=== PATIENT | male | born 1950 | race Caucasian/White ===

== ENCOUNTER → 2016-06-07 | Outpatient (CLI) | payer MEDICARE ==
[2016-06-07 11:47] LABS: HEMOGLOBIN 12.4 g/dL (13.5-17.0); HGB HCT DIFFERENCE 0.2; MEAN CORPUSCULAR HEMOGLOBIN 30.9 pg (27.0-33.4); MEAN CORPUSCULAR HGB CONC 33.5 g/dL (32.0-36.0); MEAN CORPUSCULAR VOLUME 92 fl (80-97); RED BLOOD COUNT 4.02 10^6/uL (4.35-5.55); RED CELL DISTRIBUTION WIDTH 14.1 % (11.5-14.0); WHITE BLOOD COUNT 7.3 10^3/uL (4.0-10.5)
[2016-06-07 11:53] LABS: APPEARANCE,URINE SLIGHTLY-CLOUDY; BILIRUBIN,URINE NEGATIVE (NEGATIVE); GLUCOSE, URINE NEGATIVE (NEGATIVE); KETONES,URINE NEGATIVE (NEGATIVE); LEUKOCYTE ESTERASE,URINE NEGATIVE (NEGATIVE); NITRITE,URINE NEGATIVE (NEGATIVE); PROTEIN,URINE >=500 mg/dL (NEGATIVE); URINE SPECIFIC GRAVITY 1.017; UROBILINOGEN,URINE NEGATIVE mg/dL (<2.0)
[2016-06-07 12:17] LABS: ANION GAP 12 (5-19); BLOOD UREA NITROGEN 25 mg/dL (7-20); CALCIUM 10.1 mg/dL (8.4-10.2); CARBON DIOXIDE 28 mmol/L (22-30); CHLORIDE 104 mmol/L (98-107); CREATININE RESULT 1.37 mg/dL (0.52-1.25); GLUCOSE 152 mg/dL (75-110); SODIUM 144.4 mmol/L (137-145)
[2016-06-08 12:38] LABS: CREATININE URINE 94.4 mg/dL (Not Estab.)
== END ==
LOC: OD 10:55
PROVIDERS: ATTEND Internal Medicine Nephrology
DX: I12.9 Hypertensive chronic kidney disease with stage 1 through stage 4 chronic kidney disease, or unspecified chronic kidney disease (principal); N18.3 Chronic kidney disease, stage 3 (moderate); R80.9 Proteinuria, unspecified; E87.5 Hyperkalemia
CPT/HCPCS: 36415; 80048; 81001; 82570; 84156; 85027

== ENCOUNTER → 2016-07-09 | Outpatient (CLI) | payer MEDICARE ==
[2016-07-09 09:28] LABS: ABSOLUTE EOSINOPHILS # (AUTO) 0.1 10^3/uL (0.0-0.6); ABSOLUTE LYMPHOCYTES (AUTO) 1.9 10^3/uL (0.5-4.7); ABSOLUTE MONOCYTES (AUTO) 0.8 10^3/uL (0.1-1.4); ABSOLUTE NEUT (AUTO) 6.3 10^3/uL (1.7-8.2); BASOPHILS % (AUTO) 0.3 % (0-2); EOSINOPHILS % (AUTO) 1.2 % (0-6); HEMATOCRIT 36.2 % (37.9-51.0); HEMOGLOBIN 12.2 g/dL (13.5-17.0); HGB HCT DIFFERENCE 0.4; LYMPHOCYTES % (AUTO) 20.4 % (13-45); MEAN CORPUSCULAR HEMOGLOBIN 31.3 pg (27.0-33.4); MEAN CORPUSCULAR HGB CONC 33.8 g/dL (32.0-36.0); MEAN CORPUSCULAR VOLUME 93 fl (80-97); MONOCYTES % (AUTO) 9.1 % (3-13); RED CELL DISTRIBUTION WIDTH 13.9 % (11.5-14.0); WHITE BLOOD COUNT 9.1 10^3/uL (4.0-10.5)
[2016-07-09 09:31] LABS: APPEARANCE,URINE CLEAR; BILIRUBIN,URINE NEGATIVE (NEGATIVE); GLUCOSE, URINE NEGATIVE (NEGATIVE); KETONES,URINE NEGATIVE (NEGATIVE); LEUKOCYTE ESTERASE,URINE NEGATIVE (NEGATIVE); NITRITE,URINE NEGATIVE (NEGATIVE); PROTEIN,URINE >=500 mg/dL (NEGATIVE); URINE SPECIFIC GRAVITY 1.015; UROBILINOGEN,URINE NEGATIVE mg/dL (<2.0)
[2016-07-09 09:53] LABS: ALANINE AMINOTRANSFERASE 39 U/L (21-72); ALBUMIN 4.2 g/dL (3.5-5.0); ALKALINE PHOSPHATASE 82 U/L (38-126); ANION GAP 12 (5-19); ASPARTATE AMINO TRANSFERASE 25 U/L (17-59); BILIRUBIN,DIRECT 0.5 mg/dL (0.0-0.4); BILIRUBIN,TOTAL 1.1 mg/dL (0.2-1.3); BLOOD UREA NITROGEN 28 mg/dL (7-20); C-REACTIVE PROTEIN < 5.0 mg/L (<10.0); CALCIUM 9.9 mg/dL (8.4-10.2); CARBON DIOXIDE 27 mmol/L (22-30); CHLORIDE 107 mmol/L (98-107); CREATININE RESULT 1.57 mg/dL (0.52-1.25); GLUCOSE 101 mg/dL (75-110); SODIUM 146.4 mmol/L (137-145); TOTAL PROTEIN 6.8 g/dL (6.3-8.2)
[2016-07-09 10:05] LABS: ERYTHROCYTE SEDIMENTATION RATE 20 mm/hr (0-20)
[2016-07-09 10:08] LABS: BLOOD UREA NITROGEN 28 mg/dL (7-20); CALCIUM 9.9 mg/dL (8.4-10.2); CHLORIDE 107 mmol/L (98-107); CREATININE RESULT 1.57 mg/dL (0.52-1.25); GLUCOSE 101 mg/dL (75-110)
[2016-07-09 10:09] LABS: ANION GAP 12 (5-19); CARBON DIOXIDE 27 mmol/L (22-30); SODIUM 146.4 mmol/L (137-145)
[2016-07-10 11:40] LABS: CREATININE URINE 79.9 mg/dL (Not Estab.)
== END ==
LOC: OD 08:31
PROVIDERS: ATTEND Internal Medicine Nephrology
DX: Z79.52 Long term (current) use of systemic steroids (principal); M35.3 Polymyalgia rheumatica; E78.5 Hyperlipidemia, unspecified; N18.3 Chronic kidney disease, stage 3 (moderate); I12.9 Hypertensive chronic kidney disease with stage 1 through stage 4 chronic kidney disease, or unspecified chronic kidney disease; E11.9 Type 2 diabetes mellitus without complications; E87.5 Hyperkalemia
CPT/HCPCS: 36415; 80048; 80053; 81001; 82570; 84156; 85025; 85652; 86140

== ENCOUNTER → 2017-01-14 | Outpatient (CLI) | payer MEDICARE ==
[2017-01-14 12:23] LABS: HEMATOCRIT 35.5 % (37.9-51.0); HEMOGLOBIN 12.2 g/dL (13.5-17.0); HGB HCT DIFFERENCE 1.1; MEAN CORPUSCULAR HEMOGLOBIN 31.9 pg (27.0-33.4); MEAN CORPUSCULAR HGB CONC 34.4 g/dL (32.0-36.0); MEAN CORPUSCULAR VOLUME 93 fl (80-97); RED BLOOD COUNT 3.83 10^6/uL (4.35-5.55); RED CELL DISTRIBUTION WIDTH 12.6 % (11.5-14.0)
[2017-01-14 12:33] LABS: APPEARANCE,URINE SLIGHTLY-CLOUDY; BILIRUBIN,URINE NEGATIVE (NEGATIVE); GLUCOSE, URINE 50 mg/dL (NEGATIVE); KETONES,URINE NEGATIVE (NEGATIVE); LEUKOCYTE ESTERASE,URINE NEGATIVE (NEGATIVE); NITRITE,URINE NEGATIVE (NEGATIVE); PROTEIN,URINE >=500 mg/dL (NEGATIVE); URINE SPECIFIC GRAVITY 1.024; UROBILINOGEN,URINE NEGATIVE mg/dL (<2.0)
[2017-01-14 12:46] LABS: ANION GAP 13 (5-19); BLOOD UREA NITROGEN 27 mg/dL (7-20); CALCIUM 9.8 mg/dL (8.4-10.2); CARBON DIOXIDE 27 mmol/L (22-30); CHLORIDE 106 mmol/L (98-107); GLUCOSE 171 mg/dL (75-110); POTASSIUM 4.5 mmol/L (3.6-5.0); SODIUM 145.6 mmol/L (137-145)
[2017-01-14 12:48] LABS: URINE CREATININE 148.6 mg/dL (22-328)
[2017-01-14 13:13] LABS: URINE PROTEIN 690.3 mg/dL (<12)
== END ==
LOC: OD 11:05
PROVIDERS: ATTEND Internal Medicine Nephrology
DX: E11.22 Type 2 diabetes mellitus with diabetic chronic kidney disease (principal); I12.9 Hypertensive chronic kidney disease with stage 1 through stage 4 chronic kidney disease, or unspecified chronic kidney disease; N18.3 Chronic kidney disease, stage 3 (moderate); E87.5 Hyperkalemia
CPT/HCPCS: 36415; 80048; 81001; 82570; 84156; 85027

== ENCOUNTER 2017-02-17 13:22 | Observation (INO) | payer MEDICARE ==
[2017-02-17] MEDS ORDERED: NITROGLYCERIN 2% OINTMENT 1 GM PACKET TP ONE (13:40)
[2017-02-17] MEDS ORDERED: ASPIRIN 325 MG TABLET PO ONE (13:40)
--- NOTE | 2017-02-17 13:48 | ER Document Report ---
ED Medical Screen (RME) - General Chief Complaint: Chest Pain Stated Complaint: CHEST PAIN Time Seen by Provider: 02/17/17 13:39 Mode of Arrival: Wheelchair Information source: Patient TRAVEL OUTSIDE OF THE [place] IN LAST 30 DAYS: No - HPI Patient complains to provider of: CP Onset: This morning - pt with prior NH and stents with c/o SSCP starting earlier today. Took ASA last nite and 3 sl ntg (/old) today but pain persisted - Related Data Allergies/Adverse Reactions: acetaminophen [From Vicodin] Allergy (Verified 07/30/13 12:36) codeine [Codeine] Allergy (Verified 07/30/13 12:36) hydrocodone bitartrate [From Vicodin] Allergy (Verified 07/30/13 12:36) Past Medical History - Past Medical History Cardiac Medical History: Reports: Hx Heart Attack - 1991, Hx Hypertension - MEDICATED Pulmonary Medical History: Denies: Hx Asthma Neurological Medical History: Denies: Hx Cerebrovascular Accident, Hx Seizures GI Medical History: Denies: Hx Hepatitis, Hx Hiatal Hernia, Hx Ulcer Infectious Medical History: Denies: Hx Hepatitis Past Surgical History: Denies: Hx Open Heart Surgery, Hx Pacemaker Physical Exam - Vital signs Vitals: Temp Pulse Resp BP Pulse Ox 98.4 F 75 20 167/80 H 96 02/17/17 13:36 02/17/17 13:36 02/17/17 13:36 02/17/17 13:36 02/17/17 13:36 Course - Vital Signs Vital signs: Temp Pulse Resp BP Pulse Ox 98.4 F 75 20 167/80 H 96 02/17/17 13:36 02/17/17 13:36 02/17/17 13:36 02/17/17 13:36 02/17/17 13:36
--- NOTE | 2017-02-17 14:15 | ER Document Report ---
ED Cardiac - General Chief Complaint: Chest Pain Stated Complaint: CHEST PAIN Time Seen by Provider: 02/17/17 13:39 Mode of Arrival: Wheelchair Information source: Patient, Relative TRAVEL OUTSIDE OF THE [place] IN LAST 30 DAYS: No - HPI Patient complains to provider of: Chest pain - Patient is a 66 year old male who presents the emergency department with left sided chest pain just inferior to his heart which started this morning around 630 after the patient woke up. Patient states it is sharp intermittent lasting seconds without radiation. He states he did take 3 sublingual nitros at home but they were old that they did not dissolve or make him feel lightheaded like they normally do. Patient denies any other symptoms with this he does say it gets worse with exertion but this is chronic and he has talked to his doctor in regards to this. Patient states he is also chronically short of breath secondary to tobacco abuse in the past and a history of COPD. Use of: denies: Alcohol, Amphetamines, Bath salts, Caffeine, Cocaine, Decongestants, Other Chest pain location: Under breast Quality of pain: Sharp, Stabbing Chest pain radiation location: None Severity now: Mild Severity at worst: Severe Chest pain precipitating factors: Physical Exertion Cardiac risk factors: Hypertension, + Family history, Hx AR - Patient has had stents placed on 2 occasions. His family thinks the last one was in 2014. His doctors are Dr. Tomas and Dr. Sampson. Exacerbated by: Activity Relieved by: NTG - She states since they put the nitroglycerin patch on him in the triage area he feels improved - Related Data Allergies/Adverse Reactions: codeine [Codeine] Allergy (Verified 07/30/13 12:36) hydrocodone bitartrate [From Vicodin] Allergy (Verified 07/30/13 12:36) Home Medications: Current Home Medications Alendronate Sodium [Fosamax 70 mg Tablet] 70 mg PO .WEEKLY 02/18/17 [History] Amlodipine Besylate [Norvasc 5 mg Tablet] 5 mg PO DAILY 02/18/17 [History] Atorvastatin Calcium [Lipitor 40 mg Tablet] 40 mg PO QHS 02/18/17 [History] B Complex W-C No.20/Folic Acid [Virt-Caps Softgel] 1 cap PO DAILY 02/18/17 [ History] Clopidogrel Bisulfate [Plavix 75 mg Tablet] 75 mg PO DAILY 02/18/17 [History] Donepezil HCl [Aricept] 10 mg PO QHS 02/18/17 [History] Glimepiride [Amaryl] 2 mg PO DAILY 02/18/17 [History] Hydralazine HCl [Apresoline 50 mg Tablet] 50 mg PO Q8 02/18/17 [History] Insulin Glargine,Hum.rec.anlog [Toujeo Solostar] 12 units SQ DAILY 02/18/17 [ History] Isosorbide Mononitrate [Isosorbide Mononitrate ER] 30 mg PO DAILY 02/18/17 [ History] Losartan Potassium [Cozaar 50 mg Tablet] 50 mg PO QHS 02/18/17 [History] Metoprolol Tartrate [Lopressor 25 mg Tablet] 25 mg PO Q12 02/18/17 [History] Omeprazole 20 mg PO Q6AM 02/18/17 [History] Prednisone [Deltasone 5 mg Tablet] 5 mg PO DAILY 02/18/17 [History] Past Medical History - General Information source: Patient, Relative - Social History Smoking Status: Former Smoker Chew tobacco use (# tins/day): No Frequency of alcohol use: None Drug Abuse: None Lives with: Family Family History: Hypertension Patient has suicidal ideation: No Patient has homicidal ideation: No - Past Medical History Cardiac Medical History: Reports: Hx Heart Attack - 1991, Hx Hypertension - MEDICATED Pulmonary Medical History: Reports: None Denies: Hx Asthma EENT Medical History: Reports: None Neurological Medical History: Reports: None. Denies: Hx Cerebrovascular Accident, Hx Seizures Endocrine Medical History: Reports: None Renal/ Medical History: Reports: Hx Renal Insufficiency. Denies: Hx Peritoneal Dialysis Malignancy Medical History: Reports None GI Medical History: Reports: Other - GERD. Denies: Hx Hepatitis, Hx Hiatal Hernia, Hx Ulcer Musculoskeltal Medical History: Reports None Skin Medical History: Reports None Psychiatric Medical History: Reports: None Infectious Medical History: Denies: Hx Hepatitis Past Surgical History: Reports: Hx Coronary Stent. Denies: Hx Open Heart Surgery, Hx Pacemaker Review of Systems - Review of Systems Constitutional: See HPI. denies: No symptoms reported, Chills, Diaphoresis, Fever, Malaise, Weakness, Other, Weight gain, Weight loss, Recent illness EENT: See HPI Cardiovascular: See HPI Respiratory: See HPI Gastrointestinal: No symptoms reported, See HPI Genitourinary: No symptoms reported Musculoskeletal: No symptoms reported Skin: No symptoms reported Hematologic/Lymphatic: No symptoms reported Neurological/Psychological: No symptoms reported Physical Exam - Vital signs Vitals: Temp Pulse Resp BP Pulse Ox 98.4 F 75 20 167/80 H 96 02/17/17 13:36 02/17/17 13:36 02/17/17 13:36 02/17/17 13:36 02/17/17 13:36 - Notes Notes: PHYSICAL EXAMINATION: GENERAL: Well-appearing, well-nourished and in no acute distress. HEAD: Atraumatic, normocephalic. EYES: Pupils equal round and reactive to light, extraocular movements intact, sclera anicteric, conjunctiva are normal. ENT: Nares patent, oropharynx clear without exudates. Moist mucous membranes. NECK: Normal range of motion, supple without lymphadenopathy LUNGS: Breath sounds clear to auscultation bilaterally and equal. No wheezes rales or rhonchi. HEART: Regular rate and rhythm without murmurs ABDOMEN: Soft, nontender, nondistended abdomen. No guarding, no rebound. No masses appreciated. Musculoskeletal: Normal range of motion, no pitting or edema. No cyanosis. NEUROLOGICAL: Cranial nerves grossly intact. Normal speech, normal gait. Normal sensory, motor exams PSYCH: Normal mood, normal affect. SKIN: Warm, Dry, normal turgor, no rashes or lesions noted. Course - Vital Signs Vital signs: Temp Pulse Resp BP Pulse Ox 98.4 F 88 19 167/90 H 99 02/18/17 13:34 02/18/17 13:34 02/18/17 13:34 02/18/17 13:34 02/18/17 13:34 - Laboratory Result Diagrams: 02/18/17 04:56 02/18/17 04:56 Laboratory results interpreted by me: 02/17/17 02/17/17 13:55 13:55 RBC 3.74 L Hgb 12.0 L Hct 34.7 L Seg Neutrophils % 82.9 H Lymphocytes % 9.2 L BUN 28 H Creatinine 1.76 H Est GFR ( Amer) 47 L Est GFR (Non-Af Amer) 39 L Glucose 255 H Direct Bilirubin 0.5 H - EKG Interpretation by Me EKG shows normal: Sinus rhythm - 84 bpm Rate: Normal - Age-indeterminate inferior infarct no acute change compared with EKG 12/15/2012 Rhythm: NSR, PVC's Discharge - Discharge Clinical Impression: Chest pain Condition: Stable Disposition: ADMITTED OBSERVATION Admitting Provider: Hospitalist - [facility] Admitted: Telemetry
[2017-02-17 14:26] LABS: ABSOLUTE EOSINOPHILS # (AUTO) 0.1 10^3/uL (0.0-0.6); ABSOLUTE LYMPHOCYTES (AUTO) 0.8 10^3/uL (0.5-4.7); ABSOLUTE MONOCYTES (AUTO) 0.5 10^3/uL (0.1-1.4); ABSOLUTE NEUT (AUTO) 7.1 10^3/uL (1.7-8.2); BASOPHILS % (AUTO) 0.3 % (0-2); EOSINOPHILS % (AUTO) 1.5 % (0-6); HEMATOCRIT 34.7 % (37.9-51.0); HGB HCT DIFFERENCE 1.3; LYMPHOCYTES % (AUTO) 9.2 % (13-45); MEAN CORPUSCULAR HEMOGLOBIN 32.2 pg (27.0-33.4); MEAN CORPUSCULAR HGB CONC 34.6 g/dL (32.0-36.0); MEAN CORPUSCULAR VOLUME 93 fl (80-97); MONOCYTES % (AUTO) 6.1 % (3-13); RED BLOOD COUNT 3.74 10^6/uL (4.35-5.55); RED CELL DISTRIBUTION WIDTH 12.6 % (11.5-14.0); SEGMENTED NEUTROPHILS % (AUTO) 82.9 % (42-78); WHITE BLOOD COUNT 8.5 10^3/uL (4.0-10.5)
--- NOTE | 2017-02-17 14:34 | RADIOLOGY REPORT (SQ) ---
EXAM DESCRIPTION: CHEST PA/LAT COMPLETED DATE/TIME: 02/17/2017 2:14 pm REASON FOR STUDY: CP COMPARISON: 01/13/2015 EXAM PARAMETERS: NUMBER OF VIEWS: two views TECHNIQUE: Digital Frontal and Lateral radiographic views of the chest acquired. RADIATION DOSE: NA LIMITATIONS: none FINDINGS: LUNGS AND PLEURA: No opacities, masses or pneumothorax. No pleural effusion. MEDIASTINUM AND HILAR STRUCTURES: No masses or contour abnormalities. HEART AND VASCULAR STRUCTURES: Heart normal size. No evidence for failure. BONES: No acute findings. HARDWARE: None in the chest. OTHER: No other significant finding. IMPRESSION: NO SIGNIFICANT RADIOGRAPHIC FINDING IN THE CHEST. TECHNICAL DOCUMENTATION: JOB ID: [id number] [employer]- All Rights Reserved
[2017-02-17 14:54] LABS: ALANINE AMINOTRANSFERASE 36 U/L (21-72); ALBUMIN 4.1 g/dL (3.5-5.0); ALKALINE PHOSPHATASE 106 U/L (38-126); ANION GAP 14 (5-19); ASPARTATE AMINO TRANSFERASE 25 U/L (17-59); BILIRUBIN,DIRECT 0.5 mg/dL (0.0-0.4); BILIRUBIN,TOTAL 0.6 mg/dL (0.2-1.3); BLOOD UREA NITROGEN 28 mg/dL (7-20); CALCIUM 9.5 mg/dL (8.4-10.2); CARBON DIOXIDE 24 mmol/L (22-30); CHLORIDE 106 mmol/L (98-107); CREATINE KINASE 82 U/L (55-170); CREATININE RESULT 1.76 mg/dL (0.52-1.25); GLUCOSE 255 mg/dL (75-110); POTASSIUM 4.5 mmol/L (3.6-5.0); SODIUM 144.4 mmol/L (137-145); TOTAL PROTEIN 6.6 g/dL (6.3-8.2)
[2017-02-17 15:05] LABS: CREATINE KINASE MB 1.37 ng/mL (<4.55)
[2017-02-17 15:10] LABS: TROPONIN I < 0.012 ng/mL
[2017-02-17] MEDS ORDERED: ACETAMINOPHEN 325 MG TABLET PO PRN (15:35)
[2017-02-17] MEDS ORDERED: ONDANSETRON HCL INJ/PF 4 MG/2 ML SDV IV PRN (15:35)
[2017-02-17] MEDS ORDERED: OXYCODONE-ACETAMINOPHEN 5-325 MG TABLET PO PRN (15:35)
[2017-02-17] MEDS ORDERED: NITROGLYCERIN 0.4 MG/TAB 25 TAB/BOTTLE SL PRN (15:43)
[2017-02-17] MEDS ORDERED: LANSOPRAZOLE 30 MG TAB.RAP.DR PO ONE (17:00)
--- NOTE | 2017-02-17 17:43 | EKG REPORT ---
SEVERITY:- ABNORMAL ECG - SINUS RHYTHM VENTRICULAR PREMATURE COMPLEX PROBABLE INFERIOR INFARCT, AGE INDETERMINATE LATERAL LEADS ARE ALSO INVOLVED : Confirmed by: Ashutosh Monaco MD 17-Feb-2017 17:41:48
[2017-02-17] MEDS: NITROGLYCERIN 2% OINTMENT 1 GM PACKET TP SCH ×2 (17:45→23:53)
[2017-02-17] MEDS ORDERED: ATORVASTATIN CALCIUM 80 MG TABLET PO SCH (22:00)
[2017-02-17] MEDS ORDERED: ZOLPIDEM TARTRATE 5 MG TABLET PO PRN (22:00)
[2017-02-17] MEDS: HEPARIN SOD (PORCINE) 5,000 UNIT/ML 1 ML SYRINGE SUBCUT SCH (22:52)
[2017-02-17] MEDS ORDERED: DEXTROSE 50%-WATER 25 GM/50 ML DISP.SYRIN IV PRN ×2 (23:00)
[2017-02-17] MEDS ORDERED: DEXTROSE 40% GEL 15 GM TUBE PO PRN ×2 (23:00)
[2017-02-17] MEDS ORDERED: GLUCAGON,HUMAN RECOMB 1 MG INJ IM PRN (23:00)
[2017-02-17] MEDS ORDERED: INSULIN LISPRO 100 UNIT/ML 3 ML VIAL SUBCUT PRN (23:00)
--- NOTE | 2017-02-17 23:07 | PDOC H&P ---
History of Present Illness Admission Date/PCP: Admission date: 02/17/2017 KIMMY MUHAMMAD PA-C Patient complains of: Chest pain since waking up History of Present Illness: MALINDA CROCKETT is a 66 year old male presents to ED accompanie by complaining of left sided chest pin off and on since 6:00 to 6:30 AM. He took some nitroglycerin sublingual which did not work. Then realized was around one year old. Was able to find another bottle and took some more with some relief. Since pain persisted prompted to come to ED. He had been suffering from similar pain and shortness of breath and was placed on Imdur recently. What really made him concerned was the prolonged duration of the pain. He has a history of diabetes, heart attack x 2. He had a cardiac arrest while undergoing stnt placement during his second heart attack. Patient denies nausea, sweatiness or radiation of pain. Due to presentation and comorbidities our service was contacted and prompted to admit for evaluation. Past Medical History Cardiac Medical History: Reports: Coronary Artery Disease, Myocardial Infarction - 1991, Hyperlipidema, Hypertension - MEDICATED, Other - arrest Pulmonary Medical History: Reports: None Denies: Asthma EENT Medical History: Reports: None Neurological Medical History: Reports: None Denies: Seizures Endocrine Medical History: Reports: Diabetes Mellitus Type 2 Renal/ Medical History: Reports: None, Chronic Kidney Disease Malignancy Medical History: Reports: None GI Medical History: Reports: Gastroesophageal Reflux Disease Denies: Hepatitis, Hiatal Hernia Musculoskeltal Medical History: Reports: None, Other - Polymyalgia rheumatica Skin Medical History: Reports: None Psychiatric Medical History: Reports: None, Dementia Traumatic Medical History: Reports: None Hematology: Denies: Anemia, Sickle Cell Disease Infectious Medical History: Reports: None Past Surgical History Past Surgical History: Reports: Coronary Stent Denies: Pacemaker Social History Information Source: Patient Lives with: Family Smoking Status: Former Smoker Frequency of Alcohol Use: None Drugs: None Hx Prescription Drug Abuse: No - Advance Directive Resuscitation Status: Full Code Family History Family History: Hypertension Parental Family History Reviewed: Yes Children Family History Reviewed: Yes Sibling(s) Family History Reviewed.: Yes Medication/Allergy Home Medications: Alendronate Sodium [Fosamax 70 mg Tablet] 1 tab PO [id number] 07/31/13 Amlodipine Besylate 1 tab PO DAILY 07/31/13 Aspirin [Ecotrin 81 mg EC Tablet] 81 mg PO DAILY 07/31/13 Atorvastatin Calcium [Lipitor 20 mg Tablet] 20 mg PO QHS 07/31/13 B Complex W-C No.20/Folic Acid [Renal Caps Softgel] 1 mg PO AC 07/31/13 Calcium Carb/Vitamin D3/Vit K1 [Calcium + Vit D & K Chew Tab] 1 tab.chew PO DAILY 07/31/13 Donepezil HCl [Aricept 5 mg Tablet] 5 mg PO DAILY 07/31/13 Glimepiride [Amaryl] 2 mg PO DAILY 07/31/13 Hydralazine HCl 50 mg PO DAILY 07/31/13 Omeprazole 20 mg PO DAILY 07/31/13 Prednisone 5 mg PO DAILY 07/31/13 Allergies/Adverse Reactions: codeine [Codeine] Allergy (Verified 07/30/13 12:36) hydrocodone bitartrate [From Vicodin] Allergy (Verified 07/30/13 12:36) Review of Systems Constitutional: ABSENT: headache(s) Eyes: ABSENT: visual disturbances Ears: ABSENT: hearing changes Cardiovascular: PRESENT: chest pain, dyspnea on exertion Respiratory: PRESENT: dyspnea Gastrointestinal: PRESENT: nausea, vomiting Neurological: ABSENT: focal weakness Physical Exam Vital Signs: Temp Pulse Resp BP Pulse Ox 98.4 F 75 16 157/80 H 95 02/17/17 13:36 02/17/17 13:36 02/17/17 15:01 02/17/17 15:01 02/17/17 15:01 Intake & Output 02/16/17 02/17/17 02/18/17 06:59 06:59 06:59 Weight 82.2 kg General appearance: PRESENT: no acute distress, cooperative Head exam: PRESENT: atraumatic, normocephalic Eye exam: PRESENT: conjunctiva pink, EOMI, PERRLA Mouth exam: PRESENT: moist, neck supple Neck exam: PRESENT: full ROM. ABSENT: JVD, tenderness Respiratory exam: PRESENT: clear to auscultation phan. ABSENT: crackles, unlabored Cardiovascular exam: PRESENT: RRR. ABSENT: diastolic murmur, systolic murmur Vascular exam: PRESENT: normal capillary refill GI/Abdominal exam: PRESENT: normal bowel sounds, soft. ABSENT: distended, tenderness Extremities exam: ABSENT: joint swelling, pedal edema Neurological exam: PRESENT: alert, oriented to person, oriented to place, oriented to time Skin exam: PRESENT: normal color Results Laboratory Results: 02/17/17 13:55 02/17/17 13:55 02/17/17 02/17/17 13:55 13:55 WBC 8.5 RBC 3.74 L Hgb 12.0 L Hct 34.7 L MCV 93 MCH 32.2 MCHC 34.6 RDW 12.6 Plt Count 239 Seg Neutrophils % 82.9 H Lymphocytes % 9.2 L Monocytes % 6.1 Eosinophils % 1.5 Basophils % 0.3 Absolute Neutrophils 7.1 Absolute Lymphocytes 0.8 Absolute Monocytes 0.5 Absolute Eosinophils 0.1 Absolute Basophils 0.0 Sodium 144.4 Potassium 4.5 Chloride 106 Carbon Dioxide 24 Anion Gap 14 BUN 28 H Creatinine 1.76 H Est GFR ( Amer) 47 L Est GFR (Non-Af Amer) 39 L Glucose 255 H Calcium 9.5 Total Bilirubin 0.6 AST 25 ALT 36 Alkaline Phosphatase 106 Total Protein 6.6 Albumin 4.1 02/17/17 02/17/17 13:55 13:55 Creatine Kinase 82 CK-MB (CK-2) 1.37 Troponin I < 0.012 Impressions: Chest X-Ray 02/17/17 13:39 IMPRESSION: NO SIGNIFICANT RADIOGRAPHIC FINDING IN THE CHEST. Assessment & Plan - Diagnosis (1) Diabetes Qualifiers: Diabetes mellitus type: type 2 Diabetes mellitus complication status: with kidney complications Is this a current diagnosis for this admission?: Yes Plan: Makes prpense to multivessel disease. To place on lispro sliding scale. Bedside glucose AC/HS (2) Chest pain Is this a current diagnosis for this admission?: Yes Plan: Will trend troponin and if negative to proceed with nuclear stress test. To order nitro paste, lipitor and BASA. (3) HTN (hypertension) Qualifiers: Hypertension type: essential hypertension Qualified Code(s): I10 - Essential (primary) hypertension Is this a current diagnosis for this admission?: Yes Plan: To continue with outpatient regimen (4) CAD (coronary artery disease) Qualifiers: Associated angina: with stable angina Is this a current diagnosis for this admission?: Yes Plan: To request heart cath report (5) Chronic kidney disease, stage 3 Plan: To trend - Time Time Spent: 30 to 50 Minutes Medications reviewed and adjusted accordingly: Yes Anticipated discharge: Home Within: within 24 hours - Inpatient Certification Based on my medical assessment, after consideration of the patient's comorbidities, presenting symptoms, or acuity I expect that the services needed warrant INPATIENT care.: No Medical Necessity: Need For Continuous Telemetry Monitoring
[2017-02-18 05:22] LABS: HEMOGLOBIN 11.7 g/dL (13.5-17.0); HGB HCT DIFFERENCE 1.1; MEAN CORPUSCULAR HEMOGLOBIN 32.1 pg (27.0-33.4); MEAN CORPUSCULAR HGB CONC 34.5 g/dL (32.0-36.0); MEAN CORPUSCULAR VOLUME 93 fl (80-97); RED BLOOD COUNT 3.66 10^6/uL (4.35-5.55); RED CELL DISTRIBUTION WIDTH 12.5 % (11.5-14.0); WHITE BLOOD COUNT 8.3 10^3/uL (4.0-10.5)
[2017-02-18 05:40] LABS: ANION GAP 12 (5-19); BLOOD UREA NITROGEN 24 mg/dL (7-20); CALCIUM 9.5 mg/dL (8.4-10.2); CARBON DIOXIDE 22 mmol/L (22-30); CHLORIDE 112 mmol/L (98-107); CREATININE RESULT 1.42 mg/dL (0.52-1.25); GLUCOSE 104 mg/dL (75-110); MAGNESIUM 1.6 mg/dL (1.6-2.3); POTASSIUM 3.8 mmol/L (3.6-5.0); SODIUM 146.3 mmol/L (137-145)
[2017-02-18] MEDS ORDERED: LANSOPRAZOLE 30 MG TAB.RAP.DR PO SCH (06:00)
[2017-02-18] MEDS: HEPARIN SOD (PORCINE) 5,000 UNIT/ML 1 ML SYRINGE SUBCUT SCH (06:47)
[2017-02-18] MEDS: NITROGLYCERIN 2% OINTMENT 1 GM PACKET TP SCH ×2 (06:47→13:47)
[2017-02-18] MEDS ORDERED: DOCUSATE SODIUM 100 MG CAPSULE PO SCH (10:00)
[2017-02-18] MEDS ORDERED: ASPIRIN 81 MG TABLET, ENT COATED PO SCH (10:00)
[2017-02-18] MEDS ORDERED: PREDNISONE 5 MG TABLET PO SCH (10:00)
[2017-02-18] MEDS ORDERED: REGADENOSON INJ 0.4 MG/5 ML DISP.SYRIN IV ONE (10:41)
[2017-02-18 13:00] VITALS: BP 167/90
--- NOTE | 2017-02-18 14:53 | PDOC DISCHARGE SUMMARY ---
General - Admit/Disc Date/PCP Admission Date/Primary Care Provider: 02/17/17 15:49 KIMMY MUHAMMAD PA-C Discharge Date: 02/18/17 - Discharge Diagnosis (1) Chest pain Is this a current diagnosis for this admission?: Yes (2) Diabetes Is this a current diagnosis for this admission?: Yes (3) HTN (hypertension) Is this a current diagnosis for this admission?: Yes (4) CAD (coronary artery disease) Is this a current diagnosis for this admission?: Yes - Additional Information Resuscitation Status: Full Code Discharge Diet: As Tolerated Discharge Activity: Activity As Tolerated Home Medications: Alendronate Sodium [Fosamax 70 mg Tablet] 70 mg PO .WEEKLY 02/18/17 Amlodipine Besylate [Norvasc 5 mg Tablet] 5 mg PO DAILY 02/18/17 Atorvastatin Calcium [Lipitor 40 mg Tablet] 40 mg PO QHS 02/18/17 B Complex W-C No.20/Folic Acid [Virt-Caps Softgel] 1 cap PO DAILY 02/18/17 Clopidogrel Bisulfate [Plavix 75 mg Tablet] 75 mg PO DAILY 02/18/17 Donepezil HCl [Aricept] 10 mg PO QHS 02/18/17 Glimepiride [Amaryl] 2 mg PO DAILY 02/18/17 Hydralazine HCl [Apresoline 50 mg Tablet] 50 mg PO Q8 02/18/17 Insulin Glargine,Hum.rec.anlog [Toujeo Solostar] 12 units SQ DAILY 02/18/17 Isosorbide Mononitrate [Isosorbide Mononitrate ER] 30 mg PO DAILY 02/18/17 Losartan Potassium [Cozaar 50 mg Tablet] 50 mg PO QHS 02/18/17 Metoprolol Tartrate [Lopressor 25 mg Tablet] 25 mg PO Q12 02/18/17 Omeprazole 20 mg PO Q6AM 02/18/17 Prednisone [Deltasone 5 mg Tablet] 5 mg PO DAILY 02/18/17 History of Present Illness History of Present Illness: MALINDA CROCKETT is a 66 year old male presented to ED accompanied by his complaining of left sided chest pain off and on since 6:00 to 6:30 AM. He took some nitroglycerin sublingual which did not work. Then realized was around one year old. Was able to find another bottle and took some more with some relief. Since pain persisted prompted to come to ED. He had been suffering from similar pain and shortness of breath and was placed on Imdur recently. What really made him concerned was the prolonged duration of the pain. He has a history of diabetes, heart attack x 2. He had a cardiac arrest while undergoing stnt placement during his second heart attack. Due to presentation and co morbidities our service was contacted and prompted to admit for evaluation. Hospital Course Hospital Course: Patient was admitted to telemetry unit. No cardiac dysrhythmias were present. Trend the enough troponin was negative. Chest pain did not recur with treatment rendered. Patient underwent nuclear stress test on the day of discharge which was negative however there were other concerns including cardiomyopathy. Patient and had been advised as to follow-up with his local straight cutter Dr. Smith for further tailoring of his medications according to current nuclear stress test findings. At the time of discharge patient was stable. Physical Exam Vital Signs: Temp Pulse Resp BP Pulse Ox 98.4 F 88 19 167/90 H 99 02/18/17 13:34 02/18/17 13:34 02/18/17 13:34 02/18/17 13:34 02/18/17 13:34 Intake & Output 02/17/17 02/18/17 02/19/17 06:59 06:59 06:59 Intake Total 450 Output Total 300 Balance 150 Weight 82 kg General appearance: PRESENT: no acute distress, cooperative, obese Head exam: PRESENT: atraumatic, normocephalic Eye exam: PRESENT: conjunctiva pink, EOMI, PERRLA Ear exam: PRESENT: normal external ear exam, TM's normal bilaterally Mouth exam: PRESENT: moist, neck supple Neck exam: PRESENT: full ROM. ABSENT: JVD, tenderness Respiratory exam: PRESENT: clear to auscultation phan. ABSENT: chest wall tenderness, crackles, wheezes Cardiovascular exam: PRESENT: RRR. ABSENT: diastolic murmur, systolic murmur Vascular exam: PRESENT: normal capillary refill GI/Abdominal exam: PRESENT: normal bowel sounds, soft. ABSENT: distended, guarding, tenderness Extremities exam: PRESENT: full ROM. ABSENT: joint swelling, pedal edema Neurological exam: PRESENT: alert, awake, oriented to person, oriented to place , oriented to time Psychiatric exam: PRESENT: appropriate affect, normal mood Results Laboratory Results: 12/04/17 04:56 02/18/17 04:56 02/18/17 02/18/17 04:56 04:56 WBC 8.3 RBC 3.66 L Hgb 11.7 L Hct 34.0 L MCV 93 MCH 32.1 MCHC 34.5 RDW 12.5 Plt Count 231 Sodium 146.3 H Potassium 3.8 Chloride 112 H Carbon Dioxide 22 Anion Gap 12 BUN 24 H Creatinine 1.42 H Est GFR ( Amer) > 60 Est GFR (Non-Af Amer) 50 L Glucose 104 Calcium 9.5 Magnesium 1.6 02/17/17 02/17/17 02/18/17 17:09 22:45 04:56 Troponin I < 0.012 0.015 0.034 Impressions: Chest X-Ray 02/17/17 13:39 IMPRESSION: NO SIGNIFICANT RADIOGRAPHIC FINDING IN THE CHEST.
--- NOTE | 2017-02-23 15:18 | DRAGON STRESS TEST REPORT ---
Intravenous Lexiscan Cardiolite stress test using single photon emmision computerized tomography. Date of procedure: 02/18/2017. Ordering Provider: Dr.Mila Tracy Patient' s status: In Patient Indication: Chest pain. Coronary risk factors: Age, diabetes mellitus, and dyslipidemia. Resting EKG: Sinus Rhythm. Left ventricular fascicuular block.No acute changes. Stress EKG: No changes of ischemia. The patient had no chest pain or discomfort and there were no EKG changes. Conclusions: Normal EKG and hemodynamic response to IV Lexiscan. Nuclear data: At rest the patient was given 12.17 millicuries of technetium 99m sestamibi injected intravenously. As per protocol rest non gated SPECT images were obtained. Subsequently the patient was given intravenous Lexiscan at a dose of 0.4 mg in 5 mL intravenously, followed by flush with normal saline. Subsequently the stress dose of 37.0 millicuries of technetium 99m sestamibi was injected intravenously. As per protocol stress gated images were obtained. Nuclear interpretation: Review of images showed there was a perfusion defect in the basal and mid inferior wall. Th areas have decreased motion contraction and thickeningese by gated study. The rest of the The rest of the l segments of the myocardium had normal perfusion at rest, and normal perfusion post stress with IV Lexiscan. segments of the myocardium had normal thickening by gated study. The rest of the segments of the myocardium had moderate global hypokinesis, with left ventricular enlargement, consistent with cardiomyopathy. T. I D. ratio was normal at 1.10. Computer read rest, and stress left ventricular ejection fraction were 40 %, and 36 %, respectively. Conclusion: 1. There is no scintigraphic evidence of Lexiscan induced myocardial ischemia. 2. There is scintigraphic evidence of myocardial infarction/scar involving the basal and mid inferior wall. 3. There is left ventricular enlargement and evidence of cardiomyopathy with moderately reduced LVE F at 36-40%. Recommendations: 1.Aggressive risk factor modification, and treating the underlying co- morbidities. 2. Aggressive treatment of coronary artery disease. 3. Please check echo for LV ejection fraction correlation. [facility]
== END 2017-02-18 13:45 | disposition home or self-care (01) ==
LOC: ER 13:22 → EH 15:49 → 4N 18:39
PROVIDERS: ADMIT Family Medicine; ATTEND Family Medicine
DX: R07.9 Chest pain, unspecified (principal); I25.119 Atherosclerotic heart disease of native coronary artery with unspecified angina pectoris; I12.9 Hypertensive chronic kidney disease with stage 1 through stage 4 chronic kidney disease, or unspecified chronic kidney disease; E11.22 Type 2 diabetes mellitus with diabetic chronic kidney disease; N18.3 Chronic kidney disease, stage 3 (moderate); E78.5 Hyperlipidemia, unspecified; I25.2 Old myocardial infarction; F03.90 Unspecified dementia, unspecified severity, without behavioral disturbance, psychotic disturbance, mood disturbance, and anxiety; M35.3 Polymyalgia rheumatica; R06.09 Other forms of dyspnea; R11.2 Nausea with vomiting, unspecified; Z79.899 Other long term (current) drug therapy; Z86.74 Personal history of sudden cardiac arrest; Z82.49 Family history of ischemic heart disease and other diseases of the circulatory system; Z87.891 Personal history of nicotine dependence; J44.9 Chronic obstructive pulmonary disease, unspecified; Z95.5 Presence of coronary angioplasty implant and graft; Z79.4 Long term (current) use of insulin
CPT/HCPCS: 93005; 99285; 36415 ×2; 82553; 82962; 82550; 83735; 85025; 85027; 80048; 80053; 84484 ×2; 83036; 93017; 71020; 78452; 93010; G0378 ×3; A9500; J2785; A9270 ×7; J3490 ×2; Q9969; J7512

== ENCOUNTER → 2017-07-15 | Outpatient (CLI) | payer MEDICARE ==
[2017-07-15 08:46] LABS: HEMATOCRIT 34.6 % (37.9-51.0); HEMOGLOBIN 11.7 g/dL (13.5-17.0); MEAN CORPUSCULAR HEMOGLOBIN 30.3 pg (27.0-33.4); MEAN CORPUSCULAR HGB CONC 33.9 g/dL (32.0-36.0); MEAN CORPUSCULAR VOLUME 90 fl (80-97); PLATELET COUNT 210 10^3/uL (150-450); RED BLOOD COUNT 3.87 10^6/uL (4.35-5.55); RED CELL DISTRIBUTION WIDTH 14.8 % (11.5-14.0); WHITE BLOOD COUNT 7.6 10^3/uL (4.0-10.5)
[2017-07-15 08:51] LABS: APPEARANCE,URINE CLEAR; BILIRUBIN,URINE NEGATIVE (NEGATIVE); COLOR,URINE YELLOW; GLUCOSE, URINE NEGATIVE (NEGATIVE); KETONES,URINE NEGATIVE (NEGATIVE); LEUKOCYTE ESTERASE,URINE NEGATIVE (NEGATIVE); NITRITE,URINE NEGATIVE (NEGATIVE); PROTEIN,URINE >=500 mg/dL (NEGATIVE); URINE SPECIFIC GRAVITY 1.012; UROBILINOGEN,URINE NEGATIVE mg/dL (<2.0)
[2017-07-15 09:08] LABS: ALANINE AMINOTRANSFERASE 38 U/L (21-72); ALBUMIN 4.2 g/dL (3.5-5.0); ALKALINE PHOSPHATASE 83 U/L (38-126); ASPARTATE AMINO TRANSFERASE 27 U/L (17-59); BILIRUBIN,DIRECT 0.4 mg/dL (0.0-0.4); BILIRUBIN,TOTAL 0.5 mg/dL (0.2-1.3); CHOLESTEROL 141.95 mg/dL (0-200); TOTAL PROTEIN 6.3 g/dL (6.3-8.2); TRIGLYCERIDES 105 mg/dL (<150)
[2017-07-15 09:09] LABS: ANION GAP 13 (5-19); BLOOD UREA NITROGEN 37 mg/dL (7-20); CARBON DIOXIDE 23 mmol/L (22-30); CHLORIDE 112 mmol/L (98-107); GLUCOSE 95 mg/dL (75-110); POTASSIUM 4.3 mmol/L (3.6-5.0); SODIUM 147.6 mmol/L (137-145)
[2017-07-15 09:19] LABS: DIRECT LDL 46 mg/dL (<100)
[2017-07-15 09:20] LABS: UR PRO/CREAT RATIO RESULT 6.3 mg/mg (0.0-0.2); URINE PROTEIN 264.1 mg/dL (<12)
== END ==
LOC: OD 07:47
PROVIDERS: ATTEND Specialist
DX: I12.9 Hypertensive chronic kidney disease with stage 1 through stage 4 chronic kidney disease, or unspecified chronic kidney disease (principal); N18.3 Chronic kidney disease, stage 3 (moderate); E11.9 Type 2 diabetes mellitus without complications; E87.5 Hyperkalemia
CPT/HCPCS: 36415; 80048; 80061; 80076; 81001; 82570; 83036; 84156; 85027

== ENCOUNTER → 2017-08-13 | Outpatient (CLI) | payer MEDICARE ==
[2017-08-13 14:41] LABS: APPEARANCE,URINE CLOUDY; BILIRUBIN,URINE NEGATIVE (NEGATIVE); GLUCOSE, URINE 50 mg/dL (NEGATIVE); KETONES,URINE NEGATIVE (NEGATIVE); LEUKOCYTE ESTERASE,URINE NEGATIVE (NEGATIVE); NITRITE,URINE NEGATIVE (NEGATIVE); PROTEIN,URINE >=500 mg/dL (NEGATIVE); URINE SPECIFIC GRAVITY 1.019; UROBILINOGEN,URINE NEGATIVE mg/dL (<2.0)
[2017-08-13 14:44] LABS: HEMATOCRIT 33.9 % (37.9-51.0); HEMOGLOBIN 11.6 g/dL (13.5-17.0); MEAN CORPUSCULAR HGB CONC 34.2 g/dL (32.0-36.0); MEAN CORPUSCULAR VOLUME 90 fl (80-97); PLATELET COUNT 224 10^3/uL (150-450); RED BLOOD COUNT 3.75 10^6/uL (4.35-5.55); RED CELL DISTRIBUTION WIDTH 14.9 % (11.5-14.0); WHITE BLOOD COUNT 9.4 10^3/uL (4.0-10.5)
[2017-08-13 14:47] LABS: COLOR,URINE YELLOW
[2017-08-13 14:50] LABS: ANION GAP 13 (5-19); BLOOD UREA NITROGEN 37 mg/dL (7-20); CALCIUM 10.1 mg/dL (8.4-10.2); CARBON DIOXIDE 20 mmol/L (22-30); CHLORIDE 110 mmol/L (98-107); GLUCOSE 157 mg/dL (75-110); POTASSIUM 4.8 mmol/L (3.6-5.0)
== END ==
LOC: OD 12:53
PROVIDERS: ATTEND Internal Medicine Nephrology
DX: E11.22 Type 2 diabetes mellitus with diabetic chronic kidney disease (principal); N18.3 Chronic kidney disease, stage 3 (moderate); R80.9 Proteinuria, unspecified
CPT/HCPCS: 36415; 80048; 81001; 85027

== ENCOUNTER → 2017-10-28 | Outpatient (CLI) | payer MEDICARE ==
[2017-10-28 12:07] LABS: HEMATOCRIT 32.6 % (37.9-51.0); HEMOGLOBIN 11.1 g/dL (13.5-17.0); MEAN CORPUSCULAR HGB CONC 34.1 g/dL (32.0-36.0); MEAN CORPUSCULAR VOLUME 91 fl (80-97); PLATELET COUNT 241 10^3/uL (150-450); RED BLOOD COUNT 3.58 10^6/uL (4.35-5.55); RED CELL DISTRIBUTION WIDTH 13.6 % (11.5-14.0); WHITE BLOOD COUNT 9.9 10^3/uL (4.0-10.5)
[2017-10-28 12:20] LABS: APPEARANCE,URINE CLOUDY; BILIRUBIN,URINE NEGATIVE (NEGATIVE); COLOR,URINE AMBER; GLUCOSE, URINE 50 mg/dL (NEGATIVE); KETONES,URINE NEGATIVE (NEGATIVE); LEUKOCYTE ESTERASE,URINE NEGATIVE (NEGATIVE); NITRITE,URINE NEGATIVE (NEGATIVE); PROTEIN,URINE >=500 mg/dL (NEGATIVE); URINE SPECIFIC GRAVITY 1.019; UROBILINOGEN,URINE NEGATIVE mg/dL (<2.0)
[2017-10-28 12:35] LABS: ANION GAP 15 (5-19); BLOOD UREA NITROGEN 44 mg/dL (7-20); CALCIUM 9.8 mg/dL (8.4-10.2); CARBON DIOXIDE 19 mmol/L (22-30); CHLORIDE 111 mmol/L (98-107); GLUCOSE 227 mg/dL (75-110); POTASSIUM 4.7 mmol/L (3.6-5.0); SODIUM 145.4 mmol/L (137-145)
[2017-10-28 12:41] LABS: URINE CREATININE 107.4 mg/dL (22-328)
[2017-10-28 12:49] LABS: UR PRO/CREAT RATIO RESULT 3.9 mg/mg (0.0-0.2); URINE PROTEIN 414.3 mg/dL (<12)
== END ==
LOC: OD 11:00
PROVIDERS: ATTEND Internal Medicine Nephrology
DX: E11.22 Type 2 diabetes mellitus with diabetic chronic kidney disease (principal); I12.9 Hypertensive chronic kidney disease with stage 1 through stage 4 chronic kidney disease, or unspecified chronic kidney disease; N18.3 Chronic kidney disease, stage 3 (moderate); R80.9 Proteinuria, unspecified
CPT/HCPCS: 36415; 80048; 81001; 82570; 84156; 85027

== ENCOUNTER → 2017-11-04 | Outpatient (CLI) | payer MEDICARE | LOC: OD 16:40 | PROVIDERS: ATTEND Internal Medicine Nephrology | DX: E11.22 Type 2 diabetes mellitus with diabetic chronic kidney disease (principal); I12.9 Hypertensive chronic kidney disease with stage 1 through stage 4 chronic kidney disease, or unspecified chronic kidney disease; N18.3 Chronic kidney disease, stage 3 (moderate); R80.9 Proteinuria, unspecified | CPT/HCPCS: 36415; 85652; 86140 ==

== ENCOUNTER → 2017-12-19 | Outpatient (CLI) | payer MEDICARE ==
[2017-12-19 09:24] LABS: ABSOLUTE BASOPHILS # (AUTO) 0.1 10^3/uL (0.0-0.2); ABSOLUTE EOSINOPHILS # (AUTO) 0.2 10^3/uL (0.0-0.6); ABSOLUTE LYMPHOCYTES (AUTO) 1.7 10^3/uL (0.5-4.7); ABSOLUTE MONOCYTES (AUTO) 0.8 10^3/uL (0.1-1.4); ABSOLUTE NEUT (AUTO) 6.3 10^3/uL (1.7-8.2); BASOPHILS % (AUTO) 0.7 % (0-2); EOSINOPHILS % (AUTO) 2.4 % (0-6); HEMATOCRIT 31.2 % (37.9-51.0); HEMOGLOBIN 10.6 g/dL (13.5-17.0); MEAN CORPUSCULAR HEMOGLOBIN 30.7 pg (27.0-33.4); MEAN CORPUSCULAR VOLUME 90 fl (80-97); PLATELET COUNT 263 10^3/uL (150-450); RED BLOOD COUNT 3.46 10^6/uL (4.35-5.55); RED CELL DISTRIBUTION WIDTH 15.4 % (11.5-14.0); SEGMENTED NEUTROPHILS % (AUTO) 68.9 % (42-78); TOTAL CELLS COUNTED % (AUTO) 100 %; WHITE BLOOD COUNT 9.1 10^3/uL (4.0-10.5)
[2017-12-19 10:10] LABS: ERYTHROCYTE SEDIMENTATION RATE 29 mm/hr (0-20)
== END ==
LOC: OD 08:05
PROVIDERS: ATTEND Internal Medicine Rheumatology
DX: M35.3 Polymyalgia rheumatica (principal); M54.5 Low back pain; Z79.899 Other long term (current) drug therapy
CPT/HCPCS: 36415; 85025; 85652; 86140

== ENCOUNTER → 2018-01-27 | Outpatient (CLI) | payer MEDICARE ==
[2018-01-27 12:17] LABS: HEMATOCRIT 33.8 % (37.9-51.0); HEMOGLOBIN 11.4 g/dL (13.5-17.0); MEAN CORPUSCULAR HEMOGLOBIN 30.2 pg (27.0-33.4); MEAN CORPUSCULAR HGB CONC 33.6 g/dL (32.0-36.0); MEAN CORPUSCULAR VOLUME 90 fl (80-97); PLATELET COUNT 229 10^3/uL (150-450); RED BLOOD COUNT 3.77 10^6/uL (4.35-5.55); RED CELL DISTRIBUTION WIDTH 15.8 % (11.5-14.0); WHITE BLOOD COUNT 10.3 10^3/uL (4.0-10.5)
[2018-01-27 12:19] LABS: APPEARANCE,URINE CLEAR; BILIRUBIN,URINE NEGATIVE (NEGATIVE); COLOR,URINE YELLOW; GLUCOSE, URINE 50 mg/dL (NEGATIVE); KETONES,URINE NEGATIVE (NEGATIVE); LEUKOCYTE ESTERASE,URINE NEGATIVE (NEGATIVE); NITRITE,URINE NEGATIVE (NEGATIVE); PROTEIN,URINE >=500 mg/dL (NEGATIVE); URINE SPECIFIC GRAVITY 1.017; UROBILINOGEN,URINE NEGATIVE mg/dL (<2.0)
[2018-01-27 12:43] LABS: ANION GAP 11 (5-19); BLOOD UREA NITROGEN 31 mg/dL (7-20); CALCIUM 9.3 mg/dL (8.4-10.2); CARBON DIOXIDE 23 mmol/L (22-30); CHLORIDE 111 mmol/L (98-107); GLUCOSE 169 mg/dL (75-110); POTASSIUM 4.7 mmol/L (3.6-5.0); SODIUM 144.9 mmol/L (137-145)
[2018-01-27 13:45] LABS: URINE CREATININE 91.7 mg/dL (22-328)
[2018-01-27 13:56] LABS: UR PRO/CREAT RATIO RESULT 5.2 mg/mg (0.0-0.2); URINE PROTEIN 477.7 mg/dL (<12)
== END ==
LOC: OD 11:11
PROVIDERS: ATTEND Internal Medicine Nephrology
DX: I12.9 Hypertensive chronic kidney disease with stage 1 through stage 4 chronic kidney disease, or unspecified chronic kidney disease (principal); E11.22 Type 2 diabetes mellitus with diabetic chronic kidney disease; N18.3 Chronic kidney disease, stage 3 (moderate); R80.9 Proteinuria, unspecified
CPT/HCPCS: 36415; 80048; 81001; 82570; 84156; 85027

== ENCOUNTER → 2018-04-07 | Outpatient (CLI) | payer MEDICARE ==
[2018-04-07 11:13] LABS: ABSOLUTE BASOPHILS # (AUTO) 0.1 10^3/uL (0.0-0.2); ABSOLUTE EOSINOPHILS # (AUTO) 0.2 10^3/uL (0.0-0.6); ABSOLUTE LYMPHOCYTES (AUTO) 1.3 10^3/uL (0.5-4.7); ABSOLUTE MONOCYTES (AUTO) 0.8 10^3/uL (0.1-1.4); ABSOLUTE NEUT (AUTO) 7.1 10^3/uL (1.7-8.2); BASOPHILS % (AUTO) 0.6 % (0-2); EOSINOPHILS % (AUTO) 2.1 % (0-6); HEMATOCRIT 33.5 % (37.9-51.0); HEMOGLOBIN 11.3 g/dL (13.5-17.0); LYMPHOCYTES % (AUTO) 13.4 % (13-45); MEAN CORPUSCULAR HEMOGLOBIN 30.2 pg (27.0-33.4); MEAN CORPUSCULAR HGB CONC 33.8 g/dL (32.0-36.0); MEAN CORPUSCULAR VOLUME 90 fl (80-97); MONOCYTES % (AUTO) 8.4 % (3-13); PLATELET COUNT 243 10^3/uL (150-450); RED BLOOD COUNT 3.74 10^6/uL (4.35-5.55); SEGMENTED NEUTROPHILS % (AUTO) 75.5 % (42-78); TOTAL CELLS COUNTED % (AUTO) 100 %; WHITE BLOOD COUNT 9.4 10^3/uL (4.0-10.5)
[2018-04-07 11:33] LABS: ANION GAP 8 (5-19); BLOOD UREA NITROGEN 40 mg/dL (7-20); CALCIUM 9.8 mg/dL (8.4-10.2); CARBON DIOXIDE 24 mmol/L (22-30); CHLORIDE 108 mmol/L (98-107); GLUCOSE 145 mg/dL (75-110); POTASSIUM 4.3 mmol/L (3.6-5.0); SODIUM 140.3 mmol/L (137-145)
[2018-04-07 11:50] LABS: FREE T3 3.76 pg/mL (2.77-5.27); FREE T4 (FREE THYROXINE) 0.92 ng/dL (0.78-2.19)
[2018-04-07 12:03] LABS: THYROID STIMULATING HORMONE 2.33 uIU/mL (0.47-4.68)
== END ==
LOC: OD 10:26
PROVIDERS: ATTEND Specialist
DX: I25.10 Atherosclerotic heart disease of native coronary artery without angina pectoris (principal); R53.83 Other fatigue; D64.9 Anemia, unspecified
CPT/HCPCS: 36415; 80048; 84439; 84443; 84481; 85025

== ENCOUNTER → 2018-04-16 | Outpatient (CLI) | payer MEDICARE ==
[2018-04-16 11:30] LABS: HEMATOCRIT 31.8 % (37.9-51.0); HEMOGLOBIN 11.1 g/dL (13.5-17.0); MEAN CORPUSCULAR HEMOGLOBIN 31.1 pg (27.0-33.4); MEAN CORPUSCULAR HGB CONC 34.8 g/dL (32.0-36.0); MEAN CORPUSCULAR VOLUME 89 fl (80-97); PLATELET COUNT 251 10^3/uL (150-450); RED BLOOD COUNT 3.56 10^6/uL (4.35-5.55); RED CELL DISTRIBUTION WIDTH 15.5 % (11.5-14.0); WHITE BLOOD COUNT 9.9 10^3/uL (4.0-10.5)
[2018-04-16 11:50] LABS: ANION GAP 11 (5-19); BLOOD UREA NITROGEN 45 mg/dL (7-20); CALCIUM 9.5 mg/dL (8.4-10.2); CARBON DIOXIDE 22 mmol/L (22-30); CHLORIDE 107 mmol/L (98-107); GLUCOSE 143 mg/dL (75-110); POTASSIUM 5.1 mmol/L (3.6-5.0)
== END ==
LOC: OD 10:39
PROVIDERS: ATTEND Internal Medicine Nephrology
DX: E11.22 Type 2 diabetes mellitus with diabetic chronic kidney disease (principal); E87.5 Hyperkalemia; N18.3 Chronic kidney disease, stage 3 (moderate)
CPT/HCPCS: 36415; 80048; 85027

== ENCOUNTER → 2018-04-23 | Outpatient (CLI) | payer MEDICARE ==
[2018-04-23 11:31] LABS: HEMATOCRIT 32.7 % (37.9-51.0); HEMOGLOBIN 11.1 g/dL (13.5-17.0); MEAN CORPUSCULAR HEMOGLOBIN 30.8 pg (27.0-33.4); MEAN CORPUSCULAR VOLUME 91 fl (80-97); PLATELET COUNT 261 10^3/uL (150-450); RED BLOOD COUNT 3.61 10^6/uL (4.35-5.55); WHITE BLOOD COUNT 8.6 10^3/uL (4.0-10.5)
[2018-04-23 11:48] LABS: ANION GAP 10 (5-19); BLOOD UREA NITROGEN 34 mg/dL (7-20); CALCIUM 9.7 mg/dL (8.4-10.2); CARBON DIOXIDE 21 mmol/L (22-30); CHLORIDE 110 mmol/L (98-107); GLUCOSE 217 mg/dL (75-110); PHOSPHORUS 3.8 mg/dL (2.5-4.5); POTASSIUM 5.2 mmol/L (3.6-5.0)
== END ==
LOC: OD 11:08
PROVIDERS: ATTEND Internal Medicine Nephrology
DX: N17.9 Acute kidney failure, unspecified (principal)
CPT/HCPCS: 36415; 80048; 83615; 83970; 84100; 85027

== ENCOUNTER → 2018-08-13 | Outpatient (CLI) | payer MEDICARE ==
[2018-08-13 10:57] LABS: HEMATOCRIT 29.8 % (37.9-51.0); HEMOGLOBIN 9.8 g/dL (13.5-17.0); MEAN CORPUSCULAR HEMOGLOBIN 30.5 pg (27.0-33.4); MEAN CORPUSCULAR VOLUME 92 fl (80-97); PLATELET COUNT 271 10^3/uL (150-450); RED BLOOD COUNT 3.22 10^6/uL (4.35-5.55); RED CELL DISTRIBUTION WIDTH 14.8 % (11.5-14.0); WHITE BLOOD COUNT 8.7 10^3/uL (4.0-10.5)
[2018-08-13 11:01] LABS: APPEARANCE,URINE CLEAR; BILIRUBIN,URINE NEGATIVE (NEGATIVE); COLOR,URINE YELLOW; GLUCOSE, URINE NEGATIVE (NEGATIVE); KETONES,URINE NEGATIVE (NEGATIVE); LEUKOCYTE ESTERASE,URINE NEGATIVE (NEGATIVE); NITRITE,URINE NEGATIVE (NEGATIVE); PROTEIN,URINE >=500 mg/dL (NEGATIVE); URINE SPECIFIC GRAVITY 1.018; UROBILINOGEN,URINE NEGATIVE mg/dL (<2.0)
[2018-08-13 11:25] LABS: ANION GAP 12 (5-19); BLOOD UREA NITROGEN 34 mg/dL (7-20); CALCIUM 10.2 mg/dL (8.4-10.2); CARBON DIOXIDE 19 mmol/L (22-30); CHLORIDE 114 mmol/L (98-107); GLUCOSE 145 mg/dL (75-110); POTASSIUM 5.3 mmol/L (3.6-5.0); SODIUM 145.2 mmol/L (137-145)
[2018-08-13 11:47] LABS: ERYTHROCYTE SEDIMENTATION RATE 48 mm/hr (0-20)
== END ==
LOC: OD 10:17
PROVIDERS: ATTEND Internal Medicine Nephrology
DX: N18.3 Chronic kidney disease, stage 3 (moderate) (principal); R80.9 Proteinuria, unspecified; E87.5 Hyperkalemia; I12.9 Hypertensive chronic kidney disease with stage 1 through stage 4 chronic kidney disease, or unspecified chronic kidney disease
CPT/HCPCS: 36415; 80048; 81001; 85027; 85652

== ENCOUNTER → 2018-09-23 | Outpatient (CLI) | payer MEDICARE ==
[2018-09-23 10:32] LABS: HEMATOCRIT 28.1 % (37.9-51.0); HEMOGLOBIN 9.4 g/dL (13.5-17.0); MEAN CORPUSCULAR HEMOGLOBIN 29.8 pg (27.0-33.4); MEAN CORPUSCULAR HGB CONC 33.5 g/dL (32.0-36.0); MEAN CORPUSCULAR VOLUME 89 fl (80-97); PLATELET COUNT 252 10^3/uL (150-450); RED BLOOD COUNT 3.16 10^6/uL (4.35-5.55); RED CELL DISTRIBUTION WIDTH 15.4 % (11.5-14.0); WHITE BLOOD COUNT 8.7 10^3/uL (4.0-10.5)
[2018-09-23 10:56] LABS: ANION GAP 11 (5-19); BLOOD UREA NITROGEN 51 mg/dL (7-20); CALCIUM 9.6 mg/dL (8.4-10.2); CARBON DIOXIDE 20 mmol/L (22-30); CHLORIDE 113 mmol/L (98-107); GLUCOSE 65 mg/dL (75-110); POTASSIUM 4.8 mmol/L (3.6-5.0); SODIUM 143.6 mmol/L (137-145)
[2018-09-23 11:03] LABS: APPEARANCE,URINE CLEAR; BILIRUBIN,URINE NEGATIVE (NEGATIVE); COLOR,URINE YELLOW; GLUCOSE, URINE NEGATIVE (NEGATIVE); KETONES,URINE NEGATIVE (NEGATIVE); URINE SPECIFIC GRAVITY 1.018
[2018-09-23 11:04] LABS: LEUKOCYTE ESTERASE,URINE NEGATIVE (NEGATIVE); NITRITE,URINE NEGATIVE (NEGATIVE); PROTEIN,URINE >=500 mg/dL (NEGATIVE); UROBILINOGEN,URINE NEGATIVE mg/dL (<2.0)
== END ==
LOC: OD 09:07
PROVIDERS: ATTEND Internal Medicine Nephrology
DX: I12.9 Hypertensive chronic kidney disease with stage 1 through stage 4 chronic kidney disease, or unspecified chronic kidney disease (principal); N18.3 Chronic kidney disease, stage 3 (moderate); D63.1 Anemia in chronic kidney disease
CPT/HCPCS: 36415; 80048; 81001; 85027

== ENCOUNTER 2018-09-27 11:38 | Inpatient (IN) | payer MEDICARE ==
[2018-09-27 12:20] LABS: ABSOLUTE BASOPHILS # (AUTO) 0.1 10^3/uL (0.0-0.2); ABSOLUTE EOSINOPHILS # (AUTO) 0.1 10^3/uL (0.0-0.6); ABSOLUTE LYMPHOCYTES (AUTO) 0.8 10^3/uL (0.5-4.7); ABSOLUTE MONOCYTES (AUTO) 0.9 10^3/uL (0.1-1.4); ABSOLUTE NEUT (AUTO) 8.7 10^3/uL (1.7-8.2); BASOPHILS % (AUTO) 0.8 % (0-2); EOSINOPHILS % (AUTO) 0.7 % (0-6); HEMATOCRIT 26.7 % (37.9-51.0); HEMOGLOBIN 8.8 g/dL (13.5-17.0); LYMPHOCYTES % (AUTO) 7.3 % (13-45); MEAN CORPUSCULAR HEMOGLOBIN 29.6 pg (27.0-33.4); MEAN CORPUSCULAR VOLUME 90 fl (80-97); MONOCYTES % (AUTO) 8.4 % (3-13); PLATELET COUNT 226 10^3/uL (150-450); RED BLOOD COUNT 2.98 10^6/uL (4.35-5.55); RED CELL DISTRIBUTION WIDTH 15.7 % (11.5-14.0); SEGMENTED NEUTROPHILS % (AUTO) 82.8 % (42-78); TOTAL CELLS COUNTED % (AUTO) 100 %; WHITE BLOOD COUNT 10.6 10^3/uL (4.0-10.5)
--- NOTE | 2018-09-27 12:22 | RADIOLOGY REPORT (SQ) ---
EXAM DESCRIPTION: CHEST SINGLE VIEW COMPLETED DATE/TIME: 09/27/2018 12:06 pm REASON FOR STUDY: bed 13 cp COMPARISON: 02/17/2017 EXAM PARAMETERS: NUMBER OF VIEWS: One view. TECHNIQUE: Single frontal radiographic view of the chest acquired. RADIATION DOSE: NA LIMITATIONS: None. FINDINGS: LUNGS AND PLEURA: No opacities, masses or pneumothorax. No pleural effusion. MEDIASTINUM AND HILAR STRUCTURES: No masses. Contour normal. HEART AND VASCULAR STRUCTURES: Heart normal in size. Normal vasculature. BONES: No acute findings. HARDWARE: None in the chest. OTHER: No other significant finding. IMPRESSION: NO ACUTE RADIOGRAPHIC FINDING IN THE CHEST. TECHNICAL DOCUMENTATION: JOB ID: [id number] [employer]- All Rights Reserved Reading location - IP/workstation name: [email or web address]
[2018-09-27 12:38] LABS: ALANINE AMINOTRANSFERASE 26 U/L (21-72); ALBUMIN 3.9 g/dL (3.5-5.0); ALKALINE PHOSPHATASE 73 U/L (38-126); ANION GAP 11 (5-19); ASPARTATE AMINO TRANSFERASE 23 U/L (17-59); BILIRUBIN,DIRECT 0.4 mg/dL (0.0-0.4); BILIRUBIN,TOTAL 0.8 mg/dL (0.2-1.3); BLOOD UREA NITROGEN 40 mg/dL (7-20); CALCIUM 8.9 mg/dL (8.4-10.2); CARBON DIOXIDE 18 mmol/L (22-30); CHLORIDE 114 mmol/L (98-107); CREATINE KINASE 53 U/L (55-170); GLUCOSE 148 mg/dL (75-110); POTASSIUM 4.6 mmol/L (3.6-5.0); SODIUM 142.5 mmol/L (137-145); TOTAL PROTEIN 6.8 g/dL (6.3-8.2)
[2018-09-27 12:49] LABS: CREATINE KINASE MB 1.67 ng/mL (<4.55); TROPONIN I 0.017 ng/mL
--- NOTE | 2018-09-27 14:11 | ER Document Report ---
ED General - General Chief Complaint: Chest Pain Stated Complaint: CHEST PAIN Time Seen by Provider: 09/27/18 13:50 Primary Care Provider: NEHEMIAS MUHAMMAD DO [Primary Care Provider] - Follow up as needed Notes: Patient is a 68 year old male with CAD that presents to the emergency department for chief complaint of chest pain and generalized fatigue. Patient reports he has been having cough, chest pain and generalized weakness. Pain seems to be worse on exertion, described as a substernal and heaviness in the chest, he has also been more restless, he received aspirin prior to ED arrival, and by EMS was given 1 sublingual nitroglycerin, which has relieved his chest pain. He has been more fatigued over the past month, but the chest pain started today. He has a history of PCI with stenting, CAD and COPD, he is a more short of breath recently and worse with exertion as well. He feels like he cannot catch his breath sometimes. He denies any fevers, chills, night sweats, nausea, vomiting, abdominal pain, dysuria or hematuria. He currently states the pain has gone away and denies any pain at this time. Past Medical History: CAD, COPD, hypertension hyperlipidemia Past Surgical History: PCI with stenting Social History: Denies current tobacco, alcohol or drug use. Primary care physician is Dr. Muhammad. Family History: Reviewed and noncontributory for presenting illness Allergies: Reviewed, see documented allergy list. REVIEW OF SYSTEMS: Other than noted above, the 12 point review of systems was reviewed with the patient and were negative, all pertinent findings are included in the HPI. PHYSICAL EXAMINATION: Vital signs reviewed, nursing noted reviewed. GENERAL: Elderly male, mild increased work of breathing HEAD: Atraumatic, normocephalic. EYES: Eyes appear normal, extraocular movements intact, sclera anicteric, conjunctiva are normal. ENT: nares patent, oropharynx clear without exudates. Moist mucous membranes. NECK: Normal range of motion, supple without lymphadenopathy LUNGS: Breath sounds clear to auscultation bilaterally and equal. Tachypnea, mild increased work of breathing, but no abnormal lung sounds. HEART: Regular rate and rhythm without murmurs ABDOMEN: Soft, nontender, normoactive bowel sounds. No rebound, guarding, or rigidity. No masses appreciated. EXTREMITIES: Nontender, good range of motion, no pitting or edema. NEUROLOGICAL: No focal neurological deficits. Moves all extremities spontaneously Motor and sensory grossly intact on exam. PSYCH: Normal mood, normal affect. SKIN: Warm, Dry, normal turgor, no rashes or lesions noted on exposed skin TRAVEL OUTSIDE OF THE [place] IN LAST 30 DAYS: No - Related Data Allergies/Adverse Reactions: codeine [Codeine] Allergy (Verified 07/12/18 16:09) hydrocodone bitartrate [From Vicodin] Allergy (Verified 07/12/18 16:09) Past Medical History - Social History Smoking Status: Never Smoker Family History: Reviewed & Not Pertinent, Hypertension - Past Medical History Cardiac Medical History: Reports: Hx Coronary Artery Disease, Hx Heart Attack - 1991, Hx Hypercholesterolemia, Hx Hypertension - MEDICATED Pulmonary Medical History: Denies: Hx Asthma Neurological Medical History: Denies: Hx Cerebrovascular Accident, Hx Seizures Endocrine Medical History: Reports: Hx Diabetes Mellitus Type 2 Renal/ Medical History: Reports: Hx Renal Insufficiency. Denies: Hx Peritoneal Dialysis GI Medical History: Reports: Hx Gastroesophageal Reflux Disease. Denies: Hx Hepatitis, Hx Hiatal Hernia, Hx Ulcer Psychiatric Medical History: Reports: Hx Dementia Infectious Medical History: Denies: Hx Hepatitis Past Surgical History: Reports: Hx Coronary Stent. Denies: Hx Open Heart Surgery, Hx Pacemaker Physical Exam - Vital signs Vitals: Temp Resp 99.0 F 25 H 09/27/18 11:49 09/27/18 11:49 Course - Re-evaluation Re-evalutation: Patient seen and examined vital signs reviewed. Laboratory data and imaging were ordered as appropriate for the patient's presenting symptoms and complaint, with consideration of any critical or life threatening conditions that may be associated with their obtained history and exam as noted above. Patient given aspirin for chest pain. Results were reviewed when available and demonstrated anemia, seems to be slightly worse than baseline, he does have history of anemia of chronic disease, and is on iron supplement, renal function at his baseline, troponin only slightly elevated, but not positive, 0.017, EKG did not demonstrate any ST elevation or hyperacute T waves, TSH and BNP were added on, his BNP was somewhat elevated, however chest x-ray did not demonstrate any significant pulmonary edema. The patient was re-evaluated and was stable Evaluation was most consistent with chest pain, dyspnea, I do feel the patient needs further work-up, and admission for serial troponin testing and possible ca rdiology evaluation given history and risk factors for ACS. Patient has had a mild decrease in his blood counts, is on iron supplementation for anemia of chronic disease, possibly could be causing some degree of his fatigue, he is on Brilinta, discussed this with the admitting hospitalist as well, but I do not suspect acute GI hemorrhage, as the patient is hemodynamically stable, no tachycardia, normal blood pressure, and his H&H is not terribly off from his most recent blood work. Results were discussed with the patient at this point after careful consideration I feel that that patient should be admitted to the hospital. This was discussed with the patient that it is in the best interest for their care to be admitted for further evaluation and management. Patient agreed with this plan of care. A call was placed to the admitting physician, Dr. Bean who graciously accepted the patient onto their service. *Note is created using voice recognition software and may contain spelling, s yntax or grammatical errors. Laboratory 09/27/18 09/27/18 09/27/18 12:01 12:01 12:01 WBC 10.6 H RBC 2.98 L Hgb 8.8 L Hct 26.7 L MCV 90 MCH 29.6 MCHC 33.0 RDW 15.7 H Plt Count 226 Seg Neutrophils % 82.8 H Lymphocytes % 7.3 L Monocytes % 8.4 Eosinophils % 0.7 Basophils % 0.8 Absolute Neutrophils 8.7 H Absolute Lymphocytes 0.8 Absolute Monocytes 0.9 Absolute Eosinophils 0.1 Absolute Basophils 0.1 Sodium 142.5 Potassium 4.6 Chloride 114 H Carbon Dioxide 18 L Anion Gap 11 BUN 40 H Creatinine 2.00 H Est GFR ( Amer) 40 L Est GFR (Non-Af Amer) 33 L Glucose 148 H Calcium 8.9 Total Bilirubin 0.8 Direct Bilirubin 0.4 Neonat Total Bilirubin Not Reportable Neonat Direct Bilirubin Not Reportable Neonat Indirect Bili Not Reportable AST 23 ALT 26 Alkaline Phosphatase 73 Creatine Kinase 53 L CK-MB (CK-2) 1.67 Troponin I 0.017 NT-Pro-B Natriuret Pep Total Protein 6.8 Albumin 3.9 TSH 09/27/18 09/27/18 12:01 12:01 WBC RBC Hgb Hct MCV MCH MCHC RDW Plt Count Seg Neutrophils % Lymphocytes % Monocytes % Eosinophils % Basophils % Absolute Neutrophils Absolute Lymphocytes Absolute Monocytes Absolute Eosinophils Absolute Basophils Sodium Potassium Chloride Carbon Dioxide Anion Gap BUN Creatinine Est GFR ( Amer) Est GFR (Non-Af Amer) Glucose Calcium Total Bilirubin Direct Bilirubin Neonat Total Bilirubin Neonat Direct Bilirubin Neonat Indirect Bili AST ALT Alkaline Phosphatase Creatine Kinase CK-MB (CK-2) Troponin I NT-Pro-B Natriuret Pep 6300 H Total Protein Albumin TSH 1.65 Chest X-Ray 09/27/18 11:41 IMPRESSION: NO ACUTE RADIOGRAPHIC FINDING IN THE CHEST. 09/27/18 16:03 - Vital Signs Vital signs: Temp Pulse Resp BP Pulse Ox 99.0 F 20 165/86 H 96 09/27/18 11:49 09/27/18 15:01 09/27/18 15:01 09/27/18 15:01 - Laboratory Result Diagrams: 09/27/18 12:01 09/27/18 12:01 Laboratory results interpreted by me: 09/27/18 09/27/18 09/27/18 12:01 12:01 12:01 WBC 10.6 H RBC 2.98 L Hgb 8.8 L Hct 26.7 L RDW 15.7 H Seg Neutrophils % 82.8 H Lymphocytes % 7.3 L Absolute Neutrophils 8.7 H Chloride 114 H Carbon Dioxide 18 L BUN 40 H Creatinine 2.00 H Est GFR ( Amer) 40 L Est GFR (Non-Af Amer) 33 L Glucose 148 H Creatine Kinase 53 L NT-Pro-B Natriuret Pep 6300 H - EKG Interpretation by Me Additional EKG results interpreted by me: EKG demonstrates sinus rhythm with a ventricular rate of 80 bpm, left axis deviation, QTC 471 ms, there is occasional PVC noted, no ST elevation. Discharge - Discharge Clinical Impression: CKD (chronic kidney disease) stage 3, GFR 30-59 ml/min Chest pain Qualifiers: Chest pain type: unspecified Qualified Code(s): R07.9 - Chest pain, unspecified Anemia Qualifiers: Anemia type: unspecified type Qualified Code(s): D64.9 - Anemia, unspecified Condition: Stable Disposition: ADMITTED OBSERVATION Admitting Provider: [place] (Hospitalist) Unit Admitted: Telemetry Referrals: NEHEMIAS MUHAMMAD DO [Primary Care Provider] - Follow up as needed
[2018-09-27] MEDS ORDERED: ASPIRIN 81 MG TABLET, CHEWABLE PO ONE (15:11)
[2018-09-27 16:07] LABS: APPEARANCE,URINE CLEAR; BILIRUBIN,URINE NEGATIVE (NEGATIVE); COLOR,URINE YELLOW; GLUCOSE, URINE 50 mg/dL (NEGATIVE); KETONES,URINE NEGATIVE (NEGATIVE); LEUKOCYTE ESTERASE,URINE NEGATIVE (NEGATIVE); NITRITE,URINE NEGATIVE (NEGATIVE); PROTEIN,URINE >=500 mg/dL (NEGATIVE); URINE SPECIFIC GRAVITY 1.015; UROBILINOGEN,URINE NEGATIVE mg/dL (<2.0)
[2018-09-27] MEDS ORDERED: NITROGLYCERIN 0.4 MG/TAB 25 TAB/BOTTLE SL PRN (16:54)
[2018-09-27] MEDS ORDERED: MORPHINE SULFATE 10 MG/ML INJ ONE (16:56)
[2018-09-27] MEDS ORDERED: NITROGLYCERIN 2% OINTMENT 1 GM PACKET ONE (16:56)
[2018-09-27] MEDS ORDERED: FUROSEMIDE INJ/PF 40 MG/4 ML SDV ONE (16:59)
[2018-09-27] MEDS ORDERED: ACETAMINOPHEN 325 MG TABLET PO PRN (17:04)
--- NOTE | 2018-09-27 17:04 | EKG REPORT ---
SEVERITY:- ABNORMAL ECG - SINUS RHYTHM MULTIPLE VENTRICULAR PREMATURE COMPLEXES PROBABLE INFERIOR INFARCT, OLD : Confirmed by: Evette Peña MD 27-Sep-2018 17:03:58
[2018-09-27] MEDS ORDERED: GLUCAGON,HUMAN RECOMB 1 MG INJ IM PRN (17:11)
[2018-09-27] MEDS ORDERED: DEXTROSE 50%-WATER 25 GM/50 ML DISP.SYRIN IV PRN ×4 (17:11→18:03)
[2018-09-27] MEDS ORDERED: DEXTROSE 40% GEL 15 GM TUBE PO PRN ×4 (17:11→18:03)
[2018-09-27] MEDS ORDERED: MORPHINE SULFATE 10 MG/ML INJ IV ONE (17:22)
[2018-09-27] MEDS ORDERED: NITROGLYCERIN 2% OINTMENT 1 GM PACKET TP ONE (17:22)
[2018-09-27] MEDS ORDERED: FUROSEMIDE INJ/PF 40 MG/4 ML SDV IV ONE (17:22)
[2018-09-27 18:01] LABS: CREATINE KINASE MB 1.71 ng/mL (<4.55); TROPONIN I 0.021 ng/mL
[2018-09-27] MEDS ORDERED: MORPHINE SULFATE 10 MG/ML INJ IV PRN (18:01)
[2018-09-27] MEDS ORDERED: GLUCAGON,HUMAN RECOMB 1 MG INJ SUBCUT PRN (18:03)
[2018-09-27 18:09] LABS: ARTERIAL BLOOD BASE EXCESS -4.9 mmol/L; ARTERIAL BLOOD H2CO3 0.71 mmol/L (1.05-1.35); ARTERIAL BLOOD HCO3 16.7 mmol/L (20-24); ARTERIAL BLOOD O2 SATURATION 92.1 % (94-98); ARTERIAL BLOOD PCO2 23.6 mmHg (35-45); ARTERIAL BLOOD PH 7.47 (7.35-7.45); ARTERIAL BLOOD PO2 57.4 mmHg (80-100); ARTERIAL BLOOD TOTAL CO2 17.4 mmol/L (23-27)
[2018-09-27 18:10] LABS: ARTERIAL BLOOD FIO2 4L
--- NOTE | 2018-09-27 18:33 | PDOC H&P ---
History of Present Illness Admission Date/PCP: 09/27/18 16:21 NEHEMIAS MUHAMMAD DO Patient complains of: chest pain with exertion, orthopnea History of Present Illness: MALINDA PUGA is a 68 year old male with history of coronary artery disease. He has had 2 stents placed in the recent past, he coded while having an RCA stent placed. The patient does with Dr. Peña for cardiology. He has had a stress test in the recent past indicating that he would benefit from a cardiac catheterization which he is not willing to undergo secondary to his history of coding while having the stent placed. tells me that he, for the past 4 weeks, has been more and more fatigued. He is become more dyspneic. He is waking up in the middle of the night very short of breath after having been lying flat. He recovers when sitting upright. Has a dry cough, coughing all through the night at this point. Today his blood pressure was elevated and he was having chest pain and so his brought him to the ER. While in the ER he had acute dyspnea and was found to have crackles on chest exam. He received 40 mg of IV Lasix and 2 mg of morphine for dyspnea. He is now satting in the low 90s on 4 L of nasal cannula oxygen, reporting that both his chest pain and his dyspnea have resolved. He did receive nitro paste, which has now been DC'd, for the chest discomfort. Tone is slightly elevated in the ED, flat with slight downward trend now. He is being admitted to the [facility], Dr. Peña has been consulted. Past Medical History Medical History: Other - Agent orange exposure in [place] Cardiac Medical History: Reports: Coronary Artery Disease, Myocardial Infarction - 1991, Hypertension - MEDICATED, Other Pulmonary Medical History: Denies: Asthma, Chronic Obstructive Pulmonary Disease (COPD) EENT Medical History: Denies: Throat Neurological Medical History: Denies: Ischemic CVA, Seizures Endocrine Medical History: Reports: Diabetes Mellitus Type 2 Endocrine History Note: Polymyalgia rheumatica Renal/ Medical History: Reports: Chronic Kidney Disease Malignancy Medical History: Reports: None GI Medical History: Reports: Gastroesophageal Reflux Disease Denies: Hepatitis, Hiatal Hernia Musculoskeltal Medical History: Reports: None Denies: Fibromyalgia Skin Medical History: Denies: Eczema Psychiatric Medical History: Reports: Dementia Denies: Alcohol Dependency, Substance Abuse, Tobacco Dependency Traumatic Medical History: Denies: Traumatic Brain Injury Hematology: Denies: Anemia, Sickle Cell Disease Infectious Medical History: Reports: None Past Surgical History Past Surgical History: Reports: Coronary Stent Denies: Pacemaker Social History Information Source: Relative Lives with: Family, Spouse/Significant other Smoking Status: Former Smoker Number of Years Smokin Last Time Smoked: 1993 Frequency of Alcohol Use: None Hx Recreational Drug Use: No Drugs: None Hx Prescription Drug Abuse: No Past Social History Note: He drank alcohol as a young man when he was in the [employer]. 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 He just had his 49th anniversary with his who is a hospice nurse. - Advance Directive Resuscitation Status: Full Code Surrogate healthcare decision maker:: His wifeRebecca Puga. [phone] Family History Family History: CAD, Hypertension, Other - Also full siblings and parents with hypertension and coronary artery disease. Father and mother both with co mplications related to [place]. Parental Family History Reviewed: Yes Children Family History Reviewed: Yes Sibling(s) Family History Reviewed.: Yes Medication/Allergy Home Medications: Amlodipine Besylate [Norvasc 5 mg Tablet] 10 mg PO DAILY 02/18/17 B Complex W-C No.20/Folic Acid [Virt-Caps Softgel] 1 cap PO DAILY 02/18/17 Donepezil HCl [Aricept] 10 mg PO QHS 02/18/17 Glimepiride [Amaryl] 2 mg PO DAILY 02/18/17 Hydralazine HCl [Apresoline 50 mg Tablet] 100 mg PO Q8 02/18/17 Isosorbide Mononitrate [Isosorbide Mononitrate ER] 60 mg PO DAILY 02/18/17 Losartan Potassium [Cozaar 50 mg Tablet] 100 mg PO QHS 02/18/17 Omeprazole 20 mg PO Q6AM 02/18/17 Prednisone [Deltasone 5 mg Tablet] 5 mg PO DAILY 02/18/17 Aspirin [Ecotrin 81 mg EC Tablet] 81 mg PO DAILY 09/27/18 Calcium Carbonate/Vitamin D3 [Calcium 500 + Vit D3 400 Tab] 1 each PO TID 09/27/18 Insulin Glargine,Hum.rec.anlog [Basaglar Kwikpen U-100] 12 unit SQ QHS 09/27/18 Metoprolol Succinate [Toprol Xl 50 mg Tab.sr] 50 mg PO DAILY 09/27/18 Sertraline HCl [Zoloft 50 mg Tablet] 100 mg PO DAILY 09/27/18 Ticagrelor [Brilinta 90 mg Tablet] 90 mg PO Q12 09/27/18 Allergies/Adverse Reactions: codeine [Codeine] Allergy (Verified 07/12/18 16:09) hydrocodone bitartrate [From Vicodin] Allergy (Verified 07/12/18 16:09) Review of Systems Constitutional: PRESENT: chills, fatigue, weakness. ABSENT: fever(s), headache(s) Eyes: ABSENT: visual disturbances Ears: ABSENT: hearing changes Nose, Mouth, and Throat: ABSENT: mouth pain Cardiovascular: PRESENT: chest pain, dyspnea on exertion, orthropnea. ABSENT: edema, palpitations Respiratory: PRESENT: cough, dyspnea. ABSENT: hemoptysis, sputum Gastrointestinal: ABSENT: abdominal pain, constipation, nausea, vomiting Genitourinary: ABSENT: difficulty urinating, hematuria Musculoskeletal: ABSENT: back pain, joint swelling, muscle weakness Integumentary: PRESENT: diaphoresis. ABSENT: lesions, pruritus Neurological: PRESENT: abnormal movements, tremor(s). ABSENT: focal weakness, frequent falls Psychiatric: ABSENT: anxiety, depression Endocrine: ABSENT: cold intolerance, heat intolerance Hematologic/Lymphatic: ABSENT: easy bleeding, easy bruising Physical Exam Vital Signs: Temp Pulse Resp BP Pulse Ox 99.0 F 20 170/81 H 96 09/27/18 11:49 09/27/18 16:01 09/27/18 16:01 09/27/18 16:01 Intake & Output 09/26/18 09/27/18 09/28/18 06:59 06:59 06:59 Weight 80.9 kg General appearance: PRESENT: mild distress, obese Head exam: PRESENT: atraumatic, normocephalic Eye exam: ABSENT: scleral icterus Ear exam: PRESENT: normal external ear exam Mouth exam: PRESENT: moist, neck supple Neck exam: ABSENT: lymphadenopathy, tracheostomy Respiratory exam: PRESENT: crackles. ABSENT: accessory muscle use, chest wall tenderness, prolonged expiratory phas, retraction, rhonchi, stridor, tachypnea, wheezes Cardiovascular exam: PRESENT: RRR. ABSENT: systolic murmur Pulses: PRESENT: normal radial pulses GI/Abdominal exam: PRESENT: normal bowel sounds, soft. ABSENT: distended, firm, guarding, tenderness Rectal exam: PRESENT: deferred Gentrourinary exam: PRESENT: other - Condom cath being placed Extremities exam: ABSENT: calf tenderness, joint swelling, pedal edema Musculoskeletal exam: PRESENT: normal inspection Neurological exam: PRESENT: awake, oriented to person, oriented to place, oriented to situation. ABSENT: aphasic Psychiatric exam: PRESENT: other - confused, sleepy. ABSENT: anxious Skin exam: PRESENT: dry, normal color, warm Results Laboratory Results: 09/27/18 12:01 09/27/18 12:01 09/27/18 09/27/18 09/27/18 12:01 12:01 12:01 WBC 10.6 H RBC 2.98 L Hgb 8.8 L Hct 26.7 L MCV 90 MCH 29.6 MCHC 33.0 RDW 15.7 H Plt Count 226 Seg Neutrophils % 82.8 H Lymphocytes % 7.3 L Monocytes % 8.4 Eosinophils % 0.7 Basophils % 0.8 Absolute Neutrophils 8.7 H Absolute Lymphocytes 0.8 Absolute Monocytes 0.9 Absolute Eosinophils 0.1 Absolute Basophils 0.1 Carbonic Acid HCO3/H2CO3 Ratio ABG pH ABG pCO2 ABG pO2 ABG HCO3 ABG O2 Saturation ABG Base Excess FiO2 Sodium 142.5 Potassium 4.6 Chloride 114 H Carbon Dioxide 18 L Anion Gap 11 BUN 40 H Creatinine 2.00 H Est GFR ( Amer) 40 L Est GFR (Non-Af Amer) 33 L Glucose 148 H Calcium 8.9 Total Bilirubin 0.8 AST 23 ALT 26 Alkaline Phosphatase 73 Total Protein 6.8 Albumin 3.9 TSH 1.65 Urine Color Urine Appearance Urine pH Ur Specific [place] Urine Protein Urine Glucose (UA) Urine Ketones Urine Blood Urine Nitrite Ur Leukocyte Esterase Urine WBC (Auto) Urine RBC (Auto) 09/27/18 09/27/18 15:34 17:47 WBC RBC Hgb Hct MCV MCH MCHC RDW Plt Count Seg Neutrophils % Lymphocytes % Monocytes % Eosinophils % Basophils % Absolute Neutrophils Absolute Lymphocytes Absolute Monocytes Absolute Eosinophils Absolute Basophils Carbonic Acid 0.71 L HCO3/H2CO3 Ratio 23:1 ABG pH 7.47 H ABG pCO2 23.6 L ABG pO2 57.4 L ABG HCO3 16.7 L ABG O2 Saturation 92.1 L ABG Base Excess -4.9 FiO2 4L Sodium Potassium Chloride Carbon Dioxide Anion Gap BUN Creatinine Est GFR ( Amer) Est GFR (Non-Af Amer) Glucose Calcium Total Bilirubin AST ALT Alkaline Phosphatase Total Protein Albumin TSH Urine Color YELLOW Urine Appearance CLEAR Urine pH 5.0 Ur Specific [place] 1.015 Urine Protein >=500 H Urine Glucose (UA) 50 H Urine Ketones NEGATIVE Urine Blood NEGATIVE Urine Nitrite NEGATIVE Ur Leukocyte Esterase NEGATIVE Urine WBC (Auto) 0 Urine RBC (Auto) 0 09/27/18 09/27/18 09/27/18 12:01 12:01 12:01 Creatine Kinase 53 L CK-MB (CK-2) 1.67 Troponin I 0.017 NT-Pro-B Natriuret Pep 6300 H 09/27/18 09/27/18 09/27/18 15:48 17:03 17:03 Creatine Kinase 52 L CK-MB (CK-2) 1.71 Troponin I 0.016 0.021 NT-Pro-B Natriuret Pep Impressions: Chest X-Ray 09/27/18 11:41 IMPRESSION: NO ACUTE RADIOGRAPHIC FINDING IN THE CHEST. Assessment and Plan - Diagnosis (1) Orthopnea Is this a current diagnosis for this admission?: Yes Plan: Patient has been having orthopnea for the last few weeks at home. He became acu tely dyspneic in the ER today. Some vascular congestion on his chest x-ray. He got 40 mg of IV Lasix x1 and is now urinating, his shortness of breath is also improved after 2 mg of IV morphine x1. He have new onset heart failure causing the orthopnea. Cardiology has been consulted, he sees Dr. Peña as an outpatient. (2) Acute respiratory failure with hypoxemia Is this a current diagnosis for this admission?: Yes Plan: pt does not use O2 at home, and now on 4L of [place] O2 he is satting 90%. We have not documented a sat lower than 90, nonetheless given the 90% on 4L I am diagnosing him with acute hypoxemic reps failure related to pulmonary edema. We will continue nasal cannula O2 for now. He is being admitted to the [facility]. He is a full code. (3) Chest pain Qualifiers: Chest pain type: unspecified Qualified Code(s): R07.9 - Chest pain, unspe cified Is this a current diagnosis for this admission?: Yes Plan: Troponins not indicating an acute coronary syndrome at this time. EKG is non acute. He does have significant coronary disease has 2 stents placed. He coded while having his RCA stent placed and for this reason he is afraid to undergo cardiac cath. I started his aspirin, Brilinta, antihypertensives. Dr. Peña has recommended doubling his metoprolol XL to 50 twice daily which I have done. Dr. Peña has been consulted. He is currently chest pain-free after receiving short acting nitrates in the ER. His long-acting nitrate has been started. Follow troponins q 6 hrs for now. (4) Chronic kidney disease, stage 3 Is this a current diagnosis for this admission?: Yes Plan: creatinine is 2 at baseline. Nephrology has been consulted to assist with management of the CKD in the setting of possible new onset CHF and need for diuresis. (5) CAD (coronary artery disease) Qualifiers: Associated angina: with stable angina Is this a current diagnosis for this admission?: Yes Plan: Please see chest pain above. His antihypertensives have been started. His aspirin and Brilinta have also been started. He has known CAD. (6) Diabetes Qualifiers: Diabetes mellitus type: type 2 Diabetes mellitus complication status: with kidney complications Is this a current diagnosis for this admission?: Yes Plan: Stage III chronic kidney disease related to hypertension and diabetes. He is n.p.o. for now sliding scale short acting insulin has been started with every 6 hours CBG. (7) HTN (hypertension) Qualifiers: Hypertension type: essential hypertension Qualified Code(s): I10 - Essential (primary) hypertension Is this a current diagnosis for this admission?: Yes Plan: Amlodipine, hydralazine, Arb, long-acting nitrate and metoprolol have all been started at home dosing with the exception of metoprolol having been doubled to 50 twice daily. This is metoprolol XL. - Time Time Spent with patient: 35 or more minutes Medications reviewed and adjusted accordingly: Yes - Inpatient Certification Based on my medical assessment, after consideration of the patient's comorbidities, presenting symptoms, or acuity I expect that the services needed warrant INPATIENT care.: Yes I certify that my determination is in accordance with my understanding of Medicare's requirements for reasonable and necessary INPATIENT services [42 CFR 412.3e].: Yes Medical Necessity: Significant Comorbidiites Make Outpatient Treatment Too Risky, Need Close Monitoring Due to Risk of Patient Decompensation, Need For Continuous Telemetry Monitoring
--- NOTE | 2018-09-27 18:52 | RADIOLOGY REPORT (SQ) ---
EXAM DESCRIPTION: CHEST SINGLE VIEW COMPLETED DATE/TIME: 09/27/2018 5:18 pm REASON FOR STUDY: SOB COMPARISON: 09/27/2018 NUMBER OF VIEWS: One view. TECHNIQUE: Single frontal radiographic view of the chest acquired. LIMITATIONS: None. FINDINGS: LUNGS AND PLEURA: There is bilateral perihilar as well as bilateral interstitial airspace disease. Findings have progressed since the earlier film. MEDIASTINUM AND HILAR STRUCTURES: No masses. Contour normal. HEART AND VASCULAR STRUCTURES: Heart is enlarged with central vascular congestion. BONES: No acute findings. HARDWARE: None in the chest. OTHER: No other significant finding. IMPRESSION: Cardiac enlargement and vascular congestion. This has progressed since prior study. TECHNICAL DOCUMENTATION: JOB ID: [id number] [employer]- All Rights Reserved Reading location - IP/workstation name: [email or web address]
[2018-09-27] MEDS: INSULIN LISPRO 100 UNIT/ML 3 ML VIAL SUBCUT SCH (18:59)
[2018-09-27] MEDS: CALCIUM CARBONATE 250 MG/VITAMIN D3 125 UNIT TABLET PO SCH (21:10)
[2018-09-27] MEDS: METOPROLOL SUCCINATE 50 MG TAB.SR.24H PO SCH (21:11)
[2018-09-27 21:39] LABS: ARTERIAL BLOOD BASE EXCESS -4.6 mmol/L; ARTERIAL BLOOD FIO2 4 L; ARTERIAL BLOOD H2CO3 0.72 mmol/L (1.05-1.35); ARTERIAL BLOOD HCO3 17.6 mmol/L (20-24); ARTERIAL BLOOD PH 7.48 (7.35-7.45); ARTERIAL BLOOD PO2 72.8 mmHg (80-100); ARTERIAL BLOOD TOTAL CO2 18.4 mmol/L (23-27)
[2018-09-27] MEDS: TICAGRELOR 90 MG TABLET PO SCH (22:52)
[2018-09-27] MEDS: LOSARTAN POTASSIUM 50 MG TABLET PO SCH (22:56)
[2018-09-27] MEDS: DONEPEZIL HCL 5 MG TABLET PO SCH (22:56)
[2018-09-27] MEDS: HYDRALAZINE HCL 50 MG TABLET PO SCH (22:56)
[2018-09-28 00:20] LABS: CREATINE KINASE MB 1.29 ng/mL (<4.55); TROPONIN I 0.049 ng/mL
[2018-09-28] MEDS: INSULIN LISPRO 100 UNIT/ML 3 ML VIAL SUBCUT SCH ×5 (00:47→22:15)
[2018-09-28] MEDS: PANTOPRAZOLE SODIUM 20 MG TABLET.DR PO SCH (06:26)
[2018-09-28] MEDS: HYDRALAZINE HCL 50 MG TABLET PO SCH ×3 (06:26→22:18)
[2018-09-28 06:52] LABS: HEMATOCRIT 28.5 % (37.9-51.0); HEMOGLOBIN 9.5 g/dL (13.5-17.0); MEAN CORPUSCULAR HEMOGLOBIN 29.4 pg (27.0-33.4); MEAN CORPUSCULAR HGB CONC 33.3 g/dL (32.0-36.0); MEAN CORPUSCULAR VOLUME 89 fl (80-97); PLATELET COUNT 225 10^3/uL (150-450); RED BLOOD COUNT 3.22 10^6/uL (4.35-5.55); RED CELL DISTRIBUTION WIDTH 16.1 % (11.5-14.0); WHITE BLOOD COUNT 9.5 10^3/uL (4.0-10.5)
[2018-09-28 07:22] LABS: ANION GAP 12 (5-19); BLOOD UREA NITROGEN 42 mg/dL (7-20); CALCIUM 9.5 mg/dL (8.4-10.2); CARBON DIOXIDE 18 mmol/L (22-30); CHLORIDE 111 mmol/L (98-107); CHOLESTEROL 167.48 mg/dL (0-200); CREATINE KINASE 99 U/L (55-170); GLUCOSE 110 mg/dL (75-110); POTASSIUM 4.7 mmol/L (3.6-5.0); SODIUM 140.6 mmol/L (137-145); TRIGLYCERIDES 73 mg/dL (<150)
[2018-09-28 07:32] LABS: DIRECT LDL 73 mg/dL (<100)
[2018-09-28 07:35] LABS: CREATINE KINASE MB 1.19 ng/mL (<4.55); TROPONIN I 0.064 ng/mL
[2018-09-28] MEDS ORDERED: METOPROLOL SUCCINATE 50 MG TAB.SR.24H PO SCH (10:00)
[2018-09-28] MEDS: AMLODIPINE BESYLATE 5 MG TABLET PO SCH (10:47)
[2018-09-28] MEDS: FOLIC ACID/VITAMIN B COMP W-C CAPSULE PO SCH (10:47)
[2018-09-28] MEDS: PREDNISONE 5 MG TABLET PO SCH (10:47)
[2018-09-28] MEDS: ASPIRIN 81 MG TABLET, ENT COATED PO SCH (10:47)
[2018-09-28] MEDS: CALCIUM CARBONATE 250 MG/VITAMIN D3 125 UNIT TABLET PO SCH ×3 (10:47→18:39)
[2018-09-28] MEDS: TICAGRELOR 90 MG TABLET PO SCH ×2 (10:48→22:18)
[2018-09-28] MEDS: SERTRALINE HCL 50 MG TABLET PO SCH (10:48)
[2018-09-28] MEDS: METOPROLOL SUCCINATE 50 MG TAB.SR.24H PO SCH ×2 (10:48→18:39)
[2018-09-28] MEDS: ISOSORBIDE MONONITRATE 30 MG TAB.ER.24H PO SCH (10:48)
[2018-09-28] MEDS ORDERED: LORAZEPAM INJ 2 MG/1 ML VIAL IV PRN (13:04)
[2018-09-28] MEDS ORDERED: LORAZEPAM 1 MG TABLET ONE (14:02)
[2018-09-28] MEDS ORDERED: LORAZEPAM INJ 2 MG/1 ML VIAL ONE (14:06)
--- NOTE | 2018-09-28 17:14 | PDOC PROGRESS REPORT ---
Subjective Progress Note for:: 09/28/18 Subjective:: Patient is feeling significantly better today. He is not back to normal however. He is waking up short of breath and anxious whenever he dozes and so he is not sleeping well. His chest pain has resolved. Nursing is been able to treat the O2 down some. He is still holding his sats in the mid to high 90s. No nausea vomiting, he is feeling hungry. No constipation or diarrhea. He has been making a good amount of urine with a condom cath. Reason For Visit: EXERTIONAL CHEST PAIN Physical Exam Vital Signs: Temp Pulse Resp BP Pulse Ox 99.1 F 65 18 117/68 97 09/28/18 15:53 09/28/18 15:53 09/28/18 15:53 09/28/18 15:53 09/28/18 15:53 Intake & Output 09/27/18 09/28/18 09/29/18 06:59 06:59 06:59 Intake Total 250 Output Total 1900 Balance -1650 Weight 80.6 kg General appearance: PRESENT: no acute distress, well-developed, well-nourished Head exam: PRESENT: atraumatic, normocephalic Eye exam: ABSENT: conjunctival injection, scleral icterus Mouth exam: PRESENT: moist, tongue midline Neck exam: ABSENT: tracheostomy Respiratory exam: PRESENT: decreased breath sounds, rales, unlabored. ABSENT: rhonchi, wheezes Cardiovascular exam: PRESENT: RRR, +S1, +S2 Pulses: PRESENT: normal radial pulses GI/Abdominal exam: PRESENT: normal bowel sounds, soft. ABSENT: distended, tenderness Rectal exam: PRESENT: deferred Gentrourinary exam: PRESENT: other - Cath in place, clear yellow urine in bag. ABSENT: ecchymosis, indwelling catheter Extremities exam: ABSENT: pedal edema Neurological exam: PRESENT: alert, awake, oriented to person, oriented to place, oriented to situation, CN II-XII grossly intact Psychiatric exam: PRESENT: anxious Skin exam: PRESENT: dry, intact, warm Results Laboratory Results: 09/28/18 06:05 09/28/18 06:05 09/27/18 09/27/18 09/28/18 17:47 21:25 06:05 WBC RBC Hgb Hct MCV MCH MCHC RDW Plt Count Carbonic Acid 0.71 L 0.72 L HCO3/H2CO3 Ratio 23:1 24:1 ABG pH 7.47 H 7.48 H ABG pCO2 23.6 L 24.0 L ABG pO2 57.4 L 72.8 L ABG HCO3 16.7 L 17.6 L ABG O2 Saturation 92.1 L 96.0 ABG Base Excess -4.9 -4.6 FiO2 4L 4 L Sodium 140.6 Potassium 4.7 Chloride 111 H Carbon Dioxide 18 L Anion Gap 12 BUN 42 H Creatinine 2.13 H Est GFR ( Amer) 37 L Est GFR (Non-Af Amer) 31 L Glucose 110 Calcium 9.5 Magnesium 1.8 Triglycerides 73 Cholesterol 167.48 LDL Cholesterol Direct 73 VLDL Cholesterol 15.0 HDL Cholesterol 62 09/28/18 06:05 WBC 9.5 RBC 3.22 L Hgb 9.5 L Hct 28.5 L MCV 89 MCH 29.4 MCHC 33.3 RDW 16.1 H Plt Count 225 Carbonic Acid HCO3/H2CO3 Ratio ABG pH ABG pCO2 ABG pO2 ABG HCO3 ABG O2 Saturation ABG Base Excess FiO2 Sodium Potassium Chloride Carbon Dioxide Anion Gap BUN Creatinine Est GFR ( Amer) Est GFR (Non-Af Amer) Glucose Calcium Magnesium Triglycerides Cholesterol LDL Cholesterol Direct VLDL Cholesterol HDL Cholesterol 09/27/18 09/27/18 09/27/18 12:01 12:01 12:01 Creatine Kinase 53 L CK-MB (CK-2) 1.67 Troponin I 0.017 NT-Pro-B Natriuret Pep 6300 H 09/27/18 09/27/18 09/27/18 15:48 17:03 17:03 Creatine Kinase 52 L CK-MB (CK-2) 1.71 Troponin I 0.016 0.021 NT-Pro-B Natriuret Pep 09/27/18 09/27/18 09/28/18 23:15 23:15 06:05 Creatine Kinase 52 L 99 CK-MB (CK-2) 1.29 Troponin I 0.049 NT-Pro-B Natriuret Pep 09/28/18 06:05 Creatine Kinase CK-MB (CK-2) 1.19 Troponin I 0.064 NT-Pro-B Natriuret Pep Impressions: Chest X-Ray 09/27/18 11:41 IMPRESSION: NO ACUTE RADIOGRAPHIC FINDING IN THE CHEST. Assessment and Plan - Diagnosis (1) Orthopnea Is this a current diagnosis for this admission?: Yes Plan: Patient has been having orthopnea for about the last month at home. He has crackles in the bilateral bases, coronary disease, good response to IV Lasix. Dr. Peña is following along and we will see what his echocardiogram shows in terms of possible new heart failure diagnosis. Today he is feeling better in terms of his dyspnea. Given his chronic kidney disease I am not going to give him a dose of Lasix. It has been about 24 hours since he got Lasix 40 mg IV x1 and he still doing well, oxygenation is better. (2) Acute respiratory failure with hypoxemia Is this a current diagnosis for this admission?: Yes Plan: Possibly related to pulmonary edema. Dr. Peña is interested in pursuing study/barium swallow to evaluate for aspiration or reflux complications. (3) Chest pain Qualifiers: Chest pain type: unspecified Qualified Code(s): R07.9 - Chest pain, unspecified Is this a current diagnosis for this admission?: Yes Plan: Chest pain has resolved. We have increased his long-acting nitrate from 30 to 60 milligrams daily. We have also doubled his metoprolol dose. We will c ontinue his other cardiac meds including his Brilinta. Patient is amenable to cardiac cath at this point however his chronic kidney disease complicates the issue. Tomorrow hopefully nephrology can weigh in and discuss this with the hospitalist and the naturopath. Still following his troponins as there is a slow upward trend. (4) Chronic kidney disease, stage 3 Is this a current diagnosis for this admission?: Yes Plan: I have consulted nephrology who follows this patient as an outpatient. This may be prohibitive in terms of his potential for cardiac cath, remains to be seen. Now we will medically manage the patient, and we have increased his long-acting nitrate and his metoprolol at this point. He got 1 dose of Lasix yesterday. (5) CAD (coronary artery disease) Qualifiers: Associated angina: with stable angina Is this a current diagnosis for this admission?: Yes Plan: Please see chest pain above. Of note this patient coded after his stent placement recently and has been reluctant to undergo cardiac cath out of fear. At this point he would be willing to undergo the cath if his doctors agree that the best course of action. (6) Diabetes Qualifiers: Diabetes mellitus type: type 2 Diabetes mellitus complication status: with kidney complications Is this a current diagnosis for this admission?: Yes Plan: Continue current plan, diabetic diet. (7) HTN (hypertension) Qualifiers: Hypertension type: essential hypertension Qualified Code(s): I10 - Essential (primary) hypertension Is this a current diagnosis for this admission?: Yes Plan: Isosorbide has been increased and metoprolol has been increased. Please see above. We have also continued his other antihypertensives. Will monitor blood pressure and you to uptitrate medications if indicated to maintain normotension. (8) Dyspnea Is this a current diagnosis for this admission?: Yes Plan: Patient has multifactorial dyspnea at this point. He is feeling anxious and that makes him feel dyspneic. For this reason I am adding Ativan 0.25 mg IV every 4 hours as needed anxiety and dyspnea. We can uptitrate that medication if the dose is too low. I have also ordered morphine 2 mg IV dosing as needed dyspnea, this dose really helped him in the ER yesterday when he was acutely dyspneic. - Time Time Spent with patient: 25-34 minutes - Inpatient Certification Based on my medical assessment, after consideration of the patient's comorbidities, presenting symptoms, or acuity I expect that the services needed warrant INPATIENT care.: Yes I certify that my determination is in accordance with my understanding of Medicare's requirements for reasonable and necessary INPATIENT services [42 CFR 412.3e].: Yes Medical Necessity: Failure to Improve With Outpatient Therapy, Significant Comorbidiites Make Outpatient Treatment Too Risky, Need Close Monitoring Due to Risk of Patient Decompensation, Need For Continuous Telemetry Monitoring, Risk of Complication if Not Cared For in Hospital
[2018-09-28 18:25] LABS: CREATINE KINASE MB 2.22 ng/mL (<4.55); TROPONIN I 0.045 ng/mL
--- NOTE | 2018-09-28 19:03 | EKG REPORT ---
SEVERITY:- ABNORMAL ECG - SINUS RHYTHM PROBABLE LEFT ATRIAL ABNORMALITY PROBABLE INFERIOR INFARCT, OLD : Confirmed by: Evette Peña MD 28-Sep-2018 19:02:32
[2018-09-28] MEDS: DONEPEZIL HCL 5 MG TABLET PO SCH (22:18)
[2018-09-28] MEDS: LOSARTAN POTASSIUM 50 MG TABLET PO SCH (22:18)
[2018-09-29 00:04] LABS: CREATINE KINASE MB 2.29 ng/mL (<4.55); TROPONIN I 0.038 ng/mL
[2018-09-29 06:00] LABS: HEMATOCRIT 27.8 % (37.9-51.0); HEMOGLOBIN 9.1 g/dL (13.5-17.0); MEAN CORPUSCULAR HGB CONC 32.9 g/dL (32.0-36.0); MEAN CORPUSCULAR VOLUME 88 fl (80-97); PLATELET COUNT 219 10^3/uL (150-450); RED BLOOD COUNT 3.16 10^6/uL (4.35-5.55); RED CELL DISTRIBUTION WIDTH 15.6 % (11.5-14.0); WHITE BLOOD COUNT 8.3 10^3/uL (4.0-10.5)
[2018-09-29 06:24] LABS: ANION GAP 11 (5-19); BLOOD UREA NITROGEN 52 mg/dL (7-20); CALCIUM 9.4 mg/dL (8.4-10.2); CARBON DIOXIDE 17 mmol/L (22-30); CHLORIDE 112 mmol/L (98-107); CREATINE KINASE 185 U/L (55-170); GLUCOSE 127 mg/dL (75-110); POTASSIUM 4.6 mmol/L (3.6-5.0)
[2018-09-29] MEDS: HYDRALAZINE HCL 50 MG TABLET PO SCH ×3 (06:28→22:01)
[2018-09-29] MEDS: PANTOPRAZOLE SODIUM 20 MG TABLET.DR PO SCH (06:28)
[2018-09-29 06:32] LABS: CREATINE KINASE MB 2.04 ng/mL (<4.55); TROPONIN I 0.039 ng/mL
[2018-09-29] MEDS: INSULIN LISPRO 100 UNIT/ML 3 ML VIAL SUBCUT SCH ×4 (08:11→22:01)
[2018-09-29] MEDS: METOPROLOL SUCCINATE 50 MG TAB.SR.24H PO SCH ×2 (10:54→17:59)
[2018-09-29] MEDS: FOLIC ACID/VITAMIN B COMP W-C CAPSULE PO SCH (10:54)
[2018-09-29] MEDS: CALCIUM CARBONATE 250 MG/VITAMIN D3 125 UNIT TABLET PO SCH ×3 (10:54→18:49)
[2018-09-29] MEDS: ASPIRIN 81 MG TABLET, ENT COATED PO SCH (10:54)
[2018-09-29] MEDS: SERTRALINE HCL 50 MG TABLET PO SCH (10:54)
[2018-09-29] MEDS: ISOSORBIDE MONONITRATE 30 MG TAB.ER.24H PO SCH (10:54)
[2018-09-29] MEDS: AMLODIPINE BESYLATE 5 MG TABLET PO SCH (10:54)
[2018-09-29] MEDS: TICAGRELOR 90 MG TABLET PO SCH ×2 (10:55→22:02)
[2018-09-29] MEDS: PREDNISONE 5 MG TABLET PO SCH (10:55)
--- NOTE | 2018-09-29 11:31 | PDOC CONSULTATION ---
Consultation Consult Date: 09/29/18 Provider Consulted: EDWARD FAIR Consult reason:: I was asked to see the patient due to chronic kidney disease. History of Present Illness Admission Date/PCP: 09/27/18 16:21 NEHEMIAS MUHAMMAD DO History of Present Illness: MALINDA CROCKETT is a 68 year old male with history of coronary artery disease status post RCA stent placement complicated by cardiac arrest due to the procedure, chronic kidney disease stage III [address] Moss, hypertension, and diabetes mellitus who was admitted on Saturday, September 27 for chest pain and dyspnea. Patient's is currently at bedside and helps in providing history along with the patient. According to the 5 the patient has been short of breath for a long time but 2 days ago on the day of admission it has just gotten worse to the point that has he was restless and minimal exertion causes severe shortness of breath. He also had chest pain on that day. said that while laying down he would suddenly stop breathing and start gasping for air and when he sits up it gets better. This is consistent with PND and likely orthopnea. Patient's said that the patient has been moaning and groaning last Saturday so he was brought to the emergency room. Initial chest x-ray showed cardiac enlargement and no active disease but a repeat one on the day of admission also showed vascular congestion. Patient was given a dose of Lasix 40 mg IV yesterday. He diuresed well with urine output of 1900 mL and 1255 mL in the last 48 hours. Repeat chest x-ray today showed improved vascular congestion. Seen the patient continues to be very short of breath and minimal exertion a VQ scan was obtained this morning and is currently still pending results. Cardiology consultation with Dr. Peña was also requested. Apparently the patient had sleep study done previously and was found to be negative. The patient has baseline chronic kidney disease stage III with proteinuria being followed by Dr. Moss. Currently has a BUN of 52 and a creatinine of 2.12 with EGFR of 31. On admission he has a BUN of 40, and creatinine of 2.0. For the last few months this year his baseline BUN ranges anywhere between 30s to 40s and baseline creatinine ranges anywhere between 2.0-2.5. Further review of records from last year reveals that the patient's kidney function seems to be slowly progressive with creatinine last year in 2018 ranging between 1.7-1.9. Currently the patient's bicarbonate is also low at 17 without any anion gap. He is also anemic with hemoglobin of 9.1. His urinalysis showed protein greater than or equal to 500 but no blood and negative RBC. The patient's relates that the patient only has 1 functioning kidney and the other one just disappeared. They said he had an imaging study previously but I could not see it here in [facility]. Past Medical History Cardiac Medical History: Reports: Coronary Artery Disease, Hyperlipidemia, Hypertension-primary, Myocardial Infarction - 1991 Endocrine Medical History: Reports: Diabetes Mellitus Type 2 Renal/ Medical History: Reports: Chronic Kidney Disease Stage III, Solitary kidney GI Medical History: Reports: Gastroesophageal Reflux Disease Musculoskeltal Medical History: Reports: Other - Polymyalgia rheumatica followed by Dr. Lion Psychiatric Medical History: Reports: Dementia Past Surgical History Past Surgical History: Reports: Cardiac Catheterization - stents x2, Coronary Stent - RCA complicated by cardiac arrest Social History Information Source: Relative, [facility] Records Lives with: Family, Spouse/Significant other Smoking Status: Former Smoker Number of Years Smokin Last Time Smoked: 1993 Frequency of Alcohol Use: None Hx Recreational Drug Use: No Drugs: None Hx Prescription Drug Abuse: No - Advance Directive Resuscitation Status: Full Code Family History Family History: CAD - Parents and siblings, DM - Brother and grandfather, Hypertension - Parents and so siblings Parental Family History Reviewed: Yes Children Family History Reviewed: Yes Sibling(s) Family History Reviewed.: Yes Medication/Allergy Home Medications: Amlodipine Besylate [Norvasc 5 mg Tablet] 10 mg PO DAILY 02/18/17 B Complex W-C No.20/Folic Acid [Virt-Caps Softgel] 1 cap PO DAILY 02/18/17 Donepezil HCl [Aricept] 10 mg PO QHS 02/18/17 Glimepiride [Amaryl] 2 mg PO DAILY 02/18/17 Hydralazine HCl [Apresoline 50 mg Tablet] 100 mg PO Q8 02/18/17 Isosorbide Mononitrate [Isosorbide Mononitrate ER] 60 mg PO DAILY 02/18/17 Losartan Potassium [Cozaar 50 mg Tablet] 100 mg PO QHS 02/18/17 Omeprazole 20 mg PO Q6AM 02/18/17 Prednisone [Deltasone 5 mg Tablet] 5 mg PO DAILY 02/18/17 Aspirin [Ecotrin 81 mg EC Tablet] 81 mg PO DAILY 09/27/18 Calcium Carbonate/Vitamin D3 [Calcium 500 + Vit D3 400 Tab] 1 each PO TID 09/27/18 Insulin Glargine,Hum.rec.anlog [Basaglar Halieikpen U-100] 12 unit SQ QHS 09/27/18 Metoprolol Succinate [Toprol Xl 50 mg Tab.sr] 50 mg PO DAILY 09/27/18 Sertraline HCl [Zoloft 50 mg Tablet] 100 mg PO DAILY 09/27/18 Ticagrelor [Brilinta 90 mg Tablet] 90 mg PO Q12 09/27/18 Allergies/Adverse Reactions: codeine [Codeine] Allergy (Verified 07/12/18 16:09) hydrocodone bitartrate [From Vicodin] Allergy (Verified 07/12/18 16:09) Review of Systems All systems: reviewed and no additional remarkable complaints except as stated Review of Systems: Constitutional: ABSENT: chills, fatigue, fever(s), headache(s), weight gain, weight loss Eyes: ABSENT: visual disturbances Ears: ABSENT: hearing changes Cardiovascular: ABSENT: Edema, palpitations; admits dyspnea at rest and exertion, chest pains, orthopnea and PND Respiratory: ABSENT: cough, dyspnea, hemoptysis Gastrointestinal: ABSENT: abdominal pain, constipation, diarrhea, hematemesis, hematochezia, nausea, vomiting Genitourinary: ABSENT: dysuria, hematuria Musculoskeletal: ABSENT: joint swelling Integumentary: ABSENT: rash, wounds Neurological: ABSENT: abnormal gait, abnormal speech, confusion, dizziness, f ocal weakness, numbness, syncope Psychiatric: ABSENT: anxiety, depression Endocrine: ABSENT: cold intolerance, heat intolerance, polydipsia, polyuria Hematologic/Lymphatic: ABSENT: easy bleeding, easy bruising, lymphadenopathy Physical Exam Vital Signs: Temp Pulse Resp BP Pulse Ox 97.8 F 68 17 142/57 H 100 09/29/18 07:48 09/29/18 07:48 09/29/18 07:48 09/29/18 07:48 09/29/18 07:48 Intake & Output 09/28/18 09/29/18 09/30/18 06:59 06:59 06:59 Intake Total 250 620 360 Output Total 1900 1255 Balance -1650 -605 360 Weight 80.6 kg 80.6 kg Exam: General appearance: Appears to be slightly restless, no acute distress, cooperative, well-developed, well-nourished Head exam: PRESENT: atraumatic, normocephalic Eye exam: PRESENT: Conjunctiva mildly pale, EOMI, PERRLA. ABSENT: conjunctival injection, scleral icterus Mouth exam: PRESENT: moist, neck supple, tongue midline Neck exam: PRESENT: full ROM. ABSENT: carotid bruit, JVD, lymphadenopathy, thyromegaly Respiratory exam: PRESENT: clear to auscultation bilaterally. ABSENT: rales, rhonchi, stridor, wheezes Cardiovascular exam: PRESENT: RRR, +S1, +S2. ABSENT: systolic murmur Pulses: PRESENT: normal radial pulses, normal dorsalis pedis pulses GI/Abdominal exam: PRESENT: normal bowel sounds, soft. ABSENT: guarding, mass, tenderness Rectal exam: Deferred Extremities exam: PRESENT: full ROM. ABSENT: calf tenderness, pedal edema Musculoskeletal: PRESENT: full ROM. ABSENT: deformity Neurological exam: PRESENT: alert, Awake, Oriented to person, Oriented to place, Oriented to time, reflexes normal, CN II-XII grossly intact. ABSENT: motor sensory deficit Psychiatric exam: PRESENT: appropriate affect, normal mood. ABSENT: homicidal ideation, suicidal ideation Skin exam: PRESENT: intact, dry, warm. ABSENT: rash Results Laboratory Results: 09/29/18 05:18 09/29/18 05:18 09/29/18 09/29/18 05:18 05:18 WBC 8.3 RBC 3.16 L Hgb 9.1 L Hct 27.8 L MCV 88 MCH 29.0 MCHC 32.9 RDW 15.6 H Plt Count 219 Sodium 140.0 Potassium 4.6 Chloride 112 H Carbon Dioxide 17 L Anion Gap 11 BUN 52 H Creatinine 2.12 H Est GFR ( Amer) 38 L Est GFR (Non-Af Amer) 31 L Glucose 127 H Calcium 9.4 Magnesium 2.0 09/27/18 09/27/18 09/27/18 12:01 12:01 12:01 Creatine Kinase 53 L CK-MB (CK-2) 1.67 Troponin I 0.017 NT-Pro-B Natriuret Pep 6300 H 09/27/18 09/27/18 09/27/18 15:48 17:03 17:03 Creatine Kinase 52 L CK-MB (CK-2) 1.71 Troponin I 0.016 0.021 NT-Pro-B Natriuret Pep 09/27/18 09/27/18 09/28/18 23:15 23:15 06:05 Creatine Kinase 52 L 99 CK-MB (CK-2) 1.29 Troponin I 0.049 NT-Pro-B Natriuret Pep 09/28/18 09/28/18 09/28/18 06:05 17:35 17:35 Creatine Kinase 157 CK-MB (CK-2) 1.19 2.22 Troponin I 0.064 0.045 NT-Pro-B Natriuret Pep 09/28/18 09/28/18 09/29/18 23:08 23:08 05:18 Creatine Kinase 189 H 185 H CK-MB (CK-2) 2.29 Troponin I 0.038 NT-Pro-B Natriuret Pep 09/29/18 05:18 Creatine Kinase CK-MB (CK-2) 2.04 Troponin I 0.039 NT-Pro-B Natriuret Pep Assessment & Plan - Diagnosis (1) Dyspnea Qualifiers: Dyspnea type: dyspnea on exertion Qualified Code(s): R06.09 - Other forms of dyspnea Is this a current diagnosis for this admission?: Yes Plan: Exact etiology uncertain although the patient had minimal vascular congestion on chest x-ray on admission which was improved with 1 dose of Lasix yesterday. Chest x-ray today seems improved and clear. Cardiology was consulted care of Dr. Peña. VQ scan was also done to rule out acute PE and results still pending. Patient had history of sleep study and reportedly negative in the past. (2) Chronic kidney disease, stage 3 Is this a current diagnosis for this admission?: Yes Plan: Associated with proteinuria. Currently nonoliguric. Patient is currently at his baseline kidney function. Most likely secondary to diabetic nephropathy in combination with hypertension. Patient and the brought up the question regarding possible cardiac catheterization. Discussed with them the risk for contrast-induced nephropathy and considering that he has 1 solitary kidney by history he is going to be more at rest. He at least has 20 to 40% risk of worsening kidney function to the point of requiring possible dialysis with contrast. However he also explained to the patient and the that if it is deemed necessary for him to get cardiac catheterization for diagnosis and further management of his cardiac issue then that may just be the risk that they have to take to improve the patient's symptoms. They fully understood. We will check the patient's phosphorus, PTH and urine protein to creatinine ratio. We will also confirm the patient's having solitary kidney and will look for records from Dr. Moss and previous imaging study. (3) Metabolic acidosis Is this a current diagnosis for this admission?: Yes Plan: Likely secondary to chronic kidney disease. Start sodium bicarbonate 650 mg p.o. twice daily. (4) Anemia Qualifiers: Anemia type: unspecified type Qualified Code(s): D64.9 - Anemia, unspecified Is this a current diagnosis for this admission?: Yes Plan: We will check iron panel and consider giving the patient iron and Procrit as necessary. Check stool for occult blood. (5) Chest pain Qualifiers: Chest pain type: unspecified Qualified Code(s): R07.9 - Chest pain, unspecified Is this a current diagnosis for this admission?: Yes Plan: Currently improved and resolved. (6) CAD (coronary artery disease) Qualifiers: Associated angina: with stable angina Is this a current diagnosis for this admission?: Yes Plan: Analytics Analyst, Dr. Peña on board. (7) Diabetes mellitus type 2 in nonobese Is this a current diagnosis for this admission?: Yes (8) HTN (hypertension) Qualifiers: Hypertension type: essential hypertension Qualified Code(s): I10 - Essential (primary) hypertension Is this a current diagnosis for this admission?: Yes - Notes Notes: Thank you very much for this consultation. We will follow the patient with you. - Time Time Spent: 50 to 70 Minutes
--- NOTE | 2018-09-29 11:56 | RADIOLOGY REPORT (SQ) ---
EXAM DESCRIPTION: NM LUNG VENT/PERF SCAN COMPLETED DATE/TIME: 09/29/2018 10:21 am REASON FOR STUDY: DYSPNEA, ORTHOPNEA COMPARISON: None. RADIONUCLIDE AND DOSE: 5.4 millicuries TC-99m MAA Intravenous 31.6 millicuries TC-99m DTPA Inhaled aerosol TECHNIQUE: Eight views of the lungs acquired post ventilation of DTPA aerosol. Eight matching views of the lungs acquired following injection of MAA. LIMITATIONS: None. FINDINGS: VENTILATION: Symmetric and homogeneous distribution of DTPA aerosol during ventilatory pha se. No significant areas of photopenia. PERFUSION: Perfusion images with normal homogenous activity and no wedge-shaped or segmental defects. No ventilation-perfusion mismatches. OTHER: No other significant finding. IMPRESSION: Low probability for pulmonary embolus. TECHNICAL DOCUMENTATION: JOB ID: [id number] [employer]- All Rights Reserved Reading location - IP/workstation name: [email or web address]
[2018-09-29 12:14] LABS: ABSOLUTE RETICS # 0.036 10^6/uL (0.028-0.122); RETICULOCYTE COUNT (AUTO) 1.17 % (0.66-2.85)
[2018-09-29] MEDS: SODIUM BICARBONATE 650 MG TABLET PO SCH ×2 (13:11→22:01)
[2018-09-29 13:47] LABS: FOLATE > 20.00 ng/mL (>2.76); IRON(TIBC) < 10.1 ug/dL (49-181)
--- NOTE | 2018-09-29 14:07 | RADIOLOGY REPORT (SQ) ---
EXAM DESCRIPTION: CHEST SINGLE VIEW COMPLETED DATE/TIME: 09/29/2018 8:47 am REASON FOR STUDY: protocol for VQ scan COMPARISON: 09/27/2018 NUMBER OF VIEWS: One view. TECHNIQUE: Single frontal radiographic view of the chest acquired. LIMITATIONS: None. FINDINGS: LUNGS AND PLEURA: No opacities, masses or pneumothorax. No pleural effusion. MEDIASTINUM AND HILAR STRUCTURES: No masses. Contour normal. HEART AND VASCULAR STRUCTURES: Heart enlarged without failure. Normal vasculature. BONES: No acute findings. HARDWARE: None in the chest. OTHER: No other significant finding. IMPRESSION: HEART ENLARGED WITHOUT FAILURE. NO OTHER SIGNIFICANT RADIOGRAPHIC FINDING IN THE CHEST. TECHNICAL DOCUMENTATION: JOB ID: [id number] [employer]- All Rights Reserved Reading location - IP/workstation name: [email or web address]
--- NOTE | 2018-09-29 19:27 | Progress Note Acknowledgement ---
Progress Note Acknowledgement Progess Note Acknowledgement: I, the undersigned member of the medical staff with appropriate privileges and with supervisory authority over Yumiko Olsen, a [facility] practice allied health professional, acknowledge that I have reviewed the progress notes entered on this patient, and in my professional judgment believe that the assessment made and/or any care evidenced was appropriate
[2018-09-29 19:31] LABS: UR PRO/CREAT RATIO RESULT 2.5 mg/mg (0.0-0.2); URINE PROTEIN 303.2 mg/dL (<12)
--- NOTE | 2018-09-29 21:11 | PDOC PROGRESS REPORT ---
Subjective Progress Note for:: 09/29/18 Subjective:: 68-year-old male with a past medical history of CAD, [place], hypertension, followed by Dr. Peña, DM 2, CKD, GERD, and mild dementia who was admitted and mild 09/27/2018 for acute respiratory failure with hypoxia, orthopnea, and chest discomfort. Patient was seen on morning rounds with his present. He was found resting in bed comfortably on supplemental oxygen 3 L/min. He is not home O2 dependent. The patient reports that his symptoms are slightly better today, however, he does continue to have increased dyspnea at rest as compared to his baseline. He does continue to have midsternal chest discomfort without alleviating or aggravating factors. He denies fever, chills, palpitations, orthopnea, abdominal pain, nausea vomiting and diarrhea. He and his have questions regarding further cardiac work-up; suggested Dr. Peña may be planning for cardiac catheterization. Otherwise they have no new questions or concerns today. No concerns per nursing. Reason For Visit: EXERTIONAL CHEST PAIN Physical Exam Vital Signs: Temp Pulse Resp BP Pulse Ox 98.4 F 55 L 16 118/50 L 99 09/29/18 15:35 09/29/18 15:35 09/29/18 15:35 09/29/18 15:35 09/29/18 15:35 Intake & Output 09/28/18 09/29/18 09/30/18 06:59 06:59 06:59 Intake Total 250 620 960 Output Total 1900 1255 Balance -1650 -635 960 Weight 80.6 kg 80.6 kg General appearance: PRESENT: no acute distress, cooperative, well-developed, w ell-nourished - overweight Head exam: PRESENT: atraumatic, normocephalic Eye exam: PRESENT: conjunctiva pink, EOMI, PERRLA. ABSENT: scleral icterus Ear exam: PRESENT: normal external ear exam Mouth exam: PRESENT: moist, tongue midline Neck exam: ABSENT: carotid bruit, JVD, lymphadenopathy, thyromegaly Respiratory exam: PRESENT: clear to auscultation phan, symmetrical, unlabored. ABSENT: rales, rhonchi, wheezes Cardiovascular exam: PRESENT: RRR, +S1, +S2. ABSENT: diastolic murmur, rubs, systolic murmur Pulses: PRESENT: normal dorsalis pedis pul Vascular exam: PRESENT: normal capillary refill GI/Abdominal exam: PRESENT: normal bowel sounds, soft. ABSENT: distended, guarding, mass, organolmegaly, rebound, tenderness Rectal exam: PRESENT: deferred Gentrourinary exam: PRESENT: indwelling catheter Extremities exam: PRESENT: full ROM. ABSENT: calf tenderness, clubbing, pedal edema Neurological exam: PRESENT: alert, awake, oriented to person, oriented to place, oriented to time, oriented to situation, CN II-XII grossly intact. ABSENT: mo tor sensory deficit Psychiatric exam: PRESENT: appropriate affect, normal mood. ABSENT: homicidal ideation, suicidal ideation Skin exam: PRESENT: dry, intact, warm. ABSENT: cyanosis, rash Results Laboratory Results: 09/29/18 05:18 09/29/18 05:18 09/29/18 09/29/18 09/29/18 05:18 05:18 12:00 WBC 8.3 RBC 3.16 L Hgb 9.1 L Hct 27.8 L MCV 88 MCH 29.0 MCHC 32.9 RDW 15.6 H Plt Count 219 Retic Count (auto) 1.17 Absolute Retic 0.036 Sodium 140.0 Potassium 4.6 Chloride 112 H Carbon Dioxide 17 L Anion Gap 11 BUN 52 H Creatinine 2.12 H Est GFR ( Amer) 38 L Est GFR (Non-Af Amer) 31 L Glucose 127 H Calcium 9.4 Phosphorus Magnesium 2.0 Iron TIBC % Saturation Ferritin Vitamin B12 Folate PTH Intact 09/29/18 09/29/18 12:00 12:00 WBC RBC Hgb Hct MCV MCH MCHC RDW Plt Count Retic Count (auto) Absolute Retic Sodium Potassium Chloride Carbon Dioxide Anion Gap BUN Creatinine Est GFR ( Amer) Est GFR (Non-Af Amer) Glucose Calcium Phosphorus 3.0 Magnesium Iron < 10.1 L TIBC 228 L % Saturation UNABLE TO CALCULATE Ferritin 138.00 Vitamin B12 762.0 Folate > 20.00 PTH Intact 103.5 H 09/27/18 09/27/18 09/27/18 12:01 12:01 12:01 Creatine Kinase 53 L CK-MB (CK-2) 1.67 Troponin I 0.017 NT-Pro-B Natriuret Pep 6300 H 09/27/18 09/27/18 09/27/18 15:48 17:03 17:03 Creatine Kinase 52 L CK-MB (CK-2) 1.71 Troponin I 0.016 0.021 NT-Pro-B Natriuret Pep 09/27/18 09/27/18 09/28/18 23:15 23:15 06:05 Creatine Kinase 52 L 99 CK-MB (CK-2) 1.29 Troponin I 0.049 NT-Pro-B Natriuret Pep 09/28/18 09/28/18 09/28/18 06:05 17:35 17:35 Creatine Kinase 157 CK-MB (CK-2) 1.19 2.22 Troponin I 0.064 0.045 NT-Pro-B Natriuret Pep 09/28/18 09/28/18 09/29/18 23:08 23:08 05:18 Creatine Kinase 189 H 185 H CK-MB (CK-2) 2.29 Troponin I 0.038 NT-Pro-B Natriuret Pep 09/29/18 05:18 Creatine Kinase CK-MB (CK-2) 2.04 Troponin I 0.039 NT-Pro-B Natriuret Pep Impressions: Lung Scan-VQ NM 09/28/18 00:00 IMPRESSION: Low probability for pulmonary embolus. Chest X-Ray 09/29/18 00:00 IMPRESSION: HEART ENLARGED WITHOUT FAILURE. NO OTHER SIGNIFICANT RADIOGRAPHIC FINDING IN THE CHEST. Assessment and Plan - Diagnosis (1) Acute respiratory failure with hypoxemia Is this a current diagnosis for this admission?: Yes Plan: Improved; patient was on supplemental oxygen at 3 L/min. However, per nursing, they have been weaning and he has been able to maintain saturations on room air but does have dyspnea and increased anxiety. I believe that his oxygen is currently on for patient comfort. Have asked nursing to continue weaning. He did initially receive IV furosemide for treatment of pulmonary edema. (2) Chest pain Qualifiers: Chest pain type: unspecified Qualified Code(s): R07.9 - Chest pain, unspecified Is this a current diagnosis for this admission?: Yes Plan: Chest pain has resolved. Previous provider discussed the patient's home medication regiment established wall man, Dr. Peña. Imdur has been increased from 30 to 60 mg daily. Metoprolol has been increased. The patient Brilinta, amlodipine, hydralazine, losartan, daily aspirin have all been continued. Discussed patient's case with Dr. Peña again today. Will obtain barium swallow study with follow-through to evaluate for esophageal causes of his chest discomfort. Patient to follow-up with Dr. Peña as an outpatient to arrange for cardiac cath. (3) Orthopnea Is this a current diagnosis for this admission?: Yes Plan: Some improvement. Did initially received IV furosemide. This is been discontinued secondary to renal function. We will continue supplemental oxygen as needed to maintain saturations greater than 90%. Discussed with Dr. Peña further cardiac work-up to be completed as an outpatient following discharge. (4) CAD (coronary artery disease) Qualifiers: Associated angina: with stable angina Is this a current diagnosis for this admission?: Yes Plan: Daily aspirin and Brilinta therapy. Lipid panel is acceptable. Antihypertensives as above. Cardiac diet. Follow-up with Dr. Peña following discharge. (5) Diabetes Qualifiers: Diabetes mellitus type: type 2 Diabetes mellitus complication status: with kidney complications Is this a current diagnosis for this admission?: Yes Plan: Diabetic diet. Sliding scale insulin. Hypoglycemia protocol. Resume outpatient regimen at discharge. (6) HTN (hypertension) Qualifiers: Hypertension type: essential hypertension Qualified Code(s): I10 - Essential (primary) hypertension Is this a current diagnosis for this admission?: Yes Plan: Medications discussed with his established wall man, Dr. Peña. Antihypertensives as above. (7) Anemia Qualifiers: Anemia type: iron deficiency Qualified Code(s): D64.9 - Anemia, unspecified Is this a current diagnosis for this admission?: Yes Plan: Multifactorial; iron deficiency anemia, CKD 3. Anemia panel revealed iron deficiency anemia. Nephrology is consulted; will defer iron infusions and/or erythropoietin to their expertise. No indications of active bleeding at this time. - Time Time Spent with patient: 25-34 minutes Medications reviewed and adjusted accordingly: Yes Anticipated discharge: Home Within: within 24 hours - Pending nephrology's clearance.
[2018-09-29] MEDS: LOSARTAN POTASSIUM 50 MG TABLET PO SCH (22:00)
[2018-09-29] MEDS: DONEPEZIL HCL 5 MG TABLET PO SCH (22:01)
[2018-09-30] MEDS: PANTOPRAZOLE SODIUM 20 MG TABLET.DR PO SCH (05:28)
[2018-09-30] MEDS: HYDRALAZINE HCL 50 MG TABLET PO SCH ×2 (05:29→13:26)
[2018-09-30 06:05] LABS: HEMATOCRIT 25.8 % (37.9-51.0); HEMOGLOBIN 8.6 g/dL (13.5-17.0); MEAN CORPUSCULAR HEMOGLOBIN 29.2 pg (27.0-33.4); MEAN CORPUSCULAR HGB CONC 33.3 g/dL (32.0-36.0); MEAN CORPUSCULAR VOLUME 88 fl (80-97); PLATELET COUNT 227 10^3/uL (150-450); RED BLOOD COUNT 2.94 10^6/uL (4.35-5.55); RED CELL DISTRIBUTION WIDTH 15.8 % (11.5-14.0); WHITE BLOOD COUNT 7.7 10^3/uL (4.0-10.5)
[2018-09-30 06:12] LABS: ANION GAP 12 (5-19); BLOOD UREA NITROGEN 56 mg/dL (7-20); CALCIUM 9.3 mg/dL (8.4-10.2); CARBON DIOXIDE 18 mmol/L (22-30); CHLORIDE 111 mmol/L (98-107); GLUCOSE 180 mg/dL (75-110); SODIUM 140.6 mmol/L (137-145)
[2018-09-30 07:03] LABS: ARTERIAL BLOOD BASE EXCESS -6.5 mmol/L; ARTERIAL BLOOD H2CO3 0.79 mmol/L (1.05-1.35); ARTERIAL BLOOD HCO3 16.9 mmol/L (20-24); ARTERIAL BLOOD O2 SATURATION 96.8 % (94-98); ARTERIAL BLOOD PCO2 26.2 mmHg (35-45); ARTERIAL BLOOD PH 7.43 (7.35-7.45); ARTERIAL BLOOD PO2 84.3 mmHg (80-100); ARTERIAL BLOOD TOTAL CO2 17.7 mmol/L (23-27)
[2018-09-30 07:09] LABS: ARTERIAL BLOOD FIO2 ROOM AIR
[2018-09-30] MEDS: INSULIN LISPRO 100 UNIT/ML 3 ML VIAL SUBCUT SCH ×2 (07:53→12:11)
[2018-09-30] MEDS: SODIUM BICARBONATE 650 MG TABLET PO SCH (09:16)
[2018-09-30] MEDS: AMLODIPINE BESYLATE 5 MG TABLET PO SCH (09:16)
[2018-09-30] MEDS: TICAGRELOR 90 MG TABLET PO SCH (09:17)
[2018-09-30] MEDS: METOPROLOL SUCCINATE 50 MG TAB.SR.24H PO SCH (09:17)
[2018-09-30] MEDS: SERTRALINE HCL 50 MG TABLET PO SCH (09:17)
[2018-09-30] MEDS: FOLIC ACID/VITAMIN B COMP W-C CAPSULE PO SCH (09:17)
[2018-09-30] MEDS: PREDNISONE 5 MG TABLET PO SCH (09:17)
[2018-09-30] MEDS: ASPIRIN 81 MG TABLET, ENT COATED PO SCH (09:18)
[2018-09-30] MEDS: CALCIUM CARBONATE 250 MG/VITAMIN D3 125 UNIT TABLET PO SCH ×2 (09:18→13:30)
[2018-09-30] MEDS: ISOSORBIDE MONONITRATE 30 MG TAB.ER.24H PO SCH (09:18)
--- NOTE | 2018-09-30 11:01 | PDOC PROGRESS REPORT ---
Subjective Progress Note for:: 09/30/18 Subjective:: Patient looks comfortable and calm today without any respiratory distress. His VQ scan is low probability. He is not on CHF exacerbation. He admits feeling better today. I mentioned the possibility of panic attacks in both him and his actually agreed that that might be a component of this episodes. Advised him to further follow-up with his primary care provider for this. Reason For Visit: EXERTIONAL CHEST PAIN Physical Exam Vital Signs: Temp Pulse Resp BP Pulse Ox 98.7 F 50 L 17 131/53 H 100 09/30/18 07:57 09/30/18 07:57 09/30/18 07:57 09/30/18 07:57 09/30/18 07:57 Intake & Output 09/29/18 09/30/18 10/01/18 06:59 06:59 06:59 Intake Total 620 1320 240 Output Total 1255 675 Balance -635 645 240 Weight 80.6 kg 80.9 kg Exam: General appearance: PRESENT: no acute distress, cooperative, well-developed, well-nourished Head exam: PRESENT: atraumatic, normocephalic Eye exam: PRESENT: conjunctiva pale, PERRLA. ABSENT: scleral icterus Neck exam: ABSENT: JVD Respiratory exam: PRESENT: Normal breath sounds. ABSENT: crackles, rales, rhonchi, unlabored, wheezes Cardiovascular exam: PRESENT: Regular rate rhythm -+S1, +S2. ABSENT: diastolic murmur, systolic murmur GI/Abdominal exam: PRESENT: normal bowel sounds, soft. ABSENT: guarding, mass, tenderness Extremities exam: ABSENT: No edema Neurological exam: PRESENT: alert, awake, oriented to person, place and time. Skin exam: PRESENT: dry, warm, Results Laboratory Results: 09/30/18 05:23 09/30/18 05:23 09/29/18 09/29/18 09/29/18 12:00 12:00 12:00 WBC RBC Hgb Hct MCV MCH MCHC RDW Plt Count Retic Count (auto) 1.17 Absolute Retic 0.036 Carbonic Acid HCO3/H2CO3 Ratio ABG pH ABG pCO2 ABG pO2 ABG HCO3 ABG O2 Saturation ABG Base Excess FiO2 Sodium Potassium Chloride Carbon Dioxide Anion Gap BUN Creatinine Est GFR ( Amer) Est GFR (Non-Af Amer) Glucose Calcium Phosphorus 3.0 Magnesium Iron < 10.1 L TIBC 228 L % Saturation UNABLE TO CALCULATE Ferritin 138.00 Vitamin B12 762.0 Folate > 20.00 PTH Intact 103.5 H Stool Occult Blood 09/30/18 09/30/18 09/30/18 05:23 05:23 06:30 WBC 7.7 RBC 2.94 L Hgb 8.6 L Hct 25.8 L MCV 88 MCH 29.2 MCHC 33.3 RDW 15.8 H Plt Count 227 Retic Count (auto) Absolute Retic Carbonic Acid 0.79 L HCO3/H2CO3 Ratio 21:1 ABG pH 7.43 ABG pCO2 26.2 L ABG pO2 84.3 ABG HCO3 16.9 L ABG O2 Saturation 96.8 ABG Base Excess -6.5 FiO2 ROOM AIR Sodium 140.6 Potassium 5.0 Chloride 111 H Carbon Dioxide 18 L Anion Gap 12 BUN 56 H Creatinine 2.18 H Est GFR ( Amer) 36 L Est GFR (Non-Af Amer) 30 L Glucose 180 H Calcium 9.3 Phosphorus Magnesium 1.9 Iron TIBC % Saturation Ferritin Vitamin B12 Folate PTH Intact Stool Occult Blood 09/30/18 07:43 WBC RBC Hgb Hct MCV MCH MCHC RDW Plt Count Retic Count (auto) Absolute Retic Carbonic Acid HCO3/H2CO3 Ratio ABG pH ABG pCO2 ABG pO2 ABG HCO3 ABG O2 Saturation ABG Base Excess FiO2 Sodium Potassium Chloride Carbon Dioxide Anion Gap BUN Creatinine Est GFR ( Amer) Est GFR (Non-Af Amer) Glucose Calcium Phosphorus Magnesium Iron TIBC % Saturation Ferritin Vitamin B12 Folate PTH Intact Stool Occult Blood NEGATIVE 09/27/18 09/27/18 09/27/18 12:01 12:01 12:01 Creatine Kinase 53 L CK-MB (CK-2) 1.67 Troponin I 0.017 NT-Pro-B Natriuret Pep 6300 H 09/27/18 09/27/18 09/27/18 15:48 17:03 17:03 Creatine Kinase 52 L CK-MB (CK-2) 1.71 Troponin I 0.016 0.021 NT-Pro-B Natriuret Pep 09/27/18 09/27/18 09/28/18 23:15 23:15 06:05 Creatine Kinase 52 L 99 CK-MB (CK-2) 1.29 Troponin I 0.049 NT-Pro-B Natriuret Pep 09/28/18 09/28/18 09/28/18 06:05 17:35 17:35 Creatine Kinase 157 CK-MB (CK-2) 1.19 2.22 Troponin I 0.064 0.045 NT-Pro-B Natriuret Pep 09/28/18 09/28/18 09/29/18 23:08 23:08 05:18 Creatine Kinase 189 H 185 H CK-MB (CK-2) 2.29 Troponin I 0.038 NT-Pro-B Natriuret Pep 09/29/18 05:18 Creatine Kinase CK-MB (CK-2) 2.04 Troponin I 0.039 NT-Pro-B Natriuret Pep Impressions: Lung Scan-VQ NM 09/28/18 00:00 IMPRESSION: Low probability for pulmonary embolus. Chest X-Ray 09/29/18 00:00 IMPRESSION: HEART ENLARGED WITHOUT FAILURE. NO OTHER SIGNIFICANT RADIOGRAPHIC FINDING IN THE CHEST. Assessment & Plan - Diagnosis (1) Dyspnea Qualifiers: Dyspnea type: dyspnea on exertion Qualified Code(s): R06.09 - Other forms of dyspnea Is this a current diagnosis for this admission?: Yes Plan: Etiology unclear. VQ scan showed low probability for PE. He received a dose of Lasix 40 mg IV 2 days ago for mild pulmonary congestion which has resolved on chest x-ray. Consider possibility of panic attacks. However patient needs to continue to follow-up with Dr. Peña for further evaluation of his coronary artery disease. (2) Chronic kidney disease, stage 3 Is this a current diagnosis for this admission?: Yes Plan: Associated with proteinuria with urine protein to creatinine ratio of 2.5 g. Likely secondary to diabetic nephropathy and hypertensive nephrosclerosis. Currently at baseline kidney function. (3) Metabolic acidosis Is this a current diagnosis for this admission?: Yes Plan: Patient is to continue to sodium bicarbonate initiated here in the hospital upon discharge. (4) Anemia Qualifiers: Anemia type: iron deficiency Qualified Code(s): D64.9 - Anemia, unspecified Is this a current diagnosis for this admission?: Yes Plan: Severe iron deficiency in combination with anemia of chronic kidney disease. We will give the patient IV Injectafer today and advised him to take oral ferrous sulfate 325 mg twice daily upon discharge. (5) Chest pain Qualifiers: Chest pain type: unspecified Qualified Code(s): R07.9 - Chest pain, unspecified Is this a current diagnosis for this admission?: Yes Plan: Resolved. (6) CAD (coronary artery disease) Qualifiers: Associated angina: with stable angina Is this a current diagnosis for this admission?: Yes Plan: Patient to follow-up with Dr. Peña upon discharge. (7) Diabetes mellitus type 2 in nonobese Is this a current diagnosis for this admission?: Yes (8) HTN (hypertension) Qualifiers: Hypertension type: essential hypertension Qualified Code(s): I10 - Essential (primary) hypertension Is this a current diagnosis for this admission?: Yes - Notes Notes: From nephrology standpoint patient can be discharged home after the IV Injectafer. Patient to follow-up with Dr. Moss in the next 2 to 3 weeks with repeat labs at least CBC and BMP and other labs as would be specified by Dr. Moss. - Time Time with patient: 15-25 minutes
[2018-09-30] MEDS ORDERED: FERRIC CARBOXYMALTOSE 750 MG in NORMAL SALINE 250 ML IV ONE ×3 (12:30→15:00)
--- NOTE | 2018-09-30 13:28 | RADIOLOGY REPORT (SQ) ---
EXAM DESCRIPTION: BARIUM SWALLOW ESOPHAGUS COMPLETED DATE/TIME: 09/30/2018 10:18 am REASON FOR STUDY: chest discomfort COMPARISON: None. TECHNIQUE: Under fluoroscopic guidance, patient ingested effervescent granules followed by thick and thin barium. Fluoroscopic spot images and routine radiographic images acquired and stored on PACS. 12 MM BARIUM TABLET GIVEN: 12 mm barium tablet passed easily through the esophagus and into the stoma ch without delay. LIMITATIONS: None. FLUOROSCOPY TIME: FLUORO TIME: 2.4 minutes 5 images saved to PACS. FINDINGS: NEUROMUSCULAR COORDINATION OF SWALLOW: Normal. No aspiration. ESOPHAGEAL MOTILITY: Normal peristalsis. No esophageal spasm. ESOPHAGEAL MUCOSA: Normal mucosa without masses or ulceration. GASTRO-ESOPHAGEAL JUNCTION: No hiatal hernia or reflux. NON-GI TRACT STRUCTURES: No significant finding. OTHER: No other significant finding. IMPRESSION: NORMAL DOUBLE CONTRAST BARIUM SWALLOW. RECOMMENDATION: None COMMENT: None Quality ID [id number]: Final reports for procedures using fluoroscopy that document radiation exposure lani blessing, or exposure time and number of fluorographic images (if radiation exposure indices are not avail able) TECHNICAL DOCUMENTATION: JOB ID: [id number] [employer]- All Rights Reserved Reading location - IP/workstation name: [email or web address]
[2018-09-30 16:17] VITALS: BP 160/71
--- NOTE | 2018-10-06 16:00 | PDOC DISCHARGE SUMMARY ---
General - Admit/Disc Date/PCP Admission Date/Primary Care Provider: 09/27/18 16:21 NEHEMIAS MUHAMMAD, Discharge Date: 09/30/18 - Discharge Diagnosis (1) Acute respiratory failure with hypoxemia Is this a current diagnosis for this admission?: Yes Summary: Resolved; now maintaining oxygen saturations while on room air. VQ scan was negative for pulmonary embolus. Initially treated with IV furosemide for pulmonary edema. Supported w/ supplemental oxygen and nebulizer treatments as needed (2) Chest pain Is this a current diagnosis for this admission?: Yes Summary: Chest pain has resolved. Barium swallow study is nml V/Q scan negative Troponins negative x8 Previous provider discussed the patient's home medication regiment established program trainer, Dr. Peña. Imdur has been increased from 30 to 60 mg daily. Metoprolol has been increased. The patient Brilinta, amlodipine, hydralazine, losartan, daily aspirin have all been continued. Patient to follow-up with Dr. Peña as an outpatient to arrange for cardiac cath. (3) Orthopnea Is this a current diagnosis for this admission?: Yes Summary: Some improvement. Did initially received IV furosemide. This is been discontinued secondary to renal function. Discussed with Dr. Peña; further cardiac work-up to be completed as an outpatient following discharge (4) CAD (coronary artery disease) Is this a current diagnosis for this admission?: Yes Summary: Daily aspirin and Brilinta therapy. Lipid panel is acceptable. Antihypertensives as above. Cardiac diet. Follow-up with Dr. Peña following discharge. (5) Diabetes Is this a current diagnosis for this admission?: Yes Summary: Resume outpatient diet and regiment (6) HTN (hypertension) Is this a current diagnosis for this admission?: Yes Summary: Medications per his established program trainer, Dr. Peña. Antihypertensives as above. (7) Anemia Is this a current diagnosis for this admission?: Yes Summary: Multifactorial; iron deficiency anemia, CKD 3. Anemia panel revealed iron deficiency anemia. Continue multivitamin with iron supplement. Follow up with established assignment desk assistant as scheduled. - Additional Information Resuscitation Status: Full Code Discharge Diet: Cardiac, Diabetic Discharge Activity: Activity As Tolerated, Balance Activity w/Rest, Slowly Increase Activity, Weigh Daily Prescriptions: Metoprolol Succinate [Toprol Xl 50 mg Tab.sr] 50 mg PO BID #60 tab.sr.24h Sodium Bicarbonate [Sodium Bicarbonate 650 mg Tablet] 650 mg PO Q12 #60 tablet Home Medications: Amlodipine Besylate [Norvasc 5 mg Tablet] 10 mg PO DAILY 02/18/17 B Complex W-C No.20/Folic Acid [Virt-Caps Softgel] 1 cap PO DAILY 02/18/17 Donepezil HCl [Aricept] 10 mg PO QHS 02/18/17 Glimepiride [Amaryl] 2 mg PO DAILY 02/18/17 Hydralazine HCl [Apresoline 50 mg Tablet] 100 mg PO Q8 02/18/17 Isosorbide Mononitrate [Isosorbide Mononitrate ER] 60 mg PO DAILY 02/18/17 Losartan Potassium [Cozaar 50 mg Tablet] 100 mg PO QHS 02/18/17 Omeprazole 20 mg PO Q6AM 02/18/17 Prednisone [Deltasone 5 mg Tablet] 5 mg PO DAILY 02/18/17 Aspirin [Ecotrin 81 mg EC Tablet] 81 mg PO DAILY 09/27/18 Calcium Carbonate/Vitamin D3 [Calcium 500-Vit D3 400 Tablet] 1 each PO TID 09/27/18 Insulin Glargine,Hum.rec.anlog [Basaglar Kwikpen U-100] 12 unit SQ QHS 09/27/18 Sertraline HCl [Zoloft 50 mg Tablet] 100 mg PO DAILY 09/27/18 Ticagrelor [Brilinta 90 mg Tablet] 90 mg PO Q12 09/27/18 Acetaminophen [Tylenol 325 mg Tablet] 650 mg PO Q4HP PRN tablet 09/30/18 Metoprolol Succinate [Toprol Xl 50 mg Tab.sr] 50 mg PO BID #60 tab.sr.24h 09/30/18 Sodium Bicarbonate [Sodium Bicarbonate 650 mg Tablet] 650 mg PO Q12 #60 tablet 09/30/18 History of Present Illness History of Present Illness: Per H&P by Dr. Bean: MALINDA CROCKETT is a 68 year old male with history of co ronary artery disease. He has had 2 stents placed in the recent past, he coded while having an RCA stent placed. The patient does with Dr. Peña for cardiology. He has had a stress test in the recent past indicating that he would benefit from a cardiac catheterization which he is not willing to undergo secondary to his history of coding while having the stent placed. tells me that he, for the past 4 weeks, has been more and more fatigued. He is become more dyspneic. He is waking up in the middle of the night very short of breath after having been lying flat. He recovers when sitting upright. Has a dry cough, coughing all through the night at this point. Today his blood pressure was elevated and he was having chest pain and so his brought him to the ER. While in the ER he had acute dyspnea and was found to have crackles on chest exam. He received 40 mg of IV Lasix and 2 mg of morphine for dyspnea. He is now satting in the low 90s on 4 L of nasal cannula oxygen, reporting that both his chest pain and his dyspnea have resolved. He did receive nitro paste, which has now been DC'd, for the chest discomfort. Tone is slightly elevated in the ED, flat with slight downward trend now. He is being admitted to the IMCU, Dr. Peña has been consulted. Physical Exam Vital Signs: Temp Pulse Resp BP Pulse Ox 98.7 F 53 L 17 160/71 H 100 09/30/18 16:16 09/30/18 16:16 09/30/18 16:16 09/30/18 16:16 09/30/18 16:16 General appearance: PRESENT: no acute distress, cooperative, well-developed, well-nourished Head exam: PRESENT: atraumatic, normocephalic Eye exam: PRESENT: conjunctiva pink, EOMI, PERRLA. ABSENT: scleral icterus Ear exam: PRESENT: normal external ear exam Mouth exam: PRESENT: moist, tongue midline Neck exam: ABSENT: carotid bruit, JVD, lymphadenopathy, thyromegaly Respiratory exam: PRESENT: clear to auscultation phan, symmetrical, unlabored. ABSENT: rales, rhonchi, wheezes Cardiovascular exam: PRESENT: RRR. ABSENT: diastolic murmur, rubs, systolic murmur Pulses: PRESENT: normal dorsalis pedis pul Vascular exam: PRESENT: normal capillary refill GI/Abdominal exam: PRESENT: normal bowel sounds, soft. ABSENT: distended, guarding, mass, organolmegaly, rebound, tenderness Rectal exam: PRESENT: deferred Extremities exam: PRESENT: full ROM. ABSENT: calf tenderness, clubbing, pedal edema Neurological exam: PRESENT: alert, awake, oriented to person, oriented to place, oriented to time, oriented to situation, CN II-XII grossly intact. ABSENT: motor sensory deficit Psychiatric exam: PRESENT: anxious, normal mood. ABSENT: homicidal ideation, suicidal ideation Skin exam: PRESENT: dry, intact, warm. ABSENT: cyanosis, rash Results Laboratory Results: 09/30/18 05:23 09/30/18 05:23 09/27/18 09/27/18 09/27/18 12:01 12:01 12:01 Creatine Kinase 53 L CK-MB (CK-2) 1.67 Troponin I 0.017 NT-Pro-B Natriuret Pep 6300 H 09/27/18 09/27/18 09/27/18 15:48 17:03 17:03 Creatine Kinase 52 L CK-MB (CK-2) 1.71 Troponin I 0.016 0.021 NT-Pro-B Natriuret Pep 09/27/18 09/27/18 09/28/18 23:15 23:15 06:05 Creatine Kinase 52 L 99 CK-MB (CK-2) 1.29 Troponin I 0.049 NT-Pro-B Natriuret Pep 09/28/18 09/28/18 09/28/18 06:05 17:35 17:35 Creatine Kinase 157 CK-MB (CK-2) 1.19 2.22 Troponin I 0.064 0.045 NT-Pro-B Natriuret Pep 09/28/18 09/28/18 09/29/18 23:08 23:08 05:18 Creatine Kinase 189 H 185 H CK-MB (CK-2) 2.29 Troponin I 0.038 NT-Pro-B Natriuret Pep 09/29/18 05:18 Creatine Kinase CK-MB (CK-2) 2.04 Troponin I 0.039 NT-Pro-B Natriuret Pep Impressions: Lung Scan-VQ NM 09/28/18 00:00 IMPRESSION: Low probability for pulmonary embolus. Chest X-Ray 09/29/18 00:00 IMPRESSION: HEART ENLARGED WITHOUT FAILURE. NO OTHER SIGNIFICANT RADIOGRAPHIC FINDING IN THE CHEST. Esophagus X-Ray 09/30/18 00:00 IMPRESSION: NORMAL DOUBLE CONTRAST BARIUM SWALLOW. Qualifiers - * PATIENT BEING DISCHARGED WITH ANY OF THE FOLLOWING DIAGNOSIS: No Acute Heart Failure - Is this a Heart Failure Patient?: No Plan Discharge Plan: PAtient is discahrged to home with self care. Follow up with primary care provider within 1 week. Follow up with Dr. Moss within 1-2 weeks. Follow up with Dr. Green as scheduled to arrange for outpatient cardiac cath. Take medications as prescribed. Return to the emergency department as needed for concerning symptoms. Time Spent: Greater than 30 Minutes
== END 2018-09-30 16:30 | disposition home or self-care (01) | DRG 189 ==
LOC: ER 11:38 → OBSVTOIN 16:21 → EH 16:21 → 3S 22:26
PROVIDERS: ADMIT Internal Medicine; ATTEND Internal Medicine
DX: J96.01 Acute respiratory failure with hypoxia (principal); I13.0 Hypertensive heart and chronic kidney disease with heart failure and stage 1 through stage 4 chronic kidney disease, or unspecified chronic kidney disease; Q60.0 Renal agenesis, unilateral; I25.118 Atherosclerotic heart disease of native coronary artery with other forms of angina pectoris; N18.3 Chronic kidney disease, stage 3 (moderate); E11.22 Type 2 diabetes mellitus with diabetic chronic kidney disease; E78.5 Hyperlipidemia, unspecified; K21.9 Gastro-esophageal reflux disease without esophagitis; F03.90 Unspecified dementia, unspecified severity, without behavioral disturbance, psychotic disturbance, mood disturbance, and anxiety; E11.21 Type 2 diabetes mellitus with diabetic nephropathy; D63.1 Anemia in chronic kidney disease; E66.9 Obesity, unspecified; M35.3 Polymyalgia rheumatica; D50.9 Iron deficiency anemia, unspecified; I25.2 Old myocardial infarction; Z95.5 Presence of coronary angioplasty implant and graft; Z87.891 Personal history of nicotine dependence; Z79.899 Other long term (current) drug therapy; Z88.6 Allergy status to analgesic agent; Z57.4 Occupational exposure to toxic agents in agriculture; Z79.82 Long term (current) use of aspirin; Z79.4 Long term (current) use of insulin; Z79.52 Long term (current) use of systemic steroids; Z82.49 Family history of ischemic heart disease and other diseases of the circulatory system; Z83.3 Family history of diabetes mellitus
CPT/HCPCS: 36415; 71045; 74220; 78582; 80048; 80053; 80061; 81001; 82272; 82550; 82553; 82570; 82607; 82728; 82746; 82803; 82962; 83540; 83550; 83735; 83880; 83970; 84100; 84156; 84443; 84484; 85025; 85027; 85045; 93005; 93010; 99285; A9540; A9567; J1439; J1815; J1940; J2060; J2270; J3490; J7050; J7512; Q9969

== ENCOUNTER 2018-10-07 16:05 | Emergency (ER) | payer MEDICARE ==
[2018-10-07 16:40] LABS: ABSOLUTE BASOPHILS # (AUTO) 0.1 10^3/uL (0.0-0.2); ABSOLUTE EOSINOPHILS # (AUTO) 0.1 10^3/uL (0.0-0.6); ABSOLUTE LYMPHOCYTES (AUTO) 0.8 10^3/uL (0.5-4.7); ABSOLUTE MONOCYTES (AUTO) 0.6 10^3/uL (0.1-1.4); ABSOLUTE NEUT (AUTO) 7.3 10^3/uL (1.7-8.2); BASOPHILS % (AUTO) 1.3 % (0-2); EOSINOPHILS % (AUTO) 0.9 % (0-6); HEMATOCRIT 24.4 % (37.9-51.0); LYMPHOCYTES % (AUTO) 8.7 % (13-45); MEAN CORPUSCULAR HEMOGLOBIN 29.4 pg (27.0-33.4); MEAN CORPUSCULAR HGB CONC 32.9 g/dL (32.0-36.0); MEAN CORPUSCULAR VOLUME 89 fl (80-97); MONOCYTES % (AUTO) 6.4 % (3-13); PLATELET COUNT 267 10^3/uL (150-450); RED BLOOD COUNT 2.74 10^6/uL (4.35-5.55); RED CELL DISTRIBUTION WIDTH 16.2 % (11.5-14.0); SEGMENTED NEUTROPHILS % (AUTO) 82.7 % (42-78); TOTAL CELLS COUNTED % (AUTO) 100 %; WHITE BLOOD COUNT 8.8 10^3/uL (4.0-10.5)
--- NOTE | 2018-10-07 16:49 | RADIOLOGY REPORT (SQ) ---
EXAM DESCRIPTION: CHEST SINGLE VIEW COMPLETED DATE/TIME: 10/07/2018 4:37 pm REASON FOR STUDY: bed 3 bradycardia COMPARISON: 09/29/2018 NUMBER OF VIEWS: One view. TECHNIQUE: Single frontal radiographic image of the chest acquired. LIMITATIONS: None. FINDINGS: LUNGS AND PLEURA: Stable appearance. MEDIASTINUM AND HILAR STRUCTURES: Stable heart size and mediastinal structures. HEART AND VASCULAR STRUCTURES: Heart remains enlarged. No failure. BONES: No acute findings. HARDWARE: None in the chest. OTHER: No other significant finding. IMPRESSION: STABLE APPEARANCE OF THE CHEST. TECHNICAL DOCUMENTATION: JOB ID: [id number] [employer]- All Rights Reserved Reading location - IP/workstation name: [email or web address]
[2018-10-07 16:56] LABS: ALANINE AMINOTRANSFERASE 29 U/L (21-72); ALBUMIN 3.7 g/dL (3.5-5.0); ALKALINE PHOSPHATASE 78 U/L (38-126); ANION GAP 11 (5-19); ASPARTATE AMINO TRANSFERASE 24 U/L (17-59); BILIRUBIN,DIRECT 0.4 mg/dL (0.0-0.4); BILIRUBIN,TOTAL 0.5 mg/dL (0.2-1.3); BLOOD UREA NITROGEN 45 mg/dL (7-20); CALCIUM 8.2 mg/dL (8.4-10.2); CARBON DIOXIDE 19 mmol/L (22-30); CHLORIDE 111 mmol/L (98-107); CREATINE KINASE 43 U/L (55-170); GLUCOSE 156 mg/dL (75-110); POTASSIUM 5.6 mmol/L (3.6-5.0); TOTAL PROTEIN 6.5 g/dL (6.3-8.2)
--- NOTE | 2018-10-07 16:58 | ER Document Report ---
ED Respiratory Problem - General Chief Complaint: Shortness Of Breath Stated Complaint: WEAKNESS Time Seen by Provider: 10/07/18 16:48 Primary Care Provider: NEHEMIAS MUHAMMAD DO [Primary Care Provider] - Follow up as needed Notes: 68-year-old male the emergency department chief complaint of dyspnea. Patient was apparently discharged from the hospital last week for the same. Had a work- up and everything appeared to be negative. Followed by Dr. Peña with cardiology. History of coronary artery disease. Dr. Peña thinks the patient is more likely having worsening cardiac issues and thinks that patient may need a cardiac catheterization. The is very upset. States that he has a hard time breathing. Will gasp for breath. States that he has had a sleep apnea study and that was reportedly normal. Apparently he has stents and when they did last catheterization he went into cardiac arrest so he has refused catheterizations in the future. Dr. Peña is convinced that he needs ano ther one done. Denies any chest pain or other issues. Just feels like he cannot catch of breath. TRAVEL OUTSIDE OF THE [place] IN LAST 30 DAYS: No - HPI Patient complains to provider of: CHF, Short of breath. No: Chest pain Onset: Last week Duration: Continuous Quality of pain: No pain - Related Data Allergies/Adverse Reactions: codeine [Codeine] Allergy (Verified 07/12/18 16:09) hydrocodone bitartrate [From Vicodin] Allergy (Verified 07/12/18 16:09) Past Medical History - General Information source: Patient - Social History Smoking Status: Former Smoker Frequency of alcohol use: None Drug Abuse: None Lives with: Spouse/Significant other Family History: CAD, Hypertension, Other - Also full siblings and parents with hypertension and coronary artery disease. Father and mother both with complications related to [place]. Patient has suicidal ideation: No Patient has homicidal ideation: No - Past Medical History Cardiac Medical History: Reports: Hx Coronary Artery Disease, Hx Heart Attack - 1991, Hx Hypercholesterolemia, Hx Hypertension - MEDICATED Pulmonary Medical History: Denies: Hx Asthma, Hx COPD Neurological Medical History: Denies: Hx Cerebrovascular Accident, Hx Seizures Endocrine Medical History: Reports: Hx Diabetes Mellitus Type 2 Renal/ Medical History: Reports: Hx Renal Insufficiency. Denies: Hx Peritoneal Dialysis GI Medical History: Reports: Hx Gastroesophageal Reflux Disease. Denies: Hx Hepatitis, Hx Hiatal Hernia, Hx Ulcer Musculoskeletal Medical History: Denies Hx Fibromyalgia Skin Medical History: Denies Hx Eczema Psychiatric Medical History: Reports: Hx Dementia Traumatic Medical History: Denies: Hx Traumatic Brain Injury Infectious Medical History: Denies: Hx Hepatitis Past Surgical History: Reports: Hx Cardiac Catheterization - stents x2, Hx Coronary Stent - RCA complicated by cardiac arrest. Denies: Hx Open Heart Surgery, Hx Pacemaker Review of Systems - Review of Systems Notes: Constitutional: denies: Chills, Diaphoresis, Fever, Malaise, Weakness EENT: denies: Eye discharge, Blurred vision, Tearing, Double vision, Nose congestion, Nose discharge, Throat swelling, Mouth pain Cardiovascular: denies: Palpitations, Heart racing, Orthopnea, +Dyspnea, -Chest pain Respiratory: denies: Cough, Hurts to breathe, Wheezing, +Shortness of breath Gastrointestinal: denies: Abdominal pain, Diarrhea, Nausea, Vomiting, Black stools, bright red blood in stool Genitourinary: denies: Burning, Dysuria, Discharge, Frequency, Flank pain, Hematuria Musculoskeletal: denies: Joint pain, Joint swelling, Muscle pain, Muscle stiffness, back pain Hematologic/Lymphatic: denies: Anemia, Easy bleeding, Easy bruising, Blood cl ots Neurological/Psychological: denies: Confusion, Dementia, Depression, Loss of consciousness Skin: No lesions, no masses, no skin breakdown, no abscesses Physical Exam - Vital signs Vitals: Resp BP Pulse Ox 12 144/73 H 100 10/07/18 16:09 10/07/18 16:09 10/07/18 16:09 Interpretation: Bradycardic - General General appearance: Appears well, Alert - HEENT Head: Normocephalic, Atraumatic Eyes: Normal Pupils: PERRL - Respiratory Respiratory status: No respiratory distress Chest status: Nontender Breath sounds: Normal Chest palpation: Normal - Cardiovascular Rhythm: Bradycardia Heart sounds: Normal auscultation Murmur: No - Abdominal Inspection: Normal Distension: No distension Bowel sounds: Normal Tenderness: Nontender Organomegaly: No organomegaly - Back Back: Normal, Nontender - Extremities General upper extremity: Normal inspection, Nontender, Normal color, Normal ROM, Normal temperature General lower extremity: Normal inspection, Nontender, Normal color, Normal ROM, Normal temperature, Normal weight bearing. No: Oz's sign - Neurological Neuro grossly intact: Yes Cognition: Normal Orientation: AAOx4 Jacob Coma Scale Eye Opening: Spontaneous Jacob Coma Scale Verbal: Oriented Jacob Coma Scale Motor: Obeys Commands Jacob Coma Scale Total: 15 Speech: Normal Motor strength normal: LUE, RUE, LLE, RLE Sensory: Normal - Psychological Associated symptoms: Normal affect, Normal mood - Skin Skin Temperature: Warm Skin Moisture: Dry Skin Color: Normal Course - Re-evaluation Re-evalutation: 10/07/18 19:27 Laboratory 10/07/18 10/07/18 10/07/18 16:17 16:17 16:17 WBC 8.8 RBC 2.74 L Hgb 8.0 L Hct 24.4 L MCV 89 MCH 29.4 MCHC 32.9 RDW 16.2 H Plt Count 267 Seg Neutrophils % 82.7 H Lymphocytes % 8.7 L Monocytes % 6.4 Eosinophils % 0.9 Basophils % 1.3 Absolute Neutrophils 7.3 Absolute Lymphocytes 0.8 Absolute Monocytes 0.6 Absolute Eosinophils 0.1 Absolute Basophils 0.1 Sodium 140.5 Potassium 5.6 H Chloride 111 H Carbon Dioxide 19 L Anion Gap 11 BUN 45 H Creatinine 2.30 H Est GFR ( Amer) 34 L Est GFR (Non-Af Amer) 28 L Glucose 156 H Calcium 8.2 L Total Bilirubin 0.5 Direct Bilirubin 0.4 Neonat Total Bilirubin Not Reportable Neonat Direct Bilirubin Not Reportable Neonat Indirect Bili Not Reportable AST 24 ALT 29 Alkaline Phosphatase 78 Creatine Kinase 43 L CK-MB (CK-2) 1.36 Troponin I < 0.012 NT-Pro-B Natriuret Pep Total Protein 6.5 Albumin 3.7 Urine Color Urine Appearance Urine pH Ur Specific [place] Urine Protein Urine Glucose (UA) Urine Ketones Urine Blood Urine Nitrite Urine Bilirubin Urine Urobilinogen Ur Leukocyte Esterase Urine WBC (Auto) Urine RBC (Auto) Urine Mucus (Auto) Urine Ascorbic Acid 10/07/18 10/07/18 16:17 17:02 WBC RBC Hgb Hct MCV MCH MCHC RDW Plt Count Seg Neutrophils % Lymphocytes % Monocytes % Eosinophils % Basophils % Absolute Neutrophils Absolute Lymphocytes Absolute Monocytes Absolute Eosinophils Absolute Basophils Sodium Potassium Chloride Carbon Dioxide Anion Gap BUN Creatinine Est GFR ( Amer) Est GFR (Non-Af Amer) Glucose Calcium Total Bilirubin Direct Bilirubin Neonat Total Bilirubin Neonat Direct Bilirubin Neonat Indirect Bili AST ALT Alkaline Phosphatase Creatine Kinase CK-MB (CK-2) Troponin I NT-Pro-B Natriuret Pep 5560 H Total Protein Albumin Urine Color YELLOW Urine Appearance CLEAR Urine pH 8.0 Ur Specific [place] 1.016 Urine Protein 100 H Urine Glucose (UA) 50 H Urine Ketones NEGATIVE Urine Blood NEGATIVE Urine Nitrite NEGATIVE Urine Bilirubin NEGATIVE Urine Urobilinogen NEGATIVE Ur Leukocyte Esterase NEGATIVE Urine WBC (Auto) 0 Urine RBC (Auto) 0 Urine Mucus (Auto) RARE Urine Ascorbic Acid 20 H 10/07/18 19:27 Chest X-Ray 10/07/18 16:07 IMPRESSION: STABLE APPEARANCE OF THE CHEST. 10/07/18 19:56 I have spoken with Dr. Peña the slot editor. He is concerned the patient is developing some myocardial ischemia. Has a negative troponin. Negative work-up today. Will attempt to contact 10/07/18 20:03 Patient has a bunch of slightly abnormal labs. Slightly elevated potassium at 5.6. Will give a neb. Normal EKG with exception of sinus bradycardia. Has chronic renal insufficiency. Has chronic anemia with a hemoglobin of 8. This could definitely be part of the problem. I suspect that he has some degree of sleep apnea based on what the is describing of these apneic episodes while trying to sleep and then he is awake and cannot go to sleep. I have ordered a ABG to make sure that his pH is within normal limits. At this time I have consulted with Dr. Gaston a slot editor at [facility]. This was based on the recommendations of Dr. Peña. Dr. Gaston wants patient admitted to the medicine service. I have consulted with the medicine doctor, Dr. Montaño who is agreed to accept patient. At this time patient remained stable. On oxygen. Vital signs are within normal limits. Anticipate he will be a prolonged time awaiting for transfer. - Vital Signs Vital signs: Temp Pulse Resp BP Pulse Ox 98.6 F 17 146/68 H 99 10/07/18 20:01 10/07/18 21:01 10/07/18 21:01 10/07/18 21:01 - Laboratory Result Diagrams: 10/07/18 16:17 10/07/18 16:17 Laboratory results interpreted by me: 10/07/18 10/07/18 10/07/18 16:17 16:17 16:17 RBC 2.74 L Hgb 8.0 L Hct 24.4 L RDW 16.2 H Seg Neutrophils % 82.7 H Lymphocytes % 8.7 L Potassium 5.6 H Chloride 111 H Carbon Dioxide 19 L BUN 45 H Creatinine 2.30 H Est GFR ( Amer) 34 L Est GFR (Non-Af Amer) 28 L Glucose 156 H Calcium 8.2 L Creatine Kinase 43 L NT-Pro-B Natriuret Pep 5560 H Urine Protein Urine Glucose (UA) Urine Ascorbic Acid 10/07/18 17:02 RBC Hgb Hct RDW Seg Neutrophils % Lymphocytes % Potassium Chloride Carbon Dioxide BUN Creatinine Est GFR ( Amer) Est GFR (Non-Af Amer) Glucose Calcium Creatine Kinase NT-Pro-B Natriuret Pep Urine Protein 100 H Urine Glucose (UA) 50 H Urine Ascorbic Acid 20 H - EKG Interpretation by Id EKG shows normal: [place], Intervals, QRS Complexes, ST-T Waves Rate: Bradycardia Discharge - Discharge Clinical Impression: Dyspnea Qualifiers: Dyspnea type: unspecified Qualified Code(s): R06.00 - Dyspnea, unspecified Congestive heart failure Qualifiers: Heart failure type: unspecified Heart failure chronicity: unspecified Qualified Code(s): I50.9 - Heart failure, unspecified Coronary artery disease Qualifiers: Coronary Disease-Associated Artery/Lesion type: unspecified vessel or lesion type [place] vs. transplanted heart: unspecified whether [place] or transplanted heart Associated angina: without angina Qualified Code(s): I25.10 - Atherosclerotic heart disease of [place] coronary artery without angina pectoris Condition: Good Disposition: [facility] Referrals: NEHEMIAS MUHAMMAD DO [Primary Care Provider] - Follow up as needed
[2018-10-07 17:14] LABS: CREATINE KINASE MB 1.36 ng/mL (<4.55)
[2018-10-07 17:15] LABS: TROPONIN I < 0.012 ng/mL
[2018-10-07 17:29] LABS: APPEARANCE,URINE CLEAR; BILIRUBIN,URINE NEGATIVE (NEGATIVE); COLOR,URINE YELLOW; GLUCOSE, URINE 50 mg/dL (NEGATIVE); KETONES,URINE NEGATIVE (NEGATIVE); LEUKOCYTE ESTERASE,URINE NEGATIVE (NEGATIVE); NITRITE,URINE NEGATIVE (NEGATIVE); PROTEIN,URINE 100 mg/dL (NEGATIVE); URINE SPECIFIC GRAVITY 1.016; UROBILINOGEN,URINE NEGATIVE mg/dL (<2.0)
[2018-10-07] MEDS ORDERED: ALBUTEROL SULFATE 0.083% NEB 2.5 MG/3 ML AMPUL NEB ONE (20:02)
[2018-10-07 22:11] LABS: ARTERIAL BLOOD BASE EXCESS -6.6 mmol/L; ARTERIAL BLOOD H2CO3 0.82 mmol/L (1.05-1.35); ARTERIAL BLOOD O2 SATURATION 95.6 % (94-98); ARTERIAL BLOOD PCO2 27.3 mmHg (35-45); ARTERIAL BLOOD PH 7.41 (7.35-7.45); ARTERIAL BLOOD PO2 75.4 mmHg (80-100); ARTERIAL BLOOD TOTAL CO2 17.9 mmol/L (23-27)
[2018-10-07 22:12] LABS: ARTERIAL BLOOD FIO2 2L
--- NOTE | 2018-10-07 23:18 | EKG REPORT ---
SEVERITY:- ABNORMAL ECG - SINUS RHYTHM PROBABLE INFERIOR INFARCT, AGE INDETERMINATE ABNRM R PROG, CONSIDER ASMI OR LEAD PLACEMENT : Confirmed by: Soni Calderon 07-Oct-2018 23:17:19
--- NOTE | 2018-10-08 11:15 | ER Document Report ---
Doctor's Note Notes: 10/08/18 11:12 68-year-old male waiting transfer in [facility] the medical service with cardiology consultation for worsening dyspnea. Patient has [place] been admitted for this with a normal VQ scan in the last 2 weeks. The local ships or barges loader here believe that the patient needs a cardiac catheterization which is why the patient is being transferred to [facility]. Patient did have a reoccurrence of some shortness of breath and chest discomfort. Repeat EKG and repeat troponin has been ordered. We are waiting for bed to be finalized at [facility]. 10/08/18 11:46 Stat EKG at 11:08 AM shows normal sinus rhythm with a heart of 69, left axis deviation, poor R wave progression, mild ST depression in leads V4 through V6. Not substantially or significantly change from prior EKG. Patient chest pain- free upon EMS arrival and transport has been initiated. Repeat troponin is still pending at time of job coach.
[2018-10-08 11:20] VITALS: BP 178/79
--- NOTE | 2018-10-09 00:01 | EKG REPORT ---
SEVERITY:- ABNORMAL ECG - SINUS RHYTHM PROBABLE INFERIOR INFARCT, AGE INDETERMINATE : Confirmed by: Soni Calderon 09-Oct-2018 00:00:53
== END 2018-10-08 11:39 | disposition short-term general hospital (02) ==
LOC: ER 16:05
DX: R06.00 Dyspnea, unspecified (principal); I50.9 Heart failure, unspecified; I25.10 Atherosclerotic heart disease of native coronary artery without angina pectoris; Z88.6 Allergy status to analgesic agent
CPT/HCPCS: 93005 ×2; 94640; 99285; 36415; 82553; 82803; 82550; 85025; 80053; 81001; 84484; 83880; 71045; 93010 ×2; 36600; A9270

== ENCOUNTER → 2019-02-11 | Outpatient (CLI) | payer MEDICARE ==
[2019-02-11 10:08] LABS: ABSOLUTE EOSINOPHILS # (AUTO) 0.1 10^3/uL (0.0-0.6); ABSOLUTE LYMPHOCYTES (AUTO) 1.3 10^3/uL (0.5-4.7); ABSOLUTE MONOCYTES (AUTO) 0.9 10^3/uL (0.1-1.4); ABSOLUTE NEUT (AUTO) 6.8 10^3/uL (1.7-8.2); BASOPHILS % (AUTO) 0.5 % (0-2); EOSINOPHILS % (AUTO) 1.6 % (0-6); HEMOGLOBIN 12.2 g/dL (13.5-17.0); LYMPHOCYTES % (AUTO) 14.4 % (13-45); MEAN CORPUSCULAR HGB CONC 34.8 g/dL (32.0-36.0); MEAN CORPUSCULAR VOLUME 89 fl (80-97); MONOCYTES % (AUTO) 10.1 % (3-13); PLATELET COUNT 234 10^3/uL (150-450); RED BLOOD COUNT 3.92 10^6/uL (4.35-5.55); RED CELL DISTRIBUTION WIDTH 17.5 % (11.5-14.0); SEGMENTED NEUTROPHILS % (AUTO) 73.4 % (42-78); TOTAL CELLS COUNTED % (AUTO) 100 %; WHITE BLOOD COUNT 9.3 10^3/uL (4.0-10.5)
[2019-02-11 10:12] LABS: APPEARANCE,URINE SLIGHTLY-CLOUDY; BILIRUBIN,URINE NEGATIVE (NEGATIVE); COLOR,URINE YELLOW; GLUCOSE, URINE NEGATIVE (NEGATIVE); KETONES,URINE NEGATIVE (NEGATIVE); LEUKOCYTE ESTERASE,URINE NEGATIVE (NEGATIVE); NITRITE,URINE NEGATIVE (NEGATIVE); PROTEIN,URINE >=500 mg/dL (NEGATIVE); URINE SPECIFIC GRAVITY 1.018; UROBILINOGEN,URINE NEGATIVE mg/dL (<2.0)
[2019-02-11 10:43] LABS: ALBUMIN 4.5 g/dL (3.5-5.0); ANION GAP 9 (5-19); BLOOD UREA NITROGEN 40 mg/dL (7-20); CALCIUM 10.4 mg/dL (8.4-10.2); CARBON DIOXIDE 26 mmol/L (22-30); CHLORIDE 105 mmol/L (98-107); GLUCOSE 104 mg/dL (75-110); PHOSPHORUS 5.3 mg/dL (2.5-4.5)
== END ==
LOC: OD 09:31
PROVIDERS: ATTEND Internal Medicine Nephrology
DX: I13.0 Hypertensive heart and chronic kidney disease with heart failure and stage 1 through stage 4 chronic kidney disease, or unspecified chronic kidney disease (principal); I50.9 Heart failure, unspecified; N18.3 Chronic kidney disease, stage 3 (moderate); E11.22 Type 2 diabetes mellitus with diabetic chronic kidney disease; R80.9 Proteinuria, unspecified; E87.2 Acidosis
CPT/HCPCS: 36415; 80069; 81001; 85025

== ENCOUNTER → 2019-04-02 | Outpatient (CLI) | payer MEDICARE ==
[2019-04-02 12:32] LABS: ABSOLUTE BASOPHILS # (AUTO) 0.1 10^3/uL (0.0-0.2); ABSOLUTE EOSINOPHILS # (AUTO) 0.1 10^3/uL (0.0-0.6); ABSOLUTE LYMPHOCYTES (AUTO) 1.1 10^3/uL (0.5-4.7); ABSOLUTE MONOCYTES (AUTO) 0.6 10^3/uL (0.1-1.4); ABSOLUTE NEUT (AUTO) 10.1 10^3/uL (1.7-8.2); BASOPHILS % (AUTO) 0.5 % (0-2); EOSINOPHILS % (AUTO) 0.9 % (0-6); HEMATOCRIT 33.8 % (37.9-51.0); HEMOGLOBIN 11.5 g/dL (13.5-17.0); LYMPHOCYTES % (AUTO) 9.3 % (13-45); MEAN CORPUSCULAR HGB CONC 34.1 g/dL (32.0-36.0); MEAN CORPUSCULAR VOLUME 91 fl (80-97); MONOCYTES % (AUTO) 5.3 % (3-13); PLATELET COUNT 233 10^3/uL (150-450); RED BLOOD COUNT 3.71 10^6/uL (4.35-5.55); RED CELL DISTRIBUTION WIDTH 15.4 % (11.5-14.0); TOTAL CELLS COUNTED % (AUTO) 100 %
[2019-04-02 12:40] LABS: APPEARANCE,URINE SLIGHTLY-CLOUDY; BILIRUBIN,URINE NEGATIVE (NEGATIVE); COLOR,URINE YELLOW; GLUCOSE, URINE 150 mg/dL (NEGATIVE); KETONES,URINE NEGATIVE (NEGATIVE); LEUKOCYTE ESTERASE,URINE NEGATIVE (NEGATIVE); NITRITE,URINE NEGATIVE (NEGATIVE); PROTEIN,URINE >=500 mg/dL (NEGATIVE); URINE SPECIFIC GRAVITY 1.019; UROBILINOGEN,URINE NEGATIVE mg/dL (<2.0)
[2019-04-02 13:00] LABS: ANION GAP 12 (5-19); BLOOD UREA NITROGEN 46 mg/dL (7-20); CALCIUM 9.9 mg/dL (8.4-10.2); CARBON DIOXIDE 19 mmol/L (22-30); CHLORIDE 109 mmol/L (98-107); GLUCOSE 192 mg/dL (75-110); PHOSPHORUS 4.6 mg/dL (2.5-4.5); POTASSIUM 4.8 mmol/L (3.6-5.0)
[2019-04-02 15:33] LABS: UR PRO/CREAT RATIO RESULT 7.4 mg/mg (0.0-0.2); URINE CREATININE 100.5 mg/dL (22-328); URINE PROTEIN 742.7 mg/dL (<12)
== END ==
LOC: OD 12:08
PROVIDERS: ATTEND Internal Medicine Nephrology
DX: I13.0 Hypertensive heart and chronic kidney disease with heart failure and stage 1 through stage 4 chronic kidney disease, or unspecified chronic kidney disease (principal); I50.9 Heart failure, unspecified; N18.4 Chronic kidney disease, stage 4 (severe); E11.22 Type 2 diabetes mellitus with diabetic chronic kidney disease; D63.1 Anemia in chronic kidney disease; R80.9 Proteinuria, unspecified
CPT/HCPCS: 36415; 80048; 81001; 82570; 83970; 84100; 84156; 85025

== ENCOUNTER 2019-04-16 09:20 | Inpatient (IN) | payer MEDICARE ==
[2019-04-16 10:03] LABS: HEMATOCRIT 35.2 % (37.9-51.0); HEMOGLOBIN 11.8 g/dL (13.5-17.0); MEAN CORPUSCULAR HEMOGLOBIN 31.2 pg (27.0-33.4); MEAN CORPUSCULAR HGB CONC 33.5 g/dL (32.0-36.0); MEAN CORPUSCULAR VOLUME 93 fl (80-97); PLATELET COUNT 270 10^3/uL (150-450); RED BLOOD COUNT 3.78 10^6/uL (4.35-5.55); RED CELL DISTRIBUTION WIDTH 14.7 % (11.5-14.0); WHITE BLOOD COUNT 12.6 10^3/uL (4.0-10.5)
--- NOTE | 2019-04-16 10:08 | RADIOLOGY REPORT (SQ) ---
EXAM DESCRIPTION: CHEST SINGLE VIEW COMPLETED DATE/TIME: 04/16/2019 9:41 am REASON FOR STUDY: bed 20 db COMPARISON: AP chest 10/07/2018, 09/29/2018 EXAM PARAMETERS: NUMBER OF VIEWS: One view. TECHNIQUE: Single frontal radiographic view of the chest acquired. RADIATION DOSE: NA LIMITATIONS: None. FINDINGS: LUNGS AND PLEURA: Diffuse bilateral alveolar and interstitial infiltrates worrisome for pu lmonary edema left greater than right. No pleural effusion. No pneumothorax. MEDIASTINUM AND HILAR STRUCTURES: No masses. Contour normal. HEART AND VASCULAR STRUCTURES: Stable moderate cardiomegaly. Since the prior study 10/07/2018, patien t has undergone CABG. BONES: No acute findings. HARDWARE: None in the chest. OTHER: No other significant finding. IMPRESSION: Diffuse bilateral infiltrates left greater than right likely pulmonary edema. Pneumonia could not entirely be excluded. Since the prior chest films 10/07/2018, patient has undergone sternotomy with CABG TECHNICAL DOCUMENTATION: JOB ID: [id number] [employer]- All Rights Reserved Reading location - IP/workstation name: [email or web address]
[2019-04-16 10:18] LABS: ABSOLUTE LYMPHOCYTES# (MANUAL) 0.4 10^3/uL (0.5-4.7); ABSOLUTE MONOCYTES # (MANUAL) 0.9 10^3/uL (0.1-1.4); ALBUMIN 4.2 g/dL (3.5-5.0); ALKALINE PHOSPHATASE 94 U/L (38-126); ANION GAP 10 (5-19); ASPARTATE AMINO TRANSFERASE 25 U/L (17-59); BASOPHILS % (MANUAL) 0 % (0-2); BILIRUBIN,DIRECT 0.1 mg/dL (0.0-0.4); BILIRUBIN,TOTAL 0.8 mg/dL (0.2-1.3); BLOOD UREA NITROGEN 57 mg/dL (7-20); CALCIUM 10.2 mg/dL (8.4-10.2); CARBON DIOXIDE 23 mmol/L (22-30); CHLORIDE 112 mmol/L (98-107); CREATINE KINASE 38 U/L (55-170); EOSINOPHILS % (MANUAL) 0 % (0-6); GLUCOSE 179 mg/dL (75-110); LYMPHOCYTES % (MANUAL) 3 % (13-45); MONOCYTES % (MANUAL) 7 % (3-13); POTASSIUM 5.5 mmol/L (3.6-5.0); SEGMENTED NEUTROPHILS % (MAN) 90 % (42-78); TOTAL CELLS COUNTED 100
[2019-04-16 10:20] LABS: ANISOCYTOSIS SLIGHT; POLYCHROMASIA SLIGHT
[2019-04-16 10:21] LABS: PLATELET COMMENT ADEQUATE
[2019-04-16 10:30] LABS: CREATINE KINASE MB 3.2 ng/mL (<4.55)
[2019-04-16 10:35] LABS: TROPONIN I 0.237 ng/mL
[2019-04-16] MEDS ORDERED: CEFTRIAXONE INJ 1000 MG VIAL IV ONE (11:02)
[2019-04-16] MEDS ORDERED: AZITHROMYCIN 250 MG TABLET PO ONE (11:02)
[2019-04-16] MEDS ORDERED: NITROGLYCERIN 2% OINTMENT 1 GM PACKET TP ONE (11:03)
[2019-04-16] MEDS ORDERED: BUMETANIDE INJ/PF 1 MG/4 ML SDV IV ONE (11:03)
--- NOTE | 2019-04-16 11:04 | ER Document Report ---
ED General - General Chief Complaint: Shortness Of Breath Stated Complaint: SHORTNESS OF BREATH Time Seen by Provider: 04/16/19 10:55 Primary Care Provider: Vijaya MOSS MD [Primary Care Provider] - Follow up as needed Information source: Patient, Relative - Notes: 69-year-old male arrives with his as main historian. Patient has had nonproductive cough for 1 week with anterior chest pain that was worse last night with3 pillow orthopnea was negative TRAVEL OUTSIDE OF THE [place] IN LAST 30 DAYS: No - HPI Onset: This evening - all week but worse last pm Onset/Duration: Sudden Quality of pain: Achy Severity: Mild Pain Level: 2 Associated symptoms: Nonproductive cough, Shortness of breath Exacerbated by: Movement, Coughing, Deep breathing Relieved by: Denies Similar symptoms previously: Yes Recently seen / treated by doctor: Yes - Patient seen yesterday by PMD Dr. Lea and Dr. Sampson and Dr. Moss is his - Related Data Allergies/Adverse Reactions: codeine [Codeine] Allergy (Verified 04/16/19 09:31) hydrocodone bitartrate [From Vicodin] Allergy (Verified 04/16/19 09:31) Home Medications: amlodipine, omeprazole, tylenol, caltrate +D, prednisone, hydralazine, renal cap, glimepiride, vit b complex, fobic, sod bicarb, donezepil, sertraline, melatonin, basaglar, ec asa, lipitor. Dosage list on chart. Past Medical History - General Information source: Patient, Relative - reports that her has CHF and COPD history and at least 5 to 7 days of shortness of breath that was worse last night with 3 pillow orthopnea. Also she reports that patient has some dementia and CKD and is followed by Dr. Moss - Social History Smoking Status: Former Smoker Cigarette use (# per day): No Chew tobacco use (# tins/day): No Smoking Education Provided: No Frequency of alcohol use: None Drug Abuse: None Family History: CAD, Hypertension, Other - Also full siblings and parents with hypertension and coronary artery disease. Father and mother both with complications related to [place]. Patient has suicidal ideation: No Patient has homicidal ideation: No - Past Medical History Cardiac Medical History: Reports: Hx Coronary Artery Disease, Hx Heart Attack - 1991, Hx Hypercholesterolemia, Hx Hypertension - MEDICATED Pulmonary Medical History: Denies: Hx Asthma, Hx COPD Neurological Medical History: Denies: Hx Cerebrovascular Accident, Hx Seizures Endocrine Medical History: Reports: Hx Diabetes Mellitus Type 2 Renal/ Medical History: Reports: Hx Renal Insufficiency. Denies: Hx Peritoneal Dialysis GI Medical History: Reports: Hx Gastroesophageal Reflux Disease. Denies: Hx Hepatitis, Hx Hiatal Hernia, Hx Ulcer Musculoskeletal Medical History: Denies Hx Fibromyalgia Skin Medical History: Denies Hx Eczema Psychiatric Medical History: Reports: Hx Dementia Traumatic Medical History: Denies: Hx Traumatic Brain Injury Infectious Medical History: Denies: Hx Hepatitis Past Surgical History: Reports: Hx Cardiac Catheterization - stents x2, Hx Coronary Stent - RCA complicated by cardiac arrest. Denies: Hx Open Heart Surgery, Hx Pacemaker Review of Systems - Review of Systems Constitutional: Weakness EENT: No symptoms reported Cardiovascular: Chest pain, Orthopnea, Dyspnea, Dizziness, Lightheaded Respiratory: Cough, Short of breath Gastrointestinal: No symptoms reported Genitourinary: No symptoms reported Male Genitourinary: No symptoms reported Musculoskeletal: No symptoms reported Skin: No symptoms reported Hematologic/Lymphatic: No symptoms reported Neurological/Psychological: No symptoms reported Physical Exam - Vital signs Vitals: Pulse Ox 82 L 04/16/19 09:20 Interpretation: Hypertensive, Hypoxic, Tachypneic - General General appearance: Alert In distress: None - HEENT Head: Normocephalic Eyes: Normal Conjunctiva: Normal Cornea: Normal Extraocular movements intact: Yes Eyelashes: Normal Pupils: PERRL Nasal: Normal Mouth/Lips: Normal - Respiratory Respiratory status: No respiratory distress, Other - Speech is full sentence Chest status: Tender - Sternal tenderness on palpation; patient reports this is usual for him status post CABG Breath sounds: Decreased air movement, Nonproductive cough Chest palpation: Normal - Cardiovascular Rhythm: Regular Heart sounds: Normal auscultation Murmur: No Friction rub: No - Patient has midline surgical CABG scar from last October Rakan's crunch: No - Abdominal Inspection: Normal Distension: No distension Bowel sounds: Normal Tenderness: Nontender - Back Back: Normal - Extremities General upper extremity: Normal inspection General lower extremity: Normal inspection - Neurological Neuro grossly intact: Yes Cognition: Normal Orientation: AAOx4 [place] Coma Scale Eye Opening: Spontaneous Jacob Coma Scale Verbal: Oriented [place] Coma Scale Motor: Obeys Commands [place] Coma Scale Total: 15 Speech: Normal Cranial nerves: Normal Cerebellar coordination: Normal - Psychological Associated symptoms: Normal affect - Skin Skin Temperature: Warm Skin Moisture: Dry Course - Vital Signs Vital signs: Temp Pulse Resp BP Pulse Ox 25 H 153/83 H 90 L 04/16/19 10:00 04/16/19 10:00 04/16/19 10:00 - Laboratory Result Diagrams: 04/16/19 09:23 04/16/19 09:23 Laboratory results interpreted by me: 04/16/19 04/16/19 09:23 09:23 WBC 12.6 H RBC 3.78 L Hgb 11.8 L Hct 35.2 L RDW 14.7 H Seg Neuts % (Manual) 90 H Lymphocytes % (Manual) 3 L Abs Neuts (Manual) 11.3 H Abs Lymphs (Manual) 0.4 L Potassium 5.5 H Chloride 112 H BUN 57 H Creatinine 3.04 H Est GFR ( Amer) 25 L Est GFR (MDRD) Non-Af 20 L Glucose 179 H Creatine Kinase 38 L - Diagnostic Test Radiology reviewed: Reports reviewed - EKG Interpretation by Me EKG shows normal: Sinus rhythm Rate: Normal Rhythm: NSR Critical Care Note - Critical Care Note Total time excluding time spent on procedures (mins): 90 Comments: I discussed these findings with the patient and his for admission. I also discussed this case with Dr. Phong Maciel for admission. He advises [facility] Discharge - Discharge Clinical Impression: Chronic kidney disease, stage 3 Dyspnea Qualifiers: Dyspnea type: shortness of breath Qualified Code(s): R06.02 - Shortness of breath; R06.00 - Dyspnea, unspecified; R06.01 - Orthopnea CHF (congestive heart failure) Qualifiers: Heart failure type: unspecified Heart failure chronicity: unspecified Qualified Code(s): I50.9 - Heart failure, unspecified Pneumonia Qualifiers: Pneumonia type: due to unspecified organism Laterality: bilateral Lung location: unspecified part of lung Qualified Code(s): J18.9 - Pneumonia, unspeci fied organism CAD (coronary artery disease) Qualifiers: Coronary Disease-Associated Artery/Lesion type: bypass graft [place] vs. transpl anted heart: [place] heart Associated angina: without angina Qualified Code(s): I25.810 - Atherosclerosis of coronary artery bypass graft(s) without angina pectoris Condition: Good Disposition: ADMITTED INPATIENT Admitting Provider: Viecnta (Hospitalist) Referrals: Vijaya MOSS MD [Primary Care Provider] - Follow up as needed
[2019-04-16 11:08] LABS: APPEARANCE,URINE SLIGHTLY-CLOUDY; BILIRUBIN,URINE NEGATIVE (NEGATIVE); COLOR,URINE YELLOW; GLUCOSE, URINE 50 mg/dL (NEGATIVE); KETONES,URINE NEGATIVE (NEGATIVE); LEUKOCYTE ESTERASE,URINE NEGATIVE (NEGATIVE); NITRITE,URINE NEGATIVE (NEGATIVE); PROTEIN,URINE >=500 mg/dL (NEGATIVE); URINE SPECIFIC GRAVITY 1.018; UROBILINOGEN,URINE NEGATIVE mg/dL (<2.0)
[2019-04-16] MEDS ORDERED: CEFTRIAXONE 1 GM/D5W RTU 1 GM/50 ML RTUPB IV ONE (11:09)
[2019-04-16] MEDS ORDERED: DEXTROSE 50%-WATER 25 GM/50 ML DISP.SYRIN IV PRN ×2 (11:54)
[2019-04-16] MEDS ORDERED: GLUCAGON,HUMAN RECOMB 1 MG INJ IM PRN (11:54)
[2019-04-16] MEDS ORDERED: DEXTROSE 40% GEL 15 GM TUBE PO PRN ×2 (11:54)
[2019-04-16] MEDS ORDERED: HYDRALAZINE HCL INJ/PF 20 MG/1 ML SDV IV PRN (11:57)
[2019-04-16] MEDS ORDERED: IPRATROPIUM/ALBUTEROL 0.5-2.5 MG/3 ML AMPUL NEB PRN (12:22)
--- NOTE | 2019-04-16 12:25 | PDOC H&P ---
History of Present Illness Admission Date/PCP: 04/16/19 11:34 Vijaya GUTIERREZ MD Patient complains of: Cough, shortness of breath History of Present Illness: MALINDA CROCKETT is a 69 year old male with a past medical history of CAD, prior CABG, prior stenting, history of CHF with last known EF of 36 to 40%, chronic kidney disease, insulin-dependent placements, hypertension and mild dementia who is presenting with cough and increasing shortness of breath. Patient and reports that he has been having orthopnea for a week but has been progressing the past 2 to 4 days after he started developing a very minimally productive cough. He denies fever or chills. He denies increasing pedal edema. He says that his shortness of breath has been worse in the past 2 to 3 days. He denies chest pain at the moment. In the ER, he was noted to be initially hypoxic in the 80s and was placed on nasal cannula. Chest x-ray shows pulmonary edema versus pneumonia. Past Medical History Cardiac Medical History: Reports: Coronary Artery Disease, Myocardial Infarction - 1991, Hyperlipidema, Hypertension - MEDICATED Pulmonary Medical History: Denies: Asthma, Chronic Obstructive Pulmonary Disease (COPD) Neurological Medical History: Denies: Seizures Endocrine Medical History: Reports: Diabetes Mellitus Type 2 GI Medical History: Reports: Gastroesophageal Reflux Disease Denies: Hepatitis, Hiatal Hernia Musculoskeltal Medical History: Denies: Fibromyalgia Skin Medical History: Denies: Eczema Psychiatric Medical History: Reports: Dementia Traumatic Medical History: Denies: Traumatic Brain Injury Hematology: Denies: Anemia, Sickle Cell Disease Past Surgical History Past Surgical History: Reports: Cardiac Catheterization - stents x2, Coronary Stent - RCA complicated by cardiac arrest Denies: Pacemaker Social History Smoking Status: Former Smoker Electronic Cigarette use?: No Frequency of Alcohol Use: None Hx Recreational Drug Use: No Drugs: None Hx Prescription Drug Abuse: No Family History Family History: CAD, Hypertension, Other - Also full siblings and parents with hypertension and coronary artery disease. Father and mother both with complications related to [place]. Parental Family History Reviewed: Yes - No premature CAD Children Family History Reviewed: No Sibling(s) Family History Reviewed.: No Medication/Allergy Home Medications: Amlodipine Besylate [Norvasc 5 mg Tablet] 10 mg PO DAILY 02/18/17 Donepezil HCl [Aricept] 10 mg PO QHS 02/18/17 Glimepiride [Amaryl] 2 mg PO DAILY 02/18/17 Omeprazole 20 mg PO Q6AM 02/18/17 Prednisone [Deltasone 5 mg Tablet] 5 mg PO DAILY 02/18/17 Insulin Glargine,Hum.rec.anlog [Basaglar Kwikpen U-100] 12 unit SQ QHS 09/27/18 Sertraline HCl [Zoloft 50 mg Tablet] 150 mg PO DAILY 09/27/18 Acetaminophen [Tylenol] 650 mg PO QIDP PRN 04/16/19 Aspirin [Ecotrin 81 mg EC Tablet] 81 mg PO QHS 04/16/19 Atorvastatin Calcium [Lipitor 40 mg Tablet] 40 mg PO QHS 04/16/19 B Complex W-C No.20/Folic Acid [Renal Caps Softgel] 1 mg PO DAILY 04/16/19 Chance/D3/Mag11/Zinc/Bowling Ball Molder/[place]/Bor [Caltrate 600+D Plus Tablet] 1 tab PO TID 04/16/19 Cyanocobalamin/Folic AC/Vit B6 [Folbic Tablet] 1 tab PO DAILY 04/16/19 Hydralazine HCl [Apresoline 25 mg Tablet] 25 mg PO Q12 04/16/19 Insulin Glargine,Hum.rec.anlog [Basaglar Kwikpen U-100] 17 unit SQ QAM 04/16/19 Melatonin [Melatonin 3 mg Tablet] 9 mg PO QHS 04/16/19 Sodium Bicarbonate [Sodium Bicarbonate 650 mg Tablet] 650 mg PO DAILY 04/16/19 Vitamin B Complex [Vitamin B Complex Tablet] 1 tab PO DAILY 04/16/19 Allergies/Adverse Reactions: codeine [Codeine] Allergy (Verified 04/16/19 09:31) hydrocodone bitartrate [From Vicodin] Allergy (Verified 04/16/19 09:31) Review of Systems All systems: reviewed and no additional remarkable complaints except as stated - As mentioned in HPI Physical Exam Vital Signs: Temp Pulse Resp BP Pulse Ox 25 H 153/83 H 90 L 04/16/19 10:00 04/16/19 10:00 04/16/19 10:00 General appearance: PRESENT: no acute distress, well-developed, well-nourished Head exam: PRESENT: atraumatic, normocephalic Eye exam: PRESENT: conjunctiva pink, EOMI, PERRLA. ABSENT: scleral icterus Ear exam: PRESENT: normal external ear exam Mouth exam: PRESENT: moist, tongue midline Neck exam: ABSENT: carotid bruit, JVD, lymphadenopathy, thyromegaly Respiratory exam: PRESENT: rales, rhonchi. ABSENT: wheezes Cardiovascular exam: PRESENT: RRR. ABSENT: diastolic murmur, rubs, systolic murmur Pulses: PRESENT: normal dorsalis pedis pul GI/Abdominal exam: PRESENT: normal bowel sounds, soft. ABSENT: distended, guarding, mass, organolmegaly, rebound, tenderness Rectal exam: PRESENT: deferred Extremities exam: PRESENT: full ROM. ABSENT: calf tenderness, clubbing, pedal edema Neurological exam: PRESENT: alert, awake, oriented to person, oriented to place, oriented to time, oriented to situation, CN II-XII grossly intact. ABSENT: m otor sensory deficit Results Laboratory Results: 04/16/19 09:23 04/16/19 09:23 04/16/19 04/16/19 04/16/19 09:23 09:23 10:44 WBC 12.6 H RBC 3.78 L Hgb 11.8 L Hct 35.2 L MCV 93 MCH 31.2 MCHC 33.5 RDW 14.7 H Plt Count 270 Seg Neutrophils % Not Reportable Sodium 144.7 Potassium 5.5 H Chloride 112 H Carbon Dioxide 23 Anion Gap 10 BUN 57 H Creatinine 3.04 H Est GFR ( Amer) 25 L Glucose 179 H Calcium 10.2 Total Bilirubin 0.8 AST 25 Alkaline Phosphatase 94 Total Protein 7.0 Albumin 4.2 Urine Color YELLOW Urine Appearance SLIGHTLY-CLOUDY Urine pH 5.0 Ur Specific [place] 1.018 Urine Protein >=500 H Urine Glucose (UA) 50 H Urine Ketones NEGATIVE Urine Blood NEGATIVE Urine Nitrite NEGATIVE Ur Leukocyte Esterase NEGATIVE Urine WBC (Auto) 0 Urine RBC (Auto) 0 04/16/19 04/16/19 09:23 09:23 Creatine Kinase 38 L CK-MB (CK-2) 3.20 Troponin I 0.237 Impressions: Chest X-Ray 04/16/19 09:25 IMPRESSION: Diffuse bilateral infiltrates left greater than right likely pulmonary edema. Pneumonia could not entirely be excluded. Since the prior chest films 10/07/2018, patient has undergone sternotomy with CABG Assessment and Plan - Diagnosis (1) Acute respiratory failure with hypoxemia Is this a current diagnosis for this admission?: Yes Plan: Secondary to CHF exacerbation versus concomitant pneumonia. Currently on nasal cannula. BiPAP as needed. (2) Pneumonia Qualifiers: Pneumonia type: due to unspecified organism Laterality: bilateral Lung location: unspecified part of lung Qualified Code(s): J18.9 - Pneumonia, unspecified organism Is this a current diagnosis for this admission?: Yes Plan: Continue patient on IV Rocephin. Sputum culture ordered. (3) CHF (congestive heart failure) Qualifiers: Heart failure type: systolic Heart failure chronicity: acute on chronic Qualified Code(s): I50.23 - Acute on chronic systolic (congestive) heart failure Is this a current diagnosis for this admission?: Yes Plan: Start patient on IV Lasix 40 mg every 12. Will also consult cardiology. (4) Insulin dependent diabetes mellitus Is this a current diagnosis for this admission?: Yes (5) CAD (coronary artery disease) Qualifiers: Coronary Disease-Associated Artery/Lesion type: bypass graft [place] vs. transplanted heart: [place] heart Associated angina: without angina Qualified Code(s): I25.810 - Atherosclerosis of coronary artery bypass graft(s) without angina pectoris Is this a current diagnosis for this admission?: Yes (6) Chronic kidney disease, stage 3 Is this a current diagnosis for this admission?: Yes (7) HTN (hypertension) Qualifiers: Hypertension type: essential hypertension Qualified Code(s): I10 - Essential (primary) hypertension Is this a current diagnosis for this admission?: Yes - Time Time Spent with patient: 25-34 minutes
--- NOTE | 2019-04-16 12:32 | ADVANCED CARE ---
- Diagnosis (1) Acute respiratory failure with hypoxemia Diagnosis Current: Yes (2) CHF (congestive heart failure) Diagnosis Current: Yes (3) Pneumonia Diagnosis Current: Yes (4) CAD (coronary artery disease) Diagnosis Current: Yes (5) Chronic kidney disease, stage 3 Diagnosis Current: Yes (6) Insulin dependent diabetes mellitus Diagnosis Current: Yes (7) Diabetes mellitus type 2 in nonobese Diagnosis Current: Yes Resuscitation Status: Full Code Discussion: Discussed with patient and at bedside. He says he is a full code and prefers to receive chest compressions, defibrillation or mechanical ventilation if the need arises. He says his , Rebecca is his surrogate medical decision maker.
--- NOTE | 2019-04-16 13:13 | RADIOLOGY REPORT (SQ) ---
EXAM DESCRIPTION: CT CHEST WITHOUT COMPLETED DATE/TIME: 04/16/2019 12:44 pm REASON FOR STUDY: cough, hypoxia COMPARISON: Radiographs from earlier. TECHNIQUE: CT scan performed of the chest without intravenous contrast. Images reviewed with lung, soft tissue and bone windows. Reconstructed coronal and sagittal MPR images reviewed. All images st ored on PACS. All CT scanners at this facility use dose modulation, iterative reconstruction, and/or weight based d osing when appropriate to reduce radiation dose to as low as reasonably achievable (ALARA). [facility]: Dose Right [facility]: CareDose [facility]: Dose Right [facility]: Teradose 4D [facility]: [employer] RADIATION DOSE: CT Rad equipment meets quality standard of care and radiation dose reduction techniq ues were employed. CTDIvol: 12.8 mGy. DLP: 533 mGy-cm. mGy. LIMITATIONS: No technical limitations. FINDINGS: LUNGS AND PLEURA: Diffuse infiltrates throughout the upper and lower lobes, most of which has a ground-glass appearance. Volume loss and consolidation in the lower lobes with moderate pleura l effusions bilaterally. No pneumothorax. HILAR AND MEDIASTINAL STRUCTURES: No gross mass or adenopathy. HEART AND VASCULAR STRUCTURES: Generalized cardiomegaly. Previous CABG. No aortic aneurysm. UPPER ABDOMEN: Cyst in the left hepatic lobe. THYROID AND OTHER SOFT TISSUES: No masses. No adenopathy. BONES: No significant finding. HARDWARE: None in the chest. OTHER: No other significant findings. IMPRESSION: 1. As seen radiographically, diffuse infiltrates. Suspect this is predominantly related to congestiv e failure given the presence of bilateral effusions. Basilar pneumonia not excluded given significan t consolidation and volume loss in the lower lobes as well. TECHNICAL DOCUMENTATION: JOB ID: [id number] Quality ID # [id number]: Final reports with documentation of one or more dose reduction techniques (e.g., Au tomated exposure control, adjustment of the mA and/or kV according to patient size, use of iterative reconstruction technique) 2010 [employer]- All Rights Reserved Reading location - IP/workstation name: [email or web address]
[2019-04-16] MEDS ORDERED: ONDANSETRON HCL INJ/PF 4 MG/2 ML SDV IV PRN (13:25)
[2019-04-16] MEDS ORDERED: NITROGLYCERIN 0.4 MG/TAB 25 TAB/BOTTLE SL PRN (13:26)
[2019-04-16] MEDS: HEPARIN SOD (PORCINE) 5,000 UNIT/ML 1 ML VIAL SUBCUT SCH ×2 (13:36→22:40)
[2019-04-16] MEDS ORDERED: PROMETHAZINE HCL INJ 25 MG/1 ML VIAL IV PRN (13:45)
[2019-04-16] MEDS: INSULIN LISPRO 100 UNIT/ML 3 ML VIAL SUBCUT SCH ×2 (16:28→22:40)
[2019-04-16] MEDS ORDERED: D3 PO SCH ×2 (18:00)
[2019-04-16] MEDS ORDERED: CAL PO SCH ×2 (18:00)
[2019-04-16] MEDS ORDERED: COP PO SCH ×2 (18:00)
[2019-04-16] MEDS ORDERED: ZINC PO SCH ×2 (18:00)
[2019-04-16] MEDS ORDERED: [UNRECOGNIZED DRUG - OTHER] PO SCH ×2 (18:00)
[2019-04-16] MEDS ORDERED: MANG PO SCH ×2 (18:00)
[2019-04-16] MEDS ORDERED: MAG11 PO SCH ×2 (18:00)
[2019-04-16] MEDS ORDERED: BOR PO SCH ×2 (18:00)
[2019-04-16] MEDS ORDERED: ATORVASTATIN CALCIUM 20 MG TABLET PO SCH (22:00)
[2019-04-16] MEDS ORDERED: (PENDING PHARMACY ID) (Donepezil Hcl [Aricept] 10 MG) PO SCH (22:00)
[2019-04-16] MEDS ORDERED: INSULIN GLARGINE HUM REC ANLOG 12 UNIT SQ SCH (22:00)
--- NOTE | 2019-04-16 22:39 | PDOC CONSULTATION ---
Consultation-Blank Consultation: CARDIOLOGY CONSULTATION by Dr. Evette Peña on 04/16/2019. Patient seen at 7:15 PM. 60 minutes spent with patient more than 50% time spent in direct patient care. REASON FOR CONSULTATION: Elevated troponin I in a patient with now presenting with congestive heart failure hypoxemia, respiratory failure, patient with known history of coronary artery disease and cardiomyopathy. CONSULT REQUESTING PHYSICIAN: Dr. Phong Maciel. HISTORY OF PRESENT ILLNESS: Patient is a 69-year-old male with known history of hypertension, diabetes mellitus, chronic kidney disease stage IV, mild dementia, and history of coronary artery disease with a past history of [place] and history of stents and with a history of coronary artery bypass graft surgery in the later part of 2018 admitted with a one-week history of orthopnea. And PND but an increasing shortness very minimal sputum. There is no hemoptysis. The patient was seen in the office yesterday and he seemed to be well compensated. The patient at that time did not report any orthopnea. On questioning the patient states that since he felt good he did not mention that he was having episodes of orthopnea. In the emergency room the patient was found to be hypoxic and was found also to be in heart failure. His chest x-ray and CT scan are consistent with bilateral infiltrates which is a combination of heart failure and pneumonia. The patient denies any fever chills or Riger's. There is no leg edema. The patient denies any chest pain discomfort. He also has a history of chronic kidney disease stage IV and his creatinine is gone up a little and this is some element of acute renal insufficiency and chronic kidney disease. Breath. He was still present having cough which is very minimal and nonproductive. Earlier he states it was productive of minimal sputum, the color which is not known. There is no pleuritic chest pain. Past Medical History Cardiac Medical History: Reports: Coronary Artery Disease, Myocardial Infarction - 1991, Hyperlipidema, Hypertension - MEDICATED Pulmonary Medical History: Start stress test showed reversible ischemia in the setting of scar in the inferior wall. The patient did not want cardiac catheterization. But in spite of treatment with multiple medications and Brilinta the patient continued to have symptoms. He also could not tolerate Ranexa. Subsequently since the patient's symptoms escalated he did undergo cardiac catheterization and which showed a 70% left main stenosis and a total occluded mid RCA which is getting collaterals from the left system he had a left internal mammary artery grafted to moderately diseased left anterior descending artery and a saphenous vein graft to moderately diseased OM1 and he was symptomatically much better. Postoperatively there was a complication of pericarditis and also atrial fibrillation. He was placed temporarily on amiodarone and Eliquis. These have been discontinued his recent echo done in the later part of 2019 few months after his bypass surgery showed that his LV ejection fraction is improved to 50%. Denies: Asthma, Chronic Obstructive Pulmonary Disease (COPD) Neurological Medical History: Denies: Seizures Endocrine Medical History: Reports: Diabetes Mellitus Type 2 GI Medical History: Reports: Gastroesophageal Reflux Disease Denies: Hepatitis, Hiatal Hernia Musculoskeltal Medical History: Denies: Fibromyalgia Skin Medical History: Denies: Eczema Psychiatric Medical History: Reports: Dementia Traumatic Medical History: Denies: Traumatic Brain Injury Hematology: Denies: Anemia, Sickle Cell Disease Past Surgical History Past Surgical History: Reports: Cardiac Catheterization - stents x2, Coronary Stent - RCA complicated by cardiac arrest Denies: Pacemaker Social History Smoking Status: Former Smoker Electronic Cigarette use?: No Frequency of Alcohol Use: None Hx Recreational Drug Use: No Drugs: None Hx Prescription Drug Abuse: No Family History Family History: CAD, Hypertension, Other - Also full siblings and parents with hypertension and coronary artery disease. Father and mother both with complications related to [place]. Parental Family History Reviewed: Yes - No premature CAD Children Family History Reviewed: No Sibling(s) Family History Reviewed.: No Medication/Allergy Home Medications: Amlodipine Besylate [Norvasc 5 mg Tablet] 10 mg PO DAILY 02/18/17 Donepezil HCl [Aricept] 10 mg PO QHS 02/18/17 Glimepiride [Amaryl] 2 mg PO DAILY 02/18/17 Omeprazole 20 mg PO Q6AM 02/18/17 Prednisone [Deltasone 5 mg Tablet] 5 mg PO DAILY 02/18/17 Insulin Glargine,Hum.rec.anlog [Basaglar Kwikpen U-100] 12 unit SQ QHS 09/27/18 Sertraline HCl [Zoloft 50 mg Tablet] 150 mg PO DAILY 09/27/18 Acetaminophen [Tylenol] 650 mg PO QIDP PRN 04/16/19 Aspirin [Ecotrin 81 mg EC Tablet] 81 mg PO QHS 04/16/19 Atorvastatin Calcium [Lipitor 40 mg Tablet] 40 mg PO QHS 04/16/19 B Complex W-C No.20/Folic Acid [Renal Caps Softgel] 1 mg PO DAILY 04/16/19 Chance/D3/Mag11/Zinc/Assembler Crimper/Hosea/Bor [Caltrate 600+D Plus Tablet] 1 tab PO TID 04/16/19 Cyanocobalamin/Folic AC/Vit B6 [Folbic Tablet] 1 tab PO DAILY 04/16/19 Hydralazine HCl [Apresoline 25 mg Tablet] 25 mg PO Q12 04/16/19 Insulin Glargine,Hum.rec.anlog [Basaglar Kwikpen U-100] 17 unit SQ QAM 04/16/19 Melatonin [Melatonin 3 mg Tablet] 9 mg PO QHS 04/16/19 Sodium Bicarbonate [Sodium Bicarbonate 650 mg Tablet] 650 mg PO DAILY 04/16/19 Vitamin B Complex [Vitamin B Complex Tablet] 1 tab PO DAILY 04/16/19 Allergies/Adverse Reactions: codeine [Codeine] Allergy (Verified 04/16/19 09:31) hydrocodone bitartrate [From Vicodin] Allergy (Verified 04/16/19 09:31) RESUSCITATION STATUS: The patient is a full code. His is his surrogate healthcare decision maker Current Medications Generic Name Dose Route Start Last Admin Trade Name Freq PRN Reason Stop Dose Admin Acetaminophen 650 mg 04/16/19 14:51 Tylenol 325 Mg Tablet PO 05/16/19 14:50 QIDP PRN FOR PAIN Albuterol/Ipratropium 3 ml 04/16/19 12:22 04/16/19 13:32 Duoneb 3 Ml Ampul NEB 05/16/19 12:21 3 ml [id number] PRN Administration SHORTNESS OF BREATH Aspirin 81 mg 04/17/19 10:00 Aspirin 81 Mg Chewable Tablet PO 05/17/19 09:59 DAILY [facility] Aspirin 81 mg 04/16/19 22:00 Ecotrin 81 Mg Ec Tablet PO 05/16/19 21:59 QHS [facility] Atorvastatin Calcium 20 mg 04/16/19 22:00 Lipitor 20 Mg Tablet PO 05/16/19 21:59 QHS [facility] Atorvastatin Calcium 40 mg 04/16/19 22:00 Lipitor 40 Mg Tablet PO 05/16/19 21:59 QHS [facility] Dextrose 12.5 gm 04/16/19 11:54 Dextrose Inj 50% Syringe (25 Gm/50 Ml) IV 05/16/19 11:53 PRN PRN FOR BG 50-69 IN ALERT PATIENT Protocol Dextrose 25 gm 04/16/19 11:54 Dextrose Inj 50% Syringe (25 Gm/50 Ml) IV 05/16/19 11:53 PRN PRN PER PROTOCOL Protocol Donepezil HCl 10 mg 04/16/19 22:00 Aricept 5 Mg Tablet PO 05/16/19 21:59 QHS [facility] Furosemide 40 mg 04/16/19 22:00 Lasix Inj/Pf 40 Mg/4 Ml Sdv IV 05/16/19 21:59 Q12 [facility] Glucagon 1 mg 04/16/19 11:54 Glucagen Inj 1 Mg Vial IM 05/16/19 11:53 PRN PRN Evaluate for BG < 70 Protocol Glucose 15 gm 04/16/19 11:54 Glutose 40% Gel 15 Gm Tube PO 05/16/19 11:53 PRN PRN FOR BG 50-69 IN ALERT PATIENT Protocol Glucose 30 gm 04/16/19 11:54 Glutose 40% Gel 15 Gm Tube PO 05/16/19 11:53 PRN PRN FOR BG < 50 IN ALERT PATIENT Protocol Heparin Sodium (Porcine) 5,000 unit 04/16/19 14:00 04/16/19 13:36 Heparin Inj 5,000 Units/Ml 1 Ml Vial SUBCUT 05/16/19 13:59 5,000 unit Q8 [facility] Administration Hydralazine HCl 10 mg 04/16/19 11:57 Apresoline Inj/Pf 20 Mg/1 Ml Sdv IV 05/16/19 11:56 Q4HP PRN for SBP>170 or DBP>100 Hydralazine HCl 25 mg 04/16/19 22:00 Apresoline 25 Mg Tablet PO 05/16/19 21:59 Q12 [facility] Ceftriaxone Sodium/Dextrose 1 gm in 50 mls @ 100 mls/hr 04/17/19 10:00 Rocephin Rtu 1 Gm/D5w 50 Ml Premix IV 04/24/19 09:59 DAILY [facility] Insulin Glargine 12 unit 04/16/19 22:00 Lantus Insulin 100 Unit/1 Ml 10 Ml SUBCUT 05/16/19 21:59 QHS [facility] Insulin Glargine 17 unit 04/17/19 08:00 Lantus Insulin 100 Unit/1 Ml 10 Ml SUBCUT 05/17/19 07:59 QAM [facility] Insulin Human Lispro 0 - 12 unit 04/16/19 16:00 04/16/19 16:28 Humalog Insulin 100 Unit/1 Ml 3 Ml Vial SUBCUT 05/16/19 15:59 4 unit ACHS [facility] Administration Protocol Melatonin 9 mg 04/16/19 22:00 Melatonin 3 Mg Tablet PO 05/16/19 21:59 QHS [facility] Nitroglycerin 1 tab 04/16/19 13:26 Nitrostat 0.4 Mg (1/150 Gr) Tabs 25/Bottle SL 05/16/19 13:25 Q5MP PRN FOR CHEST PAIN Ondansetron HCl 4 mg 04/16/19 13:25 04/16/19 13:37 Zofran Inj/Pf 4 Mg/2 Ml Sdv IV 05/16/19 13:24 4 mg Q4HP PRN Administration FOR NAUSEA/VOMITING Pantoprazole Sodium 20 mg 04/17/19 08:[address] Tablet PO 05/17/19 07:59 QAM [facility] Patient Own Medication 1 tab 04/16/19 18:00 Chance/D3/Mag11/Zinc/Assembler Crimper/Hosea/Bor [Caltrate 600+D Plus Tablet] PO 05/16/19 17:59 TID [facility] Patient Own Medication 1 tab 04/17/19 10:00 Cyanocobalamin/Folic Ac/Vit B6 [Folbic Tablet] PO 05/17/19 09:59 DAILY [facility] Prednisone 5 mg 04/17/19 10:00 Deltasone 5 Mg Tablet PO 05/17/19 09:59 DAILY [facility] Promethazine HCl 12.5 mg 04/16/19 13:45 Phenergan Inj 25 Mg/1 Ml Vial IV 05/16/19 13:44 Q4HP PRN UNRESOLVED NAUSEA/VOMITING Sertraline HCl 150 mg 04/17/19 10:00 Zoloft 50 Mg Tablet PO 05/17/19 09:59 DAILY [facility] Sodium Bicarbonate 650 mg 04/17/19 10:00 Sodium Bicarbonate 650 Mg Tablet PO 05/17/19 09:59 DAILY [facility] Vitamin B Complex 1 tab 04/17/19 10:00 Vitamin B Complex Tablet PO 05/17/19 09:59 DAILY [facility] Vitamin B Complex 1 tab 04/17/19 10:00 Vitamin B Complex Tablet PO 05/17/19 09:59 DAILY [facility] Discontinued Medications Generic Name Dose Route Start Last Admin Trade Name Lucia PRN Reason Stop Dose Admin Azithromycin 1,000 mg 04/16/19 11:02 04/16/19 11:18 Zithromax 250 Mg Tablet PO 04/16/19 11:03 1,000 mg NOW ONE Administration Bumetanide 1 mg 04/16/19 11:03 04/16/19 11:26 Bumex Inj/Pf 1 Mg/4 Ml Sdv IV 04/16/19 11:04 1 mg NOW ONE Administration Ceftriaxone Sodium 1,000 mg 04/16/19 11:02 04/16/19 11:29 Rocephin Inj 1000 Mg Vial IV 04/16/19 11:03 1,000 mg IVBAG (ED) ONE Administration Ceftriaxone Sodium/Dextrose Confirm 04/16/19 11:09 04/16/19 11:30 Rocephin Rtu 1 Gm/D5w 50 Ml Premix Administered 04/16/19 11:10 Not Given Dose 1 gm in 50 mls @ ud IV .STK-MED ONE Nitroglycerin 0.5 gm 04/16/19 11:03 04/16/19 11:32 Nitrol 2% Ointment 1gm Packet TP 04/16/19 11:04 0.5 gm NOW ONE Administration Review of Systems All systems: reviewed and no additional remarkable complaints except as stated - As mentioned in HPI Physical Exam : The patient appears to be chronically ill. At present in mild respiratory distress. Selected Entries 04/16/19 19:23 Temperature 98.7 F Temperature Oral Source Pulse Rate 115 H Respiratory 24 H Rate Blood Pressure 140/80 H Blood Pressure 100 Mean BP Location Right Arm BP Position Supine O2 Sat by Pulse 92 Oximetry Oxygen Flow 5.00 Rate HEAD: Is atraumatic normocephalic. EYES: Pupils equal round regular reactive light accommodation. Extraocular movements are normal. There is no conjunctival pallor. There is no scleral icterus. EARS: Tympanic membranes are intact. External auditory canals are clear nose: There is no deviated nasal septum. There is no inflammation nasal mucous membrane. MOUTH: Mucous membranes of mouth are moist. Tongue is moist. There is no ulcers. There is no bleeding from the gums. THROAT: There is no redness of the oropharynx. There is no exudates. SKIN: There is no skin rashes. There is no petechia or ecchymosis. NECK: Supple. There is mild JVD elevation. Carotids are equal there is no bruits. There is no lymphadenopathy. There is no goiter.. There is no accessory muscles of respiration use. Trachea central. LUNGS: There is absent breath sounds are small area in the right base with dullness at this area. The rest of the bases show bibasilar fine rales and dry crackles both of heart failure and pneumonia. Heart: S1-S2 is heard. There is no S3 gallop. There is no S4 gallop. There is systolic murmur left some border and the apex there is murmur of mitral regurgitation present. There is no rub. ABDOMEN: Soft. Nontender there is no paraspinal megaly. EXTREMITIES: Femorals are slightly diminished. There is no femoral bruits. Leg pulses are well felt. There is no pedal edema. There is no cyanosis or clubbing. POOL CLEANER: The patient is conscious awake alert oriented x3 with no focal deficit. PSYCHIATRIC: The patient judgment insight are intact his affect is normal. EKG: Shows sinus rhythm. LVH with strain pattern. PVCs. Old anterior [place] Labs- Entire Visit 04/16/19 04/16/19 04/16/19 09:23 09:23 09:23 WBC 12.6 H RBC 3.78 L Hgb 11.8 L Hct 35.2 L MCV 93 MCH 31.2 MCHC 33.5 RDW 14.7 H Plt Count 270 Lymph % (Auto) Not Reportable Sullivan % (Auto) Not Reportable Eos % (Auto) Not Reportable Baso % (Auto) Not Reportable Absolute Neuts (auto) Not Reportable Absolute Lymphs (auto) Not Reportable Absolute Monos (auto) Not Reportable Absolute Eos (auto) Not Reportable Absolute Basos (auto) Not Reportable Total Counted 100 Seg Neutrophils % Not Reportable Seg Neuts % (Manual) 90 H Lymphocytes % (Manual) 3 L Monocytes % (Manual) 7 Eosinophils % (Manual) 0 Basophils % (Manual) 0 Abs Neuts (Manual) 11.3 H Abs Lymphs (Manual) 0.4 L Abs Monocytes (Manual) 0.9 Absolute Eos (Manual) 0.0 Abs Basophils (Manual) 0.0 Platelet Comment ADEQUATE Polychromasia SLIGHT Anisocytosis SLIGHT Sodium 144.7 Potassium 5.5 H Chloride 112 H Carbon Dioxide 23 Anion Gap 10 BUN 57 H Creatinine 3.04 H Est GFR ( Amer) 25 L Est GFR (MDRD) Non-Af 20 L Glucose 179 H POC Glucose Calcium 10.2 Total Bilirubin 0.8 Direct Bilirubin 0.1 Neonat Total Bilirubin Not Reportable Neonat Direct Bilirubin Not Reportable Neonat Indirect Bili Not Reportable AST 25 ALT 24 Alkaline Phosphatase 94 Creatine Kinase 38 L CK-MB (CK-2) 3.20 Troponin I 0.237 Total Protein 7.0 Albumin 4.2 Urine Color Urine Appearance Urine pH Ur Specific [place] Urine Protein Urine Glucose (UA) Urine Ketones Urine Blood Urine Nitrite Urine Bilirubin Urine Urobilinogen Ur Leukocyte Esterase Urine WBC (Auto) Urine RBC (Auto) Urine Ascorbic Acid 04/16/19 04/16/19 04/16/19 10:44 12:14 16:19 WBC RBC Hgb Hct MCV MCH MCHC RDW Plt Count Lymph % (Auto) Sullivan % (Auto) Eos % (Auto) Baso % (Auto) Absolute Neuts (auto) Absolute Lymphs (auto) Absolute Monos (auto) Absolute Eos (auto) Absolute Basos (auto) Total Counted Seg Neutrophils % Seg Neuts % (Manual) Lymphocytes % (Manual) Monocytes % (Manual) Eosinophils % (Manual) Basophils % (Manual) Abs Neuts (Manual) Abs Lymphs (Manual) Abs Monocytes (Manual) Absolute Eos (Manual) Abs Basophils (Manual) Platelet Comment Polychromasia Anisocytosis Sodium Potassium Chloride Carbon Dioxide Anion Gap BUN Creatinine Est GFR ( Amer) Est GFR (MDRD) Non-Af Glucose POC Glucose 180 H 226 H Calcium Total Bilirubin Direct Bilirubin Neonat Total Bilirubin Neonat Direct Bilirubin Neonat Indirect Bili AST ALT Alkaline Phosphatase Creatine Kinase CK-MB (CK-2) Troponin I Total Protein Albumin Urine Color YELLOW Urine Appearance SLIGHTLY-CLOUDY Urine pH 5.0 Ur Specific [place] 1.018 Urine Protein >=500 H Urine Glucose (UA) 50 H Urine Ketones NEGATIVE Urine Blood NEGATIVE Urine Nitrite NEGATIVE Urine Bilirubin NEGATIVE Urine Urobilinogen NEGATIVE Ur Leukocyte Esterase NEGATIVE Urine WBC (Auto) 0 Urine RBC (Auto) 0 Urine Ascorbic Acid NEGATIVE 04/16/19 21:05 WBC RBC Hgb Hct MCV MCH MCHC RDW Plt Count Lymph % (Auto) Sullivan % (Auto) Eos % (Auto) Baso % (Auto) Absolute Neuts (auto) Absolute Lymphs (auto) Absolute Monos (auto) Absolute Eos (auto) Absolute Basos (auto) Total Counted Seg Neutrophils % Seg Neuts % (Manual) Lymphocytes % (Manual) Monocytes % (Manual) Eosinophils % (Manual) Basophils % (Manual) Abs Neuts (Manual) Abs Lymphs (Manual) Abs Monocytes (Manual) Absolute Eos (Manual) Abs Basophils (Manual) Platelet Comment Polychromasia Anisocytosis Sodium Potassium Chloride Carbon Dioxide Anion Gap BUN Creatinine Est GFR ( Amer) Est GFR (MDRD) Non-Af Glucose POC Glucose 154 H Calcium Total Bilirubin Direct Bilirubin Neonat Total Bilirubin Neonat Direct Bilirubin Neonat Indirect Bili AST ALT Alkaline Phosphatase Creatine Kinase CK-MB (CK-2) Troponin I Total Protein Albumin Urine Color Urine Appearance Urine pH Ur Specific [place] Urine Protein Urine Glucose (UA) Urine Ketones Urine Blood Urine Nitrite Urine Bilirubin Urine Urobilinogen Ur Leukocyte Esterase Urine WBC (Auto) Urine RBC (Auto) Urine Ascorbic Acid Chest X-Ray 04/16/19 09:25 IMPRESSION: Diffuse bilateral infiltrates left greater than right likely pulmonary edema. Pneumonia could not entirely be excluded. Since the prior chest films 10/07/2018, patient has undergone sternotomy with CABG Chest CT 04/16/19 11:52 IMPRESSION: 1. As seen radiographically, diffuse infiltrates. Suspect this is predominantly related to congestive failure given the presence of bilateral effusions. Basilar pneumonia not excluded given significant consolidation and volume loss in the lower lobes as well. IMPRESSION/RECOMMENDATION: 1. Elevated troponin I secondary to the patient's hypoxemia, heart failure and possibly pneumonia. No definite evidence of non-ST relation [place]. This is a type II [place] secondary to supply demand mismatch. Hence we will treat the underlying cause. Would not treat this as a non-ST elevation [place]. Would repeat the patient's EKG in the morning and also trend the troponin. 2. Acute hypoxic respiratory failure secondary to combination of CHF and pneumonia. 3. Mild ischemic cardiomyopathy with mildly reduced LV ejection fraction. 4. Congestive heart failure: Combination of volume overload secondary to acute on chronic kidney disease and mild cardiomyopathy. Continue diuresis when continue current anti-cardiomyopathy/anti-CAD medication. 5. Pneumonia: Continue antibiotics 6. Coronary artery disease: No definite evidence of angina. Continue the patient's current anti-CAD medication including aspirin 7. Diabetes mellitus: Continue antidiabetic regimen and Accu-Cheks as per protocol. 8. Acute on chronic renal disease. The patient's chronic renal status is chronic kidney disease stage IV. Seems to worsen slightly. Nephrology has been consulted await their consultation. The patient still making urine and hence we will continue diuresis aggressively. 9. Hypertension: Blood pressure seems to be reasonably controlled. 10. Hyperlipidemia: Continue statins 11. History of depression mild dementia: Continue his anti-depressants Medications reviewed. Medication management and management plan discussed with Dr. Maciel. Medical decision making is of high complexity in view of the patient's troponin I leak, and to come to conclusion that this is not an acute coronary syndrome. 60 minutes spent as patient more than 50% time spent in direct patient care. Will follow.
[2019-04-16] MEDS: HYDRALAZINE HCL 25 MG TABLET PO SCH (22:40)
[2019-04-16] MEDS: MELATONIN 3 MG TABLET PO SCH (22:40)
[2019-04-16] MEDS: INSULIN GLARGINE,HUM.REC.ANLOG 1,000 UNIT/10 ML VIAL SUBCUT SCH (22:40)
[2019-04-16] MEDS: DONEPEZIL HCL 5 MG TABLET PO SCH (22:40)
[2019-04-16] MEDS: FUROSEMIDE INJ/PF 40 MG/4 ML SDV IV SCH (22:40)
[2019-04-16] MEDS: ATORVASTATIN CALCIUM 40 MG TABLET PO SCH (22:40)
[2019-04-16] MEDS: ASPIRIN 81 MG TABLET, ENT COATED PO SCH (22:40)
[2019-04-17] MEDS: HEPARIN SOD (PORCINE) 5,000 UNIT/ML 1 ML VIAL SUBCUT SCH ×3 (06:19→22:36)
[2019-04-17] MEDS ORDERED: INSULIN GLARGINE,HUM.REC.ANLOG 1,000 UNIT/10 ML VIAL SUBCUT SCH (08:00)
[2019-04-17] MEDS ORDERED: INSULIN GLARGINE HUM REC ANLOG 17 UNIT SQ SCH (08:00)
[2019-04-17] MEDS: PANTOPRAZOLE SODIUM 20 MG TABLET.DR PO SCH (08:58)
[2019-04-17] MEDS: INSULIN LISPRO 100 UNIT/ML 3 ML VIAL SUBCUT SCH ×4 (08:59→22:37)
[2019-04-17] MEDS ORDERED: INSULIN GLARGINE,HUM.REC.ANLOG 1,000 UNIT/10 ML VIAL (PYX) SUBCUT ONE (09:00)
[2019-04-17] MEDS ORDERED: VITAMIN B COMPLEX TABLET PO SCH (10:00)
[2019-04-17] MEDS ORDERED: (PENDING PHARMACY ID) (B Complex W-C No.20/Folic Acid [Renal Caps Softgel] 1 MG) PO SCH (10:00)
[2019-04-17] MEDS ORDERED: SODIUM BICARBONATE 650 MG TABLET PO SCH (10:00)
[2019-04-17] MEDS ORDERED: ASPIRIN 81 MG TABLET, CHEWABLE PO SCH (10:00)
[2019-04-17] MEDS ORDERED: (PENDING PHARMACY ID) (Cyanocobalamin/Folic Ac/Vit B6 [Folbic Tablet] 1 TAB) PO SCH ×2 (10:00)
[2019-04-17] MEDS: PREDNISONE 5 MG TABLET PO SCH (10:05)
[2019-04-17] MEDS: HYDRALAZINE HCL 25 MG TABLET PO SCH ×2 (10:05→22:35)
[2019-04-17] MEDS: FUROSEMIDE INJ/PF 40 MG/4 ML SDV IV SCH ×2 (10:05→22:36)
[2019-04-17] MEDS: SERTRALINE HCL 50 MG TABLET PO SCH (10:05)
[2019-04-17] MEDS: VITAMIN B COMPLEX TABLET PO SCH (10:06)
[2019-04-17] MEDS: CEFTRIAXONE 1 GM/D5W RTU 1 GM/50 ML RTUPB IV SCH (10:06)
--- NOTE | 2019-04-17 10:07 | RADIOLOGY REPORT (SQ) ---
EXAM DESCRIPTION: CHEST SINGLE VIEW COMPLETED DATE/TIME: 04/17/2019 9:34 am REASON FOR STUDY: SOB COMPARISON: Chest film 04/16/2019, 09/29/2018, 09/27/2018 EXAM PARAMETERS: NUMBER OF VIEWS: One view. TECHNIQUE: Single frontal radiographic view of the chest acquired. RADIATION DOSE: NA LIMITATIONS: None. FINDINGS: LUNGS AND PLEURA: Bilateral perihilar airspace disease is present left greater than right worrisome for pulmonary edema. Pneumonia could not be excluded. Trace right pleural effusion. No p neumothorax. MEDIASTINUM AND HILAR STRUCTURES: No masses. Contour normal. HEART AND VASCULAR STRUCTURES: Moderate cardiomegaly with old sternotomy BONES: No acute findings. HARDWARE: Old sternotomy OTHER: No other significant finding. IMPRESSION: Persistent bilateral perihilar airspace disease worrisome for pulmonary edema. Trace right pleural effusion TECHNICAL DOCUMENTATION: JOB ID: [id number] [employer]- All Rights Reserved Reading location - IP/workstation name: [email or web address]
[2019-04-17] MEDS: ACETAMINOPHEN 325 MG TABLET PO PRN (10:12)
[2019-04-17 10:44] LABS: ABSOLUTE BASOPHILS # (AUTO) 0.1 10^3/uL (0.0-0.2); ABSOLUTE EOSINOPHILS # (AUTO) 0.1 10^3/uL (0.0-0.6); ABSOLUTE LYMPHOCYTES (AUTO) 1.1 10^3/uL (0.5-4.7); ABSOLUTE MONOCYTES (AUTO) 0.7 10^3/uL (0.1-1.4); ABSOLUTE NEUT (AUTO) 8.3 10^3/uL (1.7-8.2); BASOPHILS % (AUTO) 0.9 % (0-2); EOSINOPHILS % (AUTO) 1.1 % (0-6); HEMATOCRIT 32.9 % (37.9-51.0); HEMOGLOBIN 11.2 g/dL (13.5-17.0); LYMPHOCYTES % (AUTO) 10.6 % (13-45); MEAN CORPUSCULAR HEMOGLOBIN 31.8 pg (27.0-33.4); MEAN CORPUSCULAR HGB CONC 34.1 g/dL (32.0-36.0); MEAN CORPUSCULAR VOLUME 93 fl (80-97); PLATELET COUNT 252 10^3/uL (150-450); RED BLOOD COUNT 3.52 10^6/uL (4.35-5.55); RED CELL DISTRIBUTION WIDTH 14.7 % (11.5-14.0); SEGMENTED NEUTROPHILS % (AUTO) 80.4 % (42-78); TOTAL CELLS COUNTED % (AUTO) 100 %; WHITE BLOOD COUNT 10.3 10^3/uL (4.0-10.5)
[2019-04-17 11:02] LABS: ANION GAP 13 (5-19); BLOOD UREA NITROGEN 54 mg/dL (7-20); CALCIUM 10.3 mg/dL (8.4-10.2); CARBON DIOXIDE 24 mmol/L (22-30); CHLORIDE 107 mmol/L (98-107); GLUCOSE 109 mg/dL (75-110); POTASSIUM 4.5 mmol/L (3.6-5.0)
--- NOTE | 2019-04-17 13:02 | EKG REPORT ---
SEVERITY:- ABNORMAL ECG - SINUS TACHYCARDIA MULTIPLE VENTRICULAR PREMATURE COMPLEXES LVH WITH SECONDARY REPOLARIZATION ABNORMALITY ANTERIOR INFARCT, AGE INDETERMINATE : Confirmed by: Soni Calderon 17-Apr-2019 13:01:48
--- NOTE | 2019-04-17 13:02 | EKG REPORT ---
SEVERITY:- ABNORMAL ECG - SINUS TACHYCARDIA MULTIPLE VENTRICULAR PREMATURE COMPLEXES LAD, CONSIDER LAFB OR INFERIOR INFARCT LVH WITH SECONDARY REPOLARIZATION ABNORMALITY ANTERIOR INFARCT, AGE INDETERMINATE : Confirmed by: Soni Calderon 17-Apr-2019 13:01:31
--- NOTE | 2019-04-17 14:20 | PDOC PROGRESS REPORT ---
Subjective Progress Note for:: 04/17/19 Subjective:: MALINDA CROCKETT is a 69 year old male with a past medical history of CAD, prior CABG, prior stenting, history of CHF with last known EF of 36 to 40%, chronic kidney disease, insulin-dependent placements, hypertension and mild dementia who presented with cough and increasing shortness of breath. Patient was placed on BiPAP yesterday afternoon and she became hypoxic with him to the bathroom. Weaned off BiPAP overnight. On encounter, he appears comfortable and saturating well nasal cannula. He says he is shortness of breath and orthopnea have slightly improved overnight. Denies chest pain. He has diuresed fairly overnight. Cardiology following. Await further recommendations from nephrology. Reason For Visit: ACUTE HYPOXIC RESPIRATORY FAILURE,CHF EXACERBATION Physical Exam Vital Signs: Temp Pulse Resp BP Pulse Ox 98.9 F 51 L 18 127/55 H 94 04/17/19 11:43 04/17/19 11:43 04/17/19 11:43 04/17/19 11:43 04/17/19 11:43 Intake & Output 04/16/19 04/17/19 04/18/19 06:59 06:59 06:59 Intake Total 300 915 Output Total 800 650 Balance -500 265 Weight 162 lb 4.163 oz General appearance: PRESENT: no acute distress, well-developed, well-nourished Head exam: PRESENT: atraumatic, normocephalic Eye exam: PRESENT: conjunctiva pink, EOMI, PERRLA. ABSENT: scleral icterus Ear exam: PRESENT: normal external ear exam Mouth exam: PRESENT: moist, tongue midline Neck exam: ABSENT: carotid bruit, JVD, lymphadenopathy, thyromegaly Respiratory exam: PRESENT: rhonchi. ABSENT: rales, wheezes Cardiovascular exam: PRESENT: RRR. ABSENT: diastolic murmur, rubs, systolic murmur Pulses: PRESENT: normal dorsalis pedis pul GI/Abdominal exam: PRESENT: normal bowel sounds, soft. ABSENT: distended, guarding, mass, organolmegaly, rebound, tenderness Rectal exam: PRESENT: deferred Extremities exam: PRESENT: full ROM. ABSENT: calf tenderness, clubbing, pedal edema Neurological exam: PRESENT: alert, awake, oriented to person, oriented to place, oriented to time, oriented to situation, CN II-XII grossly intact. ABSENT: motor sensory deficit Results Laboratory Results: 04/17/19 10:10 04/17/19 10:10 04/17/19 04/17/19 10:10 10:10 WBC 10.3 RBC 3.52 L Hgb 11.2 L Hct 32.9 L MCV 93 MCH 31.8 MCHC 34.1 RDW 14.7 H Plt Count 252 Seg Neutrophils % 80.4 H Sodium 144.2 Potassium 4.5 Chloride 107 Carbon Dioxide 24 Anion Gap 13 BUN 54 H Creatinine 3.36 H Est GFR ( Amer) 22 L Glucose 109 Calcium 10.3 H 04/16/19 04/16/19 09:23 09:23 Creatine Kinase 38 L CK-MB (CK-2) 3.20 Troponin I 0.237 Impressions: Chest CT 04/16/19 11:52 IMPRESSION: 1. As seen radiographically, diffuse infiltrates. Suspect this is predominantly related to congestive failure given the presence of bilateral effusions. Basilar pneumonia not excluded given significant consolidation and volume loss in the lower lobes as well. Chest X-Ray 04/17/19 08:54 IMPRESSION: Persistent bilateral perihilar airspace disease worrisome for pulmonary edema. Trace right pleural effusion Assessment and Plan - Diagnosis (1) Acute respiratory failure with hypoxemia Is this a current diagnosis for this admission?: Yes Plan: Secondary to CHF exacerbation versus concomitant pneumonia. Currently on nasal cannula. BiPAP as needed. 04/17: Slightly improved. Weaned off BiPAP. Currently saturating well on nasal cannula. (2) CHF (congestive heart failure) Qualifiers: Heart failure type: systolic Heart failure chronicity: acute on chronic Qualified Code(s): I50.23 - Acute on chronic systolic (congestive) heart failure Is this a current diagnosis for this admission?: Yes Plan: Continue IV Lasix 40 mg every 12. Cardiology following. Await further recommendations from nephrology. We will continue to monitor renal functions. (3) Pneumonia Qualifiers: Pneumonia type: due to unspecified organism Laterality: bilateral Lung location: unspecified part of lung Qualified Code(s): J18.9 - Pneumonia, unspecified organism Is this a current diagnosis for this admission?: Yes Plan: Continue IV Rocephin. Sputum culture ordered. (4) Insulin dependent diabetes mellitus Is this a current diagnosis for this admission?: Yes (5) CAD (coronary artery disease) Qualifiers: Coronary Disease-Associated Artery/Lesion type: bypass graft [place] vs. transplanted heart: [place] heart Associated angina: without angina Qualified Code(s): I25.810 - Atherosclerosis of coronary artery bypass graft(s) without angina pectoris Is this a current diagnosis for this admission?: Yes (6) Chronic kidney disease, stage 3 Is this a current diagnosis for this admission?: Yes (7) HTN (hypertension) Qualifiers: Hypertension type: essential hypertension Qualified Code(s): I10 - Essential (primary) hypertension Is this a current diagnosis for this admission?: Yes - Time Time Spent with patient: 25-34 minutes
--- NOTE | 2019-04-17 15:03 | PDOC CONSULTATION ---
Consultation Consult Date: 04/17/19 Provider Consulted: Vijaya GUTIERREZ Consult reason:: Acute on chronic kidney disease. History of Present Illness Admission Date/PCP: 04/16/19 11:34 Vijaya GUTIERREZ MD History of Present Illness: MALINDA CROCKETT is a 69 year old male with a past medical history of Diabetes mellitus, Hypertension, history of polymyalgia rheumatica, CAD -CABG 2018, with h/o prior stenting, history of CHF with last known EF of 50%, chronic kidney disease -4 with a base creatinine of around 2.5 -3, and mild dementia was admitted with history of progressive coughing spells over the last 1 week and developed shortness of breath the last couple of days. He has been noticing a dry cough for the since last Saturday as per him and his who is at the bedside. He was orthopneic. However he initially thought it was bronchitis but then he began to develop shortness of breath last couple of days without any history of chest pain and therefore decided to come to the ER. Chest x-ray shows features suggestive of congestive heart failure. Patient was begun on oxygen and given IV diuretics and presently when I see him he feels a whole lot better. Admission creatinine was 3 yesterday and today is 3.3. Past Medical History Cardiac Medical History: Reports: Coronary Artery Disease, Hyperlipidemia, Hypertension-primary, Myocardial Infarction - 1991 Pulmonary Medical History: Denies: Asthma, Chronic Obstructive Pulmonary Disease (COPD) Neurological Medical History: Denies: Seizures Endocrine Medical History: Reports: Diabetes Mellitus Type 2 Renal/ Medical History: Reports: Chronic Kidney Disease Stage IV GI Medical History: Reports: Gastroesophageal Reflux Disease Denies: Hepatitis, Hiatal Hernia Musculoskeltal Medical History: Denies: Fibromyalgia Skin Medical History: Denies: Eczema Psychiatric Medical History: Reports: Dementia, Depression Traumatic Medical History: Denies: Traumatic Brain Injury Past Surgical History Past Surgical History: Reports: Cardiac Catheterization - stents x2, Coronary Stent - RCA complicated by cardiac arrest Denies: Pacemaker Social History Smoking Status: Former Smoker Electronic Cigarette use?: No Frequency of Alcohol Use: None Hx Recreational Drug Use: No Drugs: None Hx Prescription Drug Abuse: No - Advance Directive Resuscitation Status: Full Code Family History Parental Family History Reviewed: Yes - Negative for ESRD Children Family History Reviewed: No Sibling(s) Family History Reviewed.: No Medication/Allergy Home Medications: Amlodipine Besylate [Norvasc 5 mg Tablet] 10 mg PO DAILY 02/18/17 Donepezil HCl [Aricept] 10 mg PO QHS 02/18/17 Glimepiride [Amaryl] 2 mg PO DAILY 02/18/17 Omeprazole 20 mg PO Q6AM 02/18/17 Prednisone [Deltasone 5 mg Tablet] 5 mg PO DAILY 02/18/17 Insulin Glargine,Hum.rec.anlog [Jongaglar Halieikpen U-100] 12 unit SQ QHS 09/27/18 Sertraline HCl [Zoloft 50 mg Tablet] 150 mg PO DAILY 09/27/18 Acetaminophen [Tylenol] 650 mg PO QIDP PRN 04/16/19 Aspirin [Ecotrin 81 mg EC Tablet] 81 mg PO QHS 04/16/19 Atorvastatin Calcium [Lipitor 40 mg Tablet] 40 mg PO QHS 04/16/19 B Complex W-C No.20/Folic Acid [Renal Caps Softgel] 1 mg PO DAILY 04/16/19 Chance/D3/Mag11/Zinc/Folded Towel Machine Operator/[place]/Bor [Caltrate 600+D Plus Tablet] 1 tab PO TID Cyanocobalamin/Folic AC/Vit B6 [Folbic Tablet] 1 tab PO DAILY 04/16/19 Hydralazine HCl [Apresoline 25 mg Tablet] 25 mg PO Q12 04/16/19 Insulin Glargine,Hum.rec.anlog [Basaglar Kwikpen U-100] 17 unit SQ QAM 04/16/19 Melatonin [Melatonin 3 mg Tablet] 9 mg PO QHS 04/16/19 Sodium Bicarbonate [Sodium Bicarbonate 650 mg Tablet] 650 mg PO DAILY 04/16/19 Vitamin B Complex [Vitamin B Complex Tablet] 1 tab PO DAILY 04/16/19 Allergies/Adverse Reactions: codeine [Codeine] Allergy (Verified 04/16/19 09:31) hydrocodone bitartrate [From Vicodin] Allergy (Verified 04/16/19 09:31) Review of Systems Constitutional: PRESENT: anorexia, fatigue, weakness. ABSENT: chills, fever(s), headache(s), night sweats Cardiovascular: PRESENT: dyspnea on exertion. ABSENT: chest pain, edema, orthropnea, palpitations Gastrointestinal: ABSENT: abdominal pain, bloating, coffee ground emesis, diarrhea, dysphagia, heartburn, hematemesis, hematochezia Genitourinary: ABSENT: difficulty urinating, dysuria, hematuria Musculoskeletal: ABSENT: deformity, joint swelling Integumentary: ABSENT: lesions, pruritus, rash Neurological: ABSENT: abnormal gait, abnormal movements, focal weakness Endocrine: ABSENT: heat intolerance Hematologic/Lymphatic: ABSENT: easy bleeding, easy bruising, lymphadenopathy Physical Exam Vital Signs: Temp Pulse Resp BP Pulse Ox 98.9 F 51 L 18 127/55 H 94 04/17/19 11:43 04/17/19 11:43 04/17/19 11:43 04/17/19 11:43 04/17/19 11:43 Intake & Output 04/16/19 04/17/19 04/18/19 06:59 06:59 06:59 Intake Total 300 915 Output Total 800 650 Balance -500 265 Weight 73.6 kg General appearance: PRESENT: no acute distress Eye exam: PRESENT: EOMI, PERRLA. ABSENT: scleral icterus Ear exam: PRESENT: normal external ear exam Mouth exam: PRESENT: moist, neck supple Neck exam: ABSENT: meningismus, tenderness, thyromegaly, tracheal deviation Respiratory exam: PRESENT: clear to auscultation phan. ABSENT: crackles Cardiovascular exam: PRESENT: +S1, +S2 GI/Abdominal exam: PRESENT: normal bowel sounds, soft. ABSENT: organomegaly, tenderness Extremities exam: ABSENT: pedal edema Neurological exam: PRESENT: alert, awake, oriented to person, oriented to place Psychiatric exam: PRESENT: appropriate affect Skin exam: ABSENT: cyanosis, erythema, mottled, rash Results Laboratory Results: 04/17/19 10:10 04/17/19 10:10 04/17/19 04/17/19 10:10 10:10 WBC 10.3 RBC 3.52 L Hgb 11.2 L Hct 32.9 L MCV 93 MCH 31.8 MCHC 34.1 RDW 14.7 H Plt Count 252 Seg Neutrophils % 80.4 H Sodium 144.2 Potassium 4.5 Chloride 107 Carbon Dioxide 24 Anion Gap 13 BUN 54 H Creatinine 3.36 H Est GFR ( Amer) 22 L Glucose 109 Calcium 10.3 H 04/16/19 04/16/19 09:23 09:23 Creatine Kinase 38 L CK-MB (CK-2) 3.20 Troponin I 0.237 Impressions: Chest CT 04/16/19 11:52 IMPRESSION: 1. As seen radiographically, diffuse infiltrates. Suspect this is predominantly related to congestive failure given the presence of bilateral effusions. Basilar pneumonia not excluded given significant consolidation and volume loss in the lower lobes as well. Chest X-Ray 04/17/19 08:54 IMPRESSION: Persistent bilateral perihilar airspace disease worrisome for pulmonary edema. Trace right pleural effusion Assessment & Plan - Diagnosis (1) GLORIA (acute kidney injury) Plan: Patient has got some amount of acute decompensation in the face of prerenal CHF. Patient currently is and symptomatically better as far as heart failure is con cerned with oxygen and diuretics. Continue on the same. Do not expect renal function to continue to worsen as things stand today. However if he gets worse over the next couple of days then would need to do a renal ultrasound to make sure we are not dealing with any obstructive uropathy as well.Monitor fluid status so as to avoid overdiuresis.I will be off till Saturday and I will be no nephrology care over the weekend. (2) CKD stage 4 secondary to hypertension Plan: Patient's baseline creatinine is around 2.5-3. No indications for renal replacements. Monitor current decompensation. (3) Acute respiratory failure with hypoxemia Is this a current diagnosis for this admission?: Yes Plan: In the face of congestive heart failure. Patient presently better. Monitor. (5) HTN (hypertension) Qualifiers: Hypertension type: essential hypertension Qualified Code(s): I10 - Essential (primary) hypertension Is this a current diagnosis for this admission?: Yes Plan: Controlled.
[2019-04-17] MEDS: CALCIUM CARBONATE 250 MG/VITAMIN D3 125 UNIT TABLET PO SCH (16:53)
[2019-04-17] MEDS: INSULIN GLARGINE,HUM.REC.ANLOG 1,000 UNIT/10 ML VIAL SUBCUT SCH (22:00)
[2019-04-17] MEDS: MELATONIN 3 MG TABLET PO SCH (22:35)
[2019-04-17] MEDS: DONEPEZIL HCL 5 MG TABLET PO SCH (22:36)
[2019-04-17] MEDS: ASPIRIN 81 MG TABLET, ENT COATED PO SCH (22:36)
[2019-04-17] MEDS: ATORVASTATIN CALCIUM 40 MG TABLET PO SCH (22:38)
[2019-04-18] MEDS: HEPARIN SOD (PORCINE) 5,000 UNIT/ML 1 ML VIAL SUBCUT SCH ×3 (05:55→22:36)
[2019-04-18] MEDS ORDERED: INSULIN GLARGINE,HUM.REC.ANLOG 1,000 UNIT/10 ML VIAL SUBCUT SCH (08:00)
[2019-04-18] MEDS: INSULIN LISPRO 100 UNIT/ML 3 ML VIAL SUBCUT SCH ×4 (08:15→22:35)
[2019-04-18] MEDS: CALCIUM CARBONATE 250 MG/VITAMIN D3 125 UNIT TABLET PO SCH ×3 (08:52→17:56)
[2019-04-18] MEDS: PANTOPRAZOLE SODIUM 20 MG TABLET.DR PO SCH (08:52)
[2019-04-18] MEDS: FUROSEMIDE INJ/PF 40 MG/4 ML SDV IV SCH ×2 (10:53→22:35)
[2019-04-18] MEDS: CEFTRIAXONE 1 GM/D5W RTU 1 GM/50 ML RTUPB IV SCH (10:53)
[2019-04-18] MEDS: VITAMIN B COMPLEX TABLET PO SCH (10:54)
[2019-04-18] MEDS: SERTRALINE HCL 50 MG TABLET PO SCH (10:54)
[2019-04-18] MEDS: PREDNISONE 5 MG TABLET PO SCH (10:54)
[2019-04-18] MEDS: HYDRALAZINE HCL 25 MG TABLET PO SCH ×2 (10:54→22:37)
[2019-04-18] MEDS: ACETAMINOPHEN 325 MG TABLET PO PRN (10:57)
[2019-04-18] MEDS: INSULIN GLARGINE,HUM.REC.ANLOG 1,000 UNIT/10 ML VIAL SUBCUT SCH ×2 (10:58→23:00)
[2019-04-18 11:12] LABS: ANION GAP 12 (5-19); BLOOD UREA NITROGEN 65 mg/dL (7-20); CALCIUM 9.8 mg/dL (8.4-10.2); CARBON DIOXIDE 24 mmol/L (22-30); CHLORIDE 104 mmol/L (98-107); GLUCOSE 223 mg/dL (75-110); POTASSIUM 4.7 mmol/L (3.6-5.0)
--- NOTE | 2019-04-18 13:53 | PDOC PROGRESS REPORT ---
Subjective Progress Note for:: 04/18/19 Subjective:: MALINDA CROCKETT is a 69 year old male with a past medical history of CAD, prior CABG, prior stenting, history of CHF with last known EF of 36 to 40%, chronic kidney disease, insulin-dependent placements, hypertension and mild dementia who presented with cough and increasing shortness of breath. 04/17: Patient was placed on BiPAP yesterday afternoon and she became hypoxic with him to the bathroom. Weaned off BiPAP overnight. On encounter, he appears comfortable and saturating well nasal cannula. He says he is shortness of breath and orthopnea have slightly improved overnight. Denies chest pain. He has diuresed fairly overnight. Cardiology following. Await further recommendations from nephrology. 04/18: No acute event overnight. He is saturating well on nasal cannula. He says he continues to gradually feel better. His shortness of breath continue to improve. He has diuresed 1.9 L overnight. Creatinine has trended up likely related to diuresis. Will decrease Lasix to 40 mg IV daily today. Repeat CXR in the morning. Reason For Visit: ACUTE HYPOXIC RESPIRATORY FAILURE,CHF EXACERBATION Physical Exam Vital Signs: Temp Pulse Resp BP Pulse Ox 97.7 F 98 16 132/73 H 95 04/18/19 07:53 04/18/19 10:00 04/18/19 10:00 04/18/19 07:53 04/18/19 10:00 Intake & Output 04/17/19 04/18/19 04/19/19 06:59 06:59 06:59 Intake Total 300 2035 Output Total 800 1900 Balance -500 135 Weight 162 lb 4.163 oz 167 lb 12.348 oz General appearance: PRESENT: no acute distress, well-developed, well-nourished Head exam: PRESENT: atraumatic, normocephalic Eye exam: PRESENT: conjunctiva pink, EOMI, PERRLA. ABSENT: scleral icterus Ear exam: PRESENT: normal external ear exam Mouth exam: PRESENT: moist, tongue midline Neck exam: ABSENT: carotid bruit, JVD, lymphadenopathy, thyromegaly Respiratory exam: PRESENT: rhonchi. ABSENT: rales, wheezes Cardiovascular exam: PRESENT: RRR. ABSENT: diastolic murmur, rubs, systolic murmur Pulses: PRESENT: normal dorsalis pedis pul GI/Abdominal exam: PRESENT: normal bowel sounds, soft. ABSENT: distended, guarding, mass, organolmegaly, rebound, tenderness Rectal exam: PRESENT: deferred Neurological exam: PRESENT: alert, awake, oriented to person, oriented to place, oriented to time, oriented to situation, CN II-XII grossly intact. ABSENT: motor sensory deficit Results Laboratory Results: 04/17/19 10:10 04/18/19 09:43 04/18/19 09:43 Sodium 139.5 Potassium 4.7 Chloride 104 Carbon Dioxide 24 Anion Gap 12 BUN 65 H Creatinine 3.47 H Est GFR ( Amer) 21 L Glucose 223 H Calcium 9.8 04/16/19 04/16/19 09:23 09:23 Creatine Kinase 38 L CK-MB (CK-2) 3.20 Troponin I 0.237 Impressions: Chest CT 04/16/19 11:52 IMPRESSION: 1. As seen radiographically, diffuse infiltrates. Suspect this is predominantly related to congestive failure given the presence of bilateral effusions. Basilar pneumonia not excluded given significant consolidation and volume loss in the lower lobes as well. Chest X-Ray 04/17/19 08:54 IMPRESSION: Persistent bilateral perihilar airspace disease worrisome for pulmonary edema. Trace right pleural effusion Assessment and Plan - Diagnosis (1) Acute respiratory failure with hypoxemia Is this a current diagnosis for this admission?: Yes Plan: Secondary to CHF exacerbation versus concomitant pneumonia. Currently on nasal cannula. BiPAP as needed. 04/17: Slightly improved. Weaned off BiPAP. Currently saturating well on nasal cannula. 04/18: Improving. (2) CHF (congestive heart failure) Qualifiers: Heart failure type: systolic Heart failure chronicity: acute on chronic Qualified Code(s): I50.23 - Acute on chronic systolic (congestive) heart failure Is this a current diagnosis for this admission?: Yes Plan: Continue IV Lasix 40 mg every 12. Cardiology following. Await further recommendations from nephrology. We will continue to monitor renal functions. 04/18: He put out 1.9L overnight. Creatinine has trended up likely related to diuresis. Will decrease Lasix to 40 mg IV daily today. (3) Acute on chronic renal failure Is this a current diagnosis for this admission?: Yes Plan: Creatinine has trended up likely related to diuresis. Will decrease Lasix to 40 mg IV daily today. (4) Pneumonia Qualifiers: Pneumonia type: due to unspecified organism Laterality: bilateral Lung location: unspecified part of lung Qualified Code(s): J18.9 - Pneumonia, unspecified organism Is this a current diagnosis for this admission?: Yes Plan: Continue IV Rocephin. Sputum culture ordered. (5) Insulin dependent diabetes mellitus Is this a current diagnosis for this admission?: Yes (6) CAD (coronary artery disease) Qualifiers: Coronary Disease-Associated Artery/Lesion type: bypass graft [place] vs. transplanted heart: [place] heart Associated angina: without angina Qualified Code(s): I25.810 - Atherosclerosis of coronary artery bypass graft(s) without angina pectoris Is this a current diagnosis for this admission?: Yes (7) Chronic kidney disease, stage 3 Is this a current diagnosis for this admission?: Yes (8) HTN (hypertension) Qualifiers: Hypertension type: essential hypertension Qualified Code(s): I10 - Essential (primary) hypertension Is this a current diagnosis for this admission?: Yes
--- NOTE | 2019-04-18 21:14 | Progress Note ---
Provider Note Provider Note: CARDIOLOGY PROGRESS NOTE by Dr. Evette Peña on 04/18/2019. OBJECTIVE: The patient denies any shortness of breath. There is no PND orthopnea. The patient denies any cough or sputum production. There is no chest pain discomfort. There is no leg edema. There is no ventricular or atrial arrhythmias seen on the monitor. There is no TIA CVA symptoms. PHYSICAL EXAMINATION: The patient is well-built and well-nourished. At present in no acute distress. Selected Entries 04/18/19 07:53 Temperature 97.7 F Temperature Oral Source Pulse Rate 98 Respiratory 16 Rate Blood Pressure 132/73 H Blood Pressure 92 Mean BP Location Right Arm BP Position Sitting O2 Sat by Pulse 95 Oximetry Oxygen Flow 3.00 Rate Oxygen Delivery Nasal Cannula Method HEAD: Is atraumatic normocephalic. EYES: Pupils equal round regular reactive light accommodation. Extraocular movements are normal. There is no conjunctival pallor. There is no scleral icterus. EARS: Tympanic membranes are intact. External auditory canals are clear nose: There is no deviated nasal septum. There is no inflammation nasal mucous membrane. MOUTH: Mucous membranes of mouth are moist. Tongue is moist. There is no ulcers. There is no bleeding from the gums. THROAT: There is no redness of the oropharynx. There is no exudates. SKIN: There is no skin rashes. There is no petechia or ecchymosis. NECK: Supple. There is mild JVD elevation. Carotids are equal there is no bruits. There is no lymphadenopathy. There is no goiter.. There is no accessory muscles of respiration use. Trachea central. LUNGS: Clear there is good air entry bilaterally. There is no dullness. Heart: S1-S2 is heard. There is no S3 gallop. There is no S4 gallop. There is systolic murmur left some border and the apex there is murmur of mitral regurgitation present. There is no rub. ABDOMEN: Soft. Nontender there is no paraspinal megaly. EXTREMITIES: Femorals are slightly diminished. There is no femoral bruits. Leg pulses are well felt. There is no pedal edema. There is no cyanosis or clu bbing. MARINE PILOT: The patient is conscious awake alert oriented x3 with no focal deficit. PSYCHIATRIC: The patient judgment insight are intact his affect is normal. Labs- All tests 24 hr 02/01/20 02/01/20 02/01/20 07:55 09:43 12:02 Sodium 139.5 Potassium 4.7 Chloride 104 Carbon Dioxide 24 Anion Gap 12 BUN 65 H Creatinine 3.47 H Est GFR ( Amer) 21 L Est GFR (MDRD) Non-Af 18 L Glucose 223 H POC Glucose 146 H 198 H Calcium 9.8 04/18/19 04/18/19 15:44 20:58 Sodium Potassium Chloride Carbon Dioxide Anion Gap BUN Creatinine Est GFR ( Amer) Est GFR (MDRD) Non-Af Glucose POC Glucose 145 H 225 H Calcium Chest X-Ray 04/16/19 09:25 IMPRESSION: Diffuse bilateral infiltrates left greater than right likely pulmonary edema. Pneumonia could not entirely be excluded. Since the prior chest films 10/07/2018, patient has undergone sternotomy with CABG Chest CT 04/16/19 11:52 IMPRESSION: 1. As seen radiographically, diffuse infiltrates. Suspect this is predominantly related to congestive failure given the presence of bilateral effusions. Basilar pneumonia not excluded given significant consolidation and volume loss in the lower lobes as well. Chest X-Ray 04/17/19 08:54 IMPRESSION: Persistent bilateral perihilar airspace disease worrisome for pulmonary edema. Trace right pleural effusion Labs- Entire Visit 04/16/19 04/16/19 04/16/19 09:23 09:23 09:23 WBC 12.6 H RBC 3.78 L Hgb 11.8 L Hct 35.2 L MCV 93 MCH 31.2 MCHC 33.5 RDW 14.7 H Plt Count 270 Lymph % (Auto) Not Reportable [place] % (Auto) Not Reportable Eos % (Auto) Not Reportable Baso % (Auto) Not Reportable Absolute Neuts (auto) Not Reportable Absolute Lymphs (auto) Not Reportable Absolute Monos (auto) Not Reportable Absolute Eos (auto) Not Reportable Absolute Basos (auto) Not Reportable Total Counted 100 Seg Neutrophils % Not Reportable Seg Neuts % (Manual) 90 H Lymphocytes % (Manual) 3 L Monocytes % (Manual) 7 Eosinophils % (Manual) 0 Basophils % (Manual) 0 Abs Neuts (Manual) 11.3 H Abs Lymphs (Manual) 0.4 L Abs Monocytes (Manual) 0.9 Absolute Eos (Manual) 0.0 Abs Basophils (Manual) 0.0 Platelet Comment ADEQUATE Polychromasia SLIGHT Anisocytosis SLIGHT Sodium 144.7 Potassium 5.5 H Chloride 112 H Carbon Dioxide 23 Anion Gap 10 BUN 57 H Creatinine 3.04 H Est GFR ( Amer) 25 L Est GFR (MDRD) Non-Af 20 L Glucose 179 H POC Glucose Calcium 10.2 Total Bilirubin 0.8 Direct Bilirubin 0.1 Neonat Total Bilirubin Not Reportable Neonat Direct Bilirubin Not Reportable Neonat Indirect Bili Not Reportable AST 25 ALT 24 Alkaline Phosphatase 94 Creatine Kinase 38 L CK-MB (CK-2) 3.20 Troponin I 0.237 Total Protein 7.0 Albumin 4.2 Urine Color Urine Appearance Urine pH Ur Specific [place] Urine Protein Urine Glucose (UA) Urine Ketones Urine Blood Urine Nitrite Urine Bilirubin Urine Urobilinogen Ur Leukocyte Esterase Urine WBC (Auto) Urine RBC (Auto) Urine Ascorbic Acid 04/16/19 04/16/19 04/16/19 10:44 12:14 16:19 WBC RBC Hgb Hct MCV MCH MCHC RDW Plt Count Lymph % (Auto) [place] % (Auto) Eos % (Auto) Baso % (Auto) Absolute Neuts (auto) Absolute Lymphs (auto) Absolute Monos (auto) Absolute Eos (auto) Absolute Basos (auto) Total Counted Seg Neutrophils % Seg Neuts % (Manual) Lymphocytes % (Manual) Monocytes % (Manual) Eosinophils % (Manual) Basophils % (Manual) Abs Neuts (Manual) Abs Lymphs (Manual) Abs Monocytes (Manual) Absolute Eos (Manual) Abs Basophils (Manual) Platelet Comment Polychromasia Anisocytosis Sodium Potassium Chloride Carbon Dioxide Anion Gap BUN Creatinine Est GFR ( Amer) Est GFR (MDRD) Non-Af Glucose POC Glucose 180 H 226 H Calcium Total Bilirubin Direct Bilirubin Neonat Total Bilirubin Neonat Direct Bilirubin Neonat Indirect Bili AST ALT Alkaline Phosphatase Creatine Kinase CK-MB (CK-2) Troponin I Total Protein Albumin Urine Color YELLOW Urine Appearance SLIGHTLY-CLOUDY Urine pH 5.0 Ur Specific [place] 1.018 Urine Protein >=500 H Urine Glucose (UA) 50 H Urine Ketones NEGATIVE Urine Blood NEGATIVE Urine Nitrite NEGATIVE Urine Bilirubin NEGATIVE Urine Urobilinogen NEGATIVE Ur Leukocyte Esterase NEGATIVE Urine WBC (Auto) 0 Urine RBC (Auto) 0 Urine Ascorbic Acid NEGATIVE 04/16/19 04/17/19 04/17/19 21:05 08:15 10:10 WBC RBC Hgb Hct MCV MCH MCHC RDW Plt Count Lymph % (Auto) [place] % (Auto) Eos % (Auto) Baso % (Auto) Absolute Neuts (auto) Absolute Lymphs (auto) Absolute Monos (auto) Absolute Eos (auto) Absolute Basos (auto) Total Counted Seg Neutrophils % Seg Neuts % (Manual) Lymphocytes % (Manual) Monocytes % (Manual) Eosinophils % (Manual) Basophils % (Manual) Abs Neuts (Manual) Abs Lymphs (Manual) Abs Monocytes (Manual) Absolute Eos (Manual) Abs Basophils (Manual) Platelet Comment Polychromasia Anisocytosis Sodium 144.2 Potassium 4.5 Chloride 107 Carbon Dioxide 24 Anion Gap 13 BUN 54 H Creatinine 3.36 H Est GFR ( Amer) 22 L Est GFR (MDRD) Non-Af 18 L Glucose 109 POC Glucose 154 H 181 H Calcium 10.3 H Total Bilirubin Direct Bilirubin Neonat Total Bilirubin Neonat Direct Bilirubin Neonat Indirect Bili AST ALT Alkaline Phosphatase Creatine Kinase CK-MB (CK-2) Troponin I Total Protein Albumin Urine Color Urine Appearance Urine pH Ur Specific [place] Urine Protein Urine Glucose (UA) Urine Ketones Urine Blood Urine Nitrite Urine Bilirubin Urine Urobilinogen Ur Leukocyte Esterase Urine WBC (Auto) Urine RBC (Auto) Urine Ascorbic Acid 04/17/19 04/17/19 04/17/19 10:10 11:44 15:34 WBC 10.3 RBC 3.52 L Hgb 11.2 L Hct 32.9 L MCV 93 MCH 31.8 MCHC 34.1 RDW 14.7 H Plt Count 252 Lymph % (Auto) 10.6 L [place] % (Auto) 7.0 Eos % (Auto) 1.1 Baso % (Auto) 0.9 Absolute Neuts (auto) 8.3 H Absolute Lymphs (auto) 1.1 Absolute Monos (auto) 0.7 Absolute Eos (auto) 0.1 Absolute Basos (auto) 0.1 Total Counted Seg Neutrophils % 80.4 H Seg Neuts % (Manual) Lymphocytes % (Manual) Monocytes % (Manual) Eosinophils % (Manual) Basophils % (Manual) Abs Neuts (Manual) Abs Lymphs (Manual) Abs Monocytes (Manual) Absolute Eos (Manual) Abs Basophils (Manual) Platelet Comment Polychromasia Anisocytosis Sodium Potassium Chloride Carbon Dioxide Anion Gap BUN Creatinine Est GFR ( Amer) Est GFR (MDRD) Non-Af Glucose POC Glucose 97 252 H Calcium Total Bilirubin Direct Bilirubin Neonat Total Bilirubin Neonat Direct Bilirubin Neonat Indirect Bili AST ALT Alkaline Phosphatase Creatine Kinase CK-MB (CK-2) Troponin I Total Protein Albumin Urine Color Urine Appearance Urine pH Ur Specific [place] Urine Protein Urine Glucose (UA) Urine Ketones Urine Blood Urine Nitrite Urine Bilirubin Urine Urobilinogen Ur Leukocyte Esterase Urine WBC (Auto) Urine RBC (Auto) Urine Ascorbic Acid 04/17/19 04/18/19 04/18/19 21:14 07:55 09:43 WBC RBC Hgb Hct MCV MCH MCHC RDW Plt Count Lymph % (Auto) [place] % (Auto) Eos % (Auto) Baso % (Auto) Absolute Neuts (auto) Absolute Lymphs (auto) Absolute Monos (auto) Absolute Eos (auto) Absolute Basos (auto) Total Counted Seg Neutrophils % Seg Neuts % (Manual) Lymphocytes % (Manual) Monocytes % (Manual) Eosinophils % (Manual) Basophils % (Manual) Abs Neuts (Manual) Abs Lymphs (Manual) Abs Monocytes (Manual) Absolute Eos (Manual) Abs Basophils (Manual) Platelet Comment Polychromasia Anisocytosis Sodium 139.5 Potassium 4.7 Chloride 104 Carbon Dioxide 24 Anion Gap 12 BUN 65 H Creatinine 3.47 H Est GFR ( Amer) 21 L Est GFR (MDRD) Non-Af 18 L Glucose 223 H POC Glucose 181 H 146 H Calcium 9.8 Total Bilirubin Direct Bilirubin Neonat Total Bilirubin Neonat Direct Bilirubin Neonat Indirect Bili AST ALT Alkaline Phosphatase Creatine Kinase CK-MB (CK-2) Troponin I Total Protein Albumin Urine Color Urine Appearance Urine pH Ur Specific [place] Urine Protein Urine Glucose (UA) Urine Ketones Urine Blood Urine Nitrite Urine Bilirubin Urine Urobilinogen Ur Leukocyte Esterase Urine WBC (Auto) Urine RBC (Auto) Urine Ascorbic Acid 04/18/19 04/18/19 04/18/19 12:02 15:44 20:58 WBC RBC Hgb Hct MCV MCH MCHC RDW Plt Count Lymph % (Auto) [place] % (Auto) Eos % (Auto) Baso % (Auto) Absolute Neuts (auto) Absolute Lymphs (auto) Absolute Monos (auto) Absolute Eos (auto) Absolute Basos (auto) Total Counted Seg Neutrophils % Seg Neuts % (Manual) Lymphocytes % (Manual) Monocytes % (Manual) Eosinophils % (Manual) Basophils % (Manual) Abs Neuts (Manual) Abs Lymphs (Manual) Abs Monocytes (Manual) Absolute Eos (Manual) Abs Basophils (Manual) Platelet Comment Polychromasia Anisocytosis Sodium Potassium Chloride Carbon Dioxide Anion Gap BUN Creatinine Est GFR ( Amer) Est GFR (MDRD) Non-Af Glucose POC Glucose 198 H 145 H 225 H Calcium Total Bilirubin Direct Bilirubin Neonat Total Bilirubin Neonat Direct Bilirubin Neonat Indirect Bili AST ALT Alkaline Phosphatase Creatine Kinase CK-MB (CK-2) Troponin I Total Protein Albumin Urine Color Urine Appearance Urine pH Ur Specific [place] Urine Protein Urine Glucose (UA) Urine Ketones Urine Blood Urine Nitrite Urine Bilirubin Urine Urobilinogen Ur Leukocyte Esterase Urine WBC (Auto) Urine RBC (Auto) Urine Ascorbic Acid IMPRESSION/RECOMMENDATION: 1. Elevated troponin I secondary to the patient's hypoxemia, heart failure and possibly pneumonia. No definite evidence of non-ST relation PR. This is a type II PR secondary to supply demand mismatch. Hence we will treat the underlying cause. Would not treat this as a non-ST elevation PR. Will recheck troponin in the a.m. Also will repeat EKG. 2. Acute hypoxic respiratory failure secondary to combination of CHF and pneumonia. 3. Mild ischemic cardiomyopathy with mildly reduced LV ejection fraction. 4. Congestive heart failure: Combination of volume overload secondary to acute on chronic kidney disease and acute on chronic systolic heart failure due to mild cardiomyopathy. Continue diuresis when continue current anti-cardiomyopathy/anti-CAD medication. Will repeat chest x-ray PA and lateral in radiology tomorrow. 5. Pneumonia: Continue antibiotics 6. Coronary artery disease: No definite evidence of angina. Continue the patient's current anti-CAD medication including aspirin 7. Diabetes mellitus: Continue antidiabetic regimen and Accu-Cheks as per protocol. 8. Acute on chronic renal disease. The patient's chronic renal status is chronic kidney disease stage IV. Seems to worsen slightly. Nephrology has been consulted await their consultation. The patient still making urine and hence we will continue diuresis aggressively. 9. Hypertension: Blood pressure seems to be reasonably controlled. 10. Hyperlipidemia: Continue statins 11. History of depression mild dementia: Continue his anti-depressants Occasions reviewed. Medical regimen and management plan discussed with attending physician Dr. Orosco. Medical decision making hours of moderate complexity. 40 minutes spent with patient with more than 50% of time spent in direct patient care. Will follow. X-ray and lab test ordered. Will follow.
[2019-04-18] MEDS: ASPIRIN 81 MG TABLET, ENT COATED PO SCH (22:37)
[2019-04-18] MEDS: DONEPEZIL HCL 5 MG TABLET PO SCH (22:37)
[2019-04-18] MEDS: ATORVASTATIN CALCIUM 40 MG TABLET PO SCH (22:38)
[2019-04-18] MEDS: MELATONIN 3 MG TABLET PO SCH (23:00)
[2019-04-19 05:36] LABS: ANION GAP 12 (5-19); BLOOD UREA NITROGEN 72 mg/dL (7-20); CALCIUM 10.9 mg/dL (8.4-10.2); CARBON DIOXIDE 27 mmol/L (22-30); CHLORIDE 102 mmol/L (98-107); POTASSIUM 4.6 mmol/L (3.6-5.0)
[2019-04-19 05:40] LABS: GLUCOSE 66 mg/dL (75-110)
[2019-04-19] MEDS: HEPARIN SOD (PORCINE) 5,000 UNIT/ML 1 ML VIAL SUBCUT SCH ×3 (06:00→22:38)
[2019-04-19] MEDS: INSULIN LISPRO 100 UNIT/ML 3 ML VIAL SUBCUT SCH ×4 (07:54→21:43)
[2019-04-19] MEDS: PANTOPRAZOLE SODIUM 20 MG TABLET.DR PO SCH (09:03)
[2019-04-19] MEDS: CALCIUM CARBONATE 250 MG/VITAMIN D3 125 UNIT TABLET PO SCH ×3 (09:03→17:48)
[2019-04-19] MEDS: INSULIN GLARGINE,HUM.REC.ANLOG 1,000 UNIT/10 ML VIAL SUBCUT SCH ×2 (09:03→22:39)
[2019-04-19] MEDS ORDERED: FUROSEMIDE INJ/PF 40 MG/4 ML SDV IV SCH (10:00)
--- NOTE | 2019-04-19 10:32 | RADIOLOGY REPORT (SQ) ---
EXAM DESCRIPTION: CHEST SINGLE VIEW COMPLETED DATE/TIME: 04/19/2019 10:05 am REASON FOR STUDY: SOB COMPARISON: 04/17/2019. EXAM PARAMETERS: NUMBER OF VIEWS: One view. TECHNIQUE: Single frontal radiographic view of the chest acquired. RADIATION DOSE: NA LIMITATIONS: None. FINDINGS: LUNGS AND PLEURA: Improved aeration with clearing of the airspace disease. No infiltrates , masses or pneumothorax. No pleural effusion. MEDIASTINUM AND HILAR STRUCTURES: No masses. Contour normal. HEART AND VASCULAR STRUCTURES: Heart upper limits of normal in size. Normal vasculature. BONES: No acute findings. HARDWARE: Sternotomy wires. OTHER: No other significant finding. IMPRESSION: IMPROVED APPEARANCE OF THE CHEST. TECHNICAL DOCUMENTATION: JOB ID: [id number] [employer]- All Rights Reserved Reading location - IP/workstation name: [email or web address]
[2019-04-19] MEDS: CEFTRIAXONE 1 GM/D5W RTU 1 GM/50 ML RTUPB IV SCH (10:54)
[2019-04-19] MEDS: PREDNISONE 5 MG TABLET PO SCH (10:54)
[2019-04-19] MEDS: SERTRALINE HCL 50 MG TABLET PO SCH (10:54)
[2019-04-19] MEDS: HYDRALAZINE HCL 25 MG TABLET PO SCH ×2 (10:54→22:38)
[2019-04-19] MEDS: VITAMIN B COMPLEX TABLET PO SCH (10:54)
[2019-04-19] MEDS: ACETAMINOPHEN 325 MG TABLET PO PRN (12:28)
--- NOTE | 2019-04-19 13:13 | PDOC PROGRESS REPORT ---
Subjective Progress Note for:: 04/19/19 Subjective:: MALINDA CROCKETT is a 69 year old male with a past medical history of CAD, prior CABG, prior stenting, history of CHF with last known EF of 36 to 40%, chronic kidney disease, insulin-dependent placements, hypertension and mild dementia who presented with cough and increasing shortness of breath. 04/17: Patient was placed on BiPAP yesterday afternoon and she became hypoxic with him to the bathroom. Weaned off BiPAP overnight. On encounter, he appears comfortable and saturating well nasal cannula. He says he is shortness of breath and orthopnea have slightly improved overnight. Denies chest pain. He has diuresed fairly overnight. Cardiology following. Await further recommendations from nephrology. 04/18: No acute event overnight. He is saturating well on nasal cannula. He says he continues to gradually feel better. His shortness of breath continue to improve. He has diuresed 1.9 L overnight. Creatinine has trended up likely related to diuresis. Will decrease Lasix to 40 mg IV daily today. Repeat CXR in the morning. 04/19: No acute event overnight. He continues to improve. He says he shortness of breath has significantly improved but he is not at his baseline yet. Repeat chest x-ray has shown significant improvement and has shown clearing of congestion. We will give him 1 more dose of IV Lasix and switch him to p.o. Lasix later today. Denies chest pain. We will try to wean him off supplemental O2 today. Reason For Visit: ACUTE HYPOXIC RESPIRATORY FAILURE,CHF EXACERBATION Physical Exam Vital Signs: Temp Pulse Resp BP Pulse Ox 98.2 F 103 H 16 142/84 H 98 04/19/19 07:40 04/19/19 07:40 04/19/19 07:40 04/19/19 07:40 04/19/19 07:40 Intake & Output 04/18/19 04/19/19 04/20/19 06:59 06:59 06:59 Intake Total 5 1166 50 Output Total 1900 2415 Balance 135 -1249 50 Weight 167 lb 12.348 oz 164 lb 0.383 oz General appearance: PRESENT: no acute distress, well-developed, well-nourished Head exam: PRESENT: atraumatic, normocephalic Eye exam: PRESENT: conjunctiva pink, EOMI, PERRLA. ABSENT: scleral icterus Ear exam: PRESENT: normal external ear exam Mouth exam: PRESENT: moist, tongue midline Neck exam: ABSENT: carotid bruit, JVD, lymphadenopathy, thyromegaly Respiratory exam: PRESENT: rhonchi. ABSENT: rales, wheezes Cardiovascular exam: PRESENT: RRR. ABSENT: diastolic murmur, rubs, systolic murmur Pulses: PRESENT: normal dorsalis pedis pul GI/Abdominal exam: PRESENT: normal bowel sounds, soft. ABSENT: distended, guarding, mass, organolmegaly, rebound, tenderness Rectal exam: PRESENT: deferred Extremities exam: PRESENT: full ROM. ABSENT: calf tenderness, clubbing, pedal edema Neurological exam: PRESENT: alert, awake, oriented to person, oriented to place, oriented to time, oriented to situation, CN II-XII grossly intact. ABSENT: motor sensory deficit Results Laboratory Results: 04/17/19 10:10 04/19/19 04:30 04/19/19 04:30 Sodium 141.2 Potassium 4.6 Chloride 102 Carbon Dioxide 27 Anion Gap 12 BUN 72 H Creatinine 3.52 H Est GFR ( Amer) 21 L Glucose 66 L Calcium 10.9 H 04/16/19 04/16/19 04/19/19 09:23 09:23 04:30 Creatine Kinase 38 L CK-MB (CK-2) 3.20 Troponin I 0.237 0.291 Impressions: Chest CT 04/16/19 11:52 IMPRESSION: 1. As seen radiographically, diffuse infiltrates. Suspect this is predominantly related to congestive failure given the presence of bilateral effusions. Basilar pneumonia not excluded given significant consolidation and volume loss in the lower lobes as well. Chest X-Ray 04/19/19 07:00 IMPRESSION: IMPROVED APPEARANCE OF THE CHEST. Assessment and Plan - Diagnosis (1) Acute respiratory failure with hypoxemia Is this a current diagnosis for this admission?: Yes Plan: Secondary to CHF exacerbation versus concomitant pneumonia. Currently on nasal cannula. BiPAP as needed. 04/17: Slightly improved. Weaned off BiPAP. Currently saturating well on nasal cannula. 04/18: Improving. 04/19: Will try to wean off O2 today. (2) CHF (congestive heart failure) Qualifiers: Heart failure type: systolic Heart failure chronicity: acute on chronic Qualified Code(s): I50.23 - Acute on chronic systolic (congestive) heart failure Is this a current diagnosis for this admission?: Yes Plan: Continue IV Lasix 40 mg every 12. Cardiology following. Await further recommendations from nephrology. We will continue to monitor renal functions. 04/18: He put out 1.9L overnight. Creatinine has trended up likely related to diuresis. Will decrease Lasix to 40 mg IV daily today. 22: Repeat chest x-ray has shown significant improvement and has shown clearing of congestion. We will give him 1 more dose of IV Lasix and switch him to p.o. Lasix later today. (3) Acute on chronic renal failure Is this a current diagnosis for this admission?: Yes Plan: Creatinine has trended up likely related to diuresis. Will decrease Lasix to 40 mg IV daily today. 04/19: Creatinine trended up likely related to diuresis. Switch IV Lasix to 20 mg bid PO later today. Repeat BMP tomorrow. (4) Pneumonia Qualifiers: Pneumonia type: due to unspecified organism Laterality: bilateral Lung location: unspecified part of lung Qualified Code(s): J18.9 - Pneumonia, unspecified organism Is this a current diagnosis for this admission?: Yes Plan: Continue IV Rocephin. (5) Insulin dependent diabetes mellitus Is this a current diagnosis for this admission?: Yes (6) CAD (coronary artery disease) Qualifiers: Coronary Disease-Associated Artery/Lesion type: bypass graft [place] vs. transplanted heart: [place] heart Associated angina: without angina Qualified Code(s): I25.810 - Atherosclerosis of coronary artery bypass graft(s) without angina pectoris Is this a current diagnosis for this admission?: Yes (7) Chronic kidney disease, stage 3 Is this a current diagnosis for this admission?: Yes (8) HTN (hypertension) Qualifiers: Hypertension type: essential hypertension Qualified Code(s): I10 - Essential (primary) hypertension Is this a current diagnosis for this admission?: Yes - Time Time Spent with patient: 25-34 minutes
--- NOTE | 2019-04-19 17:20 | Progress Note ---
Provider Note Provider Note: CARDIOLOGY PROGRESS NOTE by Dr. Evette Peña on 04/19/2019. SUBJECTIVE: The patient denies any chest pain or discomfort. There is no PND orthopnea. The patient is able to lie down flat. There is no arrhythmia seen on the monitor. The patient denies any cough or shortness of breath. There is no TIA CVA symptoms. PHYSICAL EXAMINATION: The patient is well-built and well-nourished in no acute distress. Selected Entries 04/19/19 12:01 Temperature 98.7 F Temperature Oral Source Pulse Rate 97 Respiratory 16 Rate Blood Pressure 124/74 Blood Pressure 90 Mean BP Location Right Arm BP Position Sitting O2 Sat by Pulse 98 Oximetry Oxygen Delivery Room Air Method HEAD: Is atraumatic normocephalic. EYES: Pupils equal round regular reactive light accommodation. Extraocular movements are normal. There is no conjunctival pallor. There is no scleral icterus. EARS: Tympanic membranes are intact. External auditory canals are clear nose: There is no deviated nasal septum. There is no inflammation nasal mucous membrane. MOUTH: Mucous membranes of mouth are moist. Tongue is moist. There is no ulcers. There is no bleeding from the gums. THROAT: There is no redness of the oropharynx. There is no exudates. SKIN: There is no skin rashes. There is no petechia or ecchymosis. NECK: Supple. There is mild JVD elevation. Carotids are equal there is no bruits. There is no lymphadenopathy. There is no goiter.. There is no accessory muscles of respiration use. Trachea central. LUNGS: Clear there is good air entry bilaterally. There is no dullness. Heart: S1-S2 is heard. There is no S3 gallop. There is no S4 gallop. There is systolic murmur left some border and the apex there is murmur of mitral regurgitation present. There is no rub. ABDOMEN: Soft. Nontender there is no paraspinal megaly. EXTREMITIES: Femorals are slightly diminished. There is no femoral bruits. Leg pulses are well felt. There is no pedal edema. There is no cyanosis or clubbing. FOOD SAFETY MANAGER: The patient is conscious awake alert oriented x3 with no focal deficit. PSYCHIATRIC: The patient judgment insight are intact his affect is normal. Labs- All tests 24 hr 04/19/19 04/19/19 04/19/19 04:30 04:30 05:41 Sodium 141.2 Potassium 4.6 Chloride 102 Carbon Dioxide 27 Anion Gap 12 BUN 72 H Creatinine 3.52 H Est GFR ( Amer) 21 L Est GFR (MDRD) Non-Af 17 L Glucose 66 L POC Glucose 87 Calcium 10.9 H Troponin I 0.291 04/19/19 04/19/19 04/19/19 07:41 12:01 14:25 Sodium Potassium Chloride Carbon Dioxide Anion Gap BUN Creatinine Est GFR ( Amer) Est GFR (MDRD) Non-Af Glucose POC Glucose 92 145 H 256 H Calcium Troponin I 04/19/19 04/19/19 16:54 20:58 Sodium Potassium Chloride Carbon Dioxide Anion Gap BUN Creatinine Est GFR ( Amer) Est GFR (MDRD) Non-Af Glucose POC Glucose 172 H 121 H Calcium Troponin I Chest X-Ray 04/16/19 09:25 IMPRESSION: Diffuse bilateral infiltrates left greater than right likely pulmonary edema. Pneumonia could not entirely be excluded. Since the prior chest films 10/07/2018, patient has undergone sternotomy with CABG Chest CT 04/16/19 11:52 IMPRESSION: 1. As seen radiographically, diffuse infiltrates. Suspect this is predominantly related to congestive failure given the presence of bilateral effusions. Basilar pneumonia not excluded given significant consolidation and volume loss in the lower lobes as well. Chest X-Ray 04/17/19 08:54 IMPRESSION: Persistent bilateral perihilar airspace disease worrisome for pulmonary edema. Trace right pleural effusion Chest X-Ray 04/19/19 07:00 IMPRESSION: IMPROVED APPEARANCE OF THE CHEST. IMPRESSION/RECOMMENDATION: 1. Elevated troponin I secondary to the patient's hypoxemia, heart failure and possibly pneumonia. No definite evidence of non-ST relation SD. This is a type II SD secondary to supply demand mismatch. Hence we will treat the underlying cause. Would not treat this as a non-ST elevation SD. Note that the patient's troponin I is slightly elevated. This may be secondary to patient's worsening renal function with a GFR now 17 mL from prior 18 mL/min. Still no evidence of nondistention SD. For some reason the patient did not get an EKG done. Will repeat EKG tomorrow morning. 2. Acute hypoxic respiratory failure secondary to acute on chronic systolic heart failure and volume overload heart failure. There is no definite evidence of pneumonia. The patient's chest x-ray is much improved.. 3. Mild ischemic cardiomyopathy with mildly reduced LV ejection fraction. 4. Congestive heart failure: Combination of volume overload secondary to acute on chronic kidney disease and acute on chronic systolic heart failure due to mild cardiomyopathy. Continue diuresis when continue current anti-cardiomyopathy/anti-CAD medication. Will repeat chest x-ray PA and lateral in radiology tomorrow. 5. Pneumonia: Continue antibiotics 6. Coronary artery disease: No definite evidence of angina. Continue the patient's current anti-CAD medication including aspirin 7. Diabetes mellitus: Continue antidiabetic regimen and Accu-Cheks as per protocol. 8. Acute on chronic renal disease. The patient's chronic renal status is chronic kidney disease stage IV. Seems to worsen slightly. Nephrology has been consulted await their consultation. The patient still making urine and hence we will continue diuresis aggressively. 9. Hypertension: Blood pressure seems to be reasonably controlled. 10. Hyperlipidemia: Continue statins 11. History of depression mild dementia: Continue his anti-depressants Occasions reviewed. Medical regimen and management plan discussed with attending physician Dr. Orosco. Medical decision making hours of moderate complexity. 40 minutes spent with patient with more than 50% of time spent in direct patient care. Okay to discharge the patient in the morning. Will sign off, as discussed with attending physician.. Discussed the EKG, lab findings and chest x-ray findings with the patient and patient's . Will follow the patient in the office.
[2019-04-19] MEDS: FUROSEMIDE 20 MG TABLET PO SCH (17:48)
[2019-04-19] MEDS: DONEPEZIL HCL 5 MG TABLET PO SCH (22:38)
[2019-04-19] MEDS: MELATONIN 3 MG TABLET PO SCH (22:38)
[2019-04-19] MEDS: ASPIRIN 81 MG TABLET, ENT COATED PO SCH (22:38)
[2019-04-19] MEDS: ATORVASTATIN CALCIUM 40 MG TABLET PO SCH (22:40)
[2019-04-20] MEDS: HEPARIN SOD (PORCINE) 5,000 UNIT/ML 1 ML VIAL SUBCUT SCH ×3 (05:54→23:24)
[2019-04-20 07:08] LABS: HEMATOCRIT 33.1 % (37.9-51.0); HEMOGLOBIN 11.4 g/dL (13.5-17.0); MEAN CORPUSCULAR HEMOGLOBIN 31.6 pg (27.0-33.4); MEAN CORPUSCULAR HGB CONC 34.5 g/dL (32.0-36.0); MEAN CORPUSCULAR VOLUME 92 fl (80-97); PLATELET COUNT 296 10^3/uL (150-450); RED BLOOD COUNT 3.61 10^6/uL (4.35-5.55); RED CELL DISTRIBUTION WIDTH 14.1 % (11.5-14.0); WHITE BLOOD COUNT 7.6 10^3/uL (4.0-10.5)
[2019-04-20 07:36] LABS: ANION GAP 13 (5-19); BLOOD UREA NITROGEN 79 mg/dL (7-20); CALCIUM 10.9 mg/dL (8.4-10.2); CARBON DIOXIDE 26 mmol/L (22-30); CHLORIDE 99 mmol/L (98-107); GLUCOSE 128 mg/dL (75-110); POTASSIUM 4.6 mmol/L (3.6-5.0)
[2019-04-20 07:48] LABS: ERYTHROCYTE SEDIMENTATION RATE 108 mm/hr (0-20)
[2019-04-20] MEDS: PANTOPRAZOLE SODIUM 20 MG TABLET.DR PO SCH (08:48)
[2019-04-20] MEDS: INSULIN LISPRO 100 UNIT/ML 3 ML VIAL SUBCUT SCH ×4 (08:48→23:25)
[2019-04-20] MEDS: CALCIUM CARBONATE 250 MG/VITAMIN D3 125 UNIT TABLET PO SCH ×3 (08:48→16:58)
[2019-04-20] MEDS: INSULIN GLARGINE,HUM.REC.ANLOG 1,000 UNIT/10 ML VIAL SUBCUT SCH ×2 (08:49→23:26)
[2019-04-20] MEDS: FUROSEMIDE 20 MG TABLET PO SCH (09:34)
[2019-04-20] MEDS: HYDRALAZINE HCL 25 MG TABLET PO SCH (09:35)
[2019-04-20] MEDS: CEFTRIAXONE 1 GM/D5W RTU 1 GM/50 ML RTUPB IV SCH (09:35)
[2019-04-20] MEDS: PREDNISONE 5 MG TABLET PO SCH ×2 (09:35→13:33)
[2019-04-20] MEDS: VITAMIN B COMPLEX TABLET PO SCH (09:35)
[2019-04-20] MEDS: SERTRALINE HCL 50 MG TABLET PO SCH (09:35)
--- NOTE | 2019-04-20 09:40 | RADIOLOGY REPORT (SQ) ---
EXAM DESCRIPTION: CHEST SINGLE VIEW COMPLETED DATE/TIME: 04/20/2019 9:15 am REASON FOR STUDY: reassess congestion COMPARISON: 04/19/2019 EXAM PARAMETERS: NUMBER OF VIEWS: One view. TECHNIQUE: Single frontal radiographic view of the chest acquired. RADIATION DOSE: NA LIMITATIONS: None. FINDINGS: LUNGS AND PLEURA: No opacities, masses or pneumothorax. No pleural effusion. MEDIASTINUM AND HILAR STRUCTURES: No masses. Contour normal. HEART AND VASCULAR STRUCTURES: Heart normal in size. Normal vasculature. BONES: No acute findings. HARDWARE: Sternotomy hardware. Coronary stent. OTHER: No other significant finding. IMPRESSION: No evidence of focal airspace disease or other acute intrathoracic process. TECHNICAL DOCUMENTATION: JOB ID: [id number] [employer]- All Rights Reserved Reading location - IP/workstation name: [email or web address]
--- NOTE | 2019-04-20 12:02 | PDOC PROGRESS REPORT ---
Subjective Progress Note for:: 04/20/19 Reason For Visit: Patient seen today. He looks quite comfortable. He denies any history of chest pain or shortness of breath. No history of any nausea vomiting. Labs and medications were reviewed.Reviewed chest x-ray. Physical Exam Vital Signs: Temp Pulse Resp BP Pulse Ox 97.5 F 67 16 97/79 L 100 04/20/19 08:21 04/20/19 08:21 04/20/19 08:21 04/20/19 08:21 04/20/19 08:21 Intake & Output 04/19/19 04/20/19 04/21/19 06:59 06:59 06:59 Intake Total 1166 1270 Output Total 2415 1200 Balance -1249 70 Weight 74.4 kg 72.6 kg General appearance: PRESENT: no acute distress Respiratory exam: PRESENT: clear to auscultation phan. ABSENT: crackles Cardiovascular exam: PRESENT: +S1, +S2 GI/Abdominal exam: PRESENT: normal bowel sounds, soft. ABSENT: organomegaly, tenderness Extremities exam: ABSENT: joint swelling, pedal edema Neurological exam: PRESENT: alert, awake, oriented to person, oriented to place Psychiatric exam: PRESENT: appropriate affect Results Laboratory Results: 04/20/19 05:50 04/20/19 05:50 04/20/19 04/20/19 05:50 05:50 WBC 7.6 RBC 3.61 L Hgb 11.4 L Hct 33.1 L MCV 92 MCH 31.6 MCHC 34.5 RDW 14.1 H Plt Count 296 Sodium 137.8 Potassium 4.6 Chloride 99 Carbon Dioxide 26 Anion Gap 13 BUN 79 H Creatinine 3.70 H Est GFR ( Amer) 20 L Glucose 128 H Calcium 10.9 H 04/16/19 04/16/19 04/19/19 09:23 09:23 04:30 Creatine Kinase 38 L CK-MB (CK-2) 3.20 Troponin I 0.237 0.291 Impressions: Chest CT 04/16/19 11:52 IMPRESSION: 1. As seen radiographically, diffuse infiltrates. Suspect this is predominantly related to congestive failure given the presence of bilateral effusions. Basilar pneumonia not excluded given significant consolidation and volume loss in the lower lobes as well. Chest X-Ray 04/20/19 08:29 IMPRESSION: No evidence of focal airspace disease or other acute intrathoracic process. Assessment & Plan - Diagnosis (1) GLORIA (acute kidney injury) Plan: Nonoliguric. Patient is also becoming hypotensive. Patient's renal functions are still decompensated. Clinically at the moment looks more dehydrated most likely secondary to overdiuresis. I am going to hold off the Lasix for the next couple of days and instead start him on gentle hydration.We will also discontinue the hydralazine for the moment.Monitor carefully. (2) CKD stage 4 secondary to hypertension Plan: Patient has got acute kidney injury on top of his CKD stage IV. Renal numbers are still decompensated secondary to dehydration. Outlines as mentioned earlier. No indications for renal replacements. Monitor. (3) Acute respiratory failure with hypoxemia Is this a current diagnosis for this admission?: Yes Plan: Secondary to congestive heart failure which is has resolved. Patient now clinically dehydrated secondary to overdiuresis. Gentle rehydration as ment ioned earlier. Monitor. (4) Diabetes mellitus type 2 in nonobese Plan: Advised tight control. (5) HTN (hypertension) Qualifiers: Hypertension type: essential hypertension Qualified Code(s): I10 - Essential (primary) hypertension Is this a current diagnosis for this admission?: Yes Plan: Presently patient is becoming hypotensive. I am going to discontinue his hydralazine for now. Monitor closely. (6) Polymyalgia rheumatica Plan: Clinically does not look like he has active polymyalgia rheumatica other than hip girdle pains. However his sed rate is quite high. Will increase his pre dnisone from 5 to 10 mg and monitor.
--- NOTE | 2019-04-20 12:54 | PDOC PROGRESS REPORT ---
Subjective Progress Note for:: 04/20/19 Subjective:: MALINDA CROCKETT is a 69 year old male with a past medical history of CAD, prior CABG, prior stenting, history of CHF with last known EF of 36 to 40%, chronic kidney disease, insulin-dependent placements, hypertension and mild dementia who presented with cough and increasing shortness of breath. 04/17: Patient was placed on BiPAP yesterday afternoon and she became hypoxic with him to the bathroom. Weaned off BiPAP overnight. On encounter, he appears comfortable and saturating well nasal cannula. He says he is shortness of breath and orthopnea have slightly improved overnight. Denies chest pain. He has diuresed fairly overnight. Cardiology following. Await further recommendations from nephrology. 04/18: No acute event overnight. He is saturating well on nasal cannula. He says he continues to gradually feel better. His shortness of breath continue to improve. He has diuresed 1.9 L overnight. Creatinine has trended up likely related to diuresis. Will decrease Lasix to 40 mg IV daily today. Repeat CXR in the morning. 04/19: No acute event overnight. He continues to improve. He says he shortness of breath has significantly improved but he is not at his baseline yet. Repeat chest x-ray has shown significant improvement and has shown clearing of congestion. We will give him 1 more dose of IV Lasix and switch him to p.o. Lasix later today. Denies chest pain. We will try to wean him off supplemental O2 today. 04/20: No acute issues. Patient was weaned off supplemental O2 this morning. He is very close to his baseline. His creatinine trended up likely from diuresis. Repeat chest x-ray shows resolution of congestion. Nephrology recommends gentle hydration today and recheck his renal functions tomorrow. Reason For Visit: ACUTE HYPOXIC RESPIRATORY FAILURE,CHF EXACERBATION Physical Exam Vital Signs: Temp Pulse Resp BP Pulse Ox 97.5 F 67 16 97/79 L 100 04/20/19 08:21 04/20/19 08:21 04/20/19 08:21 04/20/19 08:21 04/20/19 08:21 Intake & Output 04/19/19 04/20/19 04/21/19 06:59 06:59 06:59 Intake Total 1166 1270 Output Total 2415 1200 Balance -1249 70 Weight 164 lb 0.383 oz 160 lb 0.889 oz General appearance: PRESENT: no acute distress, well-developed, well-nourished Head exam: PRESENT: atraumatic, normocephalic Eye exam: PRESENT: conjunctiva pink, EOMI, PERRLA. ABSENT: scleral icterus Ear exam: PRESENT: normal external ear exam Mouth exam: PRESENT: moist, tongue midline Neck exam: ABSENT: carotid bruit, JVD, lymphadenopathy, thyromegaly Respiratory exam: PRESENT: clear to auscultation phan. ABSENT: rales, rhonchi, wheezes Cardiovascular exam: PRESENT: RRR. ABSENT: diastolic murmur, rubs, systolic murmur Pulses: PRESENT: normal dorsalis pedis pul GI/Abdominal exam: PRESENT: normal bowel sounds, soft. ABSENT: distended, guar ding, mass, organolmegaly, rebound, tenderness Rectal exam: PRESENT: deferred Extremities exam: PRESENT: full ROM. ABSENT: calf tenderness, clubbing, pedal edema Neurological exam: PRESENT: alert, awake, oriented to person, oriented to place, oriented to time, oriented to situation, CN II-XII grossly intact. ABSENT: motor sensory deficit Results Laboratory Results: 04/20/19 05:50 04/20/19 05:50 04/20/19 04/20/19 05:50 05:50 WBC 7.6 RBC 3.61 L Hgb 11.4 L Hct 33.1 L MCV 92 MCH 31.6 MCHC 34.5 RDW 14.1 H Plt Count 296 Sodium 137.8 Potassium 4.6 Chloride 99 Carbon Dioxide 26 Anion Gap 13 BUN 79 H Creatinine 3.70 H Est GFR ( Amer) 20 L Glucose 128 H Calcium 10.9 H 04/16/19 04/16/19 04/19/19 09:23 09:23 04:30 Creatine Kinase 38 L CK-MB (CK-2) 3.20 Troponin I 0.237 0.291 Impressions: Chest CT 04/16/19 11:52 IMPRESSION: 1. As seen radiographically, diffuse infiltrates. Suspect this is predominantly related to congestive failure given the presence of bilateral effusions. Basilar pneumonia not excluded given significant consolidation and volume loss in the lower lobes as well. Chest X-Ray 04/20/19 08:29 IMPRESSION: No evidence of focal airspace disease or other acute intrathoracic process. Assessment and Plan - Diagnosis (1) Acute respiratory failure with hypoxemia Is this a current diagnosis for this admission?: Yes Plan: Secondary to CHF exacerbation versus concomitant pneumonia. Currently on nasal cannula. BiPAP as needed. 04/17: Slightly improved. Weaned off BiPAP. Currently saturating well on nasal cannula. 04/18: Improving. 04/19: Will try to wean off O2 today. 04/20: Resolved. Weaned off O2. (2) CHF (congestive heart failure) Qualifiers: Heart failure type: systolic Heart failure chronicity: acute on chronic Qualified Code(s): I50.23 - Acute on chronic systolic (congestive) heart failure Is this a current diagnosis for this admission?: Yes Plan: Continue IV Lasix 40 mg every 12. Cardiology following. Await further recommendations from nephrology. We will continue to monitor renal functions. 04/18: He put out 1.9L overnight. Creatinine has trended up likely related to diuresis. Will decrease Lasix to 40 mg IV daily today. 04/19: Repeat chest x-ray has shown significant improvement and has shown clearing of congestion. We will give him 1 more dose of IV Lasix and switch him to p.o. Lasix later today. 04/20: Repeat chest x-ray shows resolution of congestion. (3) Acute on chronic renal failure Is this a current diagnosis for this admission?: Yes Plan: Creatinine has trended up likely related to diuresis. Will decrease Lasix to 40 mg IV daily today. 04/19: Creatinine trended up likely related to diuresis. Switch IV Lasix to 20 mg bid PO later today. Repeat BMP tomorrow. 04/20: Nephrology recommends gentle hydration today and recheck his renal functions tomorrow. (4) Pneumonia Qualifiers: Pneumonia type: due to unspecified organism Laterality: bilateral Lung location: unspecified part of lung Qualified Code(s): J18.9 - Pneumonia, unspecified organism Is this a current diagnosis for this admission?: Yes Plan: Discontinue antibiotics tomorrow. (5) Insulin dependent diabetes mellitus Is this a current diagnosis for this admission?: Yes (6) CAD (coronary artery disease) Qualifiers: Coronary Disease-Associated Artery/Lesion type: bypass graft [place] vs. transplanted heart: [place] heart Associated angina: without angina Qualified Code(s): I25.810 - Atherosclerosis of coronary artery bypass graft(s) without angina pectoris Is this a current diagnosis for this admission?: Yes (7) Chronic kidney disease, stage 3 Is this a current diagnosis for this admission?: Yes (8) HTN (hypertension) Qualifiers: Hypertension type: essential hypertension Qualified Code(s): I10 - Essential (primary) hypertension Is this a current diagnosis for this admission?: Yes - Time Time Spent with patient: 25-34 minutes
[2019-04-20] MEDS: 1/2 NORMAL SALINE 1,000 ML IV PRN (15:07)
--- NOTE | 2019-04-20 15:15 | EKG REPORT ---
SEVERITY:- ABNORMAL ECG - SINUS RHYTHM MULTIFORM VENTRICULAR PREMATURE COMPLEXES PROBABLE LEFT ATRIAL ABNORMALITY LVH WITH SECONDARY REPOLARIZATION ABNORMALITY ANTERIOR Q WAVES, POSSIBLY DUE TO LVH : Confirmed by: Evette Peña MD 20-Apr-2019 15:14:10
--- NOTE | 2019-04-20 18:22 | Progress Note ---
Provider Note Provider Note: CARDIOLOGY PROGRESS NOTE by Dr. Evette Peña on 04/20/2019. SUBJECTIVE: The patient denies any chest pain or discomfort. He states that his renal function is deteriorated due to overdiuresis. He has no shortness of breath PND orthopnea or leg edema. He states that in the past he has been diagnosed with sleep apnea. He was intolerant to BiPAP. Hence CPAP is being given a trial to see if the patient could tolerate it. It seems the patient so far is able to tolerated. There is no arrhythmia seen on the monitor. There is no recurrence of his prior history of atrial fibrillation. PHYSICAL EXAMINATION: The patient is well-built. In no acute distress. Selected Entries 04/20/19 12:40 Temperature 98.1 F Temperature Oral Source Pulse Rate 86 Respiratory 16 Rate Blood Pressure 115/56 L Blood Pressure 75 Mean BP Location Right Arm BP Position Sitting O2 Sat by Pulse 100 Oximetry Oxygen Delivery Room Air Method HEAD: Is atraumatic normocephalic. EYES: Pupils equal round regular reactive light accommodation. Extraocular movements are normal. There is no conjunctival pallor. There is no scleral icterus. EARS: Tympanic membranes are intact. External auditory canals are clear nose: There is no deviated nasal septum. There is no inflammation nasal mucous membrane. MOUTH: Mucous membranes of mouth are moist. Tongue is moist. There is no ulcers. There is no bleeding from the gums. THROAT: There is no redness of the oropharynx. There is no exudates. SKIN: There is no skin rashes. There is no petechia or ecchymosis. NECK: Supple. There is mild JVD elevation. Carotids are equal there is no bruits. There is no lymphadenopathy. There is no goiter.. There is no accessory muscles of respiration use. Trachea central. LUNGS: Clear there is good air entry bilaterally. There is no dullness. Heart: S1-S2 is heard. There is no S3 gallop. There is no S4 gallop. There is systolic murmur left some border and the apex there is murmur of mitral regurgitation present. There is no rub. ABDOMEN: Soft. Nontender there is no paraspinal megaly. EXTREMITIES: Femorals are slightly diminished. There is no femoral bruits. Leg pulses are well felt. There is no pedal edema. There is no cyanosis or clubbing. VENEER SUPERVISOR: The patient is conscious awake alert oriented x3 with no focal deficit. PSYCHIATRIC: The patient judgment insight are intact his affect is normal. IMPRESSION/RECOMMENDATION: 1. Elevated troponin I secondary to the patient's hypoxemia, heart failure and possibly pneumonia. No definite evidence of non-ST relation FL. This is a type II FL secondary to supply demand mismatch. Hence we will treat the underlying cause. Would not treat this as a non-ST elevation FL. Note that the patient's troponin I is slightly elevated. This may be secondary to patient's worsening renal function with a GFR now 17 mL from prior 18 mL/min. Still no evidence of nondistention FL. For some reason the patient did not get an EKG done. Will repeat EKG tomorrow morning. 2. Acute hypoxic respiratory failure secondary to acute on chronic systolic heart failure and volume overload heart failure. There is no definite evidence of pneumonia. The patient's chest x-ray is much improved.. 3. Mild ischemic cardiomyopathy with mildly reduced LV ejection fraction. 4. Congestive heart failure: Combination of volume overload secondary to acute on chronic kidney disease and acute on chronic systolic heart failure due to mild cardiomyopathy. Continue diuresis when continue current anti-cardiomyopathy/anti-CAD medication. Will repeat chest x-ray PA and lateral in radiology tomorrow. 5. Pneumonia: Continue antibiotics 6. Coronary artery disease: No definite evidence of angina. Continue the patient's current anti-CAD medication including aspirin 7. Diabetes mellitus: Continue antidiabetic regimen and Accu-Cheks as per protocol. 8. Acute on chronic renal disease. The patient's chronic renal status is chronic kidney disease stage IV. Seems to worsen slightly. Nephrology feels that deterioration of the patient's renal status is due to patient being over diuresed. Hence his Lasix has been held. 9. Hypertension: Blood pressure seems to be reasonably controlled. 10. Hyperlipidemia: Continue statins 11. History of depression, continue antidepressants. 12. History of sleep apnea. Patient being given a trial of CPAP. He seems to be tolerating this well. Medications reviewed. Medical regimen and management plan discussed with attending physician. Also discussed with electroplating technician. Medical decision making is a moderate complexity. 40 minutes spent as patient with more than 50% of time spent in direct patient care. Patient cardiac status is stable. Will sign off and follow the patient in the office. The patient has my telephone number is also just the patient's . Thank you
[2019-04-20] MEDS: ATORVASTATIN CALCIUM 40 MG TABLET PO SCH (23:24)
[2019-04-20] MEDS: ASPIRIN 81 MG TABLET, ENT COATED PO SCH (23:24)
[2019-04-20] MEDS: DONEPEZIL HCL 5 MG TABLET PO SCH (23:25)
[2019-04-20] MEDS: MELATONIN 3 MG TABLET PO SCH (23:36)
[2019-04-21] MEDS: HEPARIN SOD (PORCINE) 5,000 UNIT/ML 1 ML VIAL SUBCUT SCH ×3 (05:37→21:41)
[2019-04-21 07:08] LABS: ANION GAP 16 (5-19); BLOOD UREA NITROGEN 83 mg/dL (7-20); CALCIUM 10.4 mg/dL (8.4-10.2); CARBON DIOXIDE 23 mmol/L (22-30); CHLORIDE 99 mmol/L (98-107); GLUCOSE 134 mg/dL (75-110); POTASSIUM 4.7 mmol/L (3.6-5.0)
[2019-04-21] MEDS: INSULIN LISPRO 100 UNIT/ML 3 ML VIAL SUBCUT SCH ×4 (08:24→21:42)
[2019-04-21] MEDS: INSULIN GLARGINE,HUM.REC.ANLOG 1,000 UNIT/10 ML VIAL SUBCUT SCH ×2 (08:29→21:42)
[2019-04-21] MEDS: PANTOPRAZOLE SODIUM 20 MG TABLET.DR PO SCH (08:29)
[2019-04-21] MEDS: CALCIUM CARBONATE 250 MG/VITAMIN D3 125 UNIT TABLET PO SCH ×3 (08:29→17:31)
[2019-04-21] MEDS: CEFTRIAXONE 1 GM/D5W RTU 1 GM/50 ML RTUPB IV SCH (09:41)
[2019-04-21] MEDS: PREDNISONE 5 MG TABLET PO SCH (09:41)
[2019-04-21] MEDS: VITAMIN B COMPLEX TABLET PO SCH (09:41)
[2019-04-21] MEDS: SERTRALINE HCL 50 MG TABLET PO SCH (09:42)
[2019-04-21] MEDS: ACETAMINOPHEN 325 MG TABLET PO PRN (09:42)
--- NOTE | 2019-04-21 11:17 | PDOC PROGRESS REPORT ---
Subjective Progress Note for:: 04/21/19 Reason For Visit: ACUTE HYPOXIC RESPIRATORY FAILURE,CHF EXACERBATION 04/21/2019 Patient was admitted with a cough and increased shortness of breath Physical Exam Vital Signs: Temp Pulse Resp BP Pulse Ox 98.2 F 90 16 138/97 H 98 04/21/19 08:00 04/21/19 08:00 04/21/19 08:00 04/21/19 08:00 04/21/19 08:00 Intake & Output 04/20/19 04/21/19 04/22/19 06:59 06:59 06:59 Intake Total 1270 930 Output Total 1200 825 Balance 70 105 Weight 72.6 kg 72.9 kg General appearance: PRESENT: no acute distress, other - Patient asking to go home Respiratory exam: PRESENT: decreased breath sounds Cardiovascular exam: PRESENT: RRR. ABSENT: diastolic murmur, rubs, systolic murmur Neurological exam: PRESENT: alert, awake, oriented to person, oriented to place, oriented to time, oriented to situation, CN II-XII grossly intact. ABSENT: motor sensory deficit Psychiatric exam: PRESENT: appropriate affect, normal mood. ABSENT: homicidal ideation, suicidal ideation Results Laboratory Results: 04/20/19 05:50 04/21/19 05:24 04/21/19 05:24 Sodium 137.9 Potassium 4.7 Chloride 99 Carbon Dioxide 23 Anion Gap 16 BUN 83 H Creatinine 4.26 H Est GFR ( Amer) 17 L Glucose 134 H Calcium 10.4 H 04/16/19 04/16/19 04/19/19 09:23 09:23 04:30 Creatine Kinase 38 L CK-MB (CK-2) 3.20 Troponin I 0.237 0.291 Impressions: Chest CT 04/16/19 11:52 IMPRESSION: 1. As seen radiographically, diffuse infiltrates. Suspect this is predominantly related to congestive failure given the presence of bilateral effusions. Ba silar pneumonia not excluded given significant consolidation and volume loss in the lower lobes as well. Chest X-Ray 04/20/19 08:29 IMPRESSION: No evidence of focal airspace disease or other acute intrathoracic process. Assessment and Plan - Diagnosis (1) Acute on chronic renal failure Is this a current diagnosis for this admission?: Yes (2) CHF (congestive heart failure) Qualifiers: Heart failure type: systolic Heart failure chronicity: acute on chronic Qualified Code(s): I50.23 - Acute on chronic systolic (congestive) heart failure Is this a current diagnosis for this admission?: Yes (3) CKD stage 4 secondary to hypertension Is this a current diagnosis for this admission?: Yes (4) Dyspnea Qualifiers: Dyspnea type: shortness of breath Qualified Code(s): R06.02 - Shortness of breath; R06.00 - Dyspnea, unspecified; R06.01 - Orthopnea Is this a current diagnosis for this admission?: Yes - Plan Summary Summary: 04/21/2019 Was admitted for cough and shortness of breath probably secondary to CHF. He was diuresed and as result his renal functions have worsened. Patient is currently given IV fluids at a very slow rate, and improve his renal functions. Temperature 98.2 pulse 89, blood pressure 138/97 O2 sat 99% on room air BUN as gone up to 83. Admission this was 57 Creatinine is gone up to 4.26 on admission this was 3.04 Chest x-ray from yesterday is negative showing no acute cardiopulmonary disease, blood cultures are negative. CPAP is being set up at home so when patient is discharged she will have CPAP to use at night I anticipate nephrology will want to keep patient another day for continued IV hydration with repeat labs in the morning. I have ordered those labs - Time Time Spent with patient: 25-34 minutes
[2019-04-21] MEDS: 1/2 NORMAL SALINE 1,000 ML IV PRN (12:39)
--- NOTE | 2019-04-21 13:02 | PDOC PROGRESS REPORT ---
Subjective Progress Note for:: 04/21/19 Reason For Visit: Patient seen today in the hospital. He generally feels better but he continues to cough and then he gets some short of breath. He denies any stroke fever or chills. Good appetite without history of nausea vomiting. Labs and medications were reviewed that shows worsening creatinine. Physical Exam Vital Signs: Temp Pulse Resp BP Pulse Ox 98.7 F 84 16 139/66 H 100 04/21/19 11:43 04/21/19 11:43 04/21/19 11:43 04/21/19 11:43 04/21/19 11:43 Intake & Output 04/20/19 04/21/19 04/22/19 06:59 06:59 06:59 Intake Total 1988 412 0448 Output Total 1200 825 200 Balance 70 105 1050 Weight 72.6 kg 72.9 kg General appearance: PRESENT: no acute distress Respiratory exam: PRESENT: clear to auscultation phan, decreased breath sounds. ABSENT: crackles Cardiovascular exam: PRESENT: +S1, +S2 GI/Abdominal exam: PRESENT: normal bowel sounds, soft. ABSENT: organomegaly, tenderness Extremities exam: ABSENT: pedal edema Neurological exam: PRESENT: alert, awake, oriented to person, oriented to place Psychiatric exam: PRESENT: appropriate affect Results Laboratory Results: 04/20/19 05:50 04/21/19 05:24 04/21/19 05:24 Sodium 137.9 Potassium 4.7 Chloride 99 Carbon Dioxide 23 Anion Gap 16 BUN 83 H Creatinine 4.26 H Est GFR ( Amer) 17 L Glucose 134 H Calcium 10.4 H 04/16/19 04/16/19 04/19/19 09:23 09:23 04:30 Creatine Kinase 38 L CK-MB (CK-2) 3.20 Troponin I 0.237 0.291 Impressions: Chest CT 04/16/19 11:52 IMPRESSION: 1. As seen radiographically, diffuse infiltrates. Suspect this is predominantly related to congestive failure given the presence of bilateral effusions. Basilar pneumonia not excluded given significant consolidation and volume loss in the lower lobes as well. Chest X-Ray 04/20/19 08:29 IMPRESSION: No evidence of focal airspace disease or other acute intrathoracic process. Assessment & Plan - Diagnosis (1) GLORIA (acute kidney injury) Plan: Nonoliguric. Patient is not anymore hypotensive. Patient's renal functions are still decompensated. Clinically at the moment still looks more dehydrated most likely secondary to overdiuresis. We will continue on gentle hydration.No indications for renal replacements. Order renal ultrasound. Monitor carefully. (2) CKD stage 4 secondary to hypertension Is this a current diagnosis for this admission?: Yes Plan: Patient has got acute kidney injury on top of his CKD stage IV. Renal numbers are still decompensated secondary to dehydration. Outlines as mentioned earlier. No indications for renal replacements. Monitor. (3) Acute respiratory failure with hypoxemia Is this a current diagnosis for this admission?: Yes Plan: Secondary to congestive heart failure which is has resolved. Patient now cli nically dehydrated secondary to overdiuresis. Gentle rehydration as mentioned earlier. Monitor. (4) Diabetes mellitus type 2 in nonobese Plan: Advised tight control. (5) HTN (hypertension) Qualifiers: Hypertension type: essential hypertension Qualified Code(s): I10 - Essential (primary) hypertension Is this a current diagnosis for this admission?: Yes Plan: Presently not anymore hypotensive. Monitor closely. (6) Polymyalgia rheumatica Plan: Clinically does not look like he has active polymyalgia rheumatica other than hip girdle pains. However his sed rate is quite high. Will increase his prednisone from 5 to 10 mg and monitor.
[2019-04-21] MEDS: MELATONIN 3 MG TABLET PO SCH (21:40)
[2019-04-21] MEDS: ATORVASTATIN CALCIUM 40 MG TABLET PO SCH (21:41)
[2019-04-21] MEDS: ASPIRIN 81 MG TABLET, ENT COATED PO SCH (21:41)
[2019-04-21] MEDS: DONEPEZIL HCL 5 MG TABLET PO SCH (21:41)
--- NOTE | 2019-04-22 01:27 | RADIOLOGY REPORT (SQ) ---
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 COMPARISON: None available TECHNIQUE: Limited sonographic evaluation of the kidneys was performed. FINDINGS: Both kidneys demonstrate normal cortical echogenicity. Both kidneys have a lobulated contour, likely from scarring. The right kidney measures 10.5 cm. The left kidney measures 11.0 cm. There is a cystic area within the right kidney measuring up to 2.3 cm. No hydronephrosis is noted in either kidney. No free intraperitoneal fluid is seen. The visualized portions of the urinary bladder appear grossly unremarkable. The abdominal aorta and inferior vena cava are not well visualized. IMPRESSION: There is no evidence of hydronephrosis. Both kidneys have a lobulated contour suggestive of scarring.
[2019-04-22 04:29] LABS: ABSOLUTE EOSINOPHILS # (AUTO) 0.1 10^3/uL (0.0-0.6); ABSOLUTE LYMPHOCYTES (AUTO) 1.1 10^3/uL (0.5-4.7); ABSOLUTE MONOCYTES (AUTO) 0.9 10^3/uL (0.1-1.4); HEMOGLOBIN 10.7 g/dL (13.5-17.0); MONOCYTES % (AUTO) 11.1 % (3-13); TOTAL CELLS COUNTED % (AUTO) 100 %
[2019-04-22 04:39] LABS: BASOPHILS % (AUTO) 0.5 % (0-2); EOSINOPHILS % (AUTO) 1.4 % (0-6); LYMPHOCYTES % (AUTO) 13.1 % (13-45); MEAN CORPUSCULAR HEMOGLOBIN 31.5 pg (27.0-33.4); MEAN CORPUSCULAR HGB CONC 34.5 g/dL (32.0-36.0); MEAN CORPUSCULAR VOLUME 91 fl (80-97); PLATELET COUNT 263 10^3/uL (150-450); RED CELL DISTRIBUTION WIDTH 14.2 % (11.5-14.0); SEGMENTED NEUTROPHILS % (AUTO) 73.9 % (42-78); WHITE BLOOD COUNT 8.2 10^3/uL (4.0-10.5)
[2019-04-22 04:40] LABS: ANION GAP 12 (5-19); BLOOD UREA NITROGEN 81 mg/dL (7-20); CARBON DIOXIDE 23 mmol/L (22-30); CHLORIDE 104 mmol/L (98-107); GLUCOSE 100 mg/dL (75-110); POTASSIUM 4.4 mmol/L (3.6-5.0)
[2019-04-22] MEDS: HEPARIN SOD (PORCINE) 5,000 UNIT/ML 1 ML VIAL SUBCUT SCH ×3 (05:06→21:54)
[2019-04-22] MEDS: INSULIN GLARGINE,HUM.REC.ANLOG 1,000 UNIT/10 ML VIAL SUBCUT SCH ×2 (08:12→21:55)
[2019-04-22] MEDS: CALCIUM CARBONATE 250 MG/VITAMIN D3 125 UNIT TABLET PO SCH ×3 (08:12→17:36)
[2019-04-22] MEDS: PANTOPRAZOLE SODIUM 20 MG TABLET.DR PO SCH (08:13)
[2019-04-22] MEDS: INSULIN LISPRO 100 UNIT/ML 3 ML VIAL SUBCUT SCH ×4 (08:19→21:54)
[2019-04-22] MEDS: VITAMIN B COMPLEX TABLET PO SCH (09:34)
[2019-04-22] MEDS: SERTRALINE HCL 50 MG TABLET PO SCH (09:34)
[2019-04-22] MEDS: PREDNISONE 5 MG TABLET PO SCH (09:34)
[2019-04-22] MEDS: CEFTRIAXONE 1 GM/D5W RTU 1 GM/50 ML RTUPB IV SCH (09:35)
[2019-04-22 09:37] LABS: URINE CREATININE 119.2 mg/dL (22-328)
[2019-04-22 10:03] LABS: UR PRO/CREAT RATIO RESULT 2.8 mg/mg (0.0-0.2)
--- NOTE | 2019-04-22 11:30 | PDOC PROGRESS REPORT ---
Subjective Progress Note for:: 04/22/19 Reason For Visit: Patient says he feels a whole lot better. He is got a very good appetite and eating better. No complaints of any chest pain shortness of breath. Labs and medications were reviewed with him which shows downtrending of creatinine. Good urine output. Physical Exam Vital Signs: Temp Pulse Resp BP Pulse Ox 99.1 F 88 17 113/62 100 04/22/19 08:25 04/22/19 08:25 04/22/19 08:25 04/22/19 08:25 04/22/19 08:25 Intake & Output 04/21/19 04/22/19 04/23/19 06:59 06:59 06:59 Intake Total 930 2140 Output Total 825 1175 Balance 105 965 Weight 72.9 kg 73.9 kg General appearance: PRESENT: no acute distress Respiratory exam: PRESENT: clear to auscultation phan. ABSENT: crackles Cardiovascular exam: PRESENT: +S1, +S2 GI/Abdominal exam: PRESENT: normal bowel sounds, soft. ABSENT: organomegaly, tenderness Extremities exam: ABSENT: pedal edema Neurological exam: PRESENT: alert, awake, oriented to person, oriented to place Psychiatric exam: PRESENT: appropriate affect Results Laboratory Results: 04/22/19 04:07 04/22/19 04:07 04/22/19 04/22/19 04:07 04:07 WBC 8.2 RBC 3.40 L Hgb 10.7 L Hct 31.0 L MCV 91 MCH 31.5 MCHC 34.5 RDW 14.2 H Plt Count 263 Seg Neutrophils % 73.9 Sodium 138.9 Potassium 4.4 Chloride 104 Carbon Dioxide 23 Anion Gap 12 BUN 81 H Creatinine 3.51 H Est GFR ( Amer) 21 L Glucose 100 Calcium 10.0 04/16/19 09:23 Blood Blood Culture - Final NO GROWTH IN 5 DAYS 04/16/19 11:22 Blood Blood Culture - Final NO GROWTH IN 5 DAYS 04/16/19 04/16/19 04/19/19 09:23 09:23 04:30 Creatine Kinase 38 L CK-MB (CK-2) 3.20 Troponin I 0.237 0.291 Impressions: Chest CT 04/16/19 11:52 IMPRESSION: 1. As seen radiographically, diffuse infiltrates. Suspect this is predominantly related to congestive failure given the presence of bilateral effusions. Basilar pneumonia not excluded given significant consolidation and volume loss in the lower lobes as well. Chest X-Ray 04/20/19 08:29 IMPRESSION: No evidence of focal airspace disease or other acute intrathoracic process. Renal Ultrasound 04/21/19 00:00 IMPRESSION: There is no evidence of hydronephrosis. Both kidneys have a lobulated contour suggestive of scarring. Assessment & Plan - Diagnosis (1) GLORIA (acute kidney injury) Plan: Nonoliguric. Patient is renal numbers are improving very nicely. Renal ultrasound was reviewed which shows no obstructive uropathy. I would feel comfortable to discharge the patient home tomorrow after labs as long as he is downtrending creatinine. Follow-up with us as an outpatient.. (2) CKD stage 4 secondary to hypertension Is this a current diagnosis for this admission?: Yes Plan: Patient has got acute kidney injury on top of his CKD stage IV. Renal numbers are finally improving. Outlines as mentioned earlier. No indications for renal replacements. Monitor. (3) Acute respiratory failure with hypoxemia Is this a current diagnosis for this admission?: Yes Plan: Secondary to congestive heart failure which is has resolved. Gentle rehydration as mentioned earlier. Monitor. (4) Diabetes mellitus type 2 in nonobese Plan: Advised tight control. (5) HTN (hypertension) Qualifiers: Hypertension type: essential hypertension Qualified Code(s): I10 - Essential (primary) hypertension Is this a current diagnosis for this admission?: Yes Plan: Presently not anymore hypotensive. Monitor closely. (6) Polymyalgia rheumatica Plan: Clinically does not look like he has active polymyalgia rheumatica other than hip girdle pains. However his sed rate is quite high. Will increase his prednisone from 5 to 10 mg and monitor.
--- NOTE | 2019-04-22 12:07 | PDOC PROGRESS REPORT ---
Subjective Progress Note for:: 04/22/19 Reason For Visit: ACUTE HYPOXIC RESPIRATORY FAILURE,CHF EXACERBATION 04/22/2019 Cough, shortness of breath, CHF exacerbation, chronic kidney disease Physical Exam Vital Signs: Temp Pulse Resp BP Pulse Ox 99.1 F 88 17 113/62 100 04/22/19 08:25 04/22/19 08:25 04/22/19 08:25 04/22/19 08:25 04/22/19 08:25 Intake & Output 04/21/19 04/22/19 04/23/19 06:59 06:59 06:59 Intake Total 930 2140 1050 Output Total 825 1175 Balance 906 161 4279 Weight 72.9 kg 73.9 kg General appearance: PRESENT: no acute distress Respiratory exam: PRESENT: clear to auscultation phan. ABSENT: rales, rhonchi, wheezes Cardiovascular exam: PRESENT: RRR. ABSENT: diastolic murmur, rubs, systolic murmur Neurological exam: PRESENT: alert, awake, oriented to person, oriented to place, oriented to time, oriented to situation, CN II-XII grossly intact. ABSENT: motor sensory deficit Psychiatric exam: PRESENT: appropriate affect, normal mood. ABSENT: homicidal ideation, suicidal ideation Results Laboratory Results: 04/22/19 04:07 04/22/19 04:07 04/22/19 04/22/19 04:07 04:07 WBC 8.2 RBC 3.40 L Hgb 10.7 L Hct 31.0 L MCV 91 MCH 31.5 MCHC 34.5 RDW 14.2 H Plt Count 263 Seg Neutrophils % 73.9 Sodium 138.9 Potassium 4.4 Chloride 104 Carbon Dioxide 23 Anion Gap 12 BUN 81 H Creatinine 3.51 H Est GFR ( Amer) 21 L Glucose 100 Calcium 10.0 04/16/19 09:23 Blood Blood Culture - Final NO GROWTH IN 5 DAYS 04/16/19 11:22 Blood Blood Culture - Final NO GROWTH IN 5 DAYS 04/16/19 04/16/19 04/19/19 09:23 09:23 04:30 Creatine Kinase 38 L CK-MB (CK-2) 3.20 Troponin I 0.237 0.291 Impressions: Chest CT 04/16/19 11:52 IMPRESSION: 1. As seen radiographically, diffuse infiltrates. Suspect this is predominantly related to congestive failure given the presence of bilateral effusions. Basilar pneumonia not excluded given significant consolidation and volume loss in the lower lobes as well. Chest X-Ray 04/20/19 08:29 IMPRESSION: No evidence of focal airspace disease or other acute intrathoracic process. Renal Ultrasound 04/21/19 00:00 IMPRESSION: There is no evidence of hydronephrosis. Both kidneys have a lobulated contour suggestive of scarring. Assessment and Plan - Diagnosis (1) Acute on chronic renal failure Is this a current diagnosis for this admission?: Yes (2) CHF (congestive heart failure) Qualifiers: Heart failure type: systolic Heart failure chronicity: acute on chronic Qualified Code(s): I50.23 - Acute on chronic systolic (congestive) heart failure Is this a current diagnosis for this admission?: Yes (3) CKD stage 4 secondary to hypertension Is this a current diagnosis for this admission?: Yes (4) Dyspnea Qualifiers: Dyspnea type: shortness of breath Qualified Code(s): R06.02 - Shortness of breath; R06.00 - Dyspnea, unspecified; R06.01 - Orthopnea Is this a current diagnosis for this admission?: Yes - Plan Summary Summary: 04/21/2019 Was admitted for cough and shortness of breath probably secondary to CHF. He wa s diuresed and as result his renal functions have worsened. Patient is currently given IV fluids at a very slow rate, and improve his renal functions. Temperature 98.2 pulse 89, blood pressure 138/97 O2 sat 99% on room air BUN as gone up to 83. Admission this was 57 Creatinine is gone up to 4.26 on admission this was 3.04 Chest x-ray from yesterday is negative showing no acute cardiopulmonary disease, blood cultures are negative. CPAP is being set up at home so when patient is discharged he will have CPAP to use at night I anticipate nephrology will want to keep patient another day for continued IV hydration with repeat labs in the morning. I have ordered those labs 04/22/2019 Temp 97 8, pulse 80, blood pressure 138/71, O2 sat 98%. Oxygen saturation appears to be stable on either room air BiPAP or nasal cannula BUN is come down slightly to 81 but creatinine has improved dramatically to 3.51 We will recheck these numbers again in the morning if patient continues to remain stable or improve we will discharge to home tomorrow Charge planning is made arrangements with the family for CPAP mask fitting as an outpatient - Time Time Spent with patient: 15-24 minutes
[2019-04-22] MEDS: DONEPEZIL HCL 5 MG TABLET PO SCH (21:53)
[2019-04-22] MEDS: ASPIRIN 81 MG TABLET, ENT COATED PO SCH (21:53)
[2019-04-22] MEDS: ATORVASTATIN CALCIUM 40 MG TABLET PO SCH (21:53)
[2019-04-22] MEDS: MELATONIN 3 MG TABLET PO SCH (21:54)
[2019-04-23 05:19] LABS: ANION GAP 10 (5-19); BLOOD UREA NITROGEN 69 mg/dL (7-20); CALCIUM 9.8 mg/dL (8.4-10.2); CARBON DIOXIDE 22 mmol/L (22-30); CHLORIDE 107 mmol/L (98-107); GLUCOSE 93 mg/dL (75-110)
[2019-04-23] MEDS: HEPARIN SOD (PORCINE) 5,000 UNIT/ML 1 ML VIAL SUBCUT SCH (05:22)
[2019-04-23] MEDS: CALCIUM CARBONATE 250 MG/VITAMIN D3 125 UNIT TABLET PO SCH ×2 (08:34→11:47)
[2019-04-23] MEDS: PANTOPRAZOLE SODIUM 20 MG TABLET.DR PO SCH (08:34)
[2019-04-23] MEDS: INSULIN LISPRO 100 UNIT/ML 3 ML VIAL SUBCUT SCH ×2 (08:35→11:44)
[2019-04-23] MEDS: INSULIN GLARGINE,HUM.REC.ANLOG 1,000 UNIT/10 ML VIAL SUBCUT SCH (08:38)
[2019-04-23 08:42] VITALS: BP 130/69
[2019-04-23] MEDS: CEFTRIAXONE 1 GM/D5W RTU 1 GM/50 ML RTUPB IV SCH (09:34)
[2019-04-23] MEDS: SERTRALINE HCL 50 MG TABLET PO SCH (09:34)
[2019-04-23] MEDS: PREDNISONE 5 MG TABLET PO SCH (09:34)
[2019-04-23] MEDS: VITAMIN B COMPLEX TABLET PO SCH (09:34)
--- NOTE | 2019-04-23 11:56 | PDOC PROGRESS REPORT ---
Subjective Progress Note for:: 04/23/19 Reason For Visit: Patient seen today. He looks and feels great. He denies any specific complaints of chest pain shortness of breath. Good appetite. Labs and medications were reviewed that shows downtrending further of creatinine. Physical Exam Vital Signs: Temp Pulse Resp BP Pulse Ox 97.3 F 77 16 130/69 H 100 04/23/19 08:40 04/23/19 08:40 04/23/19 08:40 04/23/19 08:40 04/23/19 08:40 Intake & Output 04/22/19 04/23/19 04/24/19 06:59 06:59 06:59 Intake Total 2140 1992 50 Output Total 1175 1295 Balance 965 697 50 Weight 73.9 kg 72.9 kg General appearance: PRESENT: no acute distress Respiratory exam: PRESENT: clear to auscultation phan. ABSENT: crackles Cardiovascular exam: PRESENT: +S1, +S2 GI/Abdominal exam: PRESENT: normal bowel sounds, soft. ABSENT: organomegaly, tenderness Extremities exam: ABSENT: pedal edema Neurological exam: PRESENT: alert, awake, oriented to person, oriented to place Psychiatric exam: PRESENT: appropriate affect Results Laboratory Results: 04/22/19 04:07 04/23/19 04:03 04/23/19 04:03 Sodium 139.4 Potassium 5.0 Chloride 107 Carbon Dioxide 22 Anion Gap 10 BUN 69 H Creatinine 3.60 H Est GFR ( Amer) 20 L Glucose 93 Calcium 9.8 04/16/19 04/16/19 04/19/19 09:23 09:23 04:30 Creatine Kinase 38 L CK-MB (CK-2) 3.20 Troponin I 0.237 0.291 Impressions: Chest CT 04/16/19 11:52 IMPRESSION: 1. As seen radiographically, diffuse infiltrates. Suspect this is predominantly related to congestive failure given the presence of bilateral effusions. Basilar pneumonia not excluded given significant consolidation and volume loss in the lower lobes as well. Chest X-Ray 04/20/19 08:29 IMPRESSION: No evidence of focal airspace disease or other acute intrathoracic process. Renal Ultrasound 04/21/19 00:00 IMPRESSION: There is no evidence of hydronephrosis. Both kidneys have a lobulated contour suggestive of scarring. Assessment & Plan - Diagnosis (1) GLORIA (acute kidney injury) Plan: Nonoliguric. Patient is renal numbers are improving very nicely. Renal ultrasound was reviewed which shows no obstructive uropathy. I would feel comfortable to discharge the patient home today after labs as long as he is downtrending creatinine. Follow-up with us as an outpatient.. (2) CKD stage 4 secondary to hypertension Is this a current diagnosis for this admission?: Yes Plan: Patient has got acute kidney injury on top of his CKD stage IV. Renal numbers are finally improving. Outlines as mentioned earlier. No indications for renal replacements. Monitor. (3) Acute respiratory failure with hypoxemia Is this a current diagnosis for this admission?: Yes Plan: Secondary to congestive heart failure which is has resolved. Gentle rehydration as mentioned earlier. Monitor. (4) Diabetes mellitus type 2 in nonobese Plan: Advised tight control. (5) HTN (hypertension) Qualifiers: Hypertension type: essential hypertension Qualified Code(s): I10 - Essential (primary) hypertension Is this a current diagnosis for this admission?: Yes Plan: Presently not anymore hypotensive. Monitor closely. (6) Polymyalgia rheumatica Plan: Clinically does not look like he has active polymyalgia rheumatica other than hip girdle pains. However his sed rate is quite high. Will increase his prednisone from 5 to 10 mg and monitor.
--- NOTE | 2019-04-27 12:58 | PDOC DISCHARGE SUMMARY ---
Impression - Admit/DC Date/PCP Admission Date/Primary Care Provider: 04/16/19 11:34 Vijaya GUTIERREZ MD Discharge Date: 04/23/19 - Discharge Diagnosis (1) Acute on chronic renal failure Is this a current diagnosis for this admission?: Yes (2) CHF (congestive heart failure) Is this a current diagnosis for this admission?: Yes (3) CKD stage 4 secondary to hypertension Is this a current diagnosis for this admission?: Yes (4) Dyspnea Is this a current diagnosis for this admission?: Yes (5) Diabetes Is this a current diagnosis for this admission?: Yes (6) HTN (hypertension) Is this a current diagnosis for this admission?: Yes - Assessment Summary: 04/21/2019 Was admitted for cough and shortness of breath probably secondary to CHF. He was diuresed and as result his renal functions have worsened. Patient is currently given IV fluids at a very slow rate, and improve his renal functions. Temperature 98.2 pulse 89, blood pressure 138/97 O2 sat 99% on room air BUN as gone up to 83. Admission this was 57 Creatinine is gone up to 4.26 on admission this was 3.04 Chest x-ray from yesterday is negative showing no acute cardiopulmonary disease, blood cultures are negative. CPAP is being set up at home so when patient is discharged he will have CPAP to use at night I anticipate nephrology will want to keep patient another day for continued IV hydration with repeat labs in the morning. I have ordered those labs 04/22/2019 Temp 97 8, pulse 80, blood pressure 138/71, O2 sat 98%. Oxygen saturation appears to be stable on either room air BiPAP or nasal cannula BUN is come down slightly to 81 but creatinine has improved dramatically to 3.51 We will recheck these numbers again in the morning if patient continues to remain stable or improve we will discharge to home tomorrow Charge planning is made arrangements with the family for CPAP mask fitting as an outpatient - Additional Information Resuscitation Status: Full Code Discharge Diet: Cardiac, Diabetic Discharge Activity: Balance Activity w/Rest Referrals: NANCI MCMILLAN MD [ACTIVE STAFF] - 04/27/19 2:00 pm Vijaya GUTIERREZ MD [Primary Care Provider] - 05/06/19 3:40 pm Prescriptions: Furosemide [Lasix 20 mg Tablet] 20 mg PO DAILY #30 tablet Metoprolol Succinate [Toprol Xl 25 mg Tab.sr] 25 mg PO DAILY #30 tab.sr.24h Home Medications: Donepezil HCl [Aricept] 10 mg PO QHS 02/18/17 Glimepiride [Amaryl] 2 mg PO DAILY 02/18/17 Omeprazole 20 mg PO Q6AM 02/18/17 Prednisone [Deltasone 5 mg Tablet] 5 mg PO DAILY 02/18/17 Insulin Glargine,Hum.rec.anlog [Basaglar Kwikpen U-100] 12 unit SQ QHS 09/27/18 Sertraline HCl [Zoloft 50 mg Tablet] 150 mg PO DAILY 09/27/18 Acetaminophen [Tylenol] 650 mg PO QIDP PRN 04/16/19 Aspirin [Ecotrin 81 mg EC Tablet] 81 mg PO QHS 04/16/19 Atorvastatin Calcium [Lipitor 40 mg Tablet] 40 mg PO QHS 04/16/19 B Complex W-C No.20/Folic Acid [Renal Caps Softgel] 1 mg PO DAILY 04/16/19 Chance/D3/Mag11/Zinc/Custom Clothier/[place]/Bor [Caltrate 600+D Plus Tablet] 1 tab PO TID 04/16/19 Cyanocobalamin/Folic AC/Vit B6 [Folbic Tablet] 1 tab PO DAILY 04/16/19 Hydralazine HCl [Apresoline 25 mg Tablet] 25 mg PO Q12 04/16/19 Insulin Glargine,Hum.rec.anlog [Basaglar Kwikpen U-100] 17 unit SQ QAM 04/16/19 Melatonin [Melatonin 3 mg Tablet] 9 mg PO QHS 04/16/19 Sodium Bicarbonate [Sodium Bicarbonate 650 mg Tablet] 650 mg PO DAILY 04/16/19 Vitamin B Complex [Vitamin B Complex Tablet] 1 tab PO DAILY 04/16/19 Furosemide [Lasix 20 mg Tablet] 20 mg PO DAILY #30 tablet 04/20/19 Metoprolol Succinate [Toprol Xl 25 mg Tab.sr] 25 mg PO DAILY #30 tab.sr.24h 04/20/19 History of Present Illiness History of Present Illness: MALINDA CROCKETT is a 69 year old male Physical Exam Vital Signs: Temp Pulse Resp BP Pulse Ox 97.3 F 77 16 130/69 H 100 04/23/19 12:08 04/23/19 12:08 04/23/19 12:08 04/23/19 12:08 04/23/19 12:08 Intake & Output 04/23/19 04/24/19 04/25/19 06:59 06:59 06:59 Intake Total 1991 50 Output Total 1295 Balance 697 50 Weight 72.9 kg Results Laboratory Results: WBC 8.2 10^3/uL (4.0-10.5) 04/22/19 04:07 RBC 3.40 10^6/uL (4.35-5.55) L 04/22/19 04:07 Hgb 10.7 g/dL (13.5-17.0) L 04/22/19 04:07 Hct 31.0 % (37.9-51.0) L 04/22/19 04:07 MCV 91 fl (80-97) 04/22/19 04:07 MCH 31.5 pg (27.0-33.4) 04/22/19 04:07 MCHC 34.5 g/dL (32.0-36.0) 04/22/19 04:07 RDW 14.2 % (11.5-14.0) H 04/22/19 04:07 Plt Count 263 10^3/uL (150-450) 04/22/19 04:07 Lymph % (Auto) 13.1 % (13-45) 04/22/19 04:07 Evans % (Auto) 11.1 % (3-13) 04/22/19 04:07 Eos % (Auto) 1.4 % (0-6) 04/22/19 04:07 Baso % (Auto) 0.5 % (0-2) 04/22/19 04:07 Absolute Neuts (auto) 6.0 10^3/uL (1.7-8.2) 04/22/19 04:07 Absolute Lymphs (auto) 1.1 10^3/uL (0.5-4.7) 04/22/19 04:07 Absolute Monos (auto) 0.9 10^3/uL (0.1-1.4) 04/22/19 04:07 Absolute Eos (auto) 0.1 10^3/uL (0.0-0.6) 04/22/19 04:07 Absolute Basos (auto) 0.0 10^3/uL (0.0-0.2) 04/22/19 04:07 Total Counted 100 04/16/19 09:23 Seg Neutrophils % 73.9 % (42-78) 04/22/19 04:07 Seg Neuts % (Manual) 90 % (42-78) H 04/16/19 09:23 Lymphocytes % (Manual) 3 % (13-45) L 04/16/19 09:23 Monocytes % (Manual) 7 % (3-13) 04/16/19 09:23 Eosinophils % (Manual) 0 % (0-6) 04/16/19 09:23 Basophils % (Manual) 0 % (0-2) 04/16/19 09:23 Abs Neuts (Manual) 11.3 10^3/uL (1.7-8.2) H 04/16/19 09:23 Abs Lymphs (Manual) 0.4 10^3/uL (0.5-4.7) L 04/16/19 09:23 Abs Monocytes (Manual) 0.9 10^3/uL (0.1-1.4) 04/16/19 09:23 Absolute Eos (Manual) 0.0 10^3/uL (0.0-0.6) 04/16/19 09:23 Abs Basophils (Manual) 0.0 10^3/uL (0.0-0.2) 04/16/19 09:23 Platelet Comment ADEQUATE 04/16/19 09:23 Polychromasia SLIGHT 04/16/19 09:23 Anisocytosis SLIGHT 04/16/19 09:23 ESR 108 mm/hr (0-20) H 04/20/19 05:50 Sodium 139.4 mmol/L (137-145) 04/23/19 04:03 Potassium 5.0 mmol/L (3.6-5.0) 04/23/19 04:03 Chloride 107 mmol/L (98-107) 04/23/19 04:03 Carbon Dioxide 22 mmol/L (22-30) 04/23/19 04:03 Anion Gap 10 (5-19) 04/23/19 04:03 BUN 69 mg/dL (7-20) H 04/23/19 04:03 Creatinine 3.60 mg/dL (0.52-1.25) H 04/23/19 04:03 Est GFR ( Amer) 20 (>60) L 04/23/19 04:03 Est GFR (MDRD) Non-Af 17 (>60) L 04/23/19 04:03 Glucose 93 mg/dL (75-110) 04/23/19 04:03 POC Glucose 150 mg/dL (70-110) H 04/23/19 11:42 Calcium 9.8 mg/dL (8.4-10.2) 04/23/19 04:03 Total Bilirubin 0.8 mg/dL (0.2-1.3) 04/16/19 09:23 Direct Bilirubin 0.1 mg/dL (0.0-0.4) 04/16/19 09:23 Neonat Total Bilirubin Not Reportable 04/16/19 09:23 Neonat Direct Bilirubin Not Reportable 04/16/19 09:23 Neonat Indirect Bili Not Reportable 04/16/19 09:23 AST 25 U/L (17-59) 04/16/19 09:23 ALT 24 U/L (<50) 04/16/19 09:23 Alkaline Phosphatase 94 U/L (38-126) 04/16/19 09:23 Creatine Kinase 38 U/L (55-170) L 04/16/19 09:23 CK-MB (CK-2) 3.20 ng/mL (<4.55) 04/16/19 09:23 Troponin I 0.291 ng/mL 04/19/19 04:30 Total Protein 7.0 g/dL (6.3-8.2) 04/16/19 09:23 Albumin 4.2 g/dL (3.5-5.0) 04/16/19 09:23 Urine Color YELLOW 04/16/19 10:44 Urine Appearance SLIGHTLY-CLOUDY 04/16/19 10:44 Urine pH 5.0 (5.0-9.0) 04/16/19 10:44 Ur Specific [place] 1.018 04/16/19 10:44 Urine Protein >=500 mg/dL (NEGATIVE) H 04/16/19 10:44 Urine Glucose (UA) 50 mg/dL (NEGATIVE) H 04/16/19 10:44 Urine Ketones NEGATIVE mg/dL (NEGATIVE) 04/16/19 10:44 Urine Blood NEGATIVE (NEGATIVE) 04/16/19 10:44 Urine Nitrite NEGATIVE (NEGATIVE) 04/16/19 10:44 Urine Bilirubin NEGATIVE (NEGATIVE) 04/16/19 10:44 Urine Urobilinogen NEGATIVE mg/dL (<2.0) 04/16/19 10:44 Ur Leukocyte Esterase NEGATIVE (NEGATIVE) 04/16/19 10:44 Urine WBC (Auto) 0 /HPF 04/16/19 10:44 Urine RBC (Auto) 0 /HPF 04/16/19 10:44 Urine Creatinine 119.2 mg/dL (22-328) 04/22/19 08:50 Protein/Creatinin Ratio 2.8 mg/mg (0.0-0.2) H 04/22/19 08:50 Urine Total Protein 328.0 mg/dL (<12) H 04/22/19 08:50 Urine Ascorbic Acid NEGATIVE (NEGATIVE) 04/16/19 10:44 04/16/19 04/19/19 09:23 04:30 CK-MB (CK-2) 3.20 Troponin I 0.237 0.291 Impressions: Chest X-Ray 04/16/19 09:25 IMPRESSION: Diffuse bilateral infiltrates left greater than right likely pulmonary edema. Pneumonia could not entirely be excluded. Since the prior chest films 10/07/2018, patient has undergone sternotomy with CABG Chest CT 04/16/19 11:52 IMPRESSION: 1. As seen radiographically, diffuse infiltrates. Suspect this is predominantly related to congestive failure given the presence of bilateral effusions. Basilar pneumonia not excluded given significant consolidation and volume loss in the lower lobes as well. Chest X-Ray 04/17/19 08:54 IMPRESSION: Persistent bilateral perihilar airspace disease worrisome for pulmonary edema. Trace right pleural effusion Chest X-Ray 04/19/19 07:00 IMPRESSION: IMPROVED APPEARANCE OF THE CHEST. Chest X-Ray 04/20/19 08:29 IMPRESSION: No evidence of focal airspace disease or other acute intrathoracic process. Renal Ultrasound 04/21/19 00:00 IMPRESSION: There is no evidence of hydronephrosis. Both kidneys have a lobulated contour suggestive of scarring. Stroke Is this a Stroke Patient?: No Acute Heart Failure - Is this a Heart Failure Patient?: No
== END 2019-04-23 13:26 | disposition home or self-care (01) | DRG 682 ==
LOC: ER 09:20 → EH 11:34 → 3W 17:07
PROVIDERS: ADMIT Internal Medicine; ATTEND Internal Medicine
PROC: 5A09357 Assistance with Respiratory Ventilation, Less than 24 Consecutive Hours, Continuous Positive Airway Pressure (ICD-10-PCS; principal; 2019-04-18)
DX: N17.9 Acute kidney failure, unspecified (principal); J96.01 Acute respiratory failure with hypoxia; I50.23 Acute on chronic systolic (congestive) heart failure; I21.A1 Myocardial infarction type 2; I13.0 Hypertensive heart and chronic kidney disease with heart failure and stage 1 through stage 4 chronic kidney disease, or unspecified chronic kidney disease; F03.90 Unspecified dementia, unspecified severity, without behavioral disturbance, psychotic disturbance, mood disturbance, and anxiety; E11.22 Type 2 diabetes mellitus with diabetic chronic kidney disease; N18.4 Chronic kidney disease, stage 4 (severe); I25.10 Atherosclerotic heart disease of native coronary artery without angina pectoris; E78.5 Hyperlipidemia, unspecified; K21.9 Gastro-esophageal reflux disease without esophagitis; F32.9 Major depressive disorder, single episode, unspecified; I25.5 Ischemic cardiomyopathy; M35.3 Polymyalgia rheumatica; Z79.82 Long term (current) use of aspirin; Z79.4 Long term (current) use of insulin; Z79.52 Long term (current) use of systemic steroids; Z95.1 Presence of aortocoronary bypass graft; Z95.5 Presence of coronary angioplasty implant and graft; I25.2 Old myocardial infarction; Z87.891 Personal history of nicotine dependence; Z88.6 Allergy status to analgesic agent; Z82.49 Family history of ischemic heart disease and other diseases of the circulatory system
CPT/HCPCS: 36415; 71045; 71250; 76775; 80048; 80053; 81001; 82550; 82553; 82570; 82962; 84156; 84484; 85025; 85027; 85652; 87040; 93005; 93010; 94660; 96374; 96375; 99291; 99292; J0696; J1644; J1815; J1940; J2405; J3490; J7512; J7620

== ENCOUNTER → 2019-04-30 | Outpatient (CLI) | payer MEDICARE ==
[2019-04-30 08:39] LABS: ABSOLUTE BASOPHILS # (AUTO) 0.1 10^3/uL (0.0-0.2); ABSOLUTE EOSINOPHILS # (AUTO) 0.1 10^3/uL (0.0-0.6); ABSOLUTE LYMPHOCYTES (AUTO) 1.5 10^3/uL (0.5-4.7); ABSOLUTE MONOCYTES (AUTO) 0.7 10^3/uL (0.1-1.4); ABSOLUTE NEUT (AUTO) 6.4 10^3/uL (1.7-8.2); BASOPHILS % (AUTO) 0.7 % (0-2); EOSINOPHILS % (AUTO) 1.5 % (0-6); HEMOGLOBIN 10.7 g/dL (13.5-17.0); LYMPHOCYTES % (AUTO) 17.1 % (13-45); MEAN CORPUSCULAR HEMOGLOBIN 31.6 pg (27.0-33.4); MEAN CORPUSCULAR HGB CONC 34.4 g/dL (32.0-36.0); MEAN CORPUSCULAR VOLUME 92 fl (80-97); MONOCYTES % (AUTO) 7.9 % (3-13); PLATELET COUNT 362 10^3/uL (150-450); RED BLOOD COUNT 3.37 10^6/uL (4.35-5.55); RED CELL DISTRIBUTION WIDTH 14.5 % (11.5-14.0); SEGMENTED NEUTROPHILS % (AUTO) 72.8 % (42-78); TOTAL CELLS COUNTED % (AUTO) 100 %; WHITE BLOOD COUNT 8.8 10^3/uL (4.0-10.5)
[2019-04-30 09:03] LABS: ALBUMIN 4.1 g/dL (3.5-5.0); ALKALINE PHOSPHATASE 84 U/L (38-126); ANION GAP 13 (5-19); ASPARTATE AMINO TRANSFERASE 40 U/L (17-59); BILIRUBIN,DIRECT 0.4 mg/dL (0.0-0.4); BILIRUBIN,TOTAL 0.5 mg/dL (0.2-1.3); BLOOD UREA NITROGEN 66 mg/dL (7-20); CALCIUM 9.8 mg/dL (8.4-10.2); CARBON DIOXIDE 22 mmol/L (22-30); CHLORIDE 107 mmol/L (98-107); CHOLESTEROL 178.17 mg/dL (0-200); GLUCOSE 75 mg/dL (75-110); PHOSPHORUS 5.1 mg/dL (2.5-4.5); TOTAL PROTEIN 7.3 g/dL (6.3-8.2); TRIGLYCERIDES 123 mg/dL (<150)
[2019-04-30 09:14] LABS: DIRECT LDL 82 mg/dL (<100)
[2019-04-30 09:26] LABS: APPEARANCE,URINE SLIGHTLY-CLOUDY; BILIRUBIN,URINE NEGATIVE (NEGATIVE); COLOR,URINE YELLOW; GLUCOSE, URINE NEGATIVE (NEGATIVE); KETONES,URINE NEGATIVE (NEGATIVE); LEUKOCYTE ESTERASE,URINE NEGATIVE (NEGATIVE); NITRITE,URINE NEGATIVE (NEGATIVE); PROTEIN,URINE >=500 mg/dL (NEGATIVE); URINE SPECIFIC GRAVITY 1.016; UROBILINOGEN,URINE NEGATIVE mg/dL (<2.0)
[2019-04-30 09:48] LABS: URINE CREATININE 93.1 mg/dL (22-328)
[2019-04-30 09:59] LABS: UR PRO/CREAT RATIO RESULT 2.8 mg/mg (0.0-0.2); URINE PROTEIN 257.7 mg/dL (<12)
== END ==
LOC: OD 08:12
PROVIDERS: ATTEND Internal Medicine Nephrology
DX: E11.22 Type 2 diabetes mellitus with diabetic chronic kidney disease (principal); I13.0 Hypertensive heart and chronic kidney disease with heart failure and stage 1 through stage 4 chronic kidney disease, or unspecified chronic kidney disease; N18.4 Chronic kidney disease, stage 4 (severe); I50.9 Heart failure, unspecified; D63.1 Anemia in chronic kidney disease; R80.9 Proteinuria, unspecified
CPT/HCPCS: 36415; 80053; 80061; 81001; 82570; 83735; 83970; 84100; 84156; 85025

== ENCOUNTER 2019-06-02 04:57 | Inpatient (IN) | payer MEDICARE ==
[2019-06-02 05:16] LABS: ABSOLUTE BASOPHILS # (AUTO) 0.1 10^3/uL (0.0-0.2); ABSOLUTE EOSINOPHILS # (AUTO) 0.1 10^3/uL (0.0-0.6); ABSOLUTE LYMPHOCYTES (AUTO) 1.2 10^3/uL (0.5-4.7); ABSOLUTE MONOCYTES (AUTO) 0.7 10^3/uL (0.1-1.4); TOTAL CELLS COUNTED % (AUTO) 100 %; WHITE BLOOD COUNT 8.4 10^3/uL (4.0-10.5)
[2019-06-02 05:25] LABS: ABSOLUTE NEUT (AUTO) 6.3 10^3/uL (1.7-8.2); BASOPHILS % (AUTO) 0.7 % (0-2); EOSINOPHILS % (AUTO) 1.6 % (0-6); HEMATOCRIT 34.9 % (37.9-51.0); HEMOGLOBIN 11.8 g/dL (13.5-17.0); LYMPHOCYTES % (AUTO) 14.1 % (13-45); MEAN CORPUSCULAR HGB CONC 33.8 g/dL (32.0-36.0); MEAN CORPUSCULAR VOLUME 95 fl (80-97); MONOCYTES % (AUTO) 7.8 % (3-13); PLATELET COUNT 284 10^3/uL (150-450); RED BLOOD COUNT 3.69 10^6/uL (4.35-5.55); RED CELL DISTRIBUTION WIDTH 15.3 % (11.5-14.0); SEGMENTED NEUTROPHILS % (AUTO) 75.8 % (42-78)
--- NOTE | 2019-06-02 05:29 | ER Document Report ---
ED General - General Mode of Arrival: Ambulatory Information source: Patient TRAVEL OUTSIDE OF THE [place] IN LAST 30 DAYS: No - HPI Onset: Other - over the last few days Onset/Duration: Gradual Quality of pain: Other - off and on mild left sided chest pains Severity: Moderate Pain Level: 1 Associated symptoms: Productive cough - of white sputum Exacerbated by: Walking, Other - Exertion Relieved by: Remaining still, Other - Rest Similar symptoms previously: Yes - with volume overload Recently seen / treated by doctor: No <SARAI SCHULTZ - Last Filed: 06/02/19 05:46> <KELLY MYLES - Last Filed: 06/02/19 09:26> - General Chief Complaint: Breathing Difficulty Stated Complaint: ORTHOPENEA Time Seen by Provider: 06/02/19 05:25 Primary Care Provider: NEHEMIAS MUHAMMAD DO [Primary Care Provider] - Follow up as needed - HPI Notes: 69 year old male with a history of CHF, CAD, CKD (Stage 4), DM, HTN, GERD here for several days of shortness of breath, several episodes of mild left sided chest pains (lasting seconds), and a mildly productive cough of white sputum. The patient says he feels like he is volume overloaded. The patient says his CPAP usually helps with his trouble breathing but he has not noticed a diff erence recently. The patient denies radiation of the brief intermittent chest pain spells. The patient denies fevers, chills, sweats, nausea, vomiting, sick contacts, recent travel. (SARAI SCHULTZ) - Related Data Allergies/Adverse Reactions: codeine [Codeine] Allergy (Verified 04/16/19 09:31) hydrocodone bitartrate [From Vicodin] Allergy (Verified 04/16/19 09:31) Past Medical History - General Information source: Patient - Social History Smoking Status: Former Smoker Frequency of alcohol use: None Drug Abuse: None Family History: CAD, Hypertension, Other - Also full siblings and parents with hypertension and coronary artery disease. Father and mother both with complications related to [place]. Patient has suicidal ideation: No Patient has homicidal ideation: No - Past Medical History Cardiac Medical History: Reports: Hx Congestive Heart Failure, Hx Coronary Artery Disease, Hx Heart Attack - 1991, Hx Hypercholesterolemia, Hx Hypertension - MEDICATED Pulmonary Medical History: Denies: Hx Asthma, Hx COPD Neurological Medical History: Denies: Hx Cerebrovascular Accident, Hx Seizures Endocrine Medical History: Reports: Hx Diabetes Mellitus Type 2 Renal/ Medical History: Reports: Hx End Stage Renal Disease - STAGE 4 KIDNEY DISEASE, NO DIALYSIS, Hx Renal Insufficiency. Denies: Hx Peritoneal Dialysis GI Medical History: Reports: Hx Gastroesophageal Reflux Disease. Denies: Hx Hepatitis, Hx Hiatal Hernia, Hx Ulcer Musculoskeletal Medical History: Denies Hx Fibromyalgia Skin Medical History: Denies Hx Eczema Psychiatric Medical History: Reports: Hx Dementia, Hx Depression Traumatic Medical History: Denies: Hx Traumatic Brain Injury Infectious Medical History: Denies: Hx Hepatitis Past Surgical History: Reports: Hx Cardiac Catheterization - stents x2, Hx Ca rdiac Surgery - CABG, Hx Coronary Stent - RCA complicated by cardiac arrest. Denies: Hx Open Heart Surgery, Hx Pacemaker - Immunizations Hx Pneumococcal Vaccination: 11/15/18 <MARIONSARAI Cornell - Last Filed: 06/02/19 05:46> Review of Systems - Review of Systems Constitutional: No symptoms reported EENT: No symptoms reported Cardiovascular: Chest pain Respiratory: Cough - productive of white sputum, Short of breath Gastrointestinal: No symptoms reported Genitourinary: No symptoms reported Male Genitourinary: No symptoms reported Musculoskeletal: No symptoms reported Skin: No symptoms reported Hematologic/Lymphatic: No symptoms reported Neurological/Psychological: No symptoms reported -: Yes All other systems reviewed and negative <SARAI SCHULTZ - Last Filed: 06/02/19 05:46> Physical Exam <MARIONSARAI Cornell - Last Filed: 06/02/19 05:46> - Vital signs Vitals: Pulse Ox 95 06/02/19 04:58 - Notes Notes: GENERAL: Well-appearing, well-nourished and in no acute distress. HEAD: Atraumatic, normocephalic. EYES: Pupils equal round and reactive to light, extraocular movements intact, sclera anicteric, conjunctiva are normal. ENT: Nares patent, oropharynx clear without exudates. Moist mucous membranes. NECK: Normal range of motion, supple without lymphadenopathy or JVD. LUNGS: Breath sounds clear to auscultation bilaterally and equal. No wheezes rales or rhonchi. HEART: Regular rate and rhythm without murmurs, rubs or gallops. ABDOMEN: Soft, nontender, normoactive bowel sounds. No guarding, no rebound. No masses appreciated. EXTREMITIES: Normal range of motion, no pitting or edema. No clubbing or cyanosis. NEUROLOGICAL: Cranial nerves II through XII grossly intact. Normal speech, normal gait. PSYCH: Normal mood, normal affect. SKIN: Warm, Dry, normal turgor, no rashes or lesions noted. (SARAI SCHULTZ) Course - Laboratory Result Diagrams: 06/02/19 04:50 06/02/19 04:50 - EKG Interpretation by De EKG shows normal: Sinus rhythm, Intervals Rate: Normal Rhythm: NSR [place]/QRS: Left axis deviation When compared to previous EKG there are: No significant change <SARAI SCHULTZ - Last Filed: 06/02/19 05:46> - Laboratory Result Diagrams: 06/02/19 04:50 06/02/19 04:50 - Diagnostic Test Radiology reviewed: Image reviewed, Reports reviewed - Chest x-ray shows cardiomegaly with pulmonary edema and bilateral pleural effusions - Consults Dr. Piper Time consulted: 09:15 Consulted provider: will come to ER <KELLY MYLES - Last Filed: 06/02/19 09:26> - Re-evaluation Re-evalutation: 06/02/19 05:41 The patient arrived at shift change. His work up was not completed prior to change of shift. Patient will need to be re-assessed after his labs and xray are resulted. Patient looks comfortable in the ER. Patient has CKD so volume overload is very possible. Patient's K is 5.7 today but he has no peaked T waves. Will administer Kayexalate. Patient's off and on chest pain for several days does not seem typical of CAD. Will obtain a Trop and BNP regardless. (SARAI SCHULTZ) - Vital Signs Vital signs: Temp Pulse Resp BP Pulse Ox 97.3 F 23 H 142/81 H 95 06/02/19 05:06 06/02/19 09:01 06/02/19 09:00 06/02/19 09:01 - Laboratory Laboratory results interpreted by me: 06/02/19 06/02/19 06/02/19 04:50 04:50 04:58 RBC 3.69 L Hgb 11.8 L Hct 34.9 L RDW 15.3 H Potassium 5.7 H Chloride 109 H BUN 57 H Creatinine 3.02 H Est GFR ( Amer) 25 L Est GFR (MDRD) Non-Af 21 L Glucose 74 L NT-Pro-B Natriuret Pep 53200 H Urine Protein 06/02/19 06:00 RBC Hgb Hct RDW Potassium Chloride BUN Creatinine Est GFR ( Amer) Est GFR (MDRD) Non-Af Glucose NT-Pro-B Natriuret Pep Urine Protein 100 H - EKG Interpretation by Me Additional EKG results interpreted by me: 06/02/19 05:39 PVCs noted, T wave inversions in I, II, aVL, V4-V6 ([facility]) Discharge <[facility] - Last Filed: 06/02/19 05:46> - Discharge Admitting Provider: Feliz (Hospitalist) Unit Admitted: Telemetry <KELLY MYLES - Last Filed: 06/02/19 09:26> - Discharge Clinical Impression: Shortness of breath, CKD stage 4 secondary to hypertension, Hyperkalemia Chest pain Qualifiers: Chest pain type: unspecified Qualified Code(s): R07.9 - Chest pain, unspecified Congestive heart failure (CHF) Qualifiers: Heart failure type: unspecified Heart failure chronicity: acute on chronic Qualified Code(s): I50.9 - Heart failure, unspecified Disposition: ADMITTED INPATIENT Instructions: Chest Pain of Unclear Cause ([facility]) Referrals: NEHEMIAS MUHAMMAD DO [Primary Care Provider] - Follow up as needed
[2019-06-02 05:40] LABS: ALBUMIN 4.2 g/dL (3.5-5.0); ALKALINE PHOSPHATASE 91 U/L (38-126); ANION GAP 9 (5-19); ASPARTATE AMINO TRANSFERASE 25 U/L (17-59); BILIRUBIN,DIRECT 0.1 mg/dL (0.0-0.4); BILIRUBIN,TOTAL 0.6 mg/dL (0.2-1.3); BLOOD UREA NITROGEN 57 mg/dL (7-20); CALCIUM 10.2 mg/dL (8.4-10.2); CARBON DIOXIDE 23 mmol/L (22-30); CHLORIDE 109 mmol/L (98-107); GLUCOSE 74 mg/dL (75-110); POTASSIUM 5.7 mmol/L (3.6-5.0)
[2019-06-02] MEDS ORDERED: SODIUM POLYSTYRENE SULFONATE 15 GM/60 ML PO ONE (05:43)
[2019-06-02] MEDS ORDERED: ONDANSETRON 4 MG TAB.RAPDIS PO ONE (06:11)
[2019-06-02 06:15] LABS: APPEARANCE,URINE SLIGHTLY-CLOUDY; BILIRUBIN,URINE NEGATIVE (NEGATIVE); COLOR,URINE YELLOW; GLUCOSE, URINE NEGATIVE (NEGATIVE); KETONES,URINE NEGATIVE (NEGATIVE); LEUKOCYTE ESTERASE,URINE NEGATIVE (NEGATIVE); NITRITE,URINE NEGATIVE (NEGATIVE); PROTEIN,URINE 100 mg/dL (NEGATIVE); URINE SPECIFIC GRAVITY 1.014; UROBILINOGEN,URINE NEGATIVE mg/dL (<2.0)
--- NOTE | 2019-06-02 06:30 | RADIOLOGY REPORT (SQ) ---
EXAM DESCRIPTION: XR CHEST 2 VIEWS COMPLETED DATE/TME: 06/02/2019 05:33 CLINICAL HISTORY: 69 years, Male, eval for SOB COMPARISON: 04/20/2019 chest NUMBER OF VIEWS: 2 TECHNIQUE: 2 views of the chest LIMITATIONS: None. FINDINGS: Cardiomegaly. Median sternotomy wires. Diffuse interstitial edema. Moderate right and small left pleural effusions. No pneumothorax IMPRESSION: Cardiomegaly with pulmonary edema pattern and bilateral effusions copyright 2011 [employer]- All Rights Reserved
[2019-06-02 06:31] LABS: TROPONIN I 0.054 ng/mL
--- NOTE | 2019-06-02 06:58 | ER Document Report ---
Doctor's Note Notes: 06/02/19 06:57 Patient care transferred to dc about 6:30 AM. 69-year-old male patient with difficulty breathing since 1:00 in the morning. Chest x-ray shows congestive heart failure patient's BNP is markedly elevated from baseline. He will be administered Lasix. He does have chronic renal insufficiency with a creatinine just over 3.0 chronically. Patient was prescribed Lasix 20 mg daily when he was discharged on 04/23/2019 following a 1 week hospitalization for congestive heart failure. His bingo worker decrease the Lasix to 20 mg Saturday about 1 month ago. He does have some rales in the bases, seems a little more prominent on the right side at this time. He will be given a dose of Lasix to help pull off some of the fluid and hopefully some of the excess potassium.
[2019-06-02] MEDS ORDERED: FUROSEMIDE INJ/PF 100 MG/10 ML SDV IV ONE (06:59)
[2019-06-02] MEDS ORDERED: FUROSEMIDE INJ/PF 20 MG/2 ML SDV IV ONE (07:04)
[2019-06-02] MEDS ORDERED: MAG HYDROX/AL HYDROX/SIMETH SUSP 30 ML UDCUP PO PRN (10:42)
[2019-06-02] MEDS ORDERED: ACETAMINOPHEN 325 MG TABLET PO PRN (10:42)
--- NOTE | 2019-06-02 11:25 | PDOC H&P ---
History of Present Illness Admission Date/PCP: 06/02/19 09:29 NEHEMIAS MUHAMMAD DO Patient complains of: Patient presents emergency room with complaint of difficulty breathing was started earlier this morning. Chest x-ray does confirm pulmonary vascular congestion as well as pleural effusions. Patient is being admitted for further evaluation. History of Present Illness: MALINDA CROCKETT is a 69 year old male Patient was recently hospitalized with what appears to be CHF decompensation. He was treated with Lasix. I do not see any recent echo cardiogram and so his EF is unknown at this time. Patient also has underlying CKD. 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 He has had progressive difficulty breathing since then. He also complained of some intermittent chest pain with whitish productive cough. He is currently chest pain-free. Patient was also found to have hyperkalemia with a potassium of 5.7 which has been treated with Kayexalate. EKG shows T wave inversions in inferior leads as well as PVCs. Patient's mean arterial pressure was also elevated at about 101 Past Medical History Cardiac Medical History: Reports: Congestive Heart Failure, Coronary Artery Disease, Myocardial Infarction - 1991, Hyperlipidema, Hypertension - MEDICATED Pulmonary Medical History: Denies: Asthma, Chronic Obstructive Pulmonary Disease (COPD) Neurological Medical History: Denies: Seizures Endocrine Medical History: Reports: Diabetes Mellitus Type 2 Renal/ Medical History: Reports: End Stage Renal Disease - STAGE 4 KIDNEY DISEASE, NO DIALYSIS GI Medical History: Reports: Gastroesophageal Reflux Disease Denies: Hepatitis, Hiatal Hernia Musculoskeltal Medical History: Denies: Fibromyalgia Skin Medical History: Denies: Eczema Psychiatric Medical History: Reports: Dementia, Depression Traumatic Medical History: Denies: Traumatic Brain Injury Hematology: Denies: Anemia, Sickle Cell Disease Past Surgical History Past Surgical History: Reports: Cardiac Catheterization - stents x2, Coronary Stent - RCA complicated by cardiac arrest Denies: Pacemaker Social History Information Source: Patient Lives with: Family Smoking Status: Former Smoker Frequency of Alcohol Use: None Hx Recreational Drug Use: No Drugs: None Hx Prescription Drug Abuse: No - Advance Directive Resuscitation Status: Full Code Family History Family History: CAD, Hypertension, Other - Also full siblings and parents with hypertension and coronary artery disease. Father and mother both with complications related to [place]. Parental Family History Reviewed: No Children Family History Reviewed: Yes Sibling(s) Family History Reviewed.: Yes Medication/Allergy Home Medications: Donepezil HCl [Aricept] 10 mg PO QHS 02/18/17 Glimepiride [Amaryl] 2 mg PO DAILY 02/18/17 Omeprazole 20 mg PO Q6AM 02/18/17 Prednisone [Deltasone 5 mg Tablet] 5 mg PO DAILY 02/18/17 Insulin Glargine,Hum.rec.anlog [Basaglar Kwikpen U-100] 12 unit SQ QHS 09/27/18 Sertraline HCl [Zoloft 50 mg Tablet] 150 mg PO DAILY 09/27/18 Acetaminophen [Tylenol] 650 mg PO QIDP PRN 04/16/19 Aspirin [Ecotrin 81 mg EC Tablet] 81 mg PO QHS 04/16/19 Atorvastatin Calcium [Lipitor 40 mg Tablet] 40 mg PO QHS 04/16/19 B Complex W-C No.20/Folic Acid [Renal Caps Softgel] 1 mg PO DAILY 04/16/19 Chance/D3/Mag11/Zinc/Nuclear Criticality Safety Engineer/[place]/Bor [Caltrate 600+D Plus Tablet] 1 tab PO TID 04/16/19 Cyanocobalamin/Folic AC/Vit B6 [Folbic Tablet] 1 tab PO DAILY 04/16/19 Hydralazine HCl [Apresoline 25 mg Tablet] 25 mg PO Q12 04/16/19 Insulin Glargine,Hum.rec.anlog [Basaglar Kwikpen U-100] 17 unit SQ QAM 04/16/19 Melatonin [Melatonin 3 mg Tablet] 9 mg PO QHS 04/16/19 Sodium Bicarbonate [Sodium Bicarbonate 650 mg Tablet] 650 mg PO DAILY 04/16/19 Vitamin B Complex [Vitamin B Complex Tablet] 1 tab PO DAILY 04/16/19 Furosemide [Lasix 20 mg Tablet] 20 mg PO DAILY #30 tablet 04/20/19 Metoprolol Succinate [Toprol Xl 25 mg Tab.sr] 25 mg PO DAILY #30 tab.sr.24h 04/20/19 Allergies/Adverse Reactions: codeine [Codeine] Allergy (Verified 04/16/19 09:31) hydrocodone bitartrate [From Vicodin] Allergy (Verified 04/16/19 09:31) Review of Systems All systems: reviewed and no additional remarkable complaints except as stated Cardiovascular: PRESENT: chest pain, dyspnea on exertion, edema, orthropnea Respiratory: PRESENT: dyspnea Gastrointestinal: PRESENT: diarrhea, nausea Physical Exam Vital Signs: Temp Pulse Resp BP Pulse Ox 97.3 F 23 H 142/81 H 95 06/02/19 05:06 06/02/19 09:01 06/02/19 09:00 06/02/19 09:01 Intake & Output 06/01/19 06/02/19 06/03/19 06:59 06:59 06:59 Weight 72.3 kg General appearance: PRESENT: no acute distress, well-developed Head exam: PRESENT: atraumatic, normocephalic Eye exam: PRESENT: conjunctiva pink, EOMI. ABSENT: scleral icterus Neck exam: ABSENT: carotid bruit, JVD, lymphadenopathy, thyromegaly Respiratory exam: PRESENT: decreased breath sounds, rales - Bilateral bases, rhonchi, unlabored. ABSENT: wheezes Cardiovascular exam: PRESENT: RRR. ABSENT: diastolic murmur, rubs, systolic murmur GI/Abdominal exam: PRESENT: normal bowel sounds, soft. ABSENT: distended, guarding, mass, organolmegaly, rebound, tenderness Rectal exam: PRESENT: deferred Extremities exam: PRESENT: full ROM. ABSENT: calf tenderness, clubbing, pedal edema Neurological exam: PRESENT: alert, awake, oriented to person, oriented to place, oriented to time, oriented to situation, CN II-XII grossly intact. ABSENT: motor sensory deficit Psychiatric exam: PRESENT: appropriate affect, normal mood. ABSENT: homicidal ideation, suicidal ideation Skin exam: PRESENT: dry, intact, warm. ABSENT: cyanosis, rash Results Laboratory Results: 06/02/19 04:50 06/02/19 04:50 06/02/19 06/02/19 06/02/19 04:50 04:50 06:00 WBC 8.4 RBC 3.69 L Hgb 11.8 L Hct 34.9 L MCV 95 MCH 32.0 MCHC 33.8 RDW 15.3 H Plt Count 284 Seg Neutrophils % 75.8 Sodium 141.3 Potassium 5.7 H Chloride 109 H Carbon Dioxide 23 Anion Gap 9 BUN 57 H Creatinine 3.02 H Est GFR ( Amer) 25 L Glucose 74 L Calcium 10.2 Total Bilirubin 0.6 AST 25 Alkaline Phosphatase 91 Total Protein 7.0 Albumin 4.2 Urine Color YELLOW Urine Appearance SLIGHTLY-CLOUDY Urine pH 6.0 Ur Specific [place] 1.014 Urine Protein 100 H Urine Glucose (UA) NEGATIVE Urine Ketones NEGATIVE Urine Blood NEGATIVE Urine Nitrite NEGATIVE Ur Leukocyte Esterase NEGATIVE Urine WBC (Auto) 0 Urine RBC (Auto) 0 06/02/19 04:58 Troponin I 0.054 NT-Pro-B Natriuret Pep 50772 H Impressions: Chest X-Ray 06/02/19 05:33 IMPRESSION: Cardiomegaly with pulmonary edema pattern and bilateral effusions copyright 2011 [employer]- All Rights Reserved Assessment and Plan - Diagnosis (1) CHF (congestive heart failure), NYHA class III Qualifiers: Congestive heart failure type: combined Congestive heart failure chronicity: acute on chronic Qualified Code(s): I50.43 - Acute on chronic combined systolic (congestive) and diastolic (congestive) heart failure Is this a current diagnosis for this admission?: Yes Plan: An echocardiogram will be obtained to further evaluate left ventricular and diastolic function. She will be placed on diuretics, beta-blockers, fluid restriction as appropriate and will continue to adjust his medications as appropriate (2) Diabetes mellitus type 2 in nonobese Is this a current diagnosis for this admission?: Yes Plan: Will place on sliding scale insulin (3) HTN (hypertension) Qualifiers: Hypertension type: essential hypertension Qualified Code(s): I10 - Essential (primary) hypertension Is this a current diagnosis for this admission?: Yes Plan: Adjust medications for optimal blood pressure control (4) Polymyalgia rheumatica Is this a current diagnosis for this admission?: Yes (5) CKD stage 4 secondary to hypertension Is this a current diagnosis for this admission?: Yes (6) Hyperkalemia Is this a current diagnosis for this admission?: Yes - Plan Summary Summary: Was recently discharge after being treated for CHF exacerbation. He comes back today again with the same diagnosis. An echocardiogram is to be obtained as there is no echocardiogram on file. Patient will be placed on intravenous diuretics as well as vasodilators. Will adjust his medications as warranted. Hyperkalemia likely secondary to his underlying kidney disease. Patient has received Kayexalate and will continue to monitor Chronic kidney disease stage IV his kidney function is actually close to where he was previously at discharge. - Time Time Spent with patient: 35 or more minutes Medications reviewed and adjusted accordingly: Yes Anticipated discharge: Home Within: within 72 hours - Inpatient Certification Based on my medical assessment, after consideration of the patient's com orbidities, presenting symptoms, or acuity I expect that the services needed warrant INPATIENT care.: Yes Medical Necessity: Risk of Complication if Not Cared For in Hospital, Risk of Diagnosis Which Will Require Inpatient Eval/Care/Monitoring
[2019-06-02] MEDS: NITROGLYCERIN 2% OINTMENT 1 GM PACKET TP SCH ×2 (12:16→17:09)
--- NOTE | 2019-06-02 14:36 | EKG REPORT ---
SEVERITY:- ABNORMAL ECG - SINUS RHYTHM VENTRICULAR PREMATURE COMPLEX PROBABLE LEFT ATRIAL ABNORMALITY CONSIDER ANTEROSEPTAL INFARCT ABNORMAL T, CONSIDER ISCHEMIA, LATERAL LEADS : Confirmed by: Evette Peña MD 02-Jun-2019 14:34:11
[2019-06-02 15:03] LABS: C DIFFICILE GDH NEGATIVE (NEGATIVE)
[2019-06-02] MEDS: METOPROLOL SUCCINATE 50 MG TAB.SR.24H PO SCH (21:25)
[2019-06-02] MEDS: MELATONIN 3 MG TABLET PO SCH (21:25)
[2019-06-02] MEDS: FUROSEMIDE INJ/PF 40 MG/4 ML SDV IV SCH (21:25)
[2019-06-03] MEDS: NITROGLYCERIN 2% OINTMENT 1 GM PACKET TP SCH ×4 (01:18→17:16)
[2019-06-03 05:42] LABS: ANION GAP 13 (5-19); BLOOD UREA NITROGEN 58 mg/dL (7-20); CALCIUM 10.8 mg/dL (8.4-10.2); CARBON DIOXIDE 25 mmol/L (22-30); CHLORIDE 107 mmol/L (98-107); GLUCOSE 146 mg/dL (75-110); POTASSIUM 5.3 mmol/L (3.6-5.0)
[2019-06-03] MEDS: PROMETHAZINE HCL 25 MG TABLET PO PRN (07:47)
[2019-06-03] MEDS ORDERED: INSULIN GLARGINE HUM REC ANLOG 17 UNIT SQ SCH (08:15)
[2019-06-03] MEDS ORDERED: SODIUM POLYSTYRENE SULFONATE 15 GM/60 ML PO ONE (08:45)
[2019-06-03] MEDS: FUROSEMIDE INJ/PF 40 MG/4 ML SDV IV SCH ×2 (09:21→22:21)
[2019-06-03] MEDS: METOPROLOL SUCCINATE 50 MG TAB.SR.24H PO SCH ×2 (09:22→22:20)
[2019-06-03] MEDS: HYDRALAZINE HCL 25 MG TABLET PO SCH ×2 (09:22→22:20)
[2019-06-03] MEDS: PREDNISONE 5 MG TABLET PO SCH (09:22)
[2019-06-03] MEDS: SODIUM BICARBONATE 650 MG TABLET PO SCH (09:22)
[2019-06-03] MEDS: VITAMIN B COMPLEX TABLET PO SCH (09:22)
[2019-06-03] MEDS: DOCUSATE SODIUM 100 MG CAPSULE PO SCH (09:22)
[2019-06-03] MEDS: SERTRALINE HCL 50 MG TABLET PO SCH (09:22)
[2019-06-03] MEDS: ENOXAPARIN SODIUM INJ 30 MG/0.3 ML DISP.SYRIN SUBCUT SCH (09:22)
[2019-06-03] MEDS ORDERED: MAG11 PO SCH (10:00)
[2019-06-03] MEDS ORDERED: ZINC PO SCH (10:00)
[2019-06-03] MEDS ORDERED: [UNRECOGNIZED DRUG - OTHER] PO SCH (10:00)
[2019-06-03] MEDS ORDERED: BOR PO SCH (10:00)
[2019-06-03] MEDS ORDERED: D3 PO SCH (10:00)
[2019-06-03] MEDS ORDERED: MANG PO SCH (10:00)
[2019-06-03] MEDS ORDERED: (PENDING PHARMACY ID) (B Complex W-C No.20/Folic Acid [Renal Caps Softgel] 1 MG) PO SCH (10:00)
[2019-06-03] MEDS ORDERED: CAL PO SCH (10:00)
[2019-06-03] MEDS ORDERED: VITAMIN B COMPLEX TABLET PO SCH (10:00)
[2019-06-03] MEDS ORDERED: (PENDING PHARMACY ID) (Cyanocobalamin/Folic Ac/Vit B6 [Folbic Tablet] 1 TAB) PO SCH (10:00)
[2019-06-03] MEDS ORDERED: COP PO SCH (10:00)
[2019-06-03] MEDS: GLIMEPIRIDE 1 MG TABLET PO SCH (10:30)
[2019-06-03] MEDS: CALCIUM CARBONATE 600 MG/VITAMIN D3 400 UNIT TABLET PO SCH ×3 (10:30→17:16)
[2019-06-03] MEDS ORDERED: INSULIN GLARGINE,HUM.REC.ANLOG 1,000 UNIT/10 ML VIAL (PYX) SUBCUT ONE ×2 (10:30→22:17)
--- NOTE | 2019-06-03 16:09 | PDOC PROGRESS REPORT ---
Subjective Progress Note for:: 06/03/19 Subjective:: Patient feels much better today. He is actually standing up about to drink his Kayexalate. He says he was able to sleep in bed contrary to what is been happening at home over the last few days. Reason For Visit: HEART FAILURE Physical Exam Vital Signs: Temp Pulse Resp BP Pulse Ox 97.8 F 87 16 132/68 H 100 06/03/19 12:11 06/03/19 12:11 06/03/19 12:11 06/03/19 12:11 06/03/19 12:11 Intake & Output 06/02/19 06/03/19 06/04/19 06:59 06:59 06:59 Intake Total 1316 240 Output Total 550 Balance 1316 -310 Weight 72.3 kg 70 kg General appearance: PRESENT: no acute distress, cooperative, thin - Elderly ge ntleman Head exam: PRESENT: atraumatic, normocephalic Eye exam: ABSENT: scleral icterus Mouth exam: PRESENT: tongue midline Neck exam: ABSENT: carotid bruit, JVD, lymphadenopathy, thyromegaly Respiratory exam: PRESENT: crackles, rhonchi - Proved, unlabored. ABSENT: rales, wheezes Cardiovascular exam: PRESENT: RRR, +S1, +S2. ABSENT: diastolic murmur, rubs, systolic murmur Pulses: PRESENT: +1 pedal pulses bilateral Vascular exam: PRESENT: normal capillary refill GI/Abdominal exam: PRESENT: normal bowel sounds, soft. ABSENT: distended, guarding, mass, organolmegaly, rebound, tenderness Rectal exam: PRESENT: deferred Extremities exam: PRESENT: full ROM, +1 edema. ABSENT: calf tenderness, clubbing, pedal edema Neurological exam: PRESENT: alert, awake, oriented to person, oriented to place, oriented to time, oriented to situation, CN II-XII grossly intact. ABSENT: motor sensory deficit Psychiatric exam: PRESENT: appropriate affect, normal mood. ABSENT: homicidal ideation, suicidal ideation Skin exam: PRESENT: dry, intact, warm. ABSENT: cyanosis, rash Results Laboratory Results: 06/02/19 04:50 06/03/19 04:35 06/03/19 04:35 Sodium 144.6 Potassium 5.3 H Chloride 107 Carbon Dioxide 25 Anion Gap 13 BUN 58 H Creatinine 3.02 H Est GFR ( Amer) 25 L Glucose 146 H Calcium 10.8 H 06/02/19 04:58 Troponin I 0.054 NT-Pro-B Natriuret Pep 73732 H Impressions: Chest X-Ray 06/02/19 05:33 IMPRESSION: Cardiomegaly with pulmonary edema pattern and bilateral effusions copyright 2011 [employer]- All Rights Reserved Assessment and Plan - Diagnosis (1) CHF (congestive heart failure), NYHA class III Qualifiers: Congestive heart failure type: combined Congestive heart failure chronicity: acute on chronic Qualified Code(s): I50.43 - Acute on chronic combined systolic (congestive) and diastolic (congestive) heart failure Is this a current diagnosis for this admission?: Yes (2) Diabetes mellitus type 2 in nonobese Is this a current diagnosis for this admission?: Yes (3) HTN (hypertension) Qualifiers: Hypertension type: essential hypertension Qualified Code(s): I10 - Essential (primary) hypertension Is this a current diagnosis for this admission?: Yes (4) Polymyalgia rheumatica Is this a current diagnosis for this admission?: Yes Plan: Continue low-dose prednisone (5) CKD stage 4 secondary to hypertension Is this a current diagnosis for this admission?: Yes Plan: Kidney function remains about the same (6) Hyperkalemia Is this a current diagnosis for this admission?: Yes Plan: We will give another dose of Kayexalate and follow-up in a.m. - Plan Summary Summary: Was recently discharge after being treated for CHF exacerbation. He comes back today again with the same diagnosis. An echocardiogram is to be obtained as there is no echocardiogram on file. Patient will be placed on intravenous diuretics as well as vasodilators. Will adjust his medications as warranted. Hyperkalemia likely secondary to his underlying kidney disease. Patient has received Kayexalate and will continue to monitor Chronic kidney disease stage IV his kidney function is actually close to where he was previously at discharge. 06/02 patient has made an improvement. He is currently on Lasix 20 mg every 12 hours IV. I will continue with this for now and readjust as appropriate in a.m. He is still also on vasodilators, nitroglycerin and this will be adjusted going forward. Echocardiogram is still pending - Time Time Spent with patient: 15-24 minutes Medications reviewed and adjusted accordingly: Yes Anticipated discharge: Home Within: within 48 hours
--- NOTE | 2019-06-03 20:49 | XCELERA REPORT ---
[address] [address] Transthoracic Echocardiogram Report Name: MALINDA CROCKETT Age: 69 yrs Gender: Male : 1950 Patient Status: Inpatient Patient Location: [address] [place] [address] Study Date: 06/03/2019 11:29 AM Height: 71 in Weight: 159 lb BSA: 1.9 m2 Procedure: A two-dimensional transthoracic echocardiogram with color flow and Doppler was performed. Study Quality: Fair. Reason For Study: CHF, Dyspnea History: CHF, Dyspnea. Ordering Physician: BRYON LEAL Performed By: Sade Hodges Interpretation Summary The left ventricle is mildly dilated. There is mild concentric left ventricular hypertrophy. LV EF is 25% Left ventricular systolic function is severely reduced. Doppler measurements suggest impaired left ventricular relaxation, which is associated with grade I/IV or mild diastolic dysfunction : By tissue dopplers. There is severe global hypokinesis of the left ventricle. There is no thrombus. The right ventricle is mildly dilated. The right ventricle is not well visualized secondary to technical limitations The right atrium is borderline dilated. The left atrium is mildly dilated. No ASD ,VSD , or PFO seen. There is no evidence of mitral valve prolapse. There is no vegetation seen on the mitral valve. There is no mitral valve stenosis. There is a moderate amount of mitral regurgitation There is no aortic valvular vegetation. There is no aortic valve stenosis There is a trace amount of aortic regurgitation There is no tricuspid stenosis. There is a moderate amount of tricuspid regurgitation There is servere pulmonary hypertension by echo RVSP is 61 to 66 mm of Hg , with RA mean of 5 to 10. There is no pulmonic valvular stenosis. There is no pulmonic valvular regurgitation. The aortic root is normal size. The inferior vena cava appeared normal and decreased > 50% with respiration (RAP 5-10 mmHg) : Behind the right strium noted. MMode/2D Measurements & Calculations RVDd: 3.1 cm LVIDd: 6.1 cm FS: 14.6 % Ao root diam: 2.8 cm IVSd: 1.2 cm LVIDs: 5.2 cm EDV(Teich): LVPWd: 1.2 cm 189.0 ml Ao root area: ESV(Teich): 6.2 cm2 131.4 ml LA dimension: EF(Teich): 30.5 % 4.2 cm LVLd ap4: 8.6 cm SV(MOD-sp4): EDV(MOD-sp4): 39.0 ml 151.0 ml LVLs ap4: 7.6 cm ESV(MOD-sp4): 112.0 ml EF(MOD-sp4): 25.8 % Doppler Measurements & Calculations MV E max catalina: MV P1/2t max catalina: Ao V2 max: LV V1 max P.6 cm/sec 86.4 cm/sec 135.1 cm/sec 2.5 mmHg MV A max catalina: MV P1/2t: 43.1 msec Ao max P.3 mmHg LV V1 max: 59.4 cm/sec MVA(P1/2t): 5.1 cm2 79.1 cm/sec MV E/A: 1.4 MV dec slope: 587.7 cm/sec2 MV dec time: 0.14 sec PA V2 max: TR max catalina: MV P1/2t-pr_phl: 103.2 cm/sec 374.0 cm/sec 43.1 msec PA max P.3 mmHgTR max P.0 mmHg Left Ventricle The left ventricle is mildly dilated. There is mild concentric left ventricular hypertrophy. LV EF is 25%. Left ventricular systolic function is severely reduced. Doppler measurements suggest impaired left ventricular relaxation, which is associated with grade I/IV or mild diastolic dysfunction. : By tissue dopplers. There is severe global hypokinesis of the left ventricle. There is no thrombus. No ASD ,VSD , or PFO seen. Right Ventricle The right ventricle is mildly dilated. The right ventricle is not well visualized secondary to technical limitations. Atria The right atrium is borderline dilated. The left atrium is mildly dilated. Mitral Valve There is no evidence of mitral valve prolapse. There is no vegetation seen on the mitral valve. There is no mitral valve stenosis. There is a moderate amount of mitral regurgitation. Aortic Valve There is no aortic valvular vegetation. There is no aortic valve stenosis. There is no LVOT obstruction. There is a trace amount of aortic regurgitation. Tricuspid Valve There is no tricuspid stenosis. There is a moderate amount of tricuspid regurgitation. There is servere pulmonary hypertension by echo. RVSP is 61 to 66 mm of Hg , with RA mean of 5 to 10. Pulmonic Valve There is no pulmonic valvular stenosis. There is no pulmonic valvular regurgitation. Great Vessels The aortic root is normal size. The inferior vena cava appeared normal and decreased > 50% with respiration (RAP 5-10 mmHg). Effusions Minimal pericardial effusion. : Behind the right strium noted. : BRYON LEAL Lakshmi
[2019-06-03] MEDS ORDERED: ATORVASTATIN CALCIUM 40 MG TABLET PO SCH (22:00)
[2019-06-03] MEDS ORDERED: INSULIN GLARGINE,HUM.REC.ANLOG 1,000 UNIT/10 ML VIAL SUBCUT SCH (22:00)
[2019-06-03] MEDS ORDERED: INSULIN GLARGINE HUM REC ANLOG 12 UNIT SQ SCH (22:00)
[2019-06-03] MEDS ORDERED: (PENDING PHARMACY ID) (Donepezil Hcl [Aricept] 10 MG) PO SCH (22:00)
[2019-06-03] MEDS: DONEPEZIL HCL 5 MG TABLET PO SCH (22:20)
[2019-06-03] MEDS: MELATONIN 3 MG TABLET PO SCH (22:20)
[2019-06-03] MEDS: ASPIRIN 81 MG TABLET, ENT COATED PO SCH (22:20)
[2019-06-03] MEDS: ATORVASTATIN CALCIUM 40 MG TABLET PO SCH (22:20)
[2019-06-04] MEDS: NITROGLYCERIN 2% OINTMENT 1 GM PACKET TP SCH ×2 (05:26→05:27)
[2019-06-04 06:13] LABS: ABSOLUTE BASOPHILS # (AUTO) 0.1 10^3/uL (0.0-0.2); ABSOLUTE EOSINOPHILS # (AUTO) 0.1 10^3/uL (0.0-0.6); ABSOLUTE LYMPHOCYTES (AUTO) 1.1 10^3/uL (0.5-4.7); ABSOLUTE MONOCYTES (AUTO) 0.9 10^3/uL (0.1-1.4); ABSOLUTE NEUT (AUTO) 5.9 10^3/uL (1.7-8.2); BASOPHILS % (AUTO) 0.9 % (0-2); EOSINOPHILS % (AUTO) 1.7 % (0-6); HEMATOCRIT 33.5 % (37.9-51.0); HEMOGLOBIN 11.4 g/dL (13.5-17.0); LYMPHOCYTES % (AUTO) 13.2 % (13-45); MEAN CORPUSCULAR HEMOGLOBIN 31.7 pg (27.0-33.4); MEAN CORPUSCULAR HGB CONC 34.1 g/dL (32.0-36.0); MEAN CORPUSCULAR VOLUME 93 fl (80-97); MONOCYTES % (AUTO) 11.1 % (3-13); PLATELET COUNT 262 10^3/uL (150-450); RED CELL DISTRIBUTION WIDTH 15.2 % (11.5-14.0); SEGMENTED NEUTROPHILS % (AUTO) 73.1 % (42-78); TOTAL CELLS COUNTED % (AUTO) 100 %; WHITE BLOOD COUNT 8.1 10^3/uL (4.0-10.5)
[2019-06-04 06:41] LABS: ANION GAP 14 (5-19); BLOOD UREA NITROGEN 64 mg/dL (7-20); CALCIUM 10.7 mg/dL (8.4-10.2); CARBON DIOXIDE 26 mmol/L (22-30); CHLORIDE 103 mmol/L (98-107); GLUCOSE 120 mg/dL (75-110); POTASSIUM 4.3 mmol/L (3.6-5.0)
[2019-06-04] MEDS: PANTOPRAZOLE SODIUM 20 MG TABLET.DR PO SCH (07:08)
[2019-06-04] MEDS: INSULIN GLARGINE,HUM.REC.ANLOG 1,000 UNIT/10 ML VIAL SUBCUT SCH ×2 (07:48→09:20)
[2019-06-04] MEDS: FUROSEMIDE INJ/PF 40 MG/4 ML SDV IV SCH ×2 (09:19→21:51)
[2019-06-04] MEDS: ENOXAPARIN SODIUM INJ 30 MG/0.3 ML DISP.SYRIN SUBCUT SCH (09:19)
[2019-06-04] MEDS: SODIUM BICARBONATE 650 MG TABLET PO SCH (09:20)
[2019-06-04] MEDS: SERTRALINE HCL 50 MG TABLET PO SCH (09:20)
[2019-06-04] MEDS: DOCUSATE SODIUM 100 MG CAPSULE PO SCH (09:20)
[2019-06-04] MEDS: CALCIUM CARBONATE 600 MG/VITAMIN D3 400 UNIT TABLET PO SCH ×3 (09:21→17:29)
[2019-06-04] MEDS: METOPROLOL SUCCINATE 50 MG TAB.SR.24H PO SCH ×2 (09:21→21:52)
[2019-06-04] MEDS: PREDNISONE 5 MG TABLET PO SCH (09:21)
[2019-06-04] MEDS: VITAMIN B COMPLEX TABLET PO SCH (09:21)
[2019-06-04] MEDS: GLIMEPIRIDE 1 MG TABLET PO SCH (09:21)
[2019-06-04] MEDS ORDERED: VALSARTAN 80 MG TABLET PO SCH (10:00)
[2019-06-04] MEDS: HYDRALAZINE HCL 50 MG TABLET PO SCH ×2 (13:31→21:52)
[2019-06-04] MEDS ORDERED: HYDRALAZINE HCL 25 MG TABLET PO SCH (14:00)
--- NOTE | 2019-06-04 16:32 | PDOC PROGRESS REPORT ---
Subjective Progress Note for:: 06/04/19 Subjective:: Patient feels much better today. He is actually standing up about to drink his Kayexalate. He says he was able to sleep in bed contrary to what is been happening at home over the last few days. 06/03 breathing is much better today. Denies any chest pain. Reason For Visit: HEART FAILURE Physical Exam Vital Signs: Temp Pulse Resp BP Pulse Ox 97.5 F 81 19 115/65 96 06/04/19 11:26 06/04/19 14:00 06/04/19 11:26 06/04/19 11:26 06/04/19 11:26 Intake & Output 06/03/19 06/04/19 06/05/19 06:59 06:59 06:59 Intake Total 1316 1360 480 Output Total 775 Balance 1316 585 480 Weight 50 kg 49.2 kg 49.2 kg General appearance: PRESENT: no acute distress, cooperative, other - Elderly Head exam: PRESENT: atraumatic, normocephalic Eye exam: PRESENT: EOMI, PERRLA. ABSENT: scleral icterus Mouth exam: PRESENT: tongue midline Neck exam: ABSENT: carotid bruit, JVD, lymphadenopathy, thyromegaly Respiratory exam: PRESENT: crackles - Basal, unlabored. ABSENT: rales, rhonchi, wheezes Cardiovascular exam: PRESENT: RRR, +S1, +S2. ABSENT: diastolic murmur, rubs, systolic murmur GI/Abdominal exam: PRESENT: normal bowel sounds, soft. ABSENT: distended, guarding, mass, organolmegaly, rebound, tenderness Rectal exam: PRESENT: deferred Extremities exam: PRESENT: full ROM. ABSENT: calf tenderness, clubbing, pedal edema Neurological exam: PRESENT: alert, awake, oriented to person, oriented to place, oriented to time, oriented to situation, CN II-XII grossly intact. ABSENT: motor sensory deficit Psychiatric exam: PRESENT: appropriate affect, normal mood. ABSENT: homicidal ideation, suicidal ideation Skin exam: PRESENT: dry, intact, warm. ABSENT: cyanosis, rash Results Laboratory Results: 06/04/19 05:13 06/04/19 05:13 06/04/19 06/04/19 05:13 05:13 WBC 8.1 RBC 3.60 L Hgb 11.4 L Hct 33.5 L MCV 93 MCH 31.7 MCHC 34.1 RDW 15.2 H Plt Count 262 Seg Neutrophils % 73.1 Sodium 143.1 Potassium 4.3 Chloride 103 Carbon Dioxide 26 Anion Gap 14 BUN 64 H Creatinine 3.04 H Est GFR ( Amer) 25 L Glucose 120 H Calcium 10.7 H 06/02/19 06/04/19 04:58 05:13 Troponin I 0.054 NT-Pro-B Natriuret Pep 04291 H 42596 H Impressions: Chest X-Ray 06/02/19 05:33 IMPRESSION: Cardiomegaly with pulmonary edema pattern and bilateral effusions copyright 2010 [employer]- All Rights Reserved Assessment and Plan - Diagnosis (1) CHF (congestive heart failure), NYHA class III Qualifiers: Congestive heart failure type: combined Congestive heart failure chronicity: acute on chronic Qualified Code(s): I50.43 - Acute on chronic combined systolic (congestive) and diastolic (congestive) heart failure Is this a current diagnosis for this admission?: Yes Plan: Cardiogram reveals ejection fraction of 25%. I discussed with Dr. Peña. Patient apparently had an outpatient echocardiogram done in 2019. He states the ejection fraction was 50% at the time. Cardiology consultation will be obtained to help manage this gentleman with what appears to be progression of his heart failure. He appears patient has an acutely decompensated chronic combined heart failure (2) Diabetes mellitus type 2 in nonobese Is this a current diagnosis for this admission?: Yes Plan: Controlled (3) HTN (hypertension) Qualifiers: Hypertension type: essential hypertension Qualified Code(s): I10 - Essential (primary) hypertension Is this a current diagnosis for this admission?: Yes Plan: Will DC Nitropaste. Add valsartan and increase hydralazine (4) Polymyalgia rheumatica Is this a current diagnosis for this admission?: Yes Plan: Continue low-dose prednisone (5) CKD stage 4 secondary to hypertension Is this a current diagnosis for this admission?: Yes Plan: Kidney function remains about the same (6) Hyperkalemia Is this a current diagnosis for this admission?: Yes Plan: Corrected - Plan Summary Summary: Was recently discharge after being treated for CHF exacerbation. He comes back today again with the same diagnosis. An echocardiogram is to be obtained as there is no echocardiogram on file. Patient will be placed on intravenous diuretics as well as vasodilators. Will adjust his medications as warranted. Hyperkalemia likely secondary to his underlying kidney disease. Patient has received Kayexalate and will continue to monitor Chronic kidney disease stage IV his kidney function is actually close to where he was previously at discharge. 06/02 patient has made an improvement. He is currently on Lasix 20 mg every 12 hours IV. I will continue with this for now and readjust as appropriate in a.m. He is still also on vasodilators, nitroglycerin and this will be adjusted going forward. Echocardiogram is still pending 06/03 Patient feels better Will await recommendations from Dr. Green
--- NOTE | 2019-06-04 18:43 | PDOC CONSULTATION ---
Consultation-Blank Consultation: CARDIOLOGY CONSULTATION by Dr. Evette Bland on 06/03/2019. Patient seen at 3:30 PM. 60 minutes spent with patient more than 50% time spent in direct patient care. CONSULT REQUESTING PHYSICIAN: fernando Siddiqui hospitalist physician REASON FOR CONSULTATION: Acute on chronic systolic heart failure. HISTORY OF PRESENT ILLNESS: Past Medical History Cardiac Medical History: Reports: Congestive Heart Failure, Coronary Artery Disease, Myocardial Infarction - 1991, Hyperlipidema, Hypertension - MEDICATED Pulmonary Medical History: Denies: Asthma, Chronic Obstructive Pulmonary Disease (COPD) Neurological Medical History: Denies: Seizures Endocrine Medical History: Reports: Diabetes Mellitus Type 2 Renal/ Medical History: Reports: End Stage Renal Disease - STAGE 4 KIDNEY DISEASE, NO DIALYSIS GI Medical History: Reports: Gastroesophageal Reflux Disease Denies: Hepatitis, Hiatal Hernia Musculoskeltal Medical History: Denies: Fibromyalgia Skin Medical History: Denies: Eczema Psychiatric Medical History: Reports: Dementia, Depression Traumatic Medical History: Denies: Traumatic Brain Injury Hematology: Denies: Anemia, Sickle Cell Disease Past Surgical History Past Surgical History: Reports: Cardiac Catheterization - stents x2, Coronary Stent - RCA complicated by cardiac arrest History of coronary artery bypass graft surgery denies: Pacemaker Social History Information Source: Patient Lives with: Family Smoking Status: Former Smoker Frequency of Alcohol Use: None Hx Recreational Drug Use: No Drugs: None Hx Prescription Drug Abuse: No - Advance Directive Resuscitation Status: Full Code. The patient's is a surrogate healthcare decision maker. Family History Family History: CAD, Hypertension, Other - Also full siblings and parents with hypertension and coronary artery disease. Father and mother both with complications related to MA. Parental Family History Reviewed: No Children Family History Reviewed: Yes Sibling(s) Family History Reviewed.: Yes Medication/Allergy Home Medications: Donepezil HCl [Aricept] 10 mg PO QHS 02/18/17 Glimepiride [Amaryl] 2 mg PO DAILY 02/18/17 Omeprazole 20 mg PO Q6AM 02/18/17 Prednisone [Deltasone 5 mg Tablet] 5 mg PO DAILY 02/18/17 Insulin Glargine,Hum.rec.anlog [Basaglar Kwikpen U-100] 12 unit SQ QHS 09/27/18 Sertraline HCl [Zoloft 50 mg Tablet] 150 mg PO DAILY 09/27/18 Acetaminophen [Tylenol] 650 mg PO QIDP PRN 04/16/19 Aspirin [Ecotrin 81 mg EC Tablet] 81 mg PO QHS 04/16/19 Atorvastatin Calcium [Lipitor 40 mg Tablet] 40 mg PO QHS 04/16/19 B Complex W-C No.20/Folic Acid [Renal Caps Softgel] 1 mg PO DAILY 04/16/19 Chance/D3/Mag11/Zinc/Icer Air Conditioning/[place]/Bor [Caltrate 600+D Plus Tablet] 1 tab PO TID 04/16/19 Cyanocobalamin/Folic AC/Vit B6 [Folbic Tablet] 1 tab PO DAILY 04/16/19 Hydralazine HCl [Apresoline 25 mg Tablet] 25 mg PO Q12 04/16/19 Insulin Glargine,Hum.rec.anlog [Basaglar Kwikpen U-100] 17 unit SQ QAM 04/16/19 Melatonin [Melatonin 3 mg Tablet] 9 mg PO QHS 04/16/19 Sodium Bicarbonate [Sodium Bicarbonate 650 mg Tablet] 650 mg PO DAILY 04/16/19 Vitamin B Complex [Vitamin B Complex Tablet] 1 tab PO DAILY 04/16/19 Furosemide [Lasix 20 mg Tablet] 20 mg PO DAILY #30 tablet 04/20/19 Metoprolol Succinate [Toprol Xl 25 mg Tab.sr] 25 mg PO DAILY #30 tab.sr.24h 04/20/19 Allergies/Adverse Reactions: codeine [Codeine] Allergy (Verified 04/16/19 09:31) hydrocodone bitartrate [From Vicodin] Allergy (Verified 04/16/19 09:31) Review of Systems All systems: reviewed and no additional remarkable complaints except as stated Cardiovascular: PRESENT: chest pain, dyspnea on exertion, edema, orthropnea Respiratory: PRESENT: dyspnea Gastrointestinal: PRESENT: diarrhea, nausea Current Medications Generic Name Dose Route Start Last Admin Trade Name Freq PRN Reason Stop Dose Admin Acetaminophen 650 mg 06/02/19 10:42 Tylenol 325 Mg Tablet PO 07/02/19 10:41 Q4HP PRN pain or temp greater than 101F Al Hydrox/Mg Hydrox/Simethicone 30 ml 06/02/19 10:42 Maalox Plus Susp 30 Udcup PO 07/02/19 10:41 Q4HP PRN HEARTBURN Aspirin 81 mg 06/03/19 22:00 06/04/19 21:52 Ecotrin 81 Mg Ec Tablet PO 07/03/19 21:59 81 mg QHS ADRIAN Administration Atorvastatin Calcium 40 mg 06/03/19 22:00 06/04/19 21:52 Lipitor 40 Mg Tablet PO 07/03/19 21:59 40 mg QHS ADRIAN Administration Calcium Carbonate 1 tab 06/03/19 10:00 06/04/19 17:29 Caltrate 600-Vit D3 400 Tablet PO 07/03/19 09:59 1 tab TID ADRIAN Administration Docusate Sodium 100 mg 06/03/19 10:00 06/04/19 09:20 Colace 100 Mg Capsule PO 07/03/19 09:59 100 mg DAILY ADRIAN Administration Donepezil HCl 10 mg 06/03/19 22:00 06/04/19 21:53 Aricept 5 Mg Tablet PO 07/03/19 21:59 10 mg QHS [facility] Administration Enoxaparin Sodium 30 mg 06/03/19 10:00 06/04/19 09:19 Lovenox Inj 30 Mg/0.3 Ml Disp.Syrin SUBCUT 07/03/19 09:59 30 mg DAILY ADRIAN Administration Furosemide 40 mg 06/02/19 22:00 06/04/19 21:51 Lasix Inj/Pf 40 Mg/4 Ml Sdv IV 07/02/19 21:59 40 mg Q12 [facility] Administration Glimepiride 2 mg 06/03/19 10:00 06/04/19 09:21 Amaryl 1 Mg Tablet PO 07/03/19 09:59 2 mg DAILY ADRIAN Administration Hydralazine HCl 50 mg 06/04/19 14:00 06/04/19 21:52 Apresoline 50 Mg Tablet PO 07/04/19 13:59 50 mg Q8 ADRIAN Administration Insulin Glargine 12 unit 06/04/19 22:00 06/04/19 21:54 Lantus Insulin 100 Unit/1 Ml 10 Ml SUBCUT 07/03/19 21:59 12 unit QHS [facility] Administration Insulin Glargine 17 unit 06/05/19 08:00 Lantus Insulin 100 Unit/1 Ml 10 Ml SUBCUT 07/04/19 07:59 QAM [facility] Melatonin 9 mg 06/02/19 22:00 06/04/19 21:52 Melatonin 3 Mg Tablet PO 07/02/19 21:59 9 mg QHS ADRIAN Administration Metoprolol Succinate 50 mg 06/02/19 22:00 06/04/19 21:52 Toprol Xl 50 Mg Tab.Sr PO 07/02/19 21:59 50 mg Q12 ADRIAN Administration Pantoprazole Sodium 20 mg 06/04/19 06:00 06/04/19 07:[address] Tablet PO 07/04/19 05:59 Not Given Q6AM ADRIAN Prednisone 5 mg 06/03/19 10:00 06/04/19 09:21 Deltasone 5 Mg Tablet PO 07/03/19 09:59 5 mg DAILY ADRIAN Administration Promethazine HCl 25 mg 06/02/19 10:42 06/03/19 07:47 Phenergan 25 Mg Tablet PO 07/02/19 10:41 25 mg Q4HP PRN Administration FOR NAUSEA/VOMITING Sertraline HCl 150 mg 06/03/19 10:00 06/04/19 09:20 Zoloft 50 Mg Tablet PO 07/03/19 09:59 150 mg DAILY ADRIAN Administration Sodium Bicarbonate 650 mg 06/03/19 10:00 06/04/19 09:20 Sodium Bicarbonate 650 Mg Tablet PO 07/03/19 09:59 650 mg DAILY ADRIAN Administration Sodium Chloride 2.5 ml 06/02/19 14:00 06/04/19 21:52 Saline Flush 2.5 Ml Monoject Prefil Syrin IV 07/02/19 13:59 2.5 ml Q8 ADIRAN Administration Valsartan 80 mg 06/04/19 10:00 06/04/19 09:20 Diovan 80 Mg Tablet PO 07/04/19 09:59 80 mg DAILY ADRIAN Administration Vitamin B Complex 1 tab 06/03/19 10:00 06/04/19 09:21 Vitamin B Complex Tablet PO 07/03/19 09:59 1 tab DAILY ADRIAN Administration Discontinued Medications Generic Name Dose Route Start Last Admin Trade Name Freq PRN Reason Stop Dose Admin Furosemide 80 mg 06/02/19 06:59 Lasix Inj/Pf 100 Mg/10 Ml Sdv IV 06/02/19 07:00 NOW ONE Furosemide 20 mg 06/02/19 07:04 06/02/19 07:34 Lasix Inj/Pf 20 Mg/2 Ml Sdv IV 06/02/19 07:05 20 mg NOW ONE Administration Hydralazine HCl 50 mg 06/03/19 10:00 06/03/19 22:20 Apresoline 25 Mg Tablet PO 07/03/19 09:59 50 mg Q12 [facility] Administration Insulin Glargine 12 unit 06/03/19 22:00 06/03/19 22:21 Lantus Insulin 100 Unit/1 Ml 10 Ml SUBCUT 07/03/19 21:59 12 unit QHS [facility] Administration Insulin Glargine 17 unit 06/04/19 08:00 06/04/19 09:20 Lantus Insulin 100 Unit/1 Ml 10 Ml SUBCUT 07/04/19 07:59 17 unit QAM [facility] Administration Insulin Glargine 17 unit 06/03/19 10:30 06/03/19 10:29 Lantus (Pyxis) Insulin 100 Unit/1 Ml 10 Ml SUBCUT 06/03/19 10:31 17 unit NOW ONE Administration Insulin Glargine Confirm 06/03/19 22:17 06/03/19 22:27 Lantus (Pyxis) Insulin 100 Unit/1 Ml 10 Ml Administered 06/03/19 22:18 Not Given Dose 1 unit SUBCUT .STK-MED ONE Insulin Glargine Confirm 06/04/19 21:47 Lantus (Pyxis) Insulin 100 Unit/1 Ml 10 Ml Administered 06/04/19 21:48 Dose 1 unit SUBCUT .STK-MED ONE Nitroglycerin 1 gm 06/02/19 12:00 06/04/19 05:27 Nitrol 2% Ointment 1gm Packet TP 07/02/19 11:59 Not Given Q6 [facility] Ondansetron HCl 4 mg 06/02/19 06:11 06/02/19 06:13 Zofran Odt 4 Mg Tablet PO 06/02/19 06:12 4 mg NOW ONE Administration Sodium Polystyrene Sulfonate 30 gm 06/02/19 05:43 06/02/19 06:27 Kayexalate 15 Gm/60 Ml Susp 60 Ml PO 06/02/19 05:44 30 gm NOW ONE Administration Sodium Polystyrene Sulfonate 30 gm 06/03/19 08:45 06/03/19 09:21 Kayexalate 15 Gm/60 Ml Susp 60 Ml PO 06/03/19 08:46 30 gm NOW ONE Administration Vitamin B Complex 1 tab 06/03/19 10:00 06/03/19 10:50 Vitamin B Complex Tablet PO 07/03/19 09:59 Not Given DAILY ADRIAN PHYSICAL EXAMINATION: The patient appears to be chronically ill. At present in no acute distress. Selected Entries 06/04/19 15:11 Temperature 98.6 F Temperature Oral Source Pulse Rate 78 Blood Pressure 110/62 Blood Pressure 78 Mean BP Location Right Arm BP Position Sitting O2 Sat by Pulse 100 Oximetry Oxygen Flow 1.50 Rate Oxygen Delivery Nasal Cannula Method HEAD: Is atraumatic normocephalic. EYES: Pupils equal round regular reactive light accommodation. Extraocular movements are normal. There is no conjunctival pallor. There is no scleral icterus. EARS: Tympanic membranes are intact. External auditory canals are clear nose: There is no deviated nasal septum. There is no inflammation nasal mucous membrane. MOUTH: Mucous membranes of mouth are moist. Tongue is moist. There is no ulcers. There is no bleeding from the gums. THROAT: There is no redness of the oropharynx. There is no exudates. SKIN: There is no skin rashes. There is no petechia or ecchymosis. NECK: Supple. There is mild JVD elevation. Carotids are equal there is no bruits. There is no lymphadenopathy. There is no goiter.. There is no accessory muscles of respiration use. Trachea central. LUNGS: Very few bibasilar rales. There is no rhonchi or wheezing or dry crackles. Heart: S1-S2 is heard. There is no S3 gallop. There is no S4 gallop. There is systolic murmur left some border and the apex there is murmur of mitral regurgitation present. There is no rub. ABDOMEN: Soft. Nontender there is no paraspinal megaly. EXTREMITIES: Femorals are slightly diminished. There is no femoral bruits. Leg pulses are well felt. There is no pedal edema. There is no cyanosis or clubbing. VISITOR INFORMATION ASSISTANT: The patient is conscious awake alert oriented x3 with no focal deficit. PSYCHIATRIC: The patient judgment insight are intact his affect is normal. Labs- Entire Visit 06/02/19 06/02/19 06/02/19 04:50 04:50 04:58 WBC 8.4 RBC 3.69 L Hgb 11.8 L Hct 34.9 L MCV 95 MCH 32.0 MCHC 33.8 RDW 15.3 H Plt Count 284 Lymph % (Auto) 14.1 [place] % (Auto) 7.8 Eos % (Auto) 1.6 Baso % (Auto) 0.7 Absolute Neuts (auto) 6.3 Absolute Lymphs (auto) 1.2 Absolute Monos (auto) 0.7 Absolute Eos (auto) 0.1 Absolute Basos (auto) 0.1 Seg Neutrophils % 75.8 Sodium 141.3 Potassium 5.7 H Chloride 109 H Carbon Dioxide 23 Anion Gap 9 BUN 57 H Creatinine 3.02 H Est GFR ( Amer) 25 L Est GFR (MDRD) Non-Af 21 L Glucose 74 L POC Glucose Calcium 10.2 Total Bilirubin 0.6 Direct Bilirubin 0.1 Neonat Total Bilirubin Not Reportable Neonat Direct Bilirubin Not Reportable Neonat Indirect Bili Not Reportable AST 25 ALT 19 Alkaline Phosphatase 91 Troponin I 0.054 NT-Pro-B Natriuret Pep 44044 H Total Protein 7.0 Albumin 4.2 Urine Color Urine Appearance Urine pH Ur Specific [place] Urine Protein Urine Glucose (UA) Urine Ketones Urine Blood Urine Nitrite Urine Bilirubin Urine Urobilinogen Ur Leukocyte Esterase Urine WBC (Auto) Urine RBC (Auto) Urine Mucus (Auto) Urine Ascorbic Acid Stl C. Difficile GDH Ag Stl C.difficile Tox A&B 06/02/19 06/02/19 06/02/19 06:00 09:40 11:28 WBC RBC Hgb Hct MCV MCH MCHC RDW Plt Count Lymph % (Auto) [place] % (Auto) Eos % (Auto) Baso % (Auto) Absolute Neuts (auto) Absolute Lymphs (auto) Absolute Monos (auto) Absolute Eos (auto) Absolute Basos (auto) Seg Neutrophils % Sodium Potassium Chloride Carbon Dioxide Anion Gap BUN Creatinine Est GFR ( Amer) Est GFR (MDRD) Non-Af Glucose POC Glucose 115 H Calcium Total Bilirubin Direct Bilirubin Neonat Total Bilirubin Neonat Direct Bilirubin Neonat Indirect Bili AST ALT Alkaline Phosphatase Troponin I NT-Pro-B Natriuret Pep Total Protein Albumin Urine Color YELLOW Urine Appearance SLIGHTLY-CLOUDY Urine pH 6.0 Ur Specific [place] 1.014 Urine Protein 100 H Urine Glucose (UA) NEGATIVE Urine Ketones NEGATIVE Urine Blood NEGATIVE Urine Nitrite NEGATIVE Urine Bilirubin NEGATIVE Urine Urobilinogen NEGATIVE Ur Leukocyte Esterase NEGATIVE Urine WBC (Auto) 0 Urine RBC (Auto) 0 Urine Mucus (Auto) RARE Urine Ascorbic Acid NEGATIVE Stl C. Difficile GDH Ag NEGATIVE Stl C.difficile Tox A&B NEGATIVE 06/03/19 06/03/19 06/03/19 04:35 10:25 22:16 WBC RBC Hgb Hct MCV MCH MCHC RDW Plt Count Lymph % (Auto) [place] % (Auto) Eos % (Auto) Baso % (Auto) Absolute Neuts (auto) Absolute Lymphs (auto) Absolute Monos (auto) Absolute Eos (auto) Absolute Basos (auto) Seg Neutrophils % Sodium 144.6 Potassium 5.3 H Chloride 107 Carbon Dioxide 25 Anion Gap 13 BUN 58 H Creatinine 3.02 H Est GFR ( Amer) 25 L Est GFR (MDRD) Non-Af 21 L Glucose 146 H POC Glucose 212 H 134 H Calcium 10.8 H Total Bilirubin Direct Bilirubin Neonat Total Bilirubin Neonat Direct Bilirubin Neonat Indirect Bili AST ALT Alkaline Phosphatase Troponin I NT-Pro-B Natriuret Pep Total Protein Albumin Urine Color Urine Appearance Urine pH Ur Specific [place] Urine Protein Urine Glucose (UA) Urine Ketones Urine Blood Urine Nitrite Urine Bilirubin Urine Urobilinogen Ur Leukocyte Esterase Urine WBC (Auto) Urine RBC (Auto) Urine Mucus (Auto) Urine Ascorbic Acid Stl C. Difficile GDH Ag Stl C.difficile Tox A&B 06/04/19 06/04/19 06/04/19 05:13 05:13 05:13 WBC 8.1 RBC 3.60 L Hgb 11.4 L Hct 33.5 L MCV 93 MCH 31.7 MCHC 34.1 RDW 15.2 H Plt Count 262 Lymph % (Auto) 13.2 [place] % (Auto) 11.1 Eos % (Auto) 1.7 Baso % (Auto) 0.9 Absolute Neuts (auto) 5.9 Absolute Lymphs (auto) 1.1 Absolute Monos (auto) 0.9 Absolute Eos (auto) 0.1 Absolute Basos (auto) 0.1 Seg Neutrophils % 73.1 Sodium 143.1 Potassium 4.3 Chloride 103 Carbon Dioxide 26 Anion Gap 14 BUN 64 H Creatinine 3.04 H Est GFR ( Amer) 25 L Est GFR (MDRD) Non-Af 20 L Glucose 120 H POC Glucose Calcium 10.7 H Total Bilirubin Direct Bilirubin Neonat Total Bilirubin Neonat Direct Bilirubin Neonat Indirect Bili AST ALT Alkaline Phosphatase Troponin I NT-Pro-B Natriuret Pep 81024 H Total Protein Albumin Urine Color Urine Appearance Urine pH Ur Specific [place] Urine Protein Urine Glucose (UA) Urine Ketones Urine Blood Urine Nitrite Urine Bilirubin Urine Urobilinogen Ur Leukocyte Esterase Urine WBC (Auto) Urine RBC (Auto) Urine Mucus (Auto) Urine Ascorbic Acid Stl C. Difficile [facility] Ag Stl C.difficile Tox A&B 06/04/19 06/04/19 06/04/19 06:28 11:27 16:04 WBC RBC Hgb Hct MCV MCH MCHC RDW Plt Count Lymph % (Auto) [place] % (Auto) Eos % (Auto) Baso % (Auto) Absolute Neuts (auto) Absolute Lymphs (auto) Absolute Monos (auto) Absolute Eos (auto) Absolute Basos (auto) Seg Neutrophils % Sodium Potassium Chloride Carbon Dioxide Anion Gap BUN Creatinine Est GFR ( Amer) Est GFR (MDRD) Non-Af Glucose POC Glucose 126 H 94 112 H Calcium Total Bilirubin Direct Bilirubin Neonat Total Bilirubin Neonat Direct Bilirubin Neonat Indirect Bili AST ALT Alkaline Phosphatase Troponin I NT-Pro-B Natriuret Pep Total Protein Albumin Urine Color Urine Appearance Urine pH Ur Specific [place] Urine Protein Urine Glucose (UA) Urine Ketones Urine Blood Urine Nitrite Urine Bilirubin Urine Urobilinogen Ur Leukocyte Esterase Urine WBC (Auto) Urine RBC (Auto) Urine Mucus (Auto) Urine Ascorbic Acid Stl C. Difficile [facility] Ag Stl C.difficile Tox A&B 06/04/19 21:28 WBC RBC Hgb Hct MCV MCH MCHC RDW Plt Count Lymph % (Auto) [place] % (Auto) Eos % (Auto) Baso % (Auto) Absolute Neuts (auto) Absolute Lymphs (auto) Absolute Monos (auto) Absolute Eos (auto) Absolute Basos (auto) Seg Neutrophils % Sodium Potassium Chloride Carbon Dioxide Anion Gap BUN Creatinine Est GFR ( Amer) Est GFR (MDRD) Non-Af Glucose POC Glucose 148 H Calcium Total Bilirubin Direct Bilirubin Neonat Total Bilirubin Neonat Direct Bilirubin Neonat Indirect Bili AST ALT Alkaline Phosphatase Troponin I NT-Pro-B Natriuret Pep Total Protein Albumin Urine Color Urine Appearance Urine pH Ur Specific [place] Urine Protein Urine Glucose (UA) Urine Ketones Urine Blood Urine Nitrite Urine Bilirubin Urine Urobilinogen Ur Leukocyte Esterase Urine WBC (Auto) Urine RBC (Auto) Urine Mucus (Auto) Urine Ascorbic Acid Stl C. Difficile H Ag Stl C.difficile Tox A&B Chest X-Ray 06/02/19 05:33 IMPRESSION: Cardiomegaly with pulmonary edema pattern and bilateral effusions SINUS RHYTHM [VPC] . VENTRICULAR PREMATURE COMPLEX [PLAA] . PROBABLE LEFT ATRIAL ABNORMALITY [AMI8] . CONSIDER ANTEROSEPTAL INFARCT [T3LA] . ABNORMAL T, CONSIDER ISCHEMIA, LATERAL LEADS Is 06/03/2019 echocardiogram shows LV dilatation with severely reduced LV ejection fraction of 25%. There is also severe pulmonary hypertension. The ejection fraction is changed from 50% in the later part of 2018 to 25%. IMPRESSION/RECOMMENDATION: 1. Acute on chronic combined systolic and diastolic heart failure. This may be multifactorial's most likely secondary to the patient being on steroids causing volume retention: Chronic kidney disease causing volume overload and the patient's severely reduced LV ejection fraction. The patient is on Toprol-XL and hydralazine. He is also on a small dose of Diovan. Will discuss with renal and see if we can increase the Diovan to 80 mg p.o. every 12 hours. 2. Cardiomyopathy with severely reduced ejection fraction. Recommend repeat echocardiogram in 3 months to see if the LV ejection fraction is 35% or below the patient may require an AICD. Also reviewed the patient's LV ejection fraction showing significant deterioration the patient will need an ischemia work-up which this can be done as an outpatient. 3. Coronary artery disease: History of coronary artery bypass graft surgery history of old MA. Patient without any anginal symptoms. 4. Chronic kidney disease stage IV: Nephrology follow the patient closely as an outpatient. 5. Severe pulmonary hypertension: Blood pressure this may be secondary to patient's left heart failure and sleep apnea. Patient to have an outpatient sleep study 6. Diabetes mellitus type 2 insulin-dependent: Continue antidiabetic medication and serial Accu-Cheks. 7. Systemic hypertension: Blood pressure well controlled. 8. Hyperlipidemia: Continue statin. 9.. Most likely patient has sleep apnea. Medications reviewed. Medication adjustments discussed with attending physician. Will discuss with nephrology before instituting the changes. Medical decision making is of high complexity. 60 minutes spent as patient with more than 50% time spent in direct patient care. Echo findings and the patient's condition discussed with the patient and patient's especially about the deterioration of the LV function and the patient's severe pulmonary hypertension. Unfortunately the patient had to be admitted on the day he was supposed to have a sleep study. Will follow.
[2019-06-04] MEDS ORDERED: INSULIN GLARGINE,HUM.REC.ANLOG 1,000 UNIT/10 ML VIAL (PYX) SUBCUT ONE (21:47)
[2019-06-04] MEDS: ASPIRIN 81 MG TABLET, ENT COATED PO SCH (21:52)
[2019-06-04] MEDS: ATORVASTATIN CALCIUM 40 MG TABLET PO SCH (21:52)
[2019-06-04] MEDS: MELATONIN 3 MG TABLET PO SCH (21:52)
[2019-06-04] MEDS: DONEPEZIL HCL 5 MG TABLET PO SCH (21:53)
[2019-06-04] MEDS ORDERED: INSULIN GLARGINE,HUM.REC.ANLOG 1,000 UNIT/10 ML VIAL SUBCUT SCH (22:00)
[2019-06-05] MEDS: HYDRALAZINE HCL 50 MG TABLET PO SCH ×3 (05:36→21:23)
[2019-06-05] MEDS: PANTOPRAZOLE SODIUM 20 MG TABLET.DR PO SCH (05:36)
[2019-06-05 06:15] LABS: ANION GAP 15 (5-19); BLOOD UREA NITROGEN 76 mg/dL (7-20); CARBON DIOXIDE 26 mmol/L (22-30); CHLORIDE 100 mmol/L (98-107); GLUCOSE 78 mg/dL (75-110); POTASSIUM 4.2 mmol/L (3.6-5.0)
[2019-06-05] MEDS ORDERED: INSULIN GLARGINE,HUM.REC.ANLOG 1,000 UNIT/10 ML VIAL SUBCUT SCH ×2 (08:00→22:00)
[2019-06-05] MEDS: ENOXAPARIN SODIUM INJ 30 MG/0.3 ML DISP.SYRIN SUBCUT SCH (10:25)
[2019-06-05] MEDS: METOPROLOL SUCCINATE 50 MG TAB.SR.24H PO SCH (10:26)
[2019-06-05] MEDS: VITAMIN B COMPLEX TABLET PO SCH (10:26)
[2019-06-05] MEDS: SERTRALINE HCL 50 MG TABLET PO SCH (10:26)
[2019-06-05] MEDS: DOCUSATE SODIUM 100 MG CAPSULE PO SCH (10:26)
[2019-06-05] MEDS: SODIUM BICARBONATE 650 MG TABLET PO SCH (10:26)
[2019-06-05] MEDS: FUROSEMIDE INJ/PF 40 MG/4 ML SDV IV SCH (10:27)
[2019-06-05] MEDS: CALCIUM CARBONATE 600 MG/VITAMIN D3 400 UNIT TABLET PO SCH ×3 (10:27→18:25)
[2019-06-05] MEDS: GLIMEPIRIDE 1 MG TABLET PO SCH (10:27)
[2019-06-05] MEDS: PREDNISONE 5 MG TABLET PO SCH (10:27)
[2019-06-05] MEDS: INSULIN GLARGINE,HUM.REC.ANLOG 1,000 UNIT/10 ML VIAL SUBCUT SCH (10:51)
[2019-06-05] MEDS: SACUBITRIL/VALSARTAN 24 MG/26 MG TABLET PO SCH ×2 (10:52→21:23)
[2019-06-05] MEDS ORDERED: DEXTROSE 50%-WATER 25 GM/50 ML DISP.SYRIN IV PRN ×2 (17:26)
[2019-06-05] MEDS ORDERED: GLUCAGON,HUMAN RECOMB 1 MG INJ IM PRN (17:26)
[2019-06-05] MEDS ORDERED: DEXTROSE 40% GEL 15 GM TUBE PO PRN ×2 (17:26)
--- NOTE | 2019-06-05 17:31 | PDOC PROGRESS REPORT ---
Subjective Progress Note for:: 06/05/19 Subjective:: Patient feels much better today. He is actually standing up about to drink his Kayexalate. He says he was able to sleep in bed contrary to what is been happening at home over the last few days. 06/03 breathing is much better today. Denies any chest pain. 06/04 2 much better. His breathing is improved. He would like to go home however I have told him that he was just started on a new medications and we would like to watch him in hospital overnight prior to discharge Reason For Visit: HEART FAILURE Physical Exam Vital Signs: Temp Pulse Resp BP Pulse Ox 98.1 F 64 18 100/56 L 98 06/05/19 08:01 06/05/19 08:01 06/05/19 08:01 06/05/19 08:01 06/05/19 08:01 Intake & Output 06/04/19 06/05/19 06/06/19 06:59 06:59 06:59 Intake Total 1360 1242 817 Output Total 775 700 Balance 585 542 817 Weight 49.2 kg 49.5 kg General appearance: PRESENT: no acute distress, thin, other - Elderly gentleman Head exam: PRESENT: atraumatic Eye exam: PRESENT: EOMI, PERRLA. ABSENT: scleral icterus Neck exam: ABSENT: carotid bruit, JVD, lymphadenopathy, thyromegaly Respiratory exam: PRESENT: crackles, unlabored. ABSENT: rales, rhonchi, wheezes Cardiovascular exam: PRESENT: RRR, +S1, +S2. ABSENT: diastolic murmur, rubs, systolic murmur Pulses: PRESENT: normal dorsalis pedis pul Vascular exam: PRESENT: normal capillary refill GI/Abdominal exam: PRESENT: normal bowel sounds, soft. ABSENT: distended, guarding, mass, organolmegaly, rebound, tenderness Rectal exam: PRESENT: deferred Extremities exam: PRESENT: full ROM. ABSENT: calf tenderness, clubbing, pedal e johnna Neurological exam: PRESENT: alert, awake, oriented to person, oriented to place, oriented to time, oriented to situation, CN II-XII grossly intact. ABSENT: motor sensory deficit Psychiatric exam: PRESENT: appropriate affect, normal mood. ABSENT: homicidal ideation, suicidal ideation Skin exam: PRESENT: dry, intact, warm. ABSENT: cyanosis, rash Results Laboratory Results: 06/04/19 05:13 06/05/19 05:21 06/05/19 05:21 Sodium 140.8 Potassium 4.2 Chloride 100 Carbon Dioxide 26 Anion Gap 15 BUN 76 H Creatinine 2.90 H Est GFR ( Amer) 26 L Glucose 78 Calcium 11.0 H 06/02/19 06/04/19 04:58 05:13 Troponin I 0.054 NT-Pro-B Natriuret Pep 19356 H 16398 H Impressions: Chest X-Ray 06/02/19 05:33 IMPRESSION: Cardiomegaly with pulmonary edema pattern and bilateral effusions copyright 2010 [employer]- All Rights Reserved Assessment and Plan - Diagnosis (1) CHF (congestive heart failure), NYHA class III Qualifiers: Congestive heart failure type: combined Congestive heart failure chronicity: acute on chronic Qualified Code(s): I50.43 - Acute on chronic combined systolic (congestive) and diastolic (congestive) heart failure Is this a current diagnosis for this admission?: Yes (2) Diabetes mellitus type 2 in nonobese Is this a current diagnosis for this admission?: Yes (3) HTN (hypertension) Qualifiers: Hypertension type: essential hypertension Qualified Code(s): I10 - Essential (primary) hypertension Is this a current diagnosis for this admission?: Yes (4) Polymyalgia rheumatica Is this a current diagnosis for this admission?: Yes (5) CKD stage 4 secondary to hypertension Is this a current diagnosis for this admission?: Yes (6) Hyperkalemia Is this a current diagnosis for this admission?: Yes - Plan Summary Summary: Was recently discharge after being treated for CHF exacerbation. He comes back today again with the same diagnosis. An echocardiogram is to be obtained as there is no echocardiogram on file. Patient will be placed on intravenous diuretics as well as vasodilators. Will adjust his medications as warranted. Hyperkalemia likely secondary to his underlying kidney disease. Patient has received Kayexalate and will continue to monitor Chronic kidney disease stage IV his kidney function is actually close to where he was previously at discharge. 06/02 patient has made an improvement. He is currently on Lasix 20 mg every 12 h ours IV. I will continue with this for now and readjust as appropriate in a.m. He is still also on vasodilators, nitroglycerin and this will be adjusted going forward. Echocardiogram is still pending 06/03 Patient feels better Will await recommendations from Dr. Green 06/04 cruciate cardiology input. Patient has been started on Entresto. He will need to be monitored due to the potential side effects. In fact his blood pressure was noted to be low today with a systolic of 100. I have decreased his Lasix to once a day. He is also on hydralazine 25 mg every 8 hours and that will need to be evaluated and adjusted also as needed. His kidney function has improved. He is noted to have hypercalcemia. Not sure if this is secondary to the dehydration as his calcium was lower on admission We will also decrease his metoprolol 25 mg twice a day - Time Time Spent with patient: 25-34 minutes Anticipated discharge: Home Within: within 24 hours
[2019-06-05] MEDS: INSULIN REG, HUMAN 100 UNIT/ML 3 ML VIAL (PYX) SUBCUT SCH (18:24)
[2019-06-05] MEDS: ASPIRIN 81 MG TABLET, ENT COATED PO SCH (21:23)
[2019-06-05] MEDS: DONEPEZIL HCL 5 MG TABLET PO SCH (21:23)
[2019-06-05] MEDS: METOPROLOL SUCCINATE 25 MG TAB.SR.24H PO SCH (21:23)
[2019-06-05] MEDS: MELATONIN 3 MG TABLET PO SCH (21:23)
[2019-06-05] MEDS: ATORVASTATIN CALCIUM 40 MG TABLET PO SCH (21:23)
--- NOTE | 2019-06-05 21:45 | Progress Note ---
Provider Note Provider Note: CARDIOLOGY PROGRESS NOTE by Dr. Evette Peña on 06/05/2019. Subjective: The patient states he states he feels much better. There is no shortness of breath at rest. There is no PND orthopnea. After discussions with the pediatric social worker it was decided to stop his Diovan and start him on Entresto which I have done and he has tolerated it. The patient denies any chest pain or discomfort. There is no leg edema. There is no palpitations near syncope or syncope. There is no TIA CVA symptoms. PHYSICAL EXAMINATION: The patient appears to be chronically ill. In no acute distress. Selected Entries 06/05/19 06/05/19 08:01 19:37 Temperature 98.1 F 98.0 F Temperature Oral Source Pulse Rate 66 Respiratory 20 Rate Blood Pressure 126/62 H Blood Pressure 83 Mean BP Location Left Arm BP Position Sitting O2 Sat by Pulse 99 Oximetry Oxygen Delivery Room Air Method HEAD: Is atraumatic normocephalic. EYES: Pupils equal round regular reactive light accommodation. Extraocular movements are normal. There is no conjunctival pallor. There is no scleral icterus. EARS: Tympanic membranes are intact. External auditory canals are clear nose: There is no deviated nasal septum. There is no inflammation nasal mucous membrane. MOUTH: Mucous membra stu of mouth are moist. Tongue is moist. There is no ulcers. There is no bleeding from the gums. THROAT: There is no redness of the oropharynx. There is no exudates. SKIN: There is no skin rashes. There is no petechia or ecchymosis. NECK: Supple. There is mild JVD elevation. Carotids are equal there is no bruits. There is no lymphadenopathy. There is no goiter.. There is no accessory muscles of respiration use. Trachea central. LUNGS: Very few bibasilar rales. There is no rhonchi or wheezing or dry crackles. Heart: S1-S2 is heard. There is no S3 gallop. There is no S4 gallop. There is systolic murmur left some border and the apex there is murmur of mitral regurgitation present. There is no rub. ABDOMEN: Soft. Nontender there is no paraspinal megaly. EXTREMITIES: Femorals are slightly diminished. There is no femoral bruits. Leg pulses are well felt. There is no pedal edema. There is no cyanosis or clubbing. ELECTRICAL SIGN SERVICER: The patient is conscious awake alert oriented x3 with no focal deficit. PSYCHIATRIC: The patient judgment insight are intact his affect is normal. Labs- All tests 24 hr 06/05/19 06/05/19 06/05/19 05:21 06:00 11:26 Sodium 140.8 Potassium 4.2 Chloride 100 Carbon Dioxide 26 Anion Gap 15 BUN 76 H Creatinine 2.90 H Est GFR ( Amer) 26 L Est GFR (MDRD) Non-Af 22 L Glucose 78 POC Glucose 82 190 H Calcium 11.0 H 06/05/19 06/05/19 06/05/19 16:10 20:50 21:14 Sodium Potassium Chloride Carbon Dioxide Anion Gap BUN Creatinine Est GFR ( Amer) Est GFR (MDRD) Non-Af Glucose POC Glucose 256 H 53 L 74 Calcium Chest X-Ray 06/02/19 05:33 IMPRESSION: Cardiomegaly with pulmonary edema pattern and bilateral effusions The patient's 24-hour intake is 1224. His total output is 700 mL. IMPRESSION/RECOMMENDATION: 1. Acute on chronic combined systolic and diastolic heart failure. This may be multifactorial's most likely secondary to the patient being on steroids causing volume retention: Chronic kidney disease causing volume overload and the patient's severely reduced LV ejection fraction. The patient is on Toprol-XL and hydralazine. Will decrease the patient's hydralazine and stop the patient's Diovan so that we can make room for Entresto will start at the lowest dose and maybe in a week or so as an outpatient will increase it. We will recheck the patient's echo in the morning. 2. Cardiomyopathy with severely reduced ejection fraction. Recommend repeat echocardiogram in 3 months to see if the LV ejection fraction is 35% or below the patient may require an AICD. Also reviewed the patient's LV ejection fraction showing significant deterioration the patient will need an ischemia work-up which this can be done as an outpatient. 3. Coronary artery disease: History of coronary artery bypass graft surgery history of old [place]. Patient without any anginal symptoms. 4. Chronic kidney disease stage IV: Nephrology follow the patient closely as an outpatient. 5. Severe pulmonary hypertension: Blood pressure this may be secondary to patient's left heart failure and sleep apnea. Patient to have an outpatient sleep study 6. Diabetes mellitus type 2 insulin-dependent: Continue antidiabetic medication and serial Accu-Cheks. 7. Systemic hypertension: Blood pressure well controlled. 8. Hyperlipidemia: Continue statin. 9.. Most likely patient has sleep apnea. He will reschedule his sleep study appointment once he is discharged. Medications reviewed. Medical regimen and management plan discussed with attending physician on the case. Also discussed with pediatric social worker on the telephone. Medical decision making is of high complexity. 40 minutes spent as patient more than 50% time spent in direct patient care. Will follow.
[2019-06-05] MEDS ORDERED: METOPROLOL SUCCINATE 50 MG TAB.SR.24H PO SCH (22:00)
[2019-06-06] MEDS: PANTOPRAZOLE SODIUM 20 MG TABLET.DR PO SCH (05:43)
[2019-06-06] MEDS: HYDRALAZINE HCL 50 MG TABLET PO SCH ×3 (05:43→22:01)
[2019-06-06] MEDS: PROMETHAZINE HCL 25 MG TABLET PO PRN (05:44)
[2019-06-06 07:03] LABS: ANION GAP 16 (5-19); BLOOD UREA NITROGEN 89 mg/dL (7-20); CALCIUM 10.3 mg/dL (8.4-10.2); CARBON DIOXIDE 25 mmol/L (22-30); CHLORIDE 99 mmol/L (98-107); GLUCOSE 71 mg/dL (75-110); POTASSIUM 4.2 mmol/L (3.6-5.0)
[2019-06-06] MEDS: INSULIN REG, HUMAN 100 UNIT/ML 3 ML VIAL (PYX) SUBCUT SCH ×3 (07:44→17:06)
[2019-06-06] MEDS: INSULIN GLARGINE,HUM.REC.ANLOG 1,000 UNIT/10 ML VIAL SUBCUT SCH (07:45)
[2019-06-06] MEDS ORDERED: INSULIN REG, HUMAN 100 UNIT/ML 3 ML VIAL (PYX) SUBCUT SCH (08:00)
[2019-06-06] MEDS ORDERED: FUROSEMIDE INJ/PF 40 MG/4 ML SDV IV SCH (10:00)
[2019-06-06] MEDS: SERTRALINE HCL 50 MG TABLET PO SCH (10:05)
[2019-06-06] MEDS: SODIUM BICARBONATE 650 MG TABLET PO SCH (10:05)
[2019-06-06] MEDS: SACUBITRIL/VALSARTAN 24 MG/26 MG TABLET PO SCH ×2 (10:06→22:03)
[2019-06-06] MEDS: METOPROLOL SUCCINATE 25 MG TAB.SR.24H PO SCH ×2 (10:06→22:02)
[2019-06-06] MEDS: PREDNISONE 5 MG TABLET PO SCH (10:06)
[2019-06-06] MEDS: GLIMEPIRIDE 1 MG TABLET PO SCH (10:06)
[2019-06-06] MEDS: VITAMIN B COMPLEX TABLET PO SCH (10:06)
[2019-06-06] MEDS: CALCIUM CARBONATE 600 MG/VITAMIN D3 400 UNIT TABLET PO SCH ×3 (10:06→17:06)
[2019-06-06] MEDS: DOCUSATE SODIUM 100 MG CAPSULE PO SCH (10:06)
--- NOTE | 2019-06-06 10:06 | RADIOLOGY REPORT (SQ) ---
EXAM DESCRIPTION: CHEST SINGLE VIEW COMPLETED DATE/TIME: 06/06/2019 7:41 am REASON FOR STUDY: CHF COMPARISON: 06/02/2019 EXAM PARAMETERS: NUMBER OF VIEWS: One view. TECHNIQUE: Single frontal radiographic view of the chest acquired. RADIATION DOSE: NA LIMITATIONS: None. FINDINGS: LUNGS AND PLEURA: No opacities, masses or pneumothorax. No pleural effusion. MEDIASTINUM AND HILAR STRUCTURES: Stable. HEART AND VASCULAR STRUCTURES: Cardiomegaly. BONES: No acute findings. HARDWARE: Sternotomy. OTHER: No other significant finding. IMPRESSION: Cardiomegaly. No evidence of pulmonary edema or pneumonia. TECHNICAL DOCUMENTATION: JOB ID: [id number] 2010 [employer]- All Rights Reserved Reading location - IP/workstation name: [email or web address]
[2019-06-06] MEDS: ENOXAPARIN SODIUM INJ 30 MG/0.3 ML DISP.SYRIN SUBCUT SCH (10:07)
--- NOTE | 2019-06-06 14:08 | PDOC PROGRESS REPORT ---
Subjective Progress Note for:: 06/06/19 Subjective:: Patient feels much better today. He is actually standing up about to drink his Kayexalate. He says he was able to sleep in bed contrary to what is been happening at home over the last few days. 06/03 breathing is much better today. Denies any chest pain. 06/04 much better. His breathing is improved. He would like to go home however I have told him that he was just started on a new medications and we would like to watch him in hospital overnight prior to discharge 06.05 Patient seen and evaluated. He continues to feel well unfortunately his kidney function has bumped up with his creatinine going from 2.9-3.4 today and his BUN also increasing. He is also noted to be hypotensive. This is likely due to excessive diuresis. Patient was also started on Entresto. As such with his fluctuating blood pressure and worsening kidney function patient will need to stay for further monitoring and to ensure his kidney function stabilizes to improve. Reason For Visit: HEART FAILURE Physical Exam Vital Signs: Temp Pulse Resp BP Pulse Ox 98.3 F 76 19 108/49 L 98 06/06/19 12:00 06/06/19 12:00 06/06/19 12:00 06/06/19 12:00 06/06/19 12:00 Intake & Output 06/05/19 06/06/19 06/07/19 06:59 06:59 06:59 Intake Total 1242 2097 Output Total 700 175 Balance 542 1922 Weight 49.5 kg 50 kg General appearance: PRESENT: no acute distress, cooperative Head exam: PRESENT: atraumatic Mouth exam: ABSENT: dry mucosa Neck exam: ABSENT: JVD, tenderness Respiratory exam: PRESENT: crackles - Few scattered basal, unlabored. ABSENT: wheezes Cardiovascular exam: PRESENT: RRR, +S1, +S2 GI/Abdominal exam: PRESENT: normal bowel sounds, soft Rectal exam: PRESENT: deferred Extremities exam: PRESENT: full ROM. ABSENT: pedal edema, +1 edema, +2 edema Musculoskeletal exam: PRESENT: ambulatory Neurological exam: PRESENT: alert, awake, oriented to person, oriented to place, oriented to time, oriented to situation, CN II-XII grossly intact. ABSENT: motor sensory deficit Skin exam: PRESENT: dry, intact, warm. ABSENT: cyanosis, rash Results Laboratory Results: 06/04/19 05:13 06/06/19 05:38 06/06/19 05:38 Sodium 139.6 Potassium 4.2 Chloride 99 Carbon Dioxide 25 Anion Gap 16 BUN 89 H Creatinine 3.40 H Est GFR ( Amer) 22 L Glucose 71 L Calcium 10.3 H 06/02/19 06/04/19 06/06/19 04:58 05:13 05:38 Troponin I 0.054 NT-Pro-B Natriuret Pep 50623 H 25567 H 02276 H Impressions: Chest X-Ray 06/06/19 06:00 IMPRESSION: Cardiomegaly. No evidence of pulmonary edema or pneumonia. Assessment and Plan - Diagnosis (1) CHF (congestive heart failure), NYHA class III Qualifiers: Congestive heart failure type: combined Congestive heart failure chronicity: acute on chronic Qualified Code(s): I50.43 - Acute on chronic combined systolic (congestive) and diastolic (congestive) heart failure Is this a current diagnosis for this admission?: Yes Plan: Cardiogram reveals ejection fraction of 25%. I discussed with Dr. Peña. Patient apparently had an outpatient echocardiogram done in 2019. He states the ejection fraction was 50% at the time. Cardiology consultation will be obtained to help manage this gentleman with what appears to be progression of his heart failure. He appears patient has an acutely decompensated chronic combined heart failure 06/05 his BNP is increased substantially however in the process there may have been some excess diuresis. His Lasix is currently on hold. We will recheck his kidney function tomorrow. (2) Diabetes mellitus type 2 in nonobese Is this a current diagnosis for this admission?: Yes (3) HTN (hypertension) Qualifiers: Hypertension type: essential hypertension Qualified Code(s): I10 - Essential (primary) hypertension Is this a current diagnosis for this admission?: Yes Plan: Blood pressure is borderline. As such I have adjusted his antihypertensives. (4) Polymyalgia rheumatica Is this a current diagnosis for this admission?: Yes (5) CKD stage 4 secondary to hypertension Is this a current diagnosis for this admission?: Yes Plan: Acute kidney injury on chronic kidney disease likely secondary to diuresis as well as iatrogenic from Entresto. We will continue to monitor his kidney function (6) Hyperkalemia Is this a current diagnosis for this admission?: Yes Plan: Resolved - Plan Summary Summary: Was recently discharge after being treated for CHF exacerbation. He comes back today again with the same diagnosis. An echocardiogram is to be obtained as there is no echocardiogram on file. Patient will be placed on intravenous diuretics as well as vasodilators. Will adjust his medications as warranted. Hyperkalemia likely secondary to his underlying kidney disease. Patient has received Kayexalate and will continue to monitor Chronic kidney disease stage IV his kidney function is actually close to where he was previously at discharge. 06/02 patient has made an improvement. He is currently on Lasix 20 mg every 12 hours IV. I will continue with this for now and readjust as appropriate in a.m. He is still also on vasodilators, nitroglycerin and this will be adjusted going forward. Echocardiogram is still pending 06/03 Patient feels better Will await recommendations from Dr. Green 06/04 cruciate cardiology input. Patient has been started on Entresto. He will need to be monitored due to the potential side effects. In fact his blood pressure was noted to be low today with a systolic of 100. I have decreased his Lasix to once a day. He is also on hydralazine 25 mg every 8 hours and that will need to be evaluated and adjusted also as needed. His kidney function has improved. He is noted to have hypercalcemia. Not sure if this is secondary to the dehydration as his calcium was lower on admission We will also decrease his metoprolol 25 mg twice a day - Time Time Spent with patient: 25-34 minutes Anticipated discharge: Home Within: within 48 hours - Inpatient Certification Based on my medical assessment, after consideration of the patient's comorbidities, presenting symptoms, or acuity I expect that the services needed warrant INPATIENT care.: Yes Medical Necessity: Need Close Monitoring Due to Risk of Patient Decompensation, Risk of Complication if Not Cared For in Hospital
--- NOTE | 2019-06-06 15:04 | Progress Note ---
Provider Note Provider Note: CARDIOLOGY PROGRESS NOTE by Dr. Evette Peña on 06/06/2019. SUBJECTIVE: The patient denies any chest pain or discomfort. There is no shortness of breath. There is no PND orthopnea. The patient's creatinine is risen from 2.9-3.4, and his urine output is also diminishing. It is possibly that the patient has been over diuresed. Hence the patient's Lasix is on hold. There is no arrhythmia seen on the monitor. The patient has no chest pain or discomfort. There is no dizziness. Also his blood pressure is on the lower side. We will further lower the dose of hydralazine. PHYSICAL EXAMINATION: The patient appears to be chronically ill. In no acute distress. Selected Entries 06/06/19 08:00 Temperature 98.5 F Temperature Oral Source Pulse Rate 58 L Respiratory 19 Rate Blood Pressure 103/43 L [Left Upper Arm ] Blood Pressure 63 Mean [Left Upper Arm] Blood Pressure Sitting Position [Left Upper Arm] O2 Sat by Pulse 98 Oximetry Oxygen Delivery Room Air Method ( includes room air) HEAD: Is atraumatic normocephalic. EYES: Pupils equal round regular reactive light accommodation. Extraocular movements are normal. There is no conjunctival pallor. There is no scleral icterus. EARS: Tympanic membranes are intact. External auditory canals are clear nose: There is no deviated nasal septum. There is no inflammation nasal mucous membrane. MOUTH: Mucous membranes of mouth are moist. Tongue is moist. There is no ulcers. There is no bleeding from the gums. THROAT: There is no redness of the oropharynx. There is no exudates. SKIN: There is no skin rashes. There is no petechia or ecchymosis. NECK: Supple. There is mild JVD elevation. Carotids are equal there is no bruits. There is no lymphadenopathy. There is no goiter.. There is no accessory muscles of respiration use. Trachea central. LUNGS: Very few bibasilar rales. There is no rhonchi or wheezing or dry crackles. Heart: S1-S2 is heard. There is no S3 gallop. There is no S4 gallop. There is systolic murmur left some border and the apex there is murmur of mitral regurgitation present. There is no rub. ABDOMEN: Soft. Nontender there is no paraspinal megaly. EXTREMITIES: Femorals are slightly diminished. There is no femoral bruits. Leg pulses are well felt. There is no pedal edema. There is no cyanosis or clubbing. CONTENT MANAGER: The patient is conscious awake alert oriented x3 with no focal deficit. PSYCHIATRIC: The patient judgment insight are intact his affect is normal. The patient's 24-hour intake is 7. His total output is 175mL. Labs- All tests 24 hr 06/06/19 06/06/19 06/06/19 05:38 05:38 06:41 Sodium 139.6 Potassium 4.2 Chloride 99 Carbon Dioxide 25 Anion Gap 16 BUN 89 H Creatinine 3.40 H Est GFR ( Amer) 22 L Est GFR (MDRD) Non-Af 18 L Glucose 71 L POC Glucose 102 Calcium 10.3 H NT-Pro-B Natriuret Pep 97362 H 06/06/19 06/06/19 06/06/19 11:50 16:41 20:29 Sodium Potassium Chloride Carbon Dioxide Anion Gap BUN Creatinine Est GFR ( Amer) Est GFR (MDRD) Non-Af Glucose POC Glucose 157 H 297 H 104 Calcium NT-Pro-B Natriuret Pep Chest X-Ray 06/02/19 05:33 IMPRESSION: Cardiomegaly with pulmonary edema pattern and bilateral effusions copyright 2011 [employer]- All Rights Reserved Chest X-Ray 06/06/19 06:00 IMPRESSION: Cardiomegaly. No evidence of pulmonary edema or pneumonia. IMPRESSION/RECOMMENDATION: 1. Acute on chronic combined systolic and diastolic heart failure. This may be multifactorial's most likely secondary to the patient being on steroids causing volume retention: Chronic kidney disease causing volume overload and the patient's severely reduced LV ejection fraction. The patient is on Toprol-XL and hydralazine. Will decrease the patient's hydralazjne, and continue the patient's Entresto. 2. Cardiomyopathy with severely reduced ejection fraction. Recommend repeat echocardiogram in 3 months to see if the LV ejection fraction is 35% or below the patient may require an AICD. Also reviewed the patient's LV ejection fraction showing significant deterioration the patient will need an ischemia work-up which this can be done as an outpatient. 3. Coronary artery disease: History of coronary artery bypass graft surgery history of old [place]. Patient without any anginal symptoms. 4. Chronic kidney disease stage IV: Nephrology follow the patient closely as an outpatient. 5. Severe pulmonary hypertension: Blood pressure this may be secondary to patient's left heart failure and sleep apnea. Patient to have an outpatient sleep study 6. Diabetes mellitus type 2 insulin-dependent: Continue antidiabetic medication and serial Accu-Cheks. 7. Systemic hypertension: Blood pressure well controlled. 8. Hyperlipidemia: Continue statin. 9.. Most likely patient has sleep apnea. He will reschedule his sleep study appointment once he is discharged. Medications reviewed. Medical regimen and management plan discussed with attending physician on the case. Also discussed with drink box mechanic on the telephone. Medical decision making is of high complexity. 40 minutes spent as patient more than 50% time spent in direct patient care. Will follow.
[2019-06-06] MEDS ORDERED: INSULIN GLARGINE,HUM.REC.ANLOG 1,000 UNIT/10 ML VIAL SUBCUT SCH (22:00)
[2019-06-06] MEDS: MELATONIN 3 MG TABLET PO SCH (22:01)
[2019-06-06] MEDS: ATORVASTATIN CALCIUM 40 MG TABLET PO SCH (22:01)
[2019-06-06] MEDS: ASPIRIN 81 MG TABLET, ENT COATED PO SCH (22:02)
[2019-06-06] MEDS: DONEPEZIL HCL 5 MG TABLET PO SCH (22:03)
[2019-06-07] MEDS: PANTOPRAZOLE SODIUM 20 MG TABLET.DR PO SCH (05:15)
[2019-06-07] MEDS ORDERED: HYDRALAZINE HCL 50 MG TABLET PO SCH (06:00)
[2019-06-07] MEDS ORDERED: INSULIN GLARGINE,HUM.REC.ANLOG 1,000 UNIT/10 ML VIAL SUBCUT SCH (08:00)
[2019-06-07] MEDS: INSULIN REG, HUMAN 100 UNIT/ML 3 ML VIAL (PYX) SUBCUT SCH ×2 (08:00→12:17)
[2019-06-07] MEDS: VITAMIN B COMPLEX TABLET PO SCH (09:43)
[2019-06-07] MEDS: DOCUSATE SODIUM 100 MG CAPSULE PO SCH (09:43)
[2019-06-07] MEDS: SERTRALINE HCL 50 MG TABLET PO SCH (09:43)
[2019-06-07] MEDS: GLIMEPIRIDE 1 MG TABLET PO SCH (09:43)
[2019-06-07] MEDS: METOPROLOL SUCCINATE 25 MG TAB.SR.24H PO SCH (09:43)
[2019-06-07] MEDS: SACUBITRIL/VALSARTAN 24 MG/26 MG TABLET PO SCH (09:44)
[2019-06-07] MEDS: PREDNISONE 5 MG TABLET PO SCH (09:44)
[2019-06-07] MEDS: CALCIUM CARBONATE 600 MG/VITAMIN D3 400 UNIT TABLET PO SCH (09:44)
[2019-06-07] MEDS: ENOXAPARIN SODIUM INJ 30 MG/0.3 ML DISP.SYRIN SUBCUT SCH (09:44)
[2019-06-07] MEDS: SODIUM BICARBONATE 650 MG TABLET PO SCH (09:44)
[2019-06-07 10:27] LABS: ABSOLUTE EOSINOPHILS # (AUTO) 0.1 10^3/uL (0.0-0.6); ABSOLUTE LYMPHOCYTES (AUTO) 1.1 10^3/uL (0.5-4.7); ABSOLUTE MONOCYTES (AUTO) 0.6 10^3/uL (0.1-1.4); ABSOLUTE NEUT (AUTO) 5.5 10^3/uL (1.7-8.2); BASOPHILS % (AUTO) 0.6 % (0-2); EOSINOPHILS % (AUTO) 1.9 % (0-6); HEMOGLOBIN 11.8 g/dL (13.5-17.0); LYMPHOCYTES % (AUTO) 14.6 % (13-45); MEAN CORPUSCULAR HGB CONC 32.8 g/dL (32.0-36.0); MEAN CORPUSCULAR VOLUME 95 fl (80-97); MONOCYTES % (AUTO) 8.3 % (3-13); PLATELET COUNT 250 10^3/uL (150-450); RED BLOOD COUNT 3.81 10^6/uL (4.35-5.55); RED CELL DISTRIBUTION WIDTH 14.8 % (11.5-14.0); SEGMENTED NEUTROPHILS % (AUTO) 74.6 % (42-78); TOTAL CELLS COUNTED % (AUTO) 100 %; WHITE BLOOD COUNT 7.4 10^3/uL (4.0-10.5)
[2019-06-07 10:34] LABS: ANION GAP 16 (5-19); BLOOD UREA NITROGEN 98 mg/dL (7-20); CARBON DIOXIDE 23 mmol/L (22-30); CHLORIDE 101 mmol/L (98-107); GLUCOSE 189 mg/dL (75-110); POTASSIUM 4.8 mmol/L (3.6-5.0)
--- NOTE | 2019-06-07 11:52 | PDOC DISCHARGE SUMMARY ---
Impression - Admit/DC Date/PCP Admission Date/Primary Care Provider: 06/02/19 09:29 NEHEMIAS MUHAMMAD DO Discharge Date: 06/07/19 - Discharge Diagnosis (1) CHF (congestive heart failure), NYHA class III Is this a current diagnosis for this admission?: Yes (2) Diabetes mellitus type 2 in nonobese Is this a current diagnosis for this admission?: Yes (3) HTN (hypertension) Is this a current diagnosis for this admission?: Yes (4) Polymyalgia rheumatica Is this a current diagnosis for this admission?: Yes (5) CKD stage 4 secondary to hypertension Is this a current diagnosis for this admission?: Yes (6) Hyperkalemia Is this a current diagnosis for this admission?: Yes - Assessment Summary: Heart failure education reinforced - Additional Information Resuscitation Status: Full Code Discharge Diet: Cardiac, Diabetic Discharge Activity: Activity As Tolerated, Balance Activity w/Rest, Weigh Daily Referrals: NEHEMIAS MUHAMMAD DO [Primary Care Provider] - 06/15/19 3:30 pm NANCI MCMILLAN MD [ACTIVE STAFF] - 06/09/19 (Please obtain follow up BMP and reassess medications, BP and adjust as needed) Vijaya GUTIERREZ MD [ACTIVE STAFF] - 06/11/19 (Follow up labs and adjust medications as needed) Prescriptions: Hydralazine HCl [Apresoline 10 mg Tablet] 10 mg PO TID #100 tablet Valsartan [Diovan 80 mg Tablet] 80 mg PO Q12 #60 tablet Sacubitril/Valsartan [Entresto 24 mg/26 mg Tablet] 1 tab PO Q12 #60 tablet Furosemide [Lasix 20 mg Tablet] 40 mg PO DAILY #60 Metoprolol Succinate [Toprol Xl 25 mg Tab.sr] 25 mg PO Q12 #60 tab.sr.24h Home Medications: Donepezil HCl [Aricept] 10 mg PO QHS 02/18/17 Glimepiride [Amaryl] 2 mg PO DAILY 02/18/17 Omeprazole 20 mg PO Q6AM 02/18/17 Prednisone [Deltasone 5 mg Tablet] 5 mg PO DAILY 02/18/17 Sertraline HCl [Zoloft 50 mg Tablet] 150 mg PO DAILY 09/27/18 Acetaminophen [Tylenol] 650 mg PO QID 04/16/19 Aspirin [Ecotrin 81 mg EC Tablet] 81 mg PO QHS 04/16/19 Atorvastatin Calcium [Lipitor 40 mg Tablet] 20 mg PO QHS 04/16/19 B Complex W-C No.20/Folic Acid [Renal Caps Softgel] 1 mg PO DAILY 04/16/19 Chance/D3/Mag11/Zinc/[place]ap[place]/Bor [Caltrate 600+D Plus Tablet] 1 tab PO TID 04/16/19 Cyanocobalamin/Folic AC/Vit B6 [Folbic Tablet] 1 tab PO DAILY 04/16/19 Melatonin [Melatonin 3 mg Tablet] 9 mg PO QHS 04/16/19 Sodium Bicarbonate [Sodium Bicarbonate 650 mg Tablet] 650 mg PO DAILY 04/16/19 Vitamin B Complex [Vitamin B Complex Tablet] 1 tab PO DAILY 04/16/19 Insulin Lispro [Humalog Insulin (Lispro) 100 unit/mL] 0 unit SUBCUT .SLD SCALE 06/02/19 Furosemide [Lasix 20 mg Tablet] 40 mg PO DAILY #60 06/07/19 Hydralazine HCl [Apresoline 10 mg Tablet] 10 mg PO TID #100 tablet 06/07/19 Insulin Glargine,Hum.rec.anlog [Basaglar Kwikpen U-100] 10 unit SQ QAM #0 06/07/19 Insulin Glargine,Hum.rec.anlog [Basaglar Kwikpen U-100] 10 unit SQ QHS #0 06/07/19 Metoprolol Succinate [Toprol Xl 25 mg Tab.sr] 25 mg PO Q12 #60 tab.sr.24h 06/07/19 Sacubitril/Valsartan [Entresto 24 mg/26 mg Tablet] 1 tab PO Q12 #60 tablet 06/07/19 Valsartan [Diovan 80 mg Tablet] 80 mg PO Q12 #60 tablet 06/07/19 History of Present Illiness History of Present Illness: MALINDA CROCKETT is a 69 year old male Patient was recently hospitalized with what appears to be CHF decompensation. He was treated with Lasix. I do not see any recent echo cardiogram and so his EF is unknown at this time. Patient also has underlying CKD. He was sent home on 20 mg of Lasix daily but this was also decreased to 20 mg 3 times a day by his natural gas inspector. He has had progressive difficulty breathing since then. He also complained of some intermittent chest pain with whitish productive cough. He is currently chest pain-free. Patient was also found to have hyperkalemia with a potassium of 5.7 which has been treated with Kayexalate. EKG shows T wave inversions in inferior leads as well as PVCs. Patient's mean arterial pressure was also elevated at about 101 Hospital Course Hospital Course: Patient was admitted with difficulty breathing and shortness of breath. Decompensated failure. Initially had chest pain this was felt to be secondary to his CHF and there was no evidence of an acute coronary syndrome. Patient was started on diuresis. He received Lasix 40 mg IV every 12 hours. Subsequently an echocardiogram was done and this revealed an ejection fraction of 25%. Apparently his prior to this was 50% just last year. As such cardiology consult was obtained. Please see Dr. Green consultation report. His medications were further adjusted. Patient was started on Entresto, hydralazine, valsartan and metoprolol was increased. During the course of adjustment of his medications patient did develop hypotension and his kidney function also got worse. Patient had been admitted with a creatinine of 3.02 and a BUN of 57. His kidney function did get worse to creatinine of 3.4 and a BUN of 98. This was felt to be secondary to aggressive diuresis. He has not received any Lasix in the last 72 hours although he has been advised to restart it tomorrow. His creatinine has improved and is currently 3.2. His BUN is still high obviously due to the azotemia however his blood pressure was also improved and stabilized with hypotension resolving. At this time given that there is really no other interventions are planned it is felt that patient can go home for outpatient follow-up. He will need a BMP to be done within the next 48 hours or so to ensure that his kidney function continues to improve. He is BMP while in hospital was as high as 4 1000 and this came down to 14,000 supporting the claim of possible aggressive diuresis. Patient is felt stable enough to be discharged home and so he is been discharged home for outpatient follow-up. He was emphasized to him the need to obtain his BMP this week as well as follow-up with his PCP, flour mixer helper or natural gas inspector so his blood pressure can be rechecked that his medications can be adjusted as warranted. Physical Exam Vital Signs: Temp Pulse Resp BP Pulse Ox 97.6 F 69 19 126/66 H 100 06/07/19 07:35 06/07/19 07:35 06/07/19 07:35 06/07/19 07:35 06/07/19 07:35 Intake & Output 06/06/19 06/07/19 06/08/19 06:59 06:59 06:59 Intake Total 2097 1220 Output Total 175 750 Balance 1922 470 Weight 50 kg 50.6 kg General appearance: PRESENT: no acute distress, other - pleasant gentleman Head exam: PRESENT: atraumatic Eye exam: PRESENT: conjunctiva pink, PERRLA. ABSENT: scleral icterus Mouth exam: PRESENT: tongue midline Neck exam: ABSENT: carotid bruit, JVD, lymphadenopathy, thyromegaly Respiratory exam: PRESENT: clear to auscultation phan. ABSENT: rales, rhonchi, wheezes Cardiovascular exam: PRESENT: RRR, +S1, +S2. ABSENT: diastolic murmur, rubs, systolic murmur GI/Abdominal exam: PRESENT: normal bowel sounds, soft. ABSENT: distended, guarding, mass, organolmegaly, rebound, tenderness Rectal exam: PRESENT: deferred Extremities exam: PRESENT: full ROM. ABSENT: calf tenderness, clubbing, pedal edema, +1 edema, +2 edema Neurological exam: PRESENT: alert, awake, oriented to person, oriented to place, oriented to time, oriented to situation, CN II-XII grossly intact. ABSENT: motor sensory deficit Psychiatric exam: PRESENT: appropriate affect, normal mood. ABSENT: homicidal ideation, suicidal ideation Skin exam: PRESENT: dry, intact, warm. ABSENT: cyanosis, rash Results Laboratory Results: WBC 7.4 10^3/uL (4.0-10.5) 06/07/19 09:50 RBC 3.81 10^6/uL (4.35-5.55) L 06/07/19 09:50 Hgb 11.8 g/dL (13.5-17.0) L 06/07/19 09:50 Hct 36.0 % (37.9-51.0) L 06/07/19 09:50 MCV 95 fl (80-97) 06/07/19 09:50 MCH 31.0 pg (27.0-33.4) 06/07/19 09:50 MCHC 32.8 g/dL (32.0-36.0) 06/07/19 09:50 RDW 14.8 % (11.5-14.0) H 06/07/19 09:50 Plt Count 250 10^3/uL (150-450) 06/07/19 09:50 Lymph % (Auto) 14.6 % (13-45) 06/07/19 09:50 [place] % (Auto) 8.3 % (3-13) 06/07/19 09:50 Eos % (Auto) 1.9 % (0-6) 06/07/19 09:50 Baso % (Auto) 0.6 % (0-2) 06/07/19 09:50 Absolute Neuts (auto) 5.5 10^3/uL (1.7-8.2) 06/07/19 09:50 Absolute Lymphs (auto) 1.1 10^3/uL (0.5-4.7) 06/07/19 09:50 Absolute Monos (auto) 0.6 10^3/uL (0.1-1.4) 06/07/19 09:50 Absolute Eos (auto) 0.1 10^3/uL (0.0-0.6) 06/07/19 09:50 Absolute Basos (auto) 0.0 10^3/uL (0.0-0.2) 06/07/19 09:50 Seg Neutrophils % 74.6 % (42-78) 06/07/19 09:50 Sodium 140.1 mmol/L (137-145) 06/07/19 09:50 Potassium 4.8 mmol/L (3.6-5.0) 06/07/19 09:50 Chloride 101 mmol/L (98-107) 06/07/19 09:50 Carbon Dioxide 23 mmol/L (22-30) 06/07/19 09:50 Anion Gap 16 (5-19) 06/07/19 09:50 BUN 98 mg/dL (7-20) H 06/07/19 09:50 Creatinine 3.20 mg/dL (0.52-1.25) H 06/07/19 09:50 Est GFR ( Amer) 23 (>60) L 06/07/19 09:50 Est GFR (MDRD) Non-Af 19 (>60) L 06/07/19 09:50 Glucose 189 mg/dL (75-110) H 06/07/19 09:50 POC Glucose 145 mg/dL (70-110) H 06/07/19 10:42 Calcium 10.0 mg/dL (8.4-10.2) 06/07/19 09:50 Total Bilirubin 0.6 mg/dL (0.2-1.3) 06/02/19 04:50 Direct Bilirubin 0.1 mg/dL (0.0-0.4) 06/02/19 04:50 Neonat Total Bilirubin Not Reportable 06/02/19 04:50 Neonat Direct Bilirubin Not Reportable 06/02/19 04:50 Neonat Indirect Bili Not Reportable 06/02/19 04:50 AST 25 U/L (17-59) 06/02/19 04:50 ALT 19 U/L (<50) 06/02/19 04:50 Alkaline Phosphatase 91 U/L (38-126) 06/02/19 04:50 Troponin I 0.054 ng/mL 06/02/19 04:58 NT-Pro-B Natriuret Pep 07451 pg/mL (<125) H 06/06/19 05:38 Total Protein 7.0 g/dL (6.3-8.2) 06/02/19 04:50 Albumin 4.2 g/dL (3.5-5.0) 06/02/19 04:50 Urine Color YELLOW 06/02/19 06:00 Urine Appearance SLIGHTLY-CLOUDY 06/02/19 06:00 Urine pH 6.0 (5.0-9.0) 06/02/19 06:00 Ur Specific [place] 1.014 06/02/19 06:00 Urine Protein 100 mg/dL (NEGATIVE) H 06/02/19 06:00 Urine Glucose (UA) NEGATIVE mg/dL (NEGATIVE) 06/02/19 06:00 Urine Ketones NEGATIVE mg/dL (NEGATIVE) 06/02/19 06:00 Urine Blood NEGATIVE (NEGATIVE) 06/02/19 06:00 Urine Nitrite NEGATIVE (NEGATIVE) 06/02/19 06:00 Urine Bilirubin NEGATIVE (NEGATIVE) 06/02/19 06:00 Urine Urobilinogen NEGATIVE mg/dL (<2.0) 06/02/19 06:00 Ur Leukocyte Esterase NEGATIVE (NEGATIVE) 06/02/19 06:00 Urine WBC (Auto) 0 /HPF 06/02/19 06:00 Urine RBC (Auto) 0 /HPF 06/02/19 06:00 Urine Mucus (Auto) RARE /LPF 06/02/19 06:00 Urine Ascorbic Acid NEGATIVE (NEGATIVE) 06/02/19 06:00 Stl C. Difficile GDH Ag NEGATIVE (NEGATIVE) 06/02/19 09:40 Stl C.difficile Tox A&B NEGATIVE (NEGATIVE) 06/02/19 09:40 06/02/19 06/04/19 06/06/19 04:58 05:13 05:38 Troponin I 0.054 NT-Pro-B Natriuret Pep 47002 H 08126 H 28402 H Impressions: Chest X-Ray 06/02/19 05:33 IMPRESSION: Cardiomegaly with pulmonary edema pattern and bilateral effusions copyright 2011 [employer]- All Rights Reserved Chest X-Ray 06/06/19 06:00 IMPRESSION: Cardiomegaly. No evidence of pulmonary edema or pneumonia. Plan Health Concerns: Follow-up BMP, adjustment of medications and reevaluation of his blood pressure in the next 48 to 72 hours strongly suggested Stroke Is this a Stroke Patient?: No Acute Heart Failure - Is this a Heart Failure Patient?: Yes Documentation of LVEF assessment?: Yes LVEF < 40%?: Yes-if yes answer questions a through e a) Discharged on ACEI?: N/A Discharged on ARNI b) Discharges on ARB?: Yes c) Discharged on ARNI?: Yes d) Discharged on evidence-based Beta merary(carvedilol, sustained release metoprolol succinate, or bisoprolol)?: Yes e) For LVEF <35%, discharged on Aldosterone antagonist?: No-document contraincations Reason(s) not discharged on Aldosterone antagonist for LVEF < 35%: Renal dysfunction (creatinine >2.5 mg/dL in men or 2.0 mg/dL in women) 3. Anticoagulant therapy for permanect/persistent/paraoxysmal Afib or Aflutter: N/A Follow-up Appointment scheduled within 7 days?: Yes
[2019-06-07 12:50] VITALS: BP 107/70
--- NOTE | 2019-06-07 14:47 | Progress Note ---
Provider Note Provider Note: CARDIOLOGY PROGRESS NOTE by Dr. Evette Peña on 06/07/2019. SUBJECTIVE: The patient denies any chest pain discomfort. There is no shortness of breath. There is no PND orthopnea. His BUN is still risen up to 98. The creatinine somewhat remains his about the same. This most likely secondary to Entresto. Hence we will stop the Entresto and restart the patient's Diovan. The patient is stable and wants to go home we will recheck the patient's renal function as an outpatient. There is no anginal symptoms. There is no pedal edema. PHYSICAL EXAMINATION: The patient appears to be chronically ill. But in no acute distress Selected Entries 06/07/19 10:45 Temperature 97.5 F Temperature Oral Source Pulse Rate 61 Respiratory 18 Rate Blood Pressure 107/70 Blood Pressure 82 Mean BP Location Left Arm BP Position Sitting O2 Sat by Pulse 100 Oximetry Oxygen Delivery Room Air Method HEAD: Is atraumatic normocephalic. EYES: Pupils equal round regular reactive light accommodation. Extraocular movements are normal. There is no conjunctival pallor. There is no scleral icterus. EARS: Tympanic membranes are intact. External auditory canals are clear nose: There is no deviated nasal septum. There is no inflammation nasal mucous membrane. MOUTH: Mucous membranes of mouth are moist. Tongue is moist. There is no ulcers. There is no bleeding from the gums. THROAT: There is no redness of the oropharynx. There is no exudates. SKIN: There is no skin rashes. There is no petechia or ecchymosis. NECK: Supple. There is mild JVD elevation. Carotids are equal there is no bruits. There is no lymphadenopathy. There is no goiter.. There is no accessory muscles of respiration use. Trachea central. LUNGS: Very few bibasilar rales. There is no rhonchi or wheezing or dry crackles. Heart: S1-S2 is heard. There is no S3 gallop. There is no S4 gallop. There is systolic murmur left some border and the apex there is murmur of mitral regurgitation present. There is no rub. ABDOMEN: Soft. Nontender there is no paraspinal megaly. EXTREMITIES: Femorals are slightly diminished. There is no femoral bruits. Leg pulses are well felt. There is no pedal edema. There is no cyanosis or clubbing. ROUTE SPECIALIST: The patient is conscious awake alert oriented x3 with no focal deficit. PSYCHIATRIC: The patient judgment insight are intact his affect is normal. The patient's 24-hour intake is 1220. His total output is 750 mL. Labs- All tests 24 hr 06/06/19 06/06/19 06/07/19 16:41 20:29 06:35 WBC RBC Hgb Hct MCV MCH MCHC RDW Plt Count Lymph % (Auto) Jack % (Auto) Eos % (Auto) Baso % (Auto) Absolute Neuts (auto) Absolute Lymphs (auto) Absolute Monos (auto) Absolute Eos (auto) Absolute Basos (auto) Seg Neutrophils % Sodium Potassium Chloride Carbon Dioxide Anion Gap BUN Creatinine Est GFR ( Amer) Est GFR (MDRD) Non-Af Glucose POC Glucose 297 H 104 111 H Calcium 06/07/19 06/07/19 06/07/19 09:50 09:50 10:42 WBC 7.4 RBC 3.81 L Hgb 11.8 L Hct 36.0 L MCV 95 MCH 31.0 MCHC 32.8 RDW 14.8 H Plt Count 250 Lymph % (Auto) 14.6 Jack % (Auto) 8.3 Eos % (Auto) 1.9 Baso % (Auto) 0.6 Absolute Neuts (auto) 5.5 Absolute Lymphs (auto) 1.1 Absolute Monos (auto) 0.6 Absolute Eos (auto) 0.1 Absolute Basos (auto) 0.0 Seg Neutrophils % 74.6 Sodium 140.1 Potassium 4.8 Chloride 101 Carbon Dioxide 23 Anion Gap 16 BUN 98 H Creatinine 3.20 H Est GFR ( Amer) 23 L Est GFR (MDRD) Non-Af 19 L Glucose 189 H POC Glucose 145 H Calcium 10.0 Chest X-Ray 06/02/19 05:33 IMPRESSION: Cardiomegaly with pulmonary edema pattern and bilateral effusions copyright 2011 [email or web address]- All Rights Reserved Chest X-Ray 06/06/19 06:00 IMPRESSION: Cardiomegaly. No evidence of pulmonary edema or pneumonia. IMPRESSION/RECOMMENDATION: 1. Acute on chronic combined systolic and diastolic heart failure. This may be multifactorial's most likely secondary to the patient being on steroids causing volume retention: Chronic kidney disease causing volume overload and the patient's severely reduced LV ejection fraction. The patient's BUN is further increased to 98 and also his creatinine is similar to what it was. This is most likely secondary to the patient's Entresto. We will stop the patient's Entresto and revert back to Diovan 2. Cardiomyopathy with severely reduced ejection fraction. Recommend repeat echocardiogram in 3 months to see if the LV ejection fraction is 35% or below the patient may require an AICD. Also reviewed the patient's LV ejection fraction showing significant deterioration the patient will need an ischemia work-up which this can be done as an outpatient. 3. Coronary artery disease: History of coronary artery bypass graft surgery history of old [place]. Patient without any anginal symptoms. 4. Chronic kidney disease stage IV: Note the patient's BUN and creatinine are increasing. This may be secondary to Entresto. The patient's Lasix was held. Hence will stop the patient's Entresto and revert back to Diovan at 80 mg every 12 hours. Will follow the patient along with nephrology closely as an outpatient. We will recheck the patient's kidney functions next week. 5. Severe pulmonary hypertension: Blood pressure this may be secondary to patient's left heart failure and sleep apnea. Patient to have an outpatient sleep study 6. Diabetes mellitus type 2 insulin-dependent: Continue antidiabetic medication and serial Accu-Cheks. 7. Systemic hypertension: Blood pressure well controlled. 8. Hyperlipidemia: Continue statin. 9.. Most likely patient has sleep apnea. He will reschedule his sleep study appointment once he is discharged. 10. Polymyalgia rheumatica by history on chronic steroid therapy. Medications reviewed. Medical regimen and management plan discussed with attending physician on the case. Also discussed with fiber analyst on the telephone. Medical decision making is of high complexity. 40 minutes spent as patient more than 50% time spent in direct patient care. The patient being discharged home. Will follow the patient closely as an outpatient as mentioned earlier along with nephrology. Will sign off.
[2019-06-07] MEDS ORDERED: VALSARTAN 80 MG TABLET PO SCH (22:00)
== END 2019-06-07 13:19 | disposition home or self-care (01) | DRG 291 ==
LOC: ER 04:57 → EH 09:29 → 4S 11:17
PROVIDERS: ADMIT Internal Medicine; ATTEND Internal Medicine
DX: I13.0 Hypertensive heart and chronic kidney disease with heart failure and stage 1 through stage 4 chronic kidney disease, or unspecified chronic kidney disease (principal); I50.43 Acute on chronic combined systolic (congestive) and diastolic (congestive) heart failure; N18.4 Chronic kidney disease, stage 4 (severe); E66.9 Obesity, unspecified; M35.3 Polymyalgia rheumatica; E87.5 Hyperkalemia; E11.22 Type 2 diabetes mellitus with diabetic chronic kidney disease; K21.9 Gastro-esophageal reflux disease without esophagitis; F32.9 Major depressive disorder, single episode, unspecified; I49.3 Ventricular premature depolarization; E78.5 Hyperlipidemia, unspecified; I25.10 Atherosclerotic heart disease of native coronary artery without angina pectoris; F03.90 Unspecified dementia, unspecified severity, without behavioral disturbance, psychotic disturbance, mood disturbance, and anxiety; I42.9 Cardiomyopathy, unspecified; I27.20 Pulmonary hypertension, unspecified; I25.2 Old myocardial infarction; Z79.899 Other long term (current) drug therapy; Z79.4 Long term (current) use of insulin; Z79.82 Long term (current) use of aspirin; Z95.5 Presence of coronary angioplasty implant and graft; Z87.891 Personal history of nicotine dependence; Z88.6 Allergy status to analgesic agent
CPT/HCPCS: 36415; 71045; 71046; 80048; 80053; 81001; 82962; 83880; 84484; 85025; 87324; 87449; 93005; 93010; 93306; 96374; 99285; J1650; J1815; J1940; J3490; J7512; S0119

== ENCOUNTER → 2019-06-10 | Outpatient (CLI) | payer OTHER, MEDICARE ==
[2019-06-11 08:39] LABS: ABSOLUTE EOSINOPHILS # (AUTO) 0.1 10^3/uL (0.0-0.6); ABSOLUTE LYMPHOCYTES (AUTO) 1.3 10^3/uL (0.5-4.7); ABSOLUTE MONOCYTES (AUTO) 0.6 10^3/uL (0.1-1.4); ABSOLUTE NEUT (AUTO) 4.7 10^3/uL (1.7-8.2); BASOPHILS % (AUTO) 0.6 % (0-2); EOSINOPHILS % (AUTO) 2.1 % (0-6); HEMATOCRIT 33.3 % (37.9-51.0); HEMOGLOBIN 11.1 g/dL (13.5-17.0); LYMPHOCYTES % (AUTO) 19.3 % (13-45); MEAN CORPUSCULAR HEMOGLOBIN 31.2 pg (27.0-33.4); MEAN CORPUSCULAR HGB CONC 33.2 g/dL (32.0-36.0); MEAN CORPUSCULAR VOLUME 94 fl (80-97); MONOCYTES % (AUTO) 8.9 % (3-13); PLATELET COUNT 222 10^3/uL (150-450); RED BLOOD COUNT 3.54 10^6/uL (4.35-5.55); RED CELL DISTRIBUTION WIDTH 14.8 % (11.5-14.0); SEGMENTED NEUTROPHILS % (AUTO) 69.1 % (42-78); TOTAL CELLS COUNTED % (AUTO) 100 %; WHITE BLOOD COUNT 6.9 10^3/uL (4.0-10.5)
[2019-06-11 08:57] LABS: ALBUMIN 4.4 g/dL (3.5-5.0); ALKALINE PHOSPHATASE 75 U/L (38-126); ANION GAP 11 (5-19); ASPARTATE AMINO TRANSFERASE 29 U/L (17-59); BILIRUBIN,DIRECT 0.4 mg/dL (0.0-0.4); BILIRUBIN,TOTAL 0.4 mg/dL (0.2-1.3); BLOOD UREA NITROGEN 95 mg/dL (7-20); CALCIUM 10.1 mg/dL (8.4-10.2); CARBON DIOXIDE 24 mmol/L (22-30); CHLORIDE 106 mmol/L (98-107); CHOLESTEROL 148.52 mg/dL (0-200); GLUCOSE 45 mg/dL (75-110); POTASSIUM 5.4 mmol/L (3.6-5.0); TOTAL PROTEIN 7.4 g/dL (6.3-8.2); TRIGLYCERIDES 85 mg/dL (<150)
[2019-06-11 09:11] LABS: DIRECT LDL 63 mg/dL (<100)
== END ==
LOC: OD 14:50
PROVIDERS: ATTEND Specialist
DX: I25.10 Atherosclerotic heart disease of native coronary artery without angina pectoris (principal); I13.0 Hypertensive heart and chronic kidney disease with heart failure and stage 1 through stage 4 chronic kidney disease, or unspecified chronic kidney disease; I50.1 Left ventricular failure, unspecified; N18.4 Chronic kidney disease, stage 4 (severe); E08.22 Diabetes mellitus due to underlying condition with diabetic chronic kidney disease; E78.49 Other hyperlipidemia; I31.3 Pericardial effusion (noninflammatory); I25.5 Ischemic cardiomyopathy; Z98.61 Coronary angioplasty status; R01.1 Cardiac murmur, unspecified; N40.0 Benign prostatic hyperplasia without lower urinary tract symptoms; I48.0 Paroxysmal atrial fibrillation; I27.89 Other specified pulmonary heart diseases; I42.9 Cardiomyopathy, unspecified; Z79.899 Other long term (current) drug therapy; Z95.1 Presence of aortocoronary bypass graft
CPT/HCPCS: 36415; 80048; 80061; 80076; 83036; 83735; 85025

== ENCOUNTER → 2019-07-17 | Outpatient (CLI) | payer MEDICARE, OTHER | LOC: OD 13:54 | PROVIDERS: ATTEND Specialist | DX: I25.10 Atherosclerotic heart disease of native coronary artery without angina pectoris (principal); I13.0 Hypertensive heart and chronic kidney disease with heart failure and stage 1 through stage 4 chronic kidney disease, or unspecified chronic kidney disease; I50.1 Left ventricular failure, unspecified; N18.4 Chronic kidney disease, stage 4 (severe); E78.49 Other hyperlipidemia; E08.22 Diabetes mellitus due to underlying condition with diabetic chronic kidney disease; I27.89 Other specified pulmonary heart diseases; I42.9 Cardiomyopathy, unspecified; I31.3 Pericardial effusion (noninflammatory); I25.5 Ischemic cardiomyopathy; R01.1 Cardiac murmur, unspecified; N40.0 Benign prostatic hyperplasia without lower urinary tract symptoms; I48.0 Paroxysmal atrial fibrillation; R00.0 Tachycardia, unspecified; I25.2 Old myocardial infarction; Z98.61 Coronary angioplasty status; Z79.899 Other long term (current) drug therapy; Z95.1 Presence of aortocoronary bypass graft | CPT/HCPCS: 36415; 85652; 86140 ==

== ENCOUNTER → 2019-08-20 | Outpatient (CLI) | payer OTHER, MEDICARE ==
[2019-08-20 12:48] LABS: ABSOLUTE EOSINOPHILS # (AUTO) 0.1 10^3/uL (0.0-0.6); ABSOLUTE LYMPHOCYTES (AUTO) 0.5 10^3/uL (0.5-4.7); ABSOLUTE MONOCYTES (AUTO) 0.5 10^3/uL (0.1-1.4); ABSOLUTE NEUT (AUTO) 6.7 10^3/uL (1.7-8.2); BASOPHILS % (AUTO) 0.4 % (0-2); EOSINOPHILS % (AUTO) 1.5 % (0-6); HEMATOCRIT 30.6 % (37.9-51.0); HEMOGLOBIN 10.1 g/dL (13.5-17.0); LYMPHOCYTES % (AUTO) 6.6 % (13-45); MEAN CORPUSCULAR HEMOGLOBIN 29.7 pg (27.0-33.4); MEAN CORPUSCULAR VOLUME 90 fl (80-97); PLATELET COUNT 231 10^3/uL (150-450); RED CELL DISTRIBUTION WIDTH 15.5 % (11.5-14.0); SEGMENTED NEUTROPHILS % (AUTO) 85.5 % (42-78); TOTAL CELLS COUNTED % (AUTO) 100 %; WHITE BLOOD COUNT 7.8 10^3/uL (4.0-10.5)
[2019-08-20 13:10] LABS: ALKALINE PHOSPHATASE 76 U/L (38-126); ANION GAP 11 (5-19); ASPARTATE AMINO TRANSFERASE 23 U/L (17-59); BILIRUBIN,DIRECT 0.1 mg/dL (0.0-0.4); BILIRUBIN,TOTAL 0.8 mg/dL (0.2-1.3); BLOOD UREA NITROGEN 57 mg/dL (7-20); CARBON DIOXIDE 23 mmol/L (22-30); CHLORIDE 106 mmol/L (98-107); GLUCOSE 259 mg/dL (75-110); TOTAL PROTEIN 6.9 g/dL (6.3-8.2)
[2019-08-20 13:23] LABS: APPEARANCE,URINE SLIGHTLY-CLOUDY; BILIRUBIN,URINE NEGATIVE (NEGATIVE); COLOR,URINE YELLOW; GLUCOSE, URINE 50 mg/dL (NEGATIVE); KETONES,URINE NEGATIVE (NEGATIVE); LEUKOCYTE ESTERASE,URINE NEGATIVE (NEGATIVE); NITRITE,URINE NEGATIVE (NEGATIVE); PROTEIN,URINE 100 mg/dL (NEGATIVE); URINE SPECIFIC GRAVITY 1.014; UROBILINOGEN,URINE NEGATIVE mg/dL (<2.0)
== END ==
LOC: OD 11:48
PROVIDERS: ATTEND Specialist
DX: I20.9 Angina pectoris, unspecified (principal); I42.9 Cardiomyopathy, unspecified; E78.5 Hyperlipidemia, unspecified; I10 Essential (primary) hypertension; Z79.899 Other long term (current) drug therapy; Z79.84 Long term (current) use of oral hypoglycemic drugs; Z79.82 Long term (current) use of aspirin; Z88.5 Allergy status to narcotic agent; Z88.8 Allergy status to other drugs, medicaments and biological substances; Z87.891 Personal history of nicotine dependence
CPT/HCPCS: 36415; 80053; 81001; 85025; 87086

== ENCOUNTER 2019-08-25 13:04 | Outpatient (CLI) | payer OTHER, MEDICARE ==
[~2019-08-25 13:04] MED LIST: FERRIC CARBOXYMALTOSE 750 MG in NORMAL SALINE 250 ML IV PRN
[2019-08-25 13:47] VITALS: BP 137/62
== END 2019-08-25 14:20 | disposition home or self-care (01) ==
LOC: II 13:04 → 5TH 13:06 → II 14:20
PROVIDERS: ATTEND Internal Medicine Nephrology
DX: D50.8 Other iron deficiency anemias (principal)
CPT/HCPCS: 96365; J7050; J1439

== ENCOUNTER 2019-08-25 20:06 | Inpatient (IN) | payer OTHER, MEDICARE ==
[2019-08-25 21:12] LABS: APPEARANCE,URINE CLEAR; BILIRUBIN,URINE NEGATIVE (NEGATIVE); COLOR,URINE YELLOW; GLUCOSE, URINE NEGATIVE (NEGATIVE); KETONES,URINE NEGATIVE (NEGATIVE); LEUKOCYTE ESTERASE,URINE NEGATIVE (NEGATIVE); NITRITE,URINE NEGATIVE (NEGATIVE); PROTEIN,URINE 100 mg/dL (NEGATIVE); URINE SPECIFIC GRAVITY 1.009; UROBILINOGEN,URINE NEGATIVE mg/dL (<2.0)
[2019-08-25 21:15] LABS: ADD MANUAL MICROSCOPIC YES
--- NOTE | 2019-08-25 21:46 | ER Document Report ---
ED General - General Chief Complaint: Shortness Of Breath Stated Complaint: IREGULAR LABS Time Seen by Provider: 08/25/19 21:08 Notes: Patient is a 69-year-old male who presents to the emergency department with a chief complaint of a fever. Patient states that he had an iron transfusion today in the hospital. When he went home he ended up having a fever. He spoke to Dr. Moss, who referred him to the emergency department. Patient denies a cough or new shortness of breath. Patient states, "I have been short of breath for the past 10 months." States that he started to have shortness of breath a week ago. Patient has history of congestive heart failure, diabetes, myocardial infarction. Denies any chest pain at this time. TRAVEL OUTSIDE OF THE [place] IN LAST 30 DAYS: No - Related Data Allergies/Adverse Reactions: codeine [Codeine] Allergy (Verified 04/16/19 09:31) hydrocodone bitartrate [From Vicodin] Allergy (Verified 04/16/19 09:31) Home Medications: call Past Medical History - General Information source: Patient - Social History Smoking Status: Never Smoker Chew tobacco use (# tins/day): No Frequency of alcohol use: None Drug Abuse: None Family History: CAD, Hypertension, Other - Also full siblings and parents with hypertension and coronary artery disease. Father and mother both with complications related to [place]. Patient has homicidal ideation: No - Past Medical History Cardiac Medical History: Reports: Hx Congestive Heart Failure, Hx Coronary Artery Disease, Hx Heart Attack - 1991, Hx Hypercholesterolemia, Hx Hypertension - MEDICATED Pulmonary Medical History: Denies: Hx Asthma, Hx COPD Neurological Medical History: Denies: Hx Cerebrovascular Accident, Hx Seizures Endocrine Medical History: Reports: Hx Diabetes Mellitus Type 2 Renal/ Medical History: Reports: Hx End Stage Renal Disease - STAGE 4 KIDNEY DISEASE, NO DIALYSIS, Hx Renal Insufficiency. Denies: Hx Peritoneal Dialysis GI Medical History: Reports: Hx Gastroesophageal Reflux Disease. Denies: Hx Hepatitis, Hx Hiatal Hernia, Hx Ulcer Musculoskeletal Medical History: Denies Hx Fibromyalgia Skin Medical History: Denies Hx Eczema Psychiatric Medical History: Reports: Hx Dementia, Hx Depression Traumatic Medical History: Denies: Hx Traumatic Brain Injury Infectious Medical History: Denies: Hx Hepatitis Past Surgical History: Reports: Hx Cardiac Catheterization - stents x2, Hx Cardiac Surgery - CABG, Hx Coronary Stent - RCA complicated by cardiac arrest. Denies: Hx Open Heart Surgery, Hx Pacemaker - Immunizations Hx Pneumococcal Vaccination: 11/15/18 Review of Systems - Review of Systems Notes: REVIEW OF SYSTEMS: CONSTITUTIONAL : Denies recent illness. Denies recent unintentional weight loss. See HPI. EENT: Denies eye, ear, throat, or mouth pain, discharge, or symptoms. Denies nasal or sinus congestion. CARDIOVASCULAR: Denies chest pain. RESPIRATORY: See HPI. GASTROINTESTINAL: Denies nausea, vomiting, and diarrhea. Denies abdominal pain. Denies constipation. GENITOURINARY: Denies difficulty urinating, burning, blood in urine, urgency or frequency. MUSCULOSKELETAL: Denies neck and back pain. Denies joint pain or swelling. SKIN: Denies rash, itchiness, or lesions HEMATOLOGIC : Denies easy bruising or bleeding. LYMPHATIC: Denies swollen, painful, enlarged glands. NEUROLOGICAL: Denies no numbness or tingling denies weakness. Denies headache. Denies altered mental status. Denies alteration in speech. PSYCHIATRIC: Denies stress, anxiety, alteration in sleep patterns, or depression. All other systems reviewed and negative. Physical Exam - Vital signs Vitals: Temp Pulse Resp BP Pulse Ox 98.8 F 79 20 137/68 H 97 08/25/19 20:14 08/25/19 20:14 08/25/19 20:14 08/25/19 20:14 08/25/19 20:14 - Notes Notes: PHYSICAL EXAMINATION: GENERAL: Appears well, healthy, well-nourished, no acute distress. HEAD: Normocephalic, atraumatic. EYES: PERRL, conjunctiva normal, all extraocular movements intact, sclera nonicteric ENT: Moist mucous membranes. NECK: Supple, no noticeable swelling, redness, rash. Normal range of motion. LUNGS: Equal breath sounds bilaterally and clear to auscultation in upper lobes, slightly diminished in the bases. Tachypneic on exertion. No wheezes rales or rhonchi. CARDIOVASCULAR: S1-S2, regular rate, regular rhythm. Radial pulses 2+, normal. ABDOMEN: Normoactive bowel sounds. Soft, nontender, no guarding, no rebound tenderness, and no masses palpated. EXTREMITIES: Normal strength and range of motion, no pitting or edema. No cyanosis. NEUROLOGICAL: Moves all extremities upon command. Strength 5/5 in all extremities. PSYCH: Normal mood, normal affect. SKIN: Warm, dry. No rash, lesions, ulcerations noted. Normal skin turgor. Course - Re-evaluation Re-evalutation: 08/26/19 00:33 Patient's BNP is 58,200, which is markedly elevated from his last reported BNP of 14,200 on June 05. Due to the patient having shortness of breath for the past week, this is most likely due to his congestive heart failure. Chest x-ray shows cardiomegaly with mild pulmonary edema with small effusions. I made initial assessment, the patient was slightly tachypneic. He was alert and oriented, in no acute distress. Hemoglobin is 9.9 hematocrit is 29.7. This is the patient's baseline. BUN and creatinine are elevated, but this is also the patient's baseline. I attempted to page Dr. Moss. Await call back. 08/26/19 01:06 I attempted to page Dr. Moss. Await call back again. 08/26/19 I did not receive a call back from Dr. Moss, but I spoke with Dr. Rosario, the hospitalist. Patient will be admitted to the hospitalist service for an acute CHF exacerbation. Troponin was unremarkable. Patient was ordered Lasix. - Vital Signs Vital signs: Temp Pulse Resp BP Pulse Ox 99.1 F 75 14 131/68 H 95 08/26/19 12:05 08/26/19 12:05 08/26/19 12:05 08/26/19 12:05 08/26/19 12:05 - Laboratory Result Diagrams: 08/25/19 21:58 08/25/19 21:58 Laboratory results interpreted by me: 08/25/19 08/25/19 08/25/19 20:32 21:58 21:58 RBC 3.32 L Hgb 9.9 L Hct 29.7 L RDW 15.6 H Lymph % (Auto) 9.8 L BUN 69 H Creatinine 2.81 H Est GFR ( Amer) 27 L Est GFR (MDRD) Non-Af 22 L Glucose 71 L Iron Transferrin NT-Pro-B Natriuret Pep Vitamin B12 Urine Protein 100 H 08/25/19 08/25/19 08/25/19 21:58 21:58 21:58 RBC Hgb Hct RDW Lymph % (Auto) BUN Creatinine Est GFR ( Amer) Est GFR (MDRD) Non-Af Glucose Iron 630.7 H Transferrin 194.51 L NT-Pro-B Natriuret Pep 28485 H Vitamin B12 > 1000.0 H Urine Protein Discharge - Discharge Clinical Impression: Subjective fever CHF (congestive heart failure) Qualifiers: Heart failure type: unspecified Heart failure chronicity: acute on chronic Qualified Code(s): I50.9 - Heart failure, unspecified CHF exacerbation Qualifiers: Heart failure type: unspecified Qualified Code(s): I50.9 - Heart failure, unspe cified Condition: Stable Disposition: ADMITTED INPATIENT Admitting Provider: Abraham (Hospitalist) Unit Admitted: Telemetry
[2019-08-25 22:14] LABS: ABSOLUTE BASOPHILS # (AUTO) 0.1 10^3/uL (0.0-0.2); ABSOLUTE EOSINOPHILS # (AUTO) 0.3 10^3/uL (0.0-0.6); ABSOLUTE LYMPHOCYTES (AUTO) 0.9 10^3/uL (0.5-4.7); ABSOLUTE MONOCYTES (AUTO) 0.8 10^3/uL (0.1-1.4); ABSOLUTE NEUT (AUTO) 7.2 10^3/uL (1.7-8.2); BASOPHILS % (AUTO) 1.3 % (0-2); EOSINOPHILS % (AUTO) 2.8 % (0-6); HEMATOCRIT 29.7 % (37.9-51.0); HEMOGLOBIN 9.9 g/dL (13.5-17.0); LYMPHOCYTES % (AUTO) 9.8 % (13-45); MEAN CORPUSCULAR HEMOGLOBIN 29.7 pg (27.0-33.4); MEAN CORPUSCULAR HGB CONC 33.2 g/dL (32.0-36.0); MEAN CORPUSCULAR VOLUME 90 fl (80-97); PLATELET COUNT 293 10^3/uL (150-450); RED BLOOD COUNT 3.32 10^6/uL (4.35-5.55); RED CELL DISTRIBUTION WIDTH 15.6 % (11.5-14.0); SEGMENTED NEUTROPHILS % (AUTO) 77.1 % (42-78); TOTAL CELLS COUNTED % (AUTO) 100 %; WHITE BLOOD COUNT 9.3 10^3/uL (4.0-10.5)
[2019-08-25 22:33] LABS: ALKALINE PHOSPHATASE 79 U/L (38-126); ANION GAP 11 (5-19); ASPARTATE AMINO TRANSFERASE 24 U/L (17-59); BILIRUBIN,DIRECT 0.2 mg/dL (0.0-0.4); BILIRUBIN,TOTAL 0.8 mg/dL (0.2-1.3); BLOOD UREA NITROGEN 69 mg/dL (7-20); CALCIUM 10.1 mg/dL (8.4-10.2); CARBON DIOXIDE 22 mmol/L (22-30); CHLORIDE 107 mmol/L (98-107); GLUCOSE 71 mg/dL (75-110); POTASSIUM 4.8 mmol/L (3.6-5.0)
--- NOTE | 2019-08-25 22:35 | RADIOLOGY REPORT (SQ) ---
EXAM DESCRIPTION: XR CHEST 1 VIEW COMPLETED DATE/TME: 08/25/2019 21:45 CLINICAL HISTORY: 69 years, Male, fever COMPARISON: 06/06/2019 NUMBER OF VIEWS: 1 TECHNIQUE: Portable chest LIMITATIONS: None. FINDINGS: Cardiomegaly. Postsurgical changes of the mediastinum. Mild diffuse interstitial edema. Tiny bibasilar effusions and/or pleural thickening. Lungs are otherwise clear. No pneumothorax IMPRESSION: Cardiomegaly with mild diffuse interstitial edema. Tiny effusions and/or pleural thickening copyright 2010 [employer]- All Rights Reserved
[2019-08-26] MEDS ORDERED: FUROSEMIDE INJ/PF 40 MG/4 ML SDV IV ONE (01:06)
[2019-08-26] MEDS ORDERED: GLUCAGON,HUMAN RECOMB 1 MG INJ IM PRN (02:07)
[2019-08-26] MEDS ORDERED: DEXTROSE 50%-WATER 25 GM/50 ML DISP.SYRIN IV PRN ×2 (02:07)
[2019-08-26] MEDS ORDERED: MAG HYDROX/AL HYDROX/SIMETH SUSP 30 ML UDCUP PO PRN (02:07)
[2019-08-26] MEDS ORDERED: MAGNESIUM HYDROXIDE SUSP 30 ML UDCUP PO PRN (02:07)
[2019-08-26] MEDS ORDERED: ACETAMINOPHEN 325 MG TABLET PO PRN (02:07)
[2019-08-26] MEDS ORDERED: DEXTROSE 40% GEL 15 GM TUBE PO PRN ×2 (02:07)
[2019-08-26] MEDS ORDERED: LACTULOSE SYRUP 20 GM/30 ML UDCUP PO ONE (02:11)
[2019-08-26] MEDS ORDERED: NITROGLYCERIN 5 MG (0.2 MG/HR) PATCH.TD24 TD ONE (02:30)
[2019-08-26] MEDS ORDERED: FUROSEMIDE INJ/PF 40 MG/4 ML SDV ONE (03:08)
--- NOTE | 2019-08-26 04:58 | PDOC H&P ---
History of Present Illness Admission Date/PCP: 08/26/19 02:18 NANCI MCMILLAN MD Patient complains of: Shortness of breath History of Present Illness: MALINDA CROCKETT is a 69 year old male with a past medical history of stage IV chronic kidney disease, congestive heart failure with ejection fraction of 25%, coronary artery bypass with subsequent stent, high frequency PVCs, diabetes and hypertension. Patient presents to the emergency department with a chief complaint of fever following iron transfusion received in the hospital. He was subsequently referred to the emergency department by his hired hand Dr. Nathan Moss. He admits shortness of breath, orthopnea and palpitations but denies productive cough, nausea vomiting, abdominal pain or dysuria. In the emergency department his work-up is remarkable for tachypnea, hemoglobin of 9.9 and a BNP of 58,000 with a chest x-ray suggestive of pulmonary vascular congestion. He received IV Lasix and referred to the hospitalist for admission. Denying leg swelling, cough, chest pain nausea or vomiting. He denies recent change in diet or OTC or prescribed medication regiment. Past Medical History Cardiac Medical History: Reports: Congestive Heart Failure, Coronary Artery Disease, Myocardial Infarction - 1991, Hyperlipidema, Hypertension - MEDICATED Pulmonary Medical History: Denies: Asthma, Chronic Obstructive Pulmonary Disease (COPD) Neurological Medical History: Denies: Seizures Endocrine Medical History: Reports: Diabetes Mellitus Type 2 Renal/ Medical History: Reports: End Stage Renal Disease - STAGE 4 KIDNEY DISEASE, NO DIALYSIS GI Medical History: Reports: Gastroesophageal Reflux Disease Denies: Hepatitis, Hiatal Hernia Musculoskeltal Medical History: Denies: Fibromyalgia Skin Medical History: Denies: Eczema Psychiatric Medical History: Reports: Dementia, Depression Traumatic Medical History: Denies: Traumatic Brain Injury Hematology: Denies: Anemia, Sickle Cell Disease Past Surgical History Past Surgical History: Reports: Cardiac Catheterization - stents x2, Coronary Stent - RCA complicated by cardiac arrest Denies: Pacemaker Social History Information Source: Patient, [facility] Records Lives with: Spouse/Significant other Smoking Status: Never Smoker Electronic Cigarette use?: No Frequency of Alcohol Use: None Hx Recreational Drug Use: No Drugs: None Hx Prescription Drug Abuse: No - Advance Directive Resuscitation Status: Full Code Family History Family History: CAD, Hypertension, Other - Also full siblings and parents with h ypertension and coronary artery disease. Father and mother both with complications related to [place]. Parental Family History Reviewed: Yes Children Family History Reviewed: Yes Sibling(s) Family History Reviewed.: Yes Medication/Allergy Home Medications: Donepezil HCl [Aricept] 10 mg PO QHS 02/18/17 Glimepiride [Amaryl] 2 mg PO DAILY 02/18/17 Omeprazole 20 mg PO Q6AM 02/18/17 Prednisone [Deltasone 5 mg Tablet] 5 mg PO DAILY 02/18/17 Sertraline HCl [Zoloft 50 mg Tablet] 150 mg PO DAILY 09/27/18 Acetaminophen [Tylenol] 650 mg PO QID 04/16/19 Aspirin [Ecotrin 81 mg EC Tablet] 81 mg PO QHS 04/16/19 Atorvastatin Calcium [Lipitor 40 mg Tablet] 20 mg PO QHS 04/16/19 B Complex W-C No.20/Folic Acid [Renal Caps Softgel] 1 mg PO DAILY 04/16/19 Chance/D3/Mag11/Zinc/Geometrician/Hosea/Bor [Caltrate 600+D Plus Tablet] 1 tab PO TID 04/16/19 Cyanocobalamin/Folic AC/Vit B6 [Folbic Tablet] 1 tab PO DAILY 04/16/19 Melatonin [Melatonin 3 mg Tablet] 9 mg PO QHS 04/16/19 Sodium Bicarbonate [Sodium Bicarbonate 650 mg Tablet] 650 mg PO DAILY 04/16/19 Vitamin B Complex [Vitamin B Complex Tablet] 1 tab PO DAILY 04/16/19 Insulin Lispro [Humalog Insulin (Lispro) 100 unit/mL] 0 unit SUBCUT .SLD SCALE 06/02/19 Furosemide [Lasix 20 mg Tablet] 40 mg PO DAILY #60 06/07/19 Hydralazine HCl [Apresoline 10 mg Tablet] 10 mg PO TID #100 tablet 06/07/19 Insulin Glargine,Hum.rec.anlog [Basaglar Kwikpen U-100] 10 unit SQ QAM #0 06/07/19 Insulin Glargine,Hum.rec.anlog [Basaglar Kwikpen U-100] 10 unit SQ QHS #0 06/07/19 Metoprolol Succinate [Toprol Xl 25 mg Tab.sr] 25 mg PO Q12 #60 tab.sr.24h 06/07/19 Valsartan [Diovan 80 mg Tablet] 80 mg PO Q12 #60 tablet 06/07/19 Allergies/Adverse Reactions: codeine [Codeine] Allergy (Verified 04/16/19 09:31) hydrocodone bitartrate [From Vicodin] Allergy (Verified 04/16/19 09:31) Review of Systems Constitutional: ABSENT: chills, fever(s), headache(s), weight gain, weight loss Eyes: ABSENT: visual disturbances Ears: ABSENT: hearing changes Cardiovascular: ABSENT: chest pain, dyspnea on exertion, edema, orthropnea, palpitations Respiratory: ABSENT: cough, hemoptysis Gastrointestinal: ABSENT: abdominal pain, constipation, diarrhea, hematemesis, hematochezia, nausea, vomiting Genitourinary: ABSENT: dysuria, hematuria Musculoskeletal: ABSENT: joint swelling Integumentary: ABSENT: rash, wounds Neurological: ABSENT: abnormal gait, abnormal speech, confusion, dizziness, focal weakness, syncope Psychiatric: ABSENT: anxiety, depression, homidical ideation, suicidal ideation Endocrine: ABSENT: cold intolerance, heat intolerance, polydipsia, polyuria Hematologic/Lymphatic: ABSENT: easy bleeding, easy bruising Physical Exam Vital Signs: Temp Pulse Resp BP Pulse Ox 98.2 F 84 20 144/71 H 99 08/26/19 04:06 08/26/19 04:06 08/26/19 04:06 08/26/19 04:06 08/26/19 04:06 Intake & Output 08/24/19 08/25/19 08/26/19 11:59 11:59 11:59 Weight 71.214 kg General appearance: PRESENT: no acute distress, well-developed, well-nourished Head exam: PRESENT: atraumatic, normocephalic Eye exam: PRESENT: conjunctiva pink, EOMI, PERRLA. ABSENT: scleral icterus Ear exam: PRESENT: normal external ear exam Mouth exam: PRESENT: moist, tongue midline Neck exam: ABSENT: carotid bruit, JVD, lymphadenopathy, thyromegaly Respiratory exam: PRESENT: accessory muscle use, crackles, symmetrical, tachypnea. ABSENT: rales, rhonchi, wheezes Cardiovascular exam: PRESENT: RRR. ABSENT: diastolic murmur, rubs, systolic murmur Pulses: PRESENT: normal dorsalis pedis pul Vascular exam: PRESENT: normal capillary refill GI/Abdominal exam: PRESENT: normal bowel sounds, soft. ABSENT: distended, guarding, mass, organolmegaly, rebound, tenderness Rectal exam: PRESENT: deferred Extremities exam: PRESENT: full ROM. ABSENT: calf tenderness, clubbing, pedal edema Neurological exam: PRESENT: alert, awake, oriented to person, oriented to place, oriented to time, oriented to situation, CN II-XII grossly intact. ABSENT: motor sensory deficit Psychiatric exam: PRESENT: appropriate affect, normal mood. ABSENT: homicidal ideation, suicidal ideation Skin exam: PRESENT: dry, intact, warm. ABSENT: cyanosis, rash Results Laboratory Results: 08/25/19 21:58 08/25/19 21:58 08/25/19 08/25/19 08/25/19 20:32 21:58 21:58 WBC 9.3 RBC 3.32 L Hgb 9.9 L Hct 29.7 L MCV 90 MCH 29.7 MCHC 33.2 RDW 15.6 H Plt Count 293 Seg Neutrophils % 77.1 Sodium 139.9 Potassium 4.8 Chloride 107 Carbon Dioxide 22 Anion Gap 11 BUN 69 H Creatinine 2.81 H Est GFR ( Amer) 27 L Glucose 71 L Lactic Acid Calcium 10.1 Magnesium Total Bilirubin 0.8 AST 24 Alkaline Phosphatase 79 Total Protein 7.0 Albumin 4.0 TSH Urine Color YELLOW Urine Appearance CLEAR Urine pH 5.0 Ur Specific [place] 1.009 Urine Protein 100 H Urine Glucose (UA) NEGATIVE Urine Ketones NEGATIVE Urine Blood NEGATIVE Urine Nitrite NEGATIVE Ur Leukocyte Esterase NEGATIVE 08/25/19 08/25/19 08/25/19 21:58 21:58 21:58 WBC RBC Hgb Hct MCV MCH MCHC RDW Plt Count Seg Neutrophils % Sodium Potassium Chloride Carbon Dioxide Anion Gap BUN Creatinine Est GFR ( Amer) Glucose Lactic Acid 0.9 Calcium Magnesium 2.0 Total Bilirubin AST Alkaline Phosphatase Total Protein Albumin TSH 1.73 Urine Color Urine Appearance Urine pH Ur Specific [place] Urine Protein Urine Glucose (UA) Urine Ketones Urine Blood Urine Nitrite Ur Leukocyte Esterase 08/25/19 08/25/19 21:58 21:58 Troponin I 0.051 NT-Pro-B Natriuret Pep 18705 H Impressions: Chest X-Ray 08/25/19 21:45 IMPRESSION: Cardiomegaly with mild diffuse interstitial edema. Tiny effusions and/or pleural thickening copyright 2011 [employer]- All Rights Reserved Assessment and Plan - Diagnosis (1) CHF (congestive heart failure) Qualifiers: Heart failure type: unspecified Heart failure chronicity: acute on chronic Qualified Code(s): I50.9 - Heart failure, unspecified Is this a current diagnosis for this admission?: Yes Plan: Multifactorial exacerbation likely secondary to anemia and high frequency PVCs with an ejection fraction of 25%. CHF care set deployed, telemetry monitoring, IV Lasix, follow-up serial troponin, chemistry, anemia work-up, strict I's and O's. Strongly consider referral for permanent pacemaker. (2) Acute on chronic renal failure Is this a current diagnosis for this admission?: Yes Plan: At baseline, avoid nephrotoxic meds and doses follow-up chemistry and consider nephrology consult. (3) Anemia Qualifiers: Anemia type: iron deficiency Qualified Code(s): D64.9 - Anemia, unspecified Is this a current diagnosis for this admission?: Yes Plan: Likely secondary to chronic kidney disease, received IV iron, follow-up iron level and nephrology consult and consideration of Epogen. (4) Diabetes Qualifiers: Diabetes mellitus type: type 2 Diabetes mellitus complication status: with kidney complications Is this a current diagnosis for this admission?: Yes Plan: Humalog sliding scale q. before meals and Lantus daily.
[2019-08-26] MEDS: HEPARIN SOD (PORCINE) 5,000 UNIT/ML 1 ML VIAL SUBCUT SCH ×3 (05:12→21:49)
[2019-08-26 05:37] LABS: RETICULOCYTE COUNT (AUTO) 0.91 % (0.66-2.85)
[2019-08-26 06:04] LABS: IRON(TIBC) 630.7 ug/dL (49-181)
[2019-08-26 06:58] LABS: FOLATE > 20.00 ng/mL (>2.76)
[2019-08-26] MEDS: INSULIN LISPRO 100 UNIT/ML 3 ML VIAL SUBCUT SCH ×3 (09:10→17:05)
[2019-08-26] MEDS: DOCUSATE SODIUM 100 MG CAPSULE PO SCH (09:31)
[2019-08-26] MEDS: POTASSIUM CHLORIDE 10 MEQ TABLET.ER PO SCH ×2 (09:31→21:49)
[2019-08-26] MEDS: FUROSEMIDE INJ/PF 40 MG/4 ML SDV IV SCH ×2 (09:31→21:41)
[2019-08-26] MEDS: INSULIN GLARGINE,HUM.REC.ANLOG 1,000 UNIT/10 ML VIAL SUBCUT SCH (09:32)
--- NOTE | 2019-08-26 10:18 | PDOC CONSULTATION ---
Consultation-Blank Consultation: Past Medical History Cardiac Medical History: Reports: Congestive Heart Failure, Coronary Artery Disease, Myocardial Infarction - 1991, Hyperlipidema, Hypertension - MEDICATED Pulmonary Medical History: Denies: Asthma, Chronic Obstructive Pulmonary Disease (COPD) Neurological Medical History: Denies: Seizures Endocrine Medical History: Reports: Diabetes Mellitus Type 2 Renal/ Medical History: Reports: End Stage Renal Disease - STAGE 4 KIDNEY DISEASE, NO DIALYSIS GI Medical History: Reports: Gastroesophageal Reflux Disease Denies: Hepatitis, Hiatal Hernia Musculoskeltal Medical History: Denies: Fibromyalgia Skin Medical History: Denies: Eczema Psychiatric Medical History: Reports: Dementia, Depression Traumatic Medical History: Denies: Traumatic Brain Injury Hematology: Denies: Anemia, Sickle Cell Disease Past Surgical History Past Surgical History: Reports: Cardiac Catheterization - stents x2, Coronary Stent - RCA complicated by cardiac arrest History of coronary artery bypass graft surgery denies: Pacemaker Social History Information Source: Patient Lives with: Family Smoking Status: Former Smoker Frequency of Alcohol Use: None Hx Recreational Drug Use: No Drugs: None Hx Prescription Drug Abuse: No - Advance Directive Resuscitation Status: Full Code. The patient's is a surrogate healthcare decision maker. Family History Family History: CAD, Hypertension, Other - Also full siblings and parents with hypertension and coronary artery disease. Father and mother both with complications related to [place]. Parental Family History Reviewed: No Children Family History Reviewed: Yes Sibling(s) Family History Reviewed.: Yes Medication/Allergy Home Medications: Donepezil HCl [Aricept] 10 mg PO QHS 02/18/17 Glimepiride [Amaryl] 2 mg PO DAILY 02/18/17 Omeprazole 20 mg PO Q6AM 02/18/17 Prednisone [Deltasone 5 mg Tablet] 5 mg PO DAILY 02/18/17 Insulin Glargine,Hum.rec.anlog [Basaglar Kwikpen U-100] 12 unit SQ QHS 09/27/18 Sertraline HCl [Zoloft 50 mg Tablet] 150 mg PO DAILY 09/27/18 Acetaminophen [Tylenol] 650 mg PO QIDP PRN 04/16/19 Aspirin [Ecotrin 81 mg EC Tablet] 81 mg PO QHS 04/16/19 Atorvastatin Calcium [Lipitor 40 mg Tablet] 40 mg PO QHS 04/16/19 B Complex W-C No.20/Folic Acid [Renal Caps Softgel] 1 mg PO DAILY 04/16/19 Chance/D3/Mag11/Zinc/Sensitometrist/[place]osea/Bor [Caltrate 600+D Plus Tablet] 1 tab PO TID 04/16/19 Cyanocobalamin/Folic AC/Vit B6 [Folbic Tablet] 1 tab PO DAILY 04/16/19 Hydralazine HCl [Apresoline 25 mg Tablet] 25 mg PO Q12 04/16/19 Insulin Glargine,Hum.rec.anlog [Jongagldrew Padgetthansel U-100] 17 unit SQ QAM 04/16/19 Melatonin [Melatonin 3 mg Tablet] 9 mg PO QHS 04/16/19 Sodium Bicarbonate [Sodium Bicarbonate 650 mg Tablet] 650 mg PO DAILY 04/16/19 Vitamin B Complex [Vitamin B Complex Tablet] 1 tab PO DAILY 04/16/19 Furosemide [Lasix 20 mg Tablet] 20 mg PO DAILY #30 tablet 04/20/19 Metoprolol Succinate [Toprol Xl 25 mg Tab.sr] 25 mg PO DAILY #30 tab.sr.24h 04/20/19 Allergies/Adverse Reactions: codeine [Codeine] Allergy (Verified 04/16/19 09:31) hydrocodone bitartrate [From Vicodin] Allergy (Verified 04/16/19 09:31) Review of Systems All systems: reviewed and no additional remarkable complaints except as stated Cardiovascular: PRESENT: chest pain, dyspnea on exertion, edema, orthropnea Respiratory: PRESENT: dyspnea Gastrointestinal: PRESENT: diarrhea, nausea
--- NOTE | 2019-08-26 11:10 | EKG REPORT ---
SEVERITY:- ABNORMAL ECG - SINUS RHYTHM MULTIFORM VENTRICULAR PREMATURE COMPLEXES PROBABLE LEFT ATRIAL ABNORMALITY BORDERLINE LEFT AXIS DEVIATION REPOL ABNRM SUGGESTS ISCHEMIA, LATERAL LEADS : Confirmed by: Evette Peña MD 26-Aug-2019 11:09:42
--- NOTE | 2019-08-26 14:37 | PDOC PROGRESS REPORT ---
Subjective Progress Note for:: 08/26/19 Subjective:: Patient reports he is feeling okay. He did bring up the reflux issue. He denies postnasal drip. He states that when he stands up fluid comes out of his mouth. He does not feel that he is having emesis. Reason For Visit: HEART FAILURE Physical Exam Vital Signs: Temp Pulse Resp BP Pulse Ox 99.1 F 75 14 131/68 H 95 08/26/19 12:05 08/26/19 12:05 08/26/19 12:05 08/26/19 12:05 08/26/19 12:05 Intake & Output 08/25/19 08/26/19 08/27/19 06:59 06:59 06:59 Intake Total 260 Balance 260 Weight 71 kg General appearance: PRESENT: no acute distress, cooperative, well-developed Head exam: PRESENT: atraumatic, normocephalic Eye exam: PRESENT: conjunctiva pink. ABSENT: scleral icterus Ear exam: PRESENT: normal external ear exam. ABSENT: bleeding, drainage Mouth exam: PRESENT: moist, tongue midline Respiratory exam: PRESENT: clear to auscultation phan, prolonged expiratory phas, symmetrical, unlabored. ABSENT: accessory muscle use, rales, rhonchi, tachypnea, wheezes Cardiovascular exam: PRESENT: RRR, +S1, +S2. ABSENT: irregular rhythm GI/Abdominal exam: PRESENT: normal bowel sounds, soft. ABSENT: distended, guarding, tenderness Rectal exam: PRESENT: deferred Gentrourinary exam: ABSENT: indwelling catheter Extremities exam: ABSENT: pedal edema Musculoskeletal exam: PRESENT: ambulatory, normal inspection Neurological exam: PRESENT: alert, awake, oriented to person, oriented to place, oriented to time, oriented to situation, CN II-XII grossly intact. ABSENT: altered Psychiatric exam: PRESENT: appropriate affect. ABSENT: agitated, anxious Focused psych exam: ABSENT: delusional, paranoid, restlessness Results Laboratory Results: 08/25/19 21:58 08/25/19 21:58 08/25/19 08/25/19 08/25/19 20:32 21:58 21:58 WBC 9.3 RBC 3.32 L Hgb 9.9 L Hct 29.7 L MCV 90 MCH 29.7 MCHC 33.2 RDW 15.6 H Plt Count 293 Seg Neutrophils % 77.1 Retic Count (auto) Sodium 139.9 Potassium 4.8 Chloride 107 Carbon Dioxide 22 Anion Gap 11 BUN 69 H Creatinine 2.81 H Est GFR ( Amer) 27 L Glucose 71 L Lactic Acid Calcium 10.1 Magnesium Iron TIBC % Saturation Transferrin Ferritin Total Bilirubin 0.8 AST 24 Alkaline Phosphatase 79 Total Protein 7.0 Albumin 4.0 Vitamin B12 Folate TSH Urine Color YELLOW Urine Appearance CLEAR Urine pH 5.0 Ur Specific [place] 1.009 Urine Protein 100 H Urine Glucose (UA) NEGATIVE Urine Ketones NEGATIVE Urine Blood NEGATIVE Urine Nitrite NEGATIVE Ur Leukocyte Esterase NEGATIVE 08/25/19 08/25/19 08/25/19 21:58 21:58 21:58 WBC RBC Hgb Hct MCV MCH MCHC RDW Plt Count Seg Neutrophils % Retic Count (auto) Sodium Potassium Chloride Carbon Dioxide Anion Gap BUN Creatinine Est GFR ( Amer) Glucose Lactic Acid 0.9 Calcium Magnesium 2.0 Iron TIBC % Saturation Transferrin Ferritin Total Bilirubin AST Alkaline Phosphatase Total Protein Albumin Vitamin B12 Folate TSH 1.73 Urine Color Urine Appearance Urine pH Ur Specific [place] Urine Protein Urine Glucose (UA) Urine Ketones Urine Blood Urine Nitrite Ur Leukocyte Esterase 08/25/19 08/25/19 08/25/19 21:58 21:58 21:58 WBC RBC Hgb Hct MCV MCH MCHC RDW Plt Count Seg Neutrophils % Retic Count (auto) 0.91 Sodium Potassium Chloride Carbon Dioxide Anion Gap BUN Creatinine Est GFR ( Amer) Glucose Lactic Acid Calcium Magnesium Iron 630.7 H TIBC 282 % Saturation 224 Transferrin 194.51 L Ferritin 105.00 Total Bilirubin AST Alkaline Phosphatase Total Protein Albumin Vitamin B12 > 1000.0 H Folate > 20.00 TSH Urine Color Urine Appearance Urine pH Ur Specific [place] Urine Protein Urine Glucose (UA) Urine Ketones Urine Blood Urine Nitrite Ur Leukocyte Esterase 08/25/19 08/25/19 08/26/19 21:58 21:58 06:20 Troponin I 0.051 0.111 NT-Pro-B Natriuret Pep 24132 H 08/26/19 12:25 Troponin I 0.129 NT-Pro-B Natriuret Pep Impressions: Chest X-Ray 08/25/19 21:45 IMPRESSION: Cardiomegaly with mild diffuse interstitial edema. Tiny effusions and/or pleural thickening copyright 2011 [employer]- All Rights Reserved Assessment and Plan - Diagnosis (1) Acute on chronic combined systolic and diastolic congestive heart failure Is this a current diagnosis for this admission?: Yes Plan: 08/26/2019 Continue current regimen. Try to maintain negative fluid balance. Monitor intake and output. Dr. Peña will be seeing the patient as well. We will obtain a sed rate to look for inflammatory etiologies of his heart disease (2) Acute on chronic renal failure Qualifiers: Acute renal failure type: unspecified Chronic kidney disease stage: stage 4 (severe) Qualified Code(s): N17.9 - Acute kidney failure, unspecified; N18.4 - Chronic kidney disease, stage 4 (severe) Is this a current diagnosis for this admission?: Yes Plan: At baseline, avoid nephrotoxic meds and doses follow-up chemistry and consider nephrology consult. 08/26/2019 Serum creatinine is 2.81. This is similar to last week. It is actually slightly better than in May. (3) Anemia, chronic renal failure Qualifiers: Chronic kidney disease stage: stage 4 (severe) Qualified Code(s): N18.4 - Chronic kidney disease, stage 4 (severe); D63.1 - Anemia in chronic kidney disease Is this a current diagnosis for this admission?: Yes Plan: 08/26/2019 Follow-up anemia studies. Consider nephrology consult. Iron supplement. (4) Diabetes mellitus type 2 in nonobese Is this a current diagnosis for this admission?: Yes Plan: 08/26/2019 Accu-Cheks with long-acting insulin and sliding scale. Continue glimepiride. Diabetic diet. (5) Gastro-esophageal reflux Qualifiers: Esophagitis presence: without esophagitis Qualified Code(s): K21.9 - Gastro-esophageal reflux disease without esophagitis Is this a current diagnosis for this admission?: Yes Plan: 08/26/2019 The patient reports fluid coming out of his mouth. It does not sound like emesis. He denies postnasal drip. It is not necessarily positional. He may be having severe reflux. We will increase his proton pump inhibitor therapy. We will check an abdominal ultrasound when his COVID screen is complete. Also consider a barium swallow/upper GI series. He could certainly have a large hiatal hernia that is holding fluid that refluxes at times. - Time Time Spent with patient: 15-24 minutes Medications reviewed and adjusted accordingly: Yes Anticipated discharge: Home
[2019-08-26] MEDS ORDERED: [UNRECOGNIZED DRUG - REMARK] PO SCH (21:00)
[2019-08-26] MEDS: METOPROLOL SUCCINATE 25 MG TAB.SR.24H PO SCH (21:50)
[2019-08-26] MEDS ORDERED: DONEPEZIL HCL 5 MG TABLET PO SCH (22:00)
[2019-08-26] MEDS ORDERED: ATORVASTATIN CALCIUM 40 MG TABLET PO SCH (22:00)
[2019-08-26] MEDS ORDERED: VALSARTAN 40 MG TABLET PO SCH (22:00)
[2019-08-27] MEDS ORDERED: PANTOPRAZOLE SODIUM 40 MG TABLET.DR PO SCH (06:00)
[2019-08-27] MEDS: HEPARIN SOD (PORCINE) 5,000 UNIT/ML 1 ML VIAL SUBCUT SCH (06:09)
[2019-08-27] MEDS ORDERED: ACETAMINOPHEN 325 MG TABLET PO PRN (07:16)
[2019-08-27] MEDS: INSULIN LISPRO 100 UNIT/ML 3 ML VIAL SUBCUT SCH ×2 (08:09→11:41)
[2019-08-27 08:17] LABS: ABSOLUTE BASOPHILS # (AUTO) 0.1 10^3/uL (0.0-0.2); ABSOLUTE EOSINOPHILS # (AUTO) 0.6 10^3/uL (0.0-0.6); ABSOLUTE MONOCYTES (AUTO) 0.9 10^3/uL (0.1-1.4); BASOPHILS % (AUTO) 0.7 % (0-2); EOSINOPHILS % (AUTO) 6.6 % (0-6); HEMATOCRIT 31.7 % (37.9-51.0); HEMOGLOBIN 10.5 g/dL (13.5-17.0); LYMPHOCYTES % (AUTO) 11.6 % (13-45); MEAN CORPUSCULAR HEMOGLOBIN 29.5 pg (27.0-33.4); MEAN CORPUSCULAR HGB CONC 33.2 g/dL (32.0-36.0); MEAN CORPUSCULAR VOLUME 89 fl (80-97); MONOCYTES % (AUTO) 10.1 % (3-13); PLATELET COUNT 343 10^3/uL (150-450); RED BLOOD COUNT 3.56 10^6/uL (4.35-5.55); RED CELL DISTRIBUTION WIDTH 15.8 % (11.5-14.0); TOTAL CELLS COUNTED % (AUTO) 100 %; WHITE BLOOD COUNT 8.5 10^3/uL (4.0-10.5)
[2019-08-27 08:39] LABS: ANION GAP 13 (5-19); BLOOD UREA NITROGEN 66 mg/dL (7-20); CALCIUM 10.1 mg/dL (8.4-10.2); CARBON DIOXIDE 23 mmol/L (22-30); CHLORIDE 104 mmol/L (98-107)
[2019-08-27 08:46] LABS: GLUCOSE 66 mg/dL (75-110)
[2019-08-27 08:56] LABS: ERYTHROCYTE SEDIMENTATION RATE 120 mm/hr (0-20)
[2019-08-27] MEDS ORDERED: FUROSEMIDE INJ/PF 40 MG/4 ML SDV IV SCH (10:00)
[2019-08-27] MEDS ORDERED: SERTRALINE HCL 50 MG TABLET PO SCH (10:00)
[2019-08-27] MEDS ORDERED: NITROGLYCERIN 5 MG (0.2 MG/HR) PATCH.TD24 TD SCH (10:00)
[2019-08-27] MEDS ORDERED: HYDRALAZINE HCL 10 MG TABLET PO SCH (10:00)
[2019-08-27] MEDS ORDERED: SODIUM BICARBONATE 650 MG TABLET PO SCH (10:00)
[2019-08-27] MEDS ORDERED: (PENDING PHARMACY ID) (Cyanocobalamin/Folic Ac/Vit B6 [Folbic Tablet] 1 TAB) PO SCH (10:00)
[2019-08-27] MEDS ORDERED: VITAMIN B COMPLEX TABLET PO SCH (10:00)
[2019-08-27] MEDS ORDERED: VALSARTAN 80 MG TABLET PO SCH (10:00)
[2019-08-27] MEDS ORDERED: FERROUS SULFATE 325 MG TABLET PO SCH (10:00)
[2019-08-27] MEDS ORDERED: GLIMEPIRIDE 1 MG TABLET PO SCH (10:00)
[2019-08-27] MEDS ORDERED: [UNRECOGNIZED DRUG - REMARK] PO SCH (10:00)
--- NOTE | 2019-08-27 10:38 | PDOC DISCHARGE SUMMARY ---
Impression - Admit/DC Date/PCP Admission Date/Primary Care Provider: 08/26/19 02:18 NANCI MCMILLAN MD Discharge Date: 08/27/19 - Discharge Diagnosis (1) Acute on chronic combined systolic and diastolic congestive heart failure Is this a current diagnosis for this admission?: Yes (2) Acute on chronic renal failure Is this a current diagnosis for this admission?: Yes (3) Anemia, chronic renal failure Is this a current diagnosis for this admission?: Yes (4) Diabetes mellitus type 2 in nonobese Is this a current diagnosis for this admission?: Yes (5) Gastro-esophageal reflux Is this a current diagnosis for this admission?: Yes - Additional Information Resuscitation Status: Full Code Discharge Diet: Cardiac, Diabetic Discharge Activity: Activity As Tolerated, Balance Activity w/Rest, Weigh Daily Referrals: [facility] [Outside] (PATIENT WILL BE FOLLOWED BY [facility]. DUE TO SUSPECTED COVID VIRUS. UPON D/C PATIENT SHOULD SELF QUARANTINE UNTIL CLEARED BY HEALTH DEPT. ONCE CLEARED PATIENT MAY SCHEDULE AN APPT. WITH PRIMARY CARE PROVIDER.) NANCI MCMILLAN MD [Primary Care Provider] - 09/03/19 1:45 pm Prescriptions: Prednisone [Deltasone 10 mg Tablet] 10 mg PO ASDIR 12 Days #30 tablet Nitroglycerin [Nitro-Dur 5 mg (0.2 mg/Hr) Transdermal Patch] 1 each TD DAILY 30 Days #30 patch.td24 Pantoprazole Sodium [Protonix [address] Tablet] 40 mg PO QAM 30 Days #30 tablet.dr Home Medications: Atorvastatin Calcium [Lipitor 40 mg Tablet] 40 mg PO QHS 08/26/19 B Complex W-C No.20/Folic Acid [Virt-Caps Softgel] 1 mg PO DAILY 08/26/19 Cyanocobalamin/Folic AC/Vit B6 [Folbic Tablet] 1 tab PO DAILY 08/26/19 Donepezil HCl [Aricept 5 mg Tablet] 10 mg PO QHS 08/26/19 Furosemide [Lasix 40 mg Tablet] 40 mg PO DAILY 08/26/19 Glimepiride [Amaryl] 2 mg PO DAILY 08/26/19 Hydralazine HCl [Apresoline 10 mg Tablet] 10 mg PO TID 08/26/19 Metoprolol Succinate [Toprol Xl 25 mg Tab.sr] 25 mg PO Q12 08/26/19 Sertraline HCl [Zoloft 50 mg Tablet] 150 mg PO DAILY 08/26/19 Sodium Bicarbonate [Sodium Bicarbonate 650 mg Tablet] 650 mg PO DAILY 08/26/19 Valsartan [Diovan 40 mg Tablet] 80 mg PO Q12 08/26/19 Ferrous Sulfate [Feosol 325 mg Tablet] 325 mg PO DAILY tablet 08/27/19 Nitroglycerin [Nitro-Dur 5 mg (0.2 mg/Hr) Transdermal Patch] 1 each TD DAILY 30 Days #30 patch.td24 08/27/19 Pantoprazole Sodium [Protonix [address] Tablet] 40 mg PO QAM 30 Days #30 tablet.dr 08/27/19 Potassium Chloride [Klor-Con 10 Meq Tablet ER] 20 meq PO DAILY tablet.er 08/27/19 Prednisone [Deltasone 10 mg Tablet] 10 mg PO ASDIR 12 Days #30 tablet 08/27/19 History of Present Illiness History of Present Illness: MALINDA CROCKETT is a 69 year old male with a past medical history of stage IV chronic kidney disease, congestive heart failure with ejection fraction of 25%, coronary artery bypass with subsequent stent, high frequency PVCs, diabetes and hypertension. Patient presents to the emergency department with a chief complaint of fever following iron transfusion received in the hospital. He was subsequently referred to the emergency department by his solution director Dr. Nathan Moss. He admits shortness of breath, orthopnea and palpitations but denies productive cough, nausea vomiting, abdominal pain or dysuria. In the emergency department his work-up is remarkable for tachypnea, hemoglobin of 9.9 and a BNP of 58,000 with a chest x-ray suggestive of pulmonary vascular congestion. He received IV Lasix and referred to the hospitalist for admission. Denying leg swelling, cough, chest pain nausea or vomiting. He denies recent change in diet or OTC or prescribed medication regiment. Hospital Course Hospital Course: (1) Acute on chronic combined systolic and diastolic congestive heart failure Is this a current diagnosis for this admission?: Yes Plan: 08/26/2019 Continue current regimen. Try to maintain negative fluid balance. Monitor intake and output. Dr. Mcmillan will be seeing the patient as well. We will obtain a sed rate to look for inflammatory etiologies of his heart disease 08/27/2019 Patient is stable on room air. Sed rate is greater than 100. There could be an autoimmune component to his heart disease. After discussion with Dr. Mcmillan I will increase his steroids for a short while to see if there is improvement. (2) Acute on chronic renal failure Qualifiers: Acute renal failure type: unspecified Chronic kidney disease stage: stage 4 (severe) Qualified Code(s): N17.9 - Acute kidney failure, unspecified; N18.4 - Chronic kidney disease, stage 4 (severe) Is this a current diagnosis for this admission?: Yes Plan: At baseline, avoid nephrotoxic meds and doses follow-up chemistry and consider nephrology consult. 08/26/2019 Serum creatinine is 2.81. This is similar to last week. It is actually slig htly better than in May. 08/27/2019 Stable (3) Anemia, chronic renal failure Qualifiers: Chronic kidney disease stage: stage 4 (severe) Qualified Code(s): N18.4 - Chronic kidney disease, stage 4 (severe); D63.1 - Anemia in chronic kidney disease Is this a current diagnosis for this admission?: Yes Plan: 08/26/2019 Follow-up anemia studies. Consider nephrology consult. Iron supplement. 08/27/2019 Stable at discharge (4) Diabetes mellitus type 2 in nonobese Is this a current diagnosis for this admission?: Yes Plan: 08/26/2019 Accu-Cheks with long-acting insulin and sliding scale. Continue glimepiride. Diabetic diet. 08/27/2019 Continue home regimen at discharge (5) Gastro-esophageal reflux Qualifiers: Esophagitis presence: without esophagitis Qualified Code(s): K21.9 - Gastro-esophageal reflux disease without esophagitis Is this a current diagnosis for this admission?: Yes Plan: 08/26/2019 The patient reports fluid coming out of his mouth. It does not sound like emesis. He denies postnasal drip. It is not necessarily positional. He may be having severe reflux. We will increase his proton pump inhibitor therapy. We will check an abdominal ultrasound when his COVID screen is complete. Also consider a barium swallow/upper GI series. He could certainly have a large hiatal hernia that is holding fluid that refluxes at times. 08/27/2019 Complete work-up as an outpatient. There could be a hiatal hernia or the patient could have diabetic gastroparesis. Physical Exam Vital Signs: Temp Pulse Resp BP Pulse Ox 98.5 F 74 12 133/68 H 98 08/27/19 08:03 08/27/19 08:03 08/27/19 08:03 08/27/19 08:03 08/27/19 08:03 Intake & Output 08/26/19 08/27/19 08/28/19 06:59 06:59 06:59 Intake Total 260 1100 Balance 260 1100 Weight 71 kg 71 kg General appearance: PRESENT: no acute distress, cooperative, thin, well- developed Head exam: PRESENT: atraumatic, normocephalic Respiratory exam: PRESENT: clear to auscultation phan, prolonged expiratory phas, symmetrical, unlabored. ABSENT: rales, rhonchi, tachypnea, wheezes Cardiovascular exam: PRESENT: RRR, +S1, +S2 GI/Abdominal exam: PRESENT: normal bowel sounds, soft. ABSENT: distended, guarding, tenderness Rectal exam: PRESENT: deferred Gentrourinary exam: ABSENT: indwelling catheter Extremities exam: ABSENT: pedal edema Musculoskeletal exam: PRESENT: ambulatory, normal inspection Neurological exam: PRESENT: alert, awake, oriented to person, oriented to place, oriented to time, oriented to situation, CN II-XII grossly intact. ABSENT: altered, motor sensory deficit Psychiatric exam: PRESENT: appropriate affect. ABSENT: agitated, anxious Focused psych exam: ABSENT: delusional, paranoid, restlessness Skin exam: PRESENT: dry, normal color, warm. ABSENT: erythema, rash Results Laboratory Results: WBC 8.5 10^3/uL (4.0-10.5) 08/27/19 06:25 RBC 3.56 10^6/uL (4.35-5.55) L 08/27/19 06:25 Hgb 10.5 g/dL (13.5-17.0) L 08/27/19 06:25 Hct 31.7 % (37.9-51.0) L 08/27/19 06:25 MCV 89 fl (80-97) 08/27/19 06:25 MCH 29.5 pg (27.0-33.4) 08/27/19 06:25 MCHC 33.2 g/dL (32.0-36.0) 08/27/19 06:25 RDW 15.8 % (11.5-14.0) H 08/27/19 06:25 Plt Count 343 10^3/uL (150-450) 08/27/19 06:25 Lymph % (Auto) 11.6 % (13-45) L 08/27/19 06:25 [place] % (Auto) 10.1 % (3-13) 08/27/19 06:25 Eos % (Auto) 6.6 % (0-6) H 08/27/19 06:25 Baso % (Auto) 0.7 % (0-2) 08/27/19 06:25 Reticulocyte # 0.030 10^6/uL (0.028-0.122) 08/25/19 21:58 Absolute Neuts (auto) 6.0 10^3/uL (1.7-8.2) 08/27/19 06:25 Absolute Lymphs (auto) 1.0 10^3/uL (0.5-4.7) 08/27/19 06:25 Absolute Monos (auto) 0.9 10^3/uL (0.1-1.4) 08/27/19 06:25 Absolute Eos (auto) 0.6 10^3/uL (0.0-0.6) 08/27/19 06:25 Absolute Basos (auto) 0.1 10^3/uL (0.0-0.2) 08/27/19 06:25 Seg Neutrophils % 71.0 % (42-78) 08/27/19 06:25 ESR 120 mm/hr (0-20) H 08/27/19 06:25 Retic Count (auto) 0.91 % (0.66-2.85) 08/25/19 21:58 Sodium 140.2 mmol/L (137-145) 08/27/19 06:25 Potassium 5.0 mmol/L (3.6-5.0) 08/27/19 06:25 Chloride 104 mmol/L (98-107) 08/27/19 06:25 Carbon Dioxide 23 mmol/L (22-30) 08/27/19 06:25 Anion Gap 13 (5-19) 08/27/19 06:25 BUN 66 mg/dL (7-20) H 08/27/19 06:25 Creatinine 2.94 mg/dL (0.52-1.25) H 08/27/19 06:25 Est GFR ( Amer) 26 (>60) L 08/27/19 06:25 Est GFR (MDRD) Non-Af 21 (>60) L 08/27/19 06:25 Glucose 66 mg/dL (75-110) L 08/27/19 06:25 POC Glucose 86 mg/dL (70-110) 08/27/19 08:01 Hemoglobin A1c % 6.4 % (4.7-6.0) H 08/27/19 06:25 Lactic Acid 0.9 mmol/L (0.7-2.1) 08/25/19 21:58 Calcium 10.1 mg/dL (8.4-10.2) 08/27/19 06:25 Magnesium 2.0 mg/dL (1.6-2.3) 08/25/19 21:58 Iron 630.7 ug/dL (49-181) H 08/25/19 21:58 TIBC 282 ug/dL (250-450) 08/25/19 21:58 % Saturation 224 % 08/25/19 21:58 Transferrin 194.51 mg/dL (206.00-381.00) L 08/25/19 21:58 Ferritin 105.00 ng/mL (17.9-464.0) 08/25/19 21:58 Total Bilirubin 0.8 mg/dL (0.2-1.3) 08/25/19 21:58 Direct Bilirubin 0.2 mg/dL (0.0-0.4) 08/25/19 21:58 Neonat Total Bilirubin Not Reportable 08/25/19 21:58 Neonat Direct Bilirubin Not Reportable 08/25/19 21:58 Neonat Indirect Bili Not Reportable 08/25/19 21:58 AST 24 U/L (17-59) 08/25/19 21:58 ALT 19 U/L (<50) 08/25/19 21:58 Alkaline Phosphatase 79 U/L (38-126) 08/25/19 21:58 Troponin I 0.129 ng/mL 08/26/19 12:25 NT-Pro-B Natriuret Pep 93532 pg/mL (<125) H 08/25/19 21:58 Total Protein 7.0 g/dL (6.3-8.2) 08/25/19 21:58 Albumin 4.0 g/dL (3.5-5.0) 08/25/19 21:58 Vitamin B12 > 1000.0 pg/mL (239-931) H 08/25/19 21:58 Folate > 20.00 ng/mL (>2.76) 08/25/19 21:58 TSH 1.73 uIU/mL (0.47-4.68) 08/25/19 21:58 Urine Color YELLOW 08/25/19 20:32 Urine Appearance CLEAR 08/25/19 20:32 Urine pH 5.0 (5.0-9.0) 08/25/19 20:32 Ur Specific [place] 1.009 08/25/19 20:32 Urine Protein 100 mg/dL (NEGATIVE) H 08/25/19 20:32 Urine Glucose (UA) NEGATIVE mg/dL (NEGATIVE) 08/25/19 20:32 Urine Ketones NEGATIVE mg/dL (NEGATIVE) 08/25/19 20:32 Urine Blood NEGATIVE (NEGATIVE) 08/25/19 20:32 Urine Nitrite NEGATIVE (NEGATIVE) 08/25/19 20:32 Urine Bilirubin NEGATIVE (NEGATIVE) 08/25/19 20:32 Urine Urobilinogen NEGATIVE mg/dL (<2.0) 08/25/19 20:32 Ur Leukocyte Esterase NEGATIVE (NEGATIVE) 08/25/19 20:32 Urine Ascorbic Acid NEGATIVE (NEGATIVE) 08/25/19 20:32 08/25/19 08/25/19 08/26/19 21:58 21:58 06:20 Troponin I 0.051 0.111 NT-Pro-B Natriuret Pep 14525 H 08/26/19 12:25 Troponin I 0.129 NT-Pro-B Natriuret Pep Impressions: Chest X-Ray 08/25/19 21:45 IMPRESSION: Cardiomegaly with mild diffuse interstitial edema. Tiny effusions and/or pleural thickening copyright 2011 [employer]- All Rights Reserved Plan Health Concerns: Possible autoimmune component to his heart disease. Plan of Treatment: Medications as above. Follow-up with Dr. Green. Goals: Improved cardiac status Time Spent: Greater than 30 Minutes Stroke Is this a Stroke Patient?: No Acute Heart Failure - Is this a Heart Failure Patient?: Yes Documentation of LVEF assessment?: Yes LVEF: LVEF Less Than or Equal to 35% Anticoagulant Therapy: N/A Discharged on Evidence-Based Beta Blockers: Yes Discharged on ARNI?: No-Document Contraindications Reason(s) not discharged on ARNI: Impaired/worsening renal functions Discharged on ARB?: No-document contraindications Reason(s) not Discharged on ARB: Impaired/worsening renal functions Discharged on ACEI?: No, document contraindications Reason(s) not Discharged on ACEI: Impaied/worsening renal function For LVEF <35%, discharged on Aldosterone Antagonist?: No-document cont raincations Reason(s) not discharged on Aldosterone Antagonist: Renal dysfunction (creatinine >2.5 mg/dL in men or 2.0 mg/dL in women) Follow-up Appointment scheduled within 7 days?: Yes
[2019-08-27] MEDS ORDERED: FUROSEMIDE 40 MG TABLET PO ONE (10:39)
[2019-08-27] MEDS: METOPROLOL SUCCINATE 25 MG TAB.SR.24H PO SCH (10:40)
[2019-08-27] MEDS: DOCUSATE SODIUM 100 MG CAPSULE PO SCH (10:42)
[2019-08-27] MEDS: INSULIN GLARGINE,HUM.REC.ANLOG 1,000 UNIT/10 ML VIAL SUBCUT SCH (10:42)
[2019-08-27 12:47] VITALS: BP 130/77
[2019-08-28] MEDS ORDERED: POTASSIUM CHLORIDE 10 MEQ TABLET.ER PO SCH (10:00)
== END 2019-08-27 12:10 | disposition home or self-care (01) | DRG 682 ==
LOC: ER 20:06 → EH 08-26 02:18 → 5 08-26 04:44
PROVIDERS: ADMIT Internal Medicine; ATTEND Hospitalist
DX: N17.9 Acute kidney failure, unspecified (principal); I50.43 Acute on chronic combined systolic (congestive) and diastolic (congestive) heart failure; I13.0 Hypertensive heart and chronic kidney disease with heart failure and stage 1 through stage 4 chronic kidney disease, or unspecified chronic kidney disease; E11.22 Type 2 diabetes mellitus with diabetic chronic kidney disease; D63.1 Anemia in chronic kidney disease; K21.9 Gastro-esophageal reflux disease without esophagitis; N18.4 Chronic kidney disease, stage 4 (severe); I49.3 Ventricular premature depolarization; I25.10 Atherosclerotic heart disease of native coronary artery without angina pectoris; E78.5 Hyperlipidemia, unspecified; F32.9 Major depressive disorder, single episode, unspecified; F03.90 Unspecified dementia, unspecified severity, without behavioral disturbance, psychotic disturbance, mood disturbance, and anxiety; I25.2 Old myocardial infarction; Z20.828 Contact with and (suspected) exposure to other viral communicable diseases; Z79.899 Other long term (current) drug therapy; Z95.1 Presence of aortocoronary bypass graft; Z95.5 Presence of coronary angioplasty implant and graft; Z87.891 Personal history of nicotine dependence; Z82.49 Family history of ischemic heart disease and other diseases of the circulatory system; Z79.4 Long term (current) use of insulin; Z79.52 Long term (current) use of systemic steroids; Z88.6 Allergy status to analgesic agent
CPT/HCPCS: 36415; 71045; 80048; 80053; 81001; 82607; 82728; 82746; 82962; 83036; 83540; 83550; 83605; 83735; 83880; 84443; 84466; 84484; 85025; 85045; 85652; 87040; 87635; 93005; 93010; 99284; C9803; J1644; J1940; J3490

== ENCOUNTER → 2019-09-10 | Outpatient (CLI) | payer MEDICARE ==
--- NOTE | 2019-09-10 16:44 | RADIOLOGY REPORT (SQ) ---
EXAM DESCRIPTION: U/S ABDOMEN LIMITED W/O DOP IMAGES COMPLETED DATE/TIME: 09/10/2019 9:17 am REASON FOR STUDY: NAUSEA WITH VOMITING, UNSPECIFIED (R11.2) R11.2 NAUSEA WITH VOMITING, UNSPECIFIED COMPARISON: None. TECHNIQUE: Dynamic and static grayscale images acquired of the abdomen and recorded on PACS. Additio nal selected color Doppler and spectral images recorded. LIMITATIONS: None. FINDINGS: PANCREAS: No masses. The tail was obscured by gas. LIVER: 3 cm cyst in the left lobe. Echotexture normal. No solid masses. LIVER VASCULATURE: Normal directional flow of the main portal vein and hepatic veins. GALLBLADDER: No stones. Normal wall thickness. No pericholecystic fluid. ULTRASOUND-DETECTED CRAVEN'S SIGN: Negative. INTRAHEPATIC DUCTS AND COMMON DUCT: CBD and intrahepatic ducts normal caliber. No filling defects. AORTA: No aneurysm. RIGHT KIDNEY: Normal size, 9 cm. Normal echogenicity. No solid or suspicious masses. No hydronephros is. No calcifications. PERITONEAL AND RIGHT PLEURAL SPACE: Small right pleural effusion. OTHER: No other significant findings. IMPRESSION: The study is essentially unremarkable. There is a small right pleural effusion. There is a 3 cm cyst in the left lobe of the liver. TECHNICAL DOCUMENTATION: JOB ID: [id number] 2010 [employer]- All Rights Reserved Reading location - IP/workstation name: [email or web address]
== END ==
LOC: RAD 08:16
PROVIDERS: ATTEND Internal Medicine Gastroenterology
DX: R11.2 Nausea with vomiting, unspecified (principal); J90 Pleural effusion, not elsewhere classified; K76.89 Other specified diseases of liver
CPT/HCPCS: 76705

== ENCOUNTER → 2019-10-02 | Outpatient (CLI) | payer MEDICARE ==
[2019-10-02 12:21] LABS: APPEARANCE,URINE SLIGHTLY-CLOUDY; BILIRUBIN,URINE NEGATIVE (NEGATIVE); COLOR,URINE YELLOW; GLUCOSE, URINE 50 mg/dL (NEGATIVE); KETONES,URINE NEGATIVE (NEGATIVE); LEUKOCYTE ESTERASE,URINE NEGATIVE (NEGATIVE); NITRITE,URINE NEGATIVE (NEGATIVE); PROTEIN,URINE 100 mg/dL (NEGATIVE); URINE SPECIFIC GRAVITY 1.016; UROBILINOGEN,URINE NEGATIVE mg/dL (<2.0)
[2019-10-02 12:37] LABS: HEMATOCRIT 30.9 % (37.9-51.0); HEMOGLOBIN 10.2 g/dL (13.5-17.0); MEAN CORPUSCULAR HEMOGLOBIN 28.9 pg (27.0-33.4); MEAN CORPUSCULAR VOLUME 88 fl (80-97); PLATELET COUNT 320 10^3/uL (150-450); RED BLOOD COUNT 3.52 10^6/uL (4.35-5.55); RED CELL DISTRIBUTION WIDTH 18.2 % (11.5-14.0); WHITE BLOOD COUNT 8.8 10^3/uL (4.0-10.5)
[2019-10-02 12:58] LABS: ALKALINE PHOSPHATASE 106 U/L (38-126); ANION GAP 9 (5-19); ASPARTATE AMINO TRANSFERASE 25 U/L (17-59); BILIRUBIN,DIRECT 0.2 mg/dL (0.0-0.4); BILIRUBIN,TOTAL 0.6 mg/dL (0.2-1.3); BLOOD UREA NITROGEN 55 mg/dL (7-20); CALCIUM 9.8 mg/dL (8.4-10.2); CARBON DIOXIDE 27 mmol/L (22-30); CHLORIDE 102 mmol/L (98-107); GLUCOSE 235 mg/dL (75-110); IRON(TIBC) 67.4 ug/dL (49-181)
[2019-10-02 15:40] LABS: URINE CREATININE 121.5 mg/dL (22-328)
[2019-10-02 15:51] LABS: UR PRO/CREAT RATIO RESULT 2.1 mg/mg (0.0-0.2)
== END ==
LOC: OD 11:36
PROVIDERS: ATTEND Internal Medicine Nephrology
DX: N18.4 Chronic kidney disease, stage 4 (severe) (principal); D50.8 Other iron deficiency anemias
CPT/HCPCS: 36415; 80053; 81001; 82570; 83540; 83550; 83735; 84156; 85027

== ENCOUNTER → 2019-12-17 | Outpatient (CLI) | payer MEDICARE, OTHER ==
[2019-12-17 09:26] LABS: ABSOLUTE EOSINOPHILS # (AUTO) 0.2 10^3/uL (0.0-0.6); ABSOLUTE LYMPHOCYTES (AUTO) 1.2 10^3/uL (0.5-4.7); ABSOLUTE MONOCYTES (AUTO) 0.6 10^3/uL (0.1-1.4); ABSOLUTE NEUT (AUTO) 4.3 10^3/uL (1.7-8.2); BASOPHILS % (AUTO) 0.4 % (0-2); EOSINOPHILS % (AUTO) 2.5 % (0-6); HEMATOCRIT 37.3 % (37.9-51.0); HEMOGLOBIN 12.4 g/dL (13.5-17.0); LYMPHOCYTES % (AUTO) 18.8 % (13-45); MEAN CORPUSCULAR HEMOGLOBIN 31.1 pg (27.0-33.4); MEAN CORPUSCULAR HGB CONC 33.1 g/dL (32.0-36.0); MEAN CORPUSCULAR VOLUME 94 fl (80-97); MONOCYTES % (AUTO) 9.3 % (3-13); PLATELET COUNT 164 10^3/uL (150-450); RED BLOOD COUNT 3.97 10^6/uL (4.35-5.55); RED CELL DISTRIBUTION WIDTH 18.1 % (11.5-14.0); TOTAL CELLS COUNTED % (AUTO) 100 %; WHITE BLOOD COUNT 6.3 10^3/uL (4.0-10.5)
[2019-12-17 09:47] LABS: ALBUMIN 4.7 g/dL (3.5-5.0); ALKALINE PHOSPHATASE 75 U/L (38-126); ANION GAP 10 (5-19); ASPARTATE AMINO TRANSFERASE 20 U/L (17-59); BILIRUBIN,DIRECT 0.4 mg/dL (0.0-0.4); BILIRUBIN,TOTAL 0.7 mg/dL (0.2-1.3); BLOOD UREA NITROGEN 58 mg/dL (7-20); CALCIUM 9.5 mg/dL (8.4-10.2); CARBON DIOXIDE 19 mmol/L (22-30); CHLORIDE 116 mmol/L (98-107); CHOLESTEROL 159.94 mg/dL (0-200); GLUCOSE 114 mg/dL (75-110); TOTAL PROTEIN 7.4 g/dL (6.3-8.2); TRIGLYCERIDES 128 mg/dL (<150); URIC ACID 7.6 mg/dL (3.5-8.5)
[2019-12-17 09:58] LABS: DIRECT LDL 75 mg/dL (<100)
[2019-12-17 10:07] LABS: POTASSIUM 6.5 mmol/L (3.6-5.0)
--- NOTE | 2019-12-17 12:51 | RADIOLOGY REPORT (SQ) ---
EXAM DESCRIPTION: KNEE RIGHT 4 VIEWS IMAGES COMPLETED DATE/TIME: 12/17/2019 9:07 am REASON FOR STUDY: PAIN IN UNSPECIFIED KNEE N18.9 CHRONIC KIDNEY DISEASE, UNSPECIFIED E11.9 TYPE 2 DIABETES MELLITUS WITHOUT COMPLICATIONS I10 ESSENTIAL (PRIMARY) HYPERTENSION COMPARISON: None. NUMBER OF VIEWS: Four views. TECHNIQUE: AP, lateral, and both oblique radiographic images acquired of the right knee. LIMITATIONS: None. FINDINGS: MINERALIZATION: Normal. BONES: No acute fracture or dislocation. No worrisome bone lesions. JOINT: Small posterior patellar spurs. SOFT TISSUES: No soft tissue swelling. Considerable atherosclerosis is seen in the femoral and popli teal and calf vessels. OTHER: No other significant finding. IMPRESSION: Mild patellofemoral degenerative joint changes. Atherosclerosis. TECHNICAL DOCUMENTATION: JOB ID: [id number] 2010 [employer]- All Rights Reserved Reading location - IP/workstation name: [email or web address]
--- NOTE | 2019-12-17 12:59 | RADIOLOGY REPORT (SQ) ---
EXAM DESCRIPTION: HIPS BILATERAL IMAGES COMPLETED DATE/TIME: 12/17/2019 9:07 am REASON FOR STUDY: PAIN IN UNSPECIFIED HIP N18.9 CHRONIC KIDNEY DISEASE, UNSPECIFIED E11.9 TYPE 2 D IABETES MELLITUS WITHOUT COMPLICATIONS I10 ESSENTIAL (PRIMARY) HYPERTENSION COMPARISON: None. NUMBER OF VIEWS: Two views TECHNIQUE: AP pelvis and additional frog-leg view of both hips. LIMITATIONS: None. FINDINGS: MINERALIZATION: Normal. HIPS: No acute fracture or dislocation. No worrisome bone lesions. PELVIS AND SACRUM: No acute fracture or dislocation. No worrisome bone lesions. PUBIS AND ISCHIUM: No acute fracture. LOWER LUMBAR SPINE: No significant findings as visualized. SOFT TISSUES: Extensive atherosclerosis. OTHER: No other significant finding. IMPRESSION: Negative study of the pelvis and hips. Extensive atherosclerosis. TECHNICAL DOCUMENTATION: JOB ID: [id number] 2010 [employer]- All Rights Reserved Reading location - IP/workstation name: [email or web address]
--- NOTE | 2019-12-17 13:00 | RADIOLOGY REPORT (SQ) ---
EXAM DESCRIPTION: KNEE LEFT 4 VIEWS IMAGES COMPLETED DATE/TIME: 12/17/2019 9:07 am REASON FOR STUDY: PAIN IN UNSPECIFIED KNEE N18.9 CHRONIC KIDNEY DISEASE, UNSPECIFIED E11.9 TYPE 2 DIABETES MELLITUS WITHOUT COMPLICATIONS I10 ESSENTIAL (PRIMARY) HYPERTENSION COMPARISON: None. NUMBER OF VIEWS: Four views. TECHNIQUE: AP, lateral, and both oblique radiographic images acquired of the left knee. LIMITATIONS: None. FINDINGS: MINERALIZATION: Normal. BONES: No acute fracture or dislocation. No worrisome bone lesions. JOINT: No effusion. SOFT TISSUES: Extensive atherosclerosis. OTHER: No other significant finding. IMPRESSION: Negative study of the left knee. Extensive atherosclerosis. TECHNICAL DOCUMENTATION: JOB ID: [id number] 2010 [employer]- All Rights Reserved Reading location - IP/workstation name: [email or web address]
[2019-12-18 11:37] LABS: CREATININE URINE 84.8 mg/dL (Not Estab.)
[2019-12-18 12:40] LABS: MICROALBUMIN URINE 2340.9 ug/mL (Not Estab.)
== END ==
LOC: OD 08:19
PROVIDERS: ATTEND Family Medicine Geriatric Medicine
DX: I12.9 Hypertensive chronic kidney disease with stage 1 through stage 4 chronic kidney disease, or unspecified chronic kidney disease (principal); N18.9 Chronic kidney disease, unspecified; E11.22 Type 2 diabetes mellitus with diabetic chronic kidney disease; I25.10 Atherosclerotic heart disease of native coronary artery without angina pectoris; E78.5 Hyperlipidemia, unspecified; M17.11 Unilateral primary osteoarthritis, right knee; M25.552 Pain in left hip; M25.551 Pain in right hip; I70.202 Unspecified atherosclerosis of native arteries of extremities, left leg; I70.208 Unspecified atherosclerosis of native arteries of extremities, other extremity; Z79.899 Other long term (current) drug therapy
CPT/HCPCS: 36415; 73522; 80053; 80061; 82043; 82306; 82570; 83036; 84443; 84550; 85025

== ENCOUNTER → 2019-12-22 | Outpatient (CLI) | payer MEDICARE | LOC: OD 08:06 | PROVIDERS: ATTEND Family Medicine Geriatric Medicine | DX: E87.5 Hyperkalemia (principal) | CPT/HCPCS: 36415; 84132 ==

== ENCOUNTER → 2019-12-31 | Outpatient (CLI) | payer MEDICARE | LOC: OD 09:42 | PROVIDERS: ATTEND Family Medicine Geriatric Medicine | DX: E87.5 Hyperkalemia (principal) | CPT/HCPCS: 36415; 84132 ==

== ENCOUNTER → 2020-02-08 | Outpatient (CLI) | payer MEDICARE ==
[2020-02-08 09:30] LABS: HEMATOCRIT 38.8 % (37.9-51.0); HEMOGLOBIN 12.8 g/dL (13.5-17.0); MEAN CORPUSCULAR HEMOGLOBIN 31.7 pg (27.0-33.4); MEAN CORPUSCULAR HGB CONC 32.9 g/dL (32.0-36.0); MEAN CORPUSCULAR VOLUME 96 fl (80-97); PLATELET COUNT 165 10^3/uL (150-450); RED BLOOD COUNT 4.03 10^6/uL (4.35-5.55); RED CELL DISTRIBUTION WIDTH 19.7 % (11.5-14.0); WHITE BLOOD COUNT 5.9 10^3/uL (4.0-10.5)
[2020-02-08 09:48] LABS: ALBUMIN 4.4 g/dL (3.5-5.0); ALKALINE PHOSPHATASE 100 U/L (38-126); ANION GAP 16 (5-19); ASPARTATE AMINO TRANSFERASE 27 U/L (17-59); BILIRUBIN,DIRECT 0.4 mg/dL (0.0-0.4); BILIRUBIN,TOTAL 0.8 mg/dL (0.2-1.3); BLOOD UREA NITROGEN 67 mg/dL (7-20); CALCIUM 10.3 mg/dL (8.4-10.2); CARBON DIOXIDE 17 mmol/L (22-30); CHLORIDE 108 mmol/L (98-107); CHOLESTEROL 151.85 mg/dL (0-200); GLUCOSE 66 mg/dL (75-110); PHOSPHORUS 5.7 mg/dL (2.5-4.5); TOTAL PROTEIN 7.1 g/dL (6.3-8.2); TRIGLYCERIDES 115 mg/dL (<150)
[2020-02-08 09:57] LABS: APPEARANCE,URINE CLEAR; BILIRUBIN,URINE NEGATIVE (NEGATIVE); COLOR,URINE YELLOW; GLUCOSE, URINE NEGATIVE (NEGATIVE); KETONES,URINE NEGATIVE (NEGATIVE); LEUKOCYTE ESTERASE,URINE NEGATIVE (NEGATIVE); NITRITE,URINE NEGATIVE (NEGATIVE); PROTEIN,URINE >=500 mg/dL (NEGATIVE); URINE SPECIFIC GRAVITY 1.014; UROBILINOGEN,URINE NEGATIVE mg/dL (<2.0)
[2020-02-08 10:05] LABS: DIRECT LDL 70 mg/dL (<100)
[2020-02-08 10:10] LABS: CHOLESTEROL 151.85 mg/dL (0-200); DIRECT LDL 70 mg/dL (<100); TRIGLYCERIDES 115 mg/dL (<150)
[2020-02-08 10:18] LABS: URINE CREATININE 54.2 mg/dL (22-328)
[2020-02-08 10:40] LABS: UR PRO/CREAT RATIO RESULT 5.5 mg/mg (0.0-0.2); URINE PROTEIN 299.4 mg/dL (<12)
[2020-02-09 19:02] LABS: ALBUMIN 4.4 g/dL (3.5-5.0); ALKALINE PHOSPHATASE 100 U/L (38-126); ASPARTATE AMINO TRANSFERASE 27 U/L (17-59); BILIRUBIN,DIRECT 0.4 mg/dL (0.0-0.4); BILIRUBIN,TOTAL 0.8 mg/dL (0.2-1.3); CHOLESTEROL 151.85 mg/dL (0-200); DIRECT LDL 70 mg/dL (<100); TOTAL PROTEIN 7.1 g/dL (6.3-8.2); TRIGLYCERIDES 115 mg/dL (<150)
== END ==
LOC: OD 07:44
PROVIDERS: ATTEND Specialist
DX: E78.5 Hyperlipidemia, unspecified (principal); E87.6 Hypokalemia; Z79.899 Other long term (current) drug therapy
CPT/HCPCS: 36415; 80053; 80061; 80076; 81001; 82570; 83036; 83735; 83970; 84100; 84132; 84156; 84460; 85027

== ENCOUNTER → 2020-03-02 | Outpatient (CLI) | payer MEDICARE ==
--- NOTE | 2020-03-02 13:45 | WOMENS IMAGING REPORT ---
EXAM DESCRIPTION: BONE DENSITY HIP/SPINE IMAGES COMPLETED DATE/TIME: 03/02/2020 1:20 pm REASON FOR STUDY: M81.0 AGE-RELATED OSTEOPOROSIS W/O CURRENT PATHOLOGICAL FRACTURE M81.0 AGE-RELATE D OSTEOPOROSIS W/O CURRENT PATHOLOGICAL FRAC COMPARISON: None. TECHNIQUE: Dual-Energy X-ray Absorptiometry (DEXA) of the AP Spine and Hip. LIMITATIONS: None. FINDINGS: LUMBAR SPINE: The bone mineral density (BMD) measured from L1-L4 in the AP projection correlates with a T-score of 0.9, which is normal as defined by the World Health Organization. BMD Change vs Baseline: N/A HIP: The bone mineral density (BMD) measured in the left hip correlates with a T-score of -1.8, which is o steopenia as defined by the World Health Organization. BMD Change vs Baseline: N/A 10 year Fracture Risk Assessment: Major Osteoporotic Fracture: 6.8%. Hip Fracture: 1.9%. IMPRESSION: 1. LUMBAR SPINE WHO CLASSIFICATION: NORMAL. 2. HIP WHO CLASSIFICATION: OSTEOPENIA. OVERALL ASSESSMENT: WHO CLASSIFICATION: OSTEOPENIA. COMMENT: The World Health Organization defines low BMD as follows: T-score: Normal: At or above -1.0 Osteopenia: Between -1.0 and -2.5 Osteoporosis: At or below -2.5 without fractures Established osteoporosis: At or below -2.5 with fractures In general, you may wish to consider: Diagnosis Treatment Follow-up DEXA Normal BMD Prevention 2-3 years Osteopenia Prevention/Therapy 1-2 years Osteoporosis Therapy Yearly TECHNICAL DOCUMENTATION: JOB ID: [id number] 2010 [employer]- All Rights Reserved Reading location - IP/workstation name: [email or web address]
== END ==
LOC: WI 12:43
PROVIDERS: ATTEND Family Medicine Geriatric Medicine
DX: M81.0 Age-related osteoporosis without current pathological fracture (principal)
CPT/HCPCS: 77080

== ENCOUNTER → 2020-03-02 | Outpatient (CLI) | payer MEDICARE ==
[2020-03-03 20:34] LABS: DEAMIDATED GLIADIN IGA AB 3 units (0-19); DEAMIDATED GLIADIN IGG AB 3 units (0-19); T-TRANSGLUTAMINASE (TTG) IGA 2 U/mL (0-3)
== END ==
LOC: OD 13:26
PROVIDERS: ATTEND Family Medicine Geriatric Medicine
DX: N18.30 Chronic kidney disease, stage 3 unspecified (principal); Z79.899 Other long term (current) drug therapy
CPT/HCPCS: 36415; 83516; 83986; 86256